=== PATIENT | female | born 1990 | race Caucasian/White ===

== ENCOUNTER 2025-04-01 23:03 | Emergency (ER) | payer MEDICAID, SELFPAY ==
[2025-04-01 23:04] VITALS: BP 148/85; PULSE 89; RESP 18; TEMP 36.2; O2SAT 100; BMI 29.7
--- OUTSIDE RECORDS SUMMARY | 2025-04-01 23:31 | XMS RPT_ITS | CCD ---
Author Organization [facility] CliniSymo Care Team Providers Care Sustainable Design Consultant Name Role Phone Efe Glover Unavailable Unavailable Brodie Dinh Unavailable Unavailable Efe Glover Unavailable Unavailable Brodie Dinh Unavailable Unavailable Igor SLOT SUPERVISOR.SURY, Abhi Primary Care Provider Unavailable Primary Care Provider Unavailabl e PROVIDER, UNKNOWN Admitting Unavailable RAFFAELE SHEPARD Attending Unavailable Igor SLOT SUPERVISOR.SURY, Abhi Primary Care Provider Igor SLOT SUPERVISOR.SURY, Abhi Primary Care Provider Igor SLOT SUPERVISOR.ELEVATOR SERVICE TECHNICIAN, Abhi Primary Care Provider Mastrucci SLOT SUPERVISOR.ELEVATOR SERVICE TECHNICIAN, Pavel Primary Care Provider MASTRUCCI, PAVEL Primary Care Unavailable MASTRUCCI, PAVEL Referring Unavailable MASTRUCCI, PAVEL Primary Care Unavailable IGOR, ABHI Primary Care Unavailable IGOR, ABHI Referring Unavailable IGOR, ABHI Primary Care Unavailable IGOR, ABHI Attending Unavailable MASTRUCCI, PAVEL Attending Unavailable MASTRUCCI, PAVEL Referring Unavailable MASTRUCCI, PAVEL Primary Care Unavailable MASTRUCCI, PAVEL Attending Unavailable MASTRUCCI, PAVEL Primary Care Unavailable Allergies Allergy Classification Reported Allergen(s) Allergy Type Date of Onset Reaction(s) Facility Dust (1 source) Dust Substance Allergy 7 Unknown [facility] shrimp allergenic extract (1 source) shrimp allergenic extract Drug Allergy 5 Hives, Diarrhea, Other: See Comments [facility] (16 sources) Dust; Translations: [DUST] Propensity to adverse reactions 7 Unknown [facility] Work Phone: (17 sources) Seasonal allergy; Translations: [SEASONAL ALLERGIES] Propensity to adverse reactions 1 Other: See Comments [facility] Work Phone: (16 sources) shrimp allergenic extract; Translations: [SHRIMP] Drug Allergy 5 Hives, Diarrhea, Other: See Comments [facility] Work Phone: (17 sources) Animal Dander; Translations: [ANIMAL DANDER] Drug Allergy 1 Other: See Comments [facility] Work Phone: Medications Current Medications Medication Drug Class(es) Dates Sig (Normalized) Sig (Original) [id number] actuat albuterol 0.09 mg/actuat metered dose inhaler (16 sources) beta2-Adrenergic Agonist Start: 08-09-2023 End: 01-11-2026 take 2 puff(s) by inhalation every four hours as needed for wheezing albuterol HFA (PROVENTIL HFA, VENTOLIN HFA) 90 mcg/actuation inhaler Indications: Mild persistent asthma, unspecified whether complicated (HCC) Inhale 2 puffs as instructed every 4 hours as needed for wheezing/shortness of breath. Per Dr. Adalberto Segura7 gasper 01/12/2025 01/11/2026 Active Start: 08-10-2022 End: 08-09-2023 take 2 puff(s) by inhalation every four hours as needed for wheezing albuterol HFA (PROVENTIL HFA, VENTOLIN HFA) 90 mcg/actuation inhaler Indications: Mild persistent asthma, unspecified whether complicated Inhale 2 Puffs as instructed every 4 hours as needed for wheezing/shortness of breath. Per Dr. Glover 18 g 3 08/10/2022 08/09/2023 Discontinued Start: 07-01-2021 End: 01-22-2022 take 2 puff(s) by inhalation every four hours as needed for wheezing albuterol HFA (PROVENTIL HFA, VENTOLIN HFA) 90 mcg/actuation inhaler Indications: Mild persistent asthma, unspecified whether complicated Inhale 2 Puffs as instructed every 4 hours as needed for wheezing/shortness of breath. Per Dr. Glover 18 gasper 3 12/23/2021 Active Comment on above: Inhale 2 Puffs as in structed every 4 hours as needed for wheezing/shortness of breath. Per Dr. Adalberto azelastine hydrochloride 0.137 mg/actuat metered dose nasal spray (1 source) Histamine-1 Receptor Antagonist Start: 2024 End: 2025 take 1 spray(s) nasal route twice daily azelastine 0.1% nasal spray Indications: Mild persistent asthma, unspecified whether complicated (HCC) , Seasonal allergies Use 1 spray in each nostril two times a day. 30 mL 5 01/12/2025 01/12/2026 Active cholecalciferol 0.05 mg oral tablet (13 sources) Vitamin D Start: 2024 End: 2025 take 1 tablet by mouth once daily cholecalciferol (VITAMIN D3) 50 mcg (2,000 unit) tablet Indications: Vitamin D deficiency Take 1 tablet by mouth once daily. 90 tablet 3 10/10/2024 10/10/2025 Active Start: 12-23-2021 End: 07-14-2024 take 1 capsule by mouth once daily Cholecalciferol, Vitamin D3, (VITAMIN D) 25 mcg (1,000 unit) cap Indications: Wellness examination Take 1 capsule by mouth once daily. 90 capsule 3 12/23/2021 07/14/2024 Discontinued Comment on above: Take 1 capsule by [facility] once daily. 60 actuat formoterol fumarate 0.005 mg/actuat / mometasone furoate 0.2 mg/actuat metered dose inhaler (7 sources) Corticosteroid, beta2-Adrenergic Agonist Start: 12-31-19 End: 04-12-20 25 take 2 puff(s) by inhalation twice daily mometasone-formoter ol (DULERA) 200-5 mcg/actuation inhaler Indications: Mild persistent asthma, unspecified whether complicated (HCC) Inhale 2 puffs as instructed two times a day. 8.8 g 3 01/12/2025 04/12/2025 Active montelukast 10 mg oral tablet (1 source) Leukotriene Receptor Antagonist Start: 01-13-20 End: 01-13-20 26 take 1 tablet by mouth once daily at bedtime montelukast (SINGULAIR) 10 mg tablet Indications: Mild persistent asthma, unspecified whether complicated (HCC) , Seasonal allergies Take 1 tablet by mouth daily at bedtime. 90 tablet 3 01/12/2025 01/12/2026 Active sertraline 50 mg oral tablet (20 sources) Serotonin Reuptake Inhibitor Start: 08-09-19 End: 07-14-20 take 3 tablets by mouth once daily sertraline (ZOLOFT) 50 mg tablet Indications: Anxiety Take 3 tablets by mouth once daily. 270 tablet 3 07/14/2024 07/14/2025 Active Start: 05-10-2023 End: 08-09-2023 take 1.5 tablets by mouth once daily sertraline (ZOLOFT) 100 mg tablet Indications: Anxiety Take 1.5 tablets by mouth once daily. No additional refills will be provided without appointment with PCP or internal medicine 135 tablet 0 05/10/2023 08/09/2023 Discontinued Start: 04-12-2023 End: 05-07-2023 take 1.5 tablets by mouth once daily sertraline (ZOLOFT) 100 mg tablet Indications: Anxiety Take 1.5 tablets by mouth once daily. 45 tablet 0 04/12/2023 05/07/2023 Discontinued Start: 08-10-2022 End: 04-09-2023 take 1.5 tablets by mouth once daily sertraline (ZOLOFT) 100 mg tablet Indications: Anxiety Take 1.5 tablets by mouth once daily. 45 tablet 3 09/09/2022 04/09/2023 Discontinued Start: 04-09-2022 take 1.5 tablets by mouth once daily sertraline (ZOLOFT) 100 mg tablet Indications: Anxiety Take 1.5 tablets by mouth once daily. 45 tablet 3 04/09/2022 Active Start: 12-03-2021 End: 04-07-2022 take 1.5 tablets by mouth once daily sertraline (ZOLOFT) 100 mg tablet Indications: Anxiety Take 1.5 tablets by mouth once daily. 45 tablet 3 12/03/2021 04/07/2022 Discontinued Start: 11-02-2021 take 1.5 tablets by mouth once daily sertraline (ZOLOFT) 100 mg tablet Indications: Anxiety Take 1.5 tablets by mouth once daily. 45 tablet 0 11/02/2021 Active Start: 07-01-2021 End: 10-31-2021 take 1.5 tablets by mouth once daily sertraline (ZOLOFT) 100 mg tablet Indications: Anxiety Take 1.5 tablets by mouth once daily. 45 tablet 3 07/01/2021 10/31/2021 Discontinued Comment on above: Take 1.5 tablets by mouth once daily. Take 1.5 tablets by mouth once daily. No additional refills will be provided without appointment with PCP or internal medicine Completed/Discontinued Medications Medication Drug Class(es) Dates Sig (Normalized) Sig (Original) ergocalciferol 1.25 mg oral capsule (2 sources) Provitamin D2 Compound Start: 2021 End: 12-23-2021 take 1 capsule by mouth every week ergocalciferol 50,000 unit capsule (VITAMIN D2, DRISDOL) Take 1 capsule by mouth one time a week. 12 capsule 0 2021 12/23/2021 Discontinued Comment on above: Take 1 capsule by [facility] one time a week. fluticasone / salmeterol (11 sources) Corticosteroid, beta2-Adrenergic Agonist Start: 12-23-2021 End: 12-31-2023 take 1 dose by mouth twice daily fluticasone-salmeter ol (ADVAIR) 500-50 mcg/dose dsdv Indications: Mild persistent asthma, unspecified whether complicated INHALE 1 DOSE BY MOUTH TWICE DAILY 1 Each 3 12/23/2021 12/31/2023 Discontinued Start: 12-23-2021 take 1 dose by mouth twice daily fluticasone-salmeterol (ADVAIR) 500-50 mcg/dose dsdv Indications: Mild persistent asthma, unspecified whether complicated INHALE 1 DOSE BY MOUTH TWICE DAILY 1 Each 3 12/23/2021 Active Start: 07-01-2021 End: 12-23-2021 take 1 dose by mouth twice daily fluticasone-salmeterol (ADVAIR) 500-50 mcg/dose dsdv Indications: Mild persistent asthma, unspecified whether complicated INHALE 1 DOSE BY MOUTH TWICE DAILY 1 Each 3 12/23/2021 Active Start: 07-01-2021 take 1 dose by mouth twice daily fluticasone-salmeterol (ADVAIR) 500-50 mcg/dose dsdv Indications: Mild persistent asthma, unspecified whether complicated INHALE 1 DOSE BY MOUTH TWICE DAILY 1 Each 3 07/01/2021 Active Comment on above: INHALE 1 DOSE BY KAEL TH TWICE DAILY 1 ml ketorolac tromethamine 15 mg/ml cartridge (1 source) Nonsteroidal Anti-inflammatory Drug, Cyclooxygenase Inhibitor Start: 01-14-2022 End: 01-14-2022 ketorolac (TORADOL) 15 MG/ML injection 2 ml ondansetron 2 mg/ml injection (2 sources) Serotonin-3 Receptor Antagonist Start: 01-14-2022 End: 01-14-2022 ondansetron (ZOFRAN) 4 MG/2ML injection Start: 01-14-2022 take 1 tablet by kael th every six hours as needed for nausea ondansetron (Zofran ODT) 4 MG disintegrating tablet Take 1 Tablet by mouth every 6 hours as needed for Nausea (Vomiting). Place 1 tablet under tongue as needed for nausea. 20 Tablet 0 01/14/2022 Active 50 ml sodium chloride 9 mg/m l injection (1 source) Start: 01-14-2022 End: 01-15-2022 sodium chloride 0.9 % iv danika us Problems Active Problems Problem Classification Problem Date Documented Da te Episodic/Chronic Abdominal pain (1 source) Flank pain; Translations: [Unspecified abdominal pain] 10-20-2024 Episodic Anxiety disorders (20 sources) Anxiety; Translations: [Anxiety disorder, unspecified] Onset: 08-02-2010 Chronic Asthma (19 sources) Mild persistent asthma; Translations: [Mild persistent asthma, uncomplicated] Onset: 11-14-2005 06-13-2017 Chronic Disorders of lipid metabolism (20 sources) Mixed hyperlipidemia; Translations: [Mixed hyperlipidemia] Onset: 03-27-2019 11-14-2019 Chronic Immunizations and screening for infectious disease (2 sources) Vaccination needed; Translations: [Encounter for immunization] Episodic Nutritional deficiencies (5 sources) Vitamin D deficiency; Translations: [Vitamin D deficiency, unspecified] Onset: 07-14-2024 12-31-2023 Chronic Other aftercare (1 source) Encounter for follow-up examination after completed treatment for conditions other than malignant neoplasm; Translations: [Follow-up exam] Onset: 01-12-2025 Episodic Other nutritional; endocrine; and metabolic disorders (1 source) Body mass index 25-29 - overweight; Translations: [Overweight] 05-24-2023 Episodic Other upper respiratory disease (1 source) Seasonal allergy; Translations: [Other seasonal allergic rhinitis] 01-12-2025 Chronic Other upper respiratory disease (1 source) Other seasonal allergic rhinitis; Translations: [Seasonal allergies] Onset: 01-12-2025 Chronic Residual codes; unclassified (1 source) Immunization not carried out because of patient refusal; Translations: [Vaccination not carried out because of patient refusal] 05-24-2023 Episodic Past or Other Problems Problem Classification Problem Date Documented Date Episodic/Chronic Administrative/social admission (2 sources) First encounter by subject; Translations: [Persons encountering health services in other specified circumstances] Onset: 07-14-2024 07-14-2024 Episodic Mood disorders (6 sources) Depressive disorder; Translations: [Depression] Onset: 01-30-2015 Resolved: 11-17-2016 11-17-2016 Chronic Nausea and vomiting (2 sources) Nausea and vomiting; Translations: [Nausea with vomiting, unspecified] Onset: 05-23-2012 Resolved: 12-27-2014 Episodic Other complications of (6 sources) History of with abortive outcome; Translations: [Supervision of with other poor reproductive or obstetric history, unspecified trimester] Onset: 05-23-2012 Resolved: 12-27-2014 07-28-2021 Episodic Other complications of (6 sources) H/O: depression; Translations: [History of depression, currently ] Onset: 05-23-2012 Resolved: 12-27-2014 07-28-2021 Episodic Other complications of (6 sources) Late entry into care; Translations: [Supervision of with insufficient care, unspecified trimester] Onset: 06-21-2012 Resolved: 12-27-2014 12-27-2014 Episodic Other complications of (6 sources) High risk ; Translations: [Supervision of high risk , unspecified, unspecified trimester] Onset: 06-21-2012 Resolved: 12-27-2014 07-28-2021 Episodic Other complications of (5 sources) Vomiting of , unspecified; Translations: [Unspecified vomiting of , unspecified as to episode of care or not applicable] Onset: 05-23-2012 Resolved: 12-27-2014 08-12-2021 Episodic Other infections; including parasitic (15 sources) History of herpes zoster; Translations: [Personal history of other infectious and parasitic diseases] Onset: 09-15-2012 Resolved: 07-14-2024 1 Episodic Other lower respiratory disease (10 sources) Chronic cough; Translations: [Chronic cough] Onset: 06-07-2017 03-05-2020 Episodic Other screening for suspected conditions (not mental disorders or infectious disease) (20 sources) Patient encounter status; Translations: [Encounter for screening for diabetes mellitus] Onset: 10-23-2016 10-23-2016 Episodic Other skin disorders (15 sources) Vesicular eczema; Translations: [Dyshidrosis [pompholyx]] Onset: 01-30-2015 09-23-2018 Episodic Ovarian cyst (6 sources) Cyst of ovary; Translations: [Unspecified ovarian cyst, unspecified side] Onset: 07-18-2012 Resolved: 12-27-2014 07-28-2021 Episodic Residual codes; unclassified (10 sources) FH: Congenital anomaly; Translations: [Family history of other congenital malformations, deformations and chromosomal abnormalities] Onset: 05-23-2012 07-28-2021 Episodic Residual codes; unclassified (15 sources) Abnormal cytology findings; Translations: [LGSIL (low grade squamous intraepithelial dysplasia)] Onset: 07-05-2012 07-28-2021 Episodic Residual codes; unclassified (15 sources) Family history of cardiac disorder; Translations: [Family history of ischemic heart disease and other diseases of the circulatory system] Onset: 03-23-2019 Resolved: 07-14-2024 04-03-2019 Episodic Residual codes; unclassified (6 sources) Rubella non-immune; Translations: [Other specified health status] Onset: 05-25-2012 Resolved: 12-27-2014 12-27-2014 Episodic Screening and history of mental health and substance abuse codes (1 source) Encounter for screening for depression; Translations: [Screening for depression] Onset: 07-14-2024 Episodic Results Test Name Value Interpretation Reference Range Facility [facility] 01-12-2025 CNCO Letter Text Normal [facility] CNOVon 01-12-2025 CNOV Office Visit (AGSAM) ----- KRISTINE FREEMAN ([id number]) 1990 F Date Time Provider Department 01/12/25 10:20 AM PAVEL MUNGUIA During your visit today, we recorded the following information about you: Pulse Respiration Blood pressure Weight 90/minute 16/minute 117/81 72.6 kg Pavel Munguia APRN.CNP 01/12/2025 10:05 AM Signed [facility] [address] [place] [address] Date of Evaluation: 01/12/2025 Patient Name: Kristine Freeman : 1990 Chief Complaint: Patient presents with: Follow Up: 6 Month. Allergies have been bad. [place] Itchy red eyes, nose, sore throat, sneezing. Subjective HPI Ms. Freeman is a 34 year old female who presents for: Follow up Current concerns: [place] and had increase in allergy symptoms for the past month. No OTC medications. Continues to work on diet and exercise to improve her lipids. Review of Systems Constitutional: Negative for activity change, appetite change, chills and fever. HENT: Positive for congestion, rhinorrhea and sneezing. Negative for ear pain, hearing loss, sinus pressure, sinus pain, sore throat and trouble swallowing. Eyes: Positive for itching. Negative for visual disturbance. Respiratory: Negative for cough, chest tightness, shortness of breath and wheezing. Cardiovascular: Negative for chest pain, palpitations and leg swelling. Gastrointestinal: Negative for abdominal pain, diarrhea, nausea and vomiting. Genitourinary: Negative for dysuria and frequency. Musculoskeletal: Negative for arthralgias and myalgias. Skin: Negative for pallor, rash and wound. Neurological: Negative for dizziness, light-headedness, numbness and headaches. Psychiatric/Behavioral: Negative for behavioral problems, confusion, hallucinations and suicidal ideas. PAST MEDICAL HISTORY Diagnosis Date Anxiety 2010 Had anxiety for a long time, possibly since middle school. Only diagnosed 6 years ago. Asthma, mild persistent (HCC) 11/14/2005 As of 06/07/2017: Managed per Dr. Glover Dyshidrotic eczema 01/30/2015 Family history of defect 05/23/2012 05/23/2012Patient states that her daughter was born with Rett syndrome with mental retardation. Family history of heart disease 03/23/2019 father at the age of 55 from Heart aneurism. History of section 05/23/2012 05/23/2012Pt had two previous C sections at [facility] in [place], [place]. She desires a repeat C section by Dr. Callie Barraza. History of shingles 09/15/2012 September 15, 2012 shingles diagnosed and ordered acyclovir-risk of transmission extremely low, recommend fu US at 30 weeks, follow growth PRN Hyperlipidemia, mixed 03/27/2019 LGSIL (low grade squamous intraepithelial dysplasia) 07/05/2012 Ovarian cyst right depression Shingles 09/15/2012 September 15, 2012 shingles diagnosed and ordered acyclovir-risk of transmission extremely low, recommend fu US at 30 weeks, follow growth PRN Well adult exam 03/23/2019 Last Done: 03/23/2019 PAST SURGICAL HISTORY Procedure Laterality Date DELIVERY ONLY , low transverseX2 DELIVERY ONLY 12/27/12 , low transverse DILATION AND CURETTAGE TUBAL LIGATION, 2012 VAGINOSCOPY 07/11/2012 FAMILY HISTORY Problem Relation Age of Onset Hypertension Mother other (Other) Mother MS Diabetes Father Kidney Disease Father Heart Father 55 of a heart anyurism Heart Paternal Grandfather Social History Tobacco Use Smoking status: Former Smokeless tobacco: Never Tobacco comments: quit early this year Substance Use Topics Alcohol use: No Drug use: No Current Outpatient Medications Medication Sig cholecalciferol (VITAMIN D3) 50 mcg (2,000 unit) tablet Take 1 tablet by mouth once daily. sertraline (ZOLOFT) 50 mg tablet Take 3 tablets by mouth once daily. montelukast (SINGULAIR) 10 mg tablet Take 1 tablet by mouth daily at bedtime. azelastine 0.1% nasal spray Use 1 spray in each nostril two times a day. albuterol HFA (PROVENTIL HFA, VENTOLIN HFA) 90 mcg/actuation inhaler Inhale 2 puffs as instructed every 4 hours as needed for wheezing/shortness of breath. Per Dr. Adalberto mometasone-formoterol (DULERA) 200-5 mcg/actuation inhaler Inhale 2 puffs as instructed two times a day. No current facility-administered medications for this visit. I have confirmed and edited as necessary the chief complaint, medications, past medical, family and social histories obtained by others. Objective BP 117/81 Pulse 90 Resp 16 Wt 160 lb (72.6kg) SpO2 100% LMP 10/10/2024 Physical Exam Vitals reviewed. Constitutional: General: She is not in acute distress. Appearance: Normal a (more content not included)... Normal [facility] Bacteria Ur Culton 5 Bacteria identified Cx Nom (U) ORGANISM ID: 1 <10,000 CFU/ml Normal urogenital irene Normal [facility] Comment on above: Performed By: #### 6 30-4 #### [facility] CLIA [id number] [address] [place] [address] [facility] CNOVon 10-20-2024 CNOV Office Visit (UCWSTR ) ----- KRISTINE FREEMAN ([id number]) 1990 F Date Time Provider Department 10/20/24 11:00 AM [facility] During your visit today, we recorded the following information about you: Temperature Pulse Respiration Blood pressure 97 degrees 64/minute 20/minute 149/88 Weight Last Period 72 kg 10/10/24 Lucy Mobley APRN.ELEVATOR SERVICE TECHNICIAN 10/20/2024 11:12 AM Signed History has been obtained from the patient SUBJECTIVE: Kristine Freeman is a 34 year old female. Who presents today with L flank pain. 4 days ago she had pain in the L groin. That pain is gone and now it is just in the flank. She has no urinary symptoms of frequency burning pain with urination. She has no blood in the urine. At times she had a few shooting pain in the LLQ. The pain feels achy and dull. She has not had a rash. She has had shingles in the past but this feels different. She does not have a fever. She has had a history of kidney stones. This does feel reminiscent of the kidney stones however she has not had blood in the urine. However she states that the pain seems to move from the flank into the abdomen into the groin. History and Record Review External record(s) reviewed: prior outpatient record. Differential Diagnoses - kidney stone is more likely for the following reason(s): suggested by HANDP - shingles - UTI is less likely for the following reason(s): laboratory studies not suggestive PAST MEDICAL HISTORY Diagnosis Date Anxiety 2010 Had anxiety for a long time, possibly since middle school. Only diagnosed 6 years ago. Asthma, mild persistent 11/14/2005 As of 06/07/2017: Managed per Dr. Glover Dyshidrotic eczema 01/30/2015 Family history of defect 05/23/2012 05/23/2012Patient states that her daughter was born with Rett syndrome with mental retardation. Family history of heart disease 03/23/2019 father at the age of 55 from Heart aneurism. History of section 05/23/2012 05/23/2012Pt had two previous C sections at [facility] in [place], [place]. She desires a repeat C section by Dr. Callie Barraza. History of shingles 09/15/2012 September 15, 2012 shingles diagnosed and ordered acyclovir-risk of transmission extremely low, recommend fu US at 30 weeks, follow growth PRN Hyperlipidemia, mixed 03/27/2019 LGSIL (low grade squamous intraepithelial dysplasia) 07/05/2012 Ovarian cyst right depression Shingles 09/15/2012 September 15, 2012 shingles diagnosed and ordered acyclovir-risk of transmission extremely low, recommend fu US at 30 weeks, follow growth PRN Well adult exam 03/23/2019 Last Done: 03/23/2019 FAMILY HISTORY Problem Relation Age of Onset Hypertension Mother other (Other) Mother MS Diabetes Father Kidney Disease Father Heart Father 55 of a heart anyurism Heart Paternal Grandfather Social History Tobacco Use Smoking status: Former Smokeless tobacco: Never Tobacco comments: quit early this year Substance Use Topics Alcohol use: No Drug use: No ALLERGIES Allergen Reactions Shrimp Hives, Diarrhea, Other: See Comments Throat felt slightly constricted Animal Dander Other: See Comments ALLERGIC TO DOG AND CAT HAIR Dust Unknown Seasonal Allergies Other: See Comments NASAL CONGESTION Current Outpatient Medications Medication Sig Dispense Refill cholecalciferol (VITAMIN D3) 50 mcg (2,000 unit) tablet Take 1 tablet by mouth once daily. 90 tablet 3 sertraline (ZOLOFT) 50 mg tablet Take 3 tablets by mouth once daily. 270 tablet 3 albuterol HFA (PROVENTIL HFA, VENTOLIN HFA) 90 mcg/actuation inhaler Inhale 2 Puffs as instructed every 4 hours as needed for wheezing/shortness of breath. Per Dr. Glover 6.7 g 0 mometasone-formoterol (DULERA) 200-5 mcg/actuation inhaler Inhale 2 Puffs as instructed two times a day. 8.8 g 3 No current facility-administered medications for this visit. OBJECTIVE: BP 149/88 Pulse 64 Temp 36.1 ?C (97 ?F) Resp 20 Wt 72 kg (158 lb 11.7 oz) LMP 10/10/2024 (Approximate) SpO2 99% BMI 29.03 kg/m? ROS all other systems reviewed and are negative Physical Exam Constitutional: Well developed, well nourished, NAD, AANDO X3 ENT: Head is atraumatic, airway patent, mucosal membranes moist pink Cardiac: Heart tone normal rate and rhythm Respiratory: Respirations even and unlabored, Lung sounds clear GI: Abdomen soft and non-distended, non-tenderness, no rebound or guarding, bowel sounds normal. : + left CVA tenderness MS: no swelling, or deformity in upper or lower extremities, no midline tenderness in cervical, thoracic or lumbar spine. Neuro: strength sensation and coordination intact. CN II-XII grossly intact, Skin: warm and dry with out rash, lesion or ecchymosis on exposed skin Psych: alert appropriate, speech clear MDM It was a pleasure to (more content not included)... Normal [facility] UA DIP, URINE (POC)on 2024 BILIRUBIN UA (POCT) Negative Negative [facility] CLARITY UA (POCT) Clear [facility] COLOR UA (POCT) Yellow [facility] GLUCOSE UA (POCT) Negative Negative mg/dL [facility] Hemoglobin Ql (U) Negative Negative [facility] KETONE UA (POCT) Negative Negative mg/dL [facility] LEUKOCYTES UA (POCT) Negative Negative [facility] NITRITE UA (POCT) Negative Negative [facility] PH UA (POCT) 6.5 4.5 - 8.0 [facility] Protein Ql (U) Negative Negative mg/dL [facility] SPECIFIC GRAVITY UA (POCT) 1.02 1.005 - 1.030 [facility] UROBILINOGEN UA (POCT) 0.2 Normal E.U./dL [facility] Location:[facility], [address] [place] [address], [place], [place], [id number] [place] [address] POINT OF CARE [facility] 25(OH)D3 SerPl-ncon 2024 25-hydroxyvitamin D3 [Mass/Vol] 17.9 ng/mL Low 31.0-80.0 [facility] Comment on above: Order Comment: Speci men Type: BLOOD SPECIMEN Ordering Facility: [facility] Address: [address] [place] [address] Performed By: #### 1 989-3 #### [facility] CLIA [id number] [address] [place] [address] [place] CBC W Auto Differential pane l (Bld)on 10-09-2024 Basophils (Bld) [#/Vol] 0.06 10*3/uL Normal <0.11 [facility] Comment on above: Order Comment: Speci men Type: BLOOD SPECIMEN Ordering Facility: [facility] Address: [address] [place] [address] Performed By: #### 5 7021-8 #### [facility] CLIA [id number] [address] [place] [address] [place] Basophils/100 WBC (Bld) 1.2 % Normal [facility] Comment on above: Order Comment: Speci men Type: BLOOD SPECIMEN Ordering Facility: [facility] Address: [address] [place] [address] Performed By: #### 5 7021-8 #### [facility] CLIA [id number] [address] [place] [address] [place] Differential cell count method Nom (Bld) Auto Normal [facility] Comment on above: Order Comment: Speci men Type: BLOOD SPECIMEN Ordering Facility: [facility] Address: [address] [place] [address] Performed By: #### 5 7021-8 #### [facility] CLIA [id number] [address] [place] [address] [place] Eosinophils (Bld) [#/Vol] 0.66 10*3/uL High <0.46 [facility] Comment on above: Order Comment: Speci men Type: BLOOD SPECIMEN Ordering Facility: [facility] Address: [address] [place] [address] Performed By: #### 5 7021-8 #### [facility] CLIA [id number] [address] [place] [address] [place] Eosinophils/100 WBC (Bld) 13.3 % Normal [facility] Comment on above: Order Comment: Speci men Type: BLOOD SPECIMEN Ordering Facility: [facility] Address: [address] [place] [address] Performed By: #### 5 7021-8 #### [facility] CLIA [id number] [address] [place] [address] [place] Erythrocyte distribution width (RBC) [Ratio] 13.2 % Normal 11.5-15.0 [facility] Comment on above: Order Comment: Speci men Type: BLOOD SPECIMEN Ordering Facility: [facility] Address: [address] [place] [address] Performed By: #### 5 7021-8 #### [facility] CLIA [id number] [address] [place] [address] [place] Hematocrit (Bld) [Volume fraction] 41.2 % Normal 36.0-46.0 [facility] Comment on above: Order Comment: Speci men Type: BLOOD SPECIMEN Ordering Facility: [facility] Address: [address] [place] [address] Performed By: #### 5 7021-8 #### [facility] CLIA [id number] [address] [place] [address] [place] Hemoglobin (Bld) [Mass/Vol] 13.3 g/dL Normal 11.5-15.5 [facility] Comment on above: Order Comment: Speci men Type: BLOOD SPECIMEN Ordering Facility: [facility] Address: [address] [place] [address] Performed By: #### 5 7021-8 #### [facility] CLIA [id number] [address] [place] [address] [place] Immature granulocytes (Bld) [#/Vol] 10*3/uL Normal <0.10 [facility] Comment on above: Order Comment: Speci men Type: BLOOD SPECIMEN Ordering Facility: [facility] Address: [address] [place] [address] Performed By: #### 5 7021-8 #### [facility] CLIA [id number] [address] [place] [address] [place] Immature granulocytes/100 WBC (Bld) 0.4 % Normal [facility] Comment on above: Order Comment: Speci men Type: BLOOD SPECIMEN Ordering Facility: [facility] Address: [address] [place] [address] Performed By: #### 5 7021-8 #### [facility] CLIA [id number] [address] [place] [address] [place] Lymphocytes (Bld) [#/Vol] 1.90 10*3/uL Normal 1.00-4.00 [facility] Comment on above: Order Comment: Speci men Type: BLOOD SPECIMEN Ordering Facility: [facility] Address: [address] [place] [address] Performed By: #### 5 7021-8 #### [facility] CLIA [id number] [address] [place] [address] [place] Lymphocytes/100 WBC (Bld) 38.2 % Normal [facility] Comment on above: Order Comment: Speci men Type: BLOOD SPECIMEN Ordering Facility: [facility] Address: [address] [place] [address] Performed By: #### 5 7021-8 #### [facility] CLIA [id number] [address] [place] [address] [place] MCH (RBC) [Entitic mass] 27.7 pg Normal 26.0-34.0 [facility] Comment on above: Order Comment: Speci men Type: BLOOD SPECIMEN Ordering Facility: [facility] Address: [address] [place] [address] Performed By: #### 5 7021-8 #### [facility] CLIA [id number] [address] [place] [address] [place] MCHC (RBC) [Mass/Vol] 32.3 g/dL Normal 30.5-36.0 [facility] Comment on above: Order Comment: Speci men Type: BLOOD SPECIMEN Ordering Facility: [facility] Address: [address] [place] [address] Performed By: #### 5 7021-8 #### [facility] CLIA [id number] [address] [place] [address] [place] MCV (RBC) [Entitic vol] 85.8 fL Normal 80.0-100.0 [facility] Comment on above: Order Comment: Speci men Type: BLOOD SPECIMEN Ordering Facility: [facility] Address: [address] [place] [address] Performed By: #### 5 7021-8 #### [facility] CLIA [id number] [address] [place] [address] [place] Monocytes (Bld) [#/Vol] 0.30 10*3/uL Normal <0.87 [facility] Comment on above: Order Comment: Speci men Type: BLOOD SPECIMEN Ordering Facility: [facility] Address: [address] [place] [address] Performed By: #### 5 7021-8 #### [facility] CLIA [id number] [address] [place] [address] [place] Monocytes/100 WBC (Bld) 6.0 % Normal [facility] Comment on above: Order Comment: Speci men Type: BLOOD SPECIMEN Ordering Facility: [facility] Address: [address] [place] [address] Performed By: #### 5 7021-8 #### [facility] CLIA [id number] [address] [place] [address] [place] Neutrophils (Bld) [#/Vol] 2.04 10*3/uL Normal 1.45-7.50 [facility] Comment on above: Order Comment: Speci men Type: BLOOD SPECIMEN Ordering Facility: [facility] Address: [address] [place] [address] Performed By: #### 5 7021-8 #### [facility] CLIA [id number] [address] [place] [address] [place] Neutrophils/100 WBC (Bld) 40.9 % Normal [facility] Comment on above: Order Comment: Speci men Type: BLOOD SPECIMEN Ordering Facility: [facility] Address: [address] [place] [address] Performed By: #### 5 7021-8 #### [facility] CLIA [id number] [address] [place] [address] [place] Nucleated RBC (Bld) [#/Vol] 10*3/uL Normal <0.01 [facility] Comment on above: Order Comment: Speci men Type: BLOOD SPECIMEN Ordering Facility: [facility] Address: [address] [place] [address] Performed By: #### 5 7021-8 #### [facility] CLIA [id number] [address] [place] [address] [place] Nucleated RBC/100 WBC (Bld) [Ratio] 0.0 /100 WBC Normal [facility] Comment on above: Order Comment: Speci men Type: BLOOD SPECIMEN Ordering Facility: [facility] Address: [address] [place] [address] Performed By: #### 5 7021-8 #### [facility] CLIA [id number] [address] [place] [address] [place] Platelet mean volume (Bld) [Entitic vol] 9.3 fL Normal 9.0-12.7 [facility] Comment on above: Order Comment: Speci men Type: BLOOD SPECIMEN Ordering Facility: [facility] Address: [address] [place] [address] Performed By: #### 5 7021-8 #### [facility] CLIA [id number] [address] [place] [address] [place] Platelets (Bld) [#/Vol] 281 10*3/uL Normal 150-400 [facility] Comment on above: Order Comment: Speci men Type: BLOOD SPECIMEN Ordering Facility: [facility] Address: [address] [place] [address] Performed By: #### 5 7021-8 #### [facility] CLIA [id number] [address] [place] [address] [place] RBC (Bld) [#/Vol] 4.80 10*6/uL Normal 3.90-5.20 [facility] Comment on above: Order Comment: Speci men Type: BLOOD SPECIMEN Ordering Facility: [facility] Address: [address] [place] [address] Performed By: #### 5 7021-8 #### [facility] CLIA [id number] [address] [place] [address] [place] WBC (Bld) [#/Vol] 4.98 10*3/uL Normal 3.70-11.00 [facility] Comment on above: Order Comment: Speci men Type: BLOOD SPECIMEN Ordering Facility: [facility] Address: [address] [place] [address] Performed By: #### 5 7021-8 #### [facility] CLIA [id number] [address] [place] [address] [place] Comprehensive metabolic 2000 panelon 10-09-2024 Albumin [Mass/Vol] 4.3 g/dL Normal 3.9-4.9 [facility] Comment on above: Order Comment: Speci men Type: BLOOD SPECIMEN Ordering Facility: [facility] Address: [address] [place] [address] Performed By: #### 2 4323-8, 57519-0, 3016-3 #### [facility] CLIA [id number] [address] [place] [address] [place] ALP [Catalytic activity/Vol] 45 U/L Normal 34-123 [facility] Comment on above: Order Comment: Speci men Type: BLOOD SPECIMEN Ordering Facility: [facility] Address: [address] [place] [address] Performed By: #### 2 4323-8, 80259-3, 3016-3 #### [facility] CLIA [id number] [address] [place] [address] [place] ALT [Catalytic activity/Vol] 11 U/L Normal 7-38 [facility] Comment on above: Order Comment: Speci men Type: BLOOD SPECIMEN Ordering Facility: [facility] Address: [address] [place] [address] Performed By: #### 2 4323-8, 55413-6, 3016-3 #### [facility] CLIA [id number] [address] [place], [place] [address] [place] Anion gap [Moles/Vol] 8 mmol/L Normal 8-15 [facility] Comment on above: Order Comment: Speci men Type: BLOOD SPECIMEN Ordering Facility: [facility] Address: [address] [place], [place] [address] Performed By: #### 2 4323-8, 72204-9, 3015-3 #### [facility] CLIA [id number] [address] [place], [place] [address] [place] AST [Catalytic activity/Vol] 20 U/L Normal 13-35 [facility] Comment on above: Order Comment: Speci men Type: BLOOD SPECIMEN Ordering Facility: [facility] Address: [address] [place], [place] [address] Performed By: #### 2 4323-8, 48280-2, 3 #### [facility] CLIA [id number] [address] [place] [address] [place] Bilirubin [Mass/Vol] 0.9 mg/dL Normal 0.2-1.3 [facility] Comment on above: Order Comment: Speci men Type: BLOOD SPECIMEN Ordering Facility: [facility] Address: [address] [place], [place] [address] Performed By: #### 2 4323-8, 65267-6, 3 #### [facility] CLIA [id number] [address] [place], [place] [address] [place] Calcium [Mass/Vol] 9.1 mg/dL Normal 8.5-10.2 [facility] Comment on above: Order Comment: Speci men Type: BLOOD SPECIMEN Ordering Facility: [facility] Address: [address] [place], [place] [address] Performed By: #### 2 4323-8, 49837-4, 3 #### [facility] CLIA [id number] [address] [place], [place] [address] [place] Chloride [Moles/Vol] 106 mmol/L Normal 98-107 [facility] Comment on above: Order Comment: Speci men Type: BLOOD SPECIMEN Ordering Facility: [facility] Address: [address] [place] [address] Performed By: #### 2 4323-8, 11573-7, 3015-3 #### [facility] CLIA [id number] [address] [place] [address] [place] CO2 [Moles/Vol] 26 mmol/L Normal 22-30 [facility] Comment on above: Order Comment: Speci men Type: BLOOD SPECIMEN Ordering Facility: [facility] Address: [address] [place] [address] Performed By: #### 2 4323-8, 79029-5, 3 #### [facility] CLIA [id number] [address] [place] [address] [place] Creatinine [Mass/Vol] 0.84 mg/dL Normal 0.58-0.96 [facility] Comment on above: Order Comment: Speci men Type: BLOOD SPECIMEN Ordering Facility: [facility] Address: [address] [place] [address] Performed By: #### 2 4323-8, 49501-3, 3 #### [facility] CLIA [id number] [address] [place] [address] [place] Creatinine and Glomerular filtration rate.predicted panel (S/P/Bld) 93 mL/min/1.73m??? Normal >=60 [facility] Comment on above: Order Comment: Speci men Type: BLOOD SPECIMEN Ordering Facility: [facility] Address: [address] [place] [address] Result Comment: Nidai mated Glomerular Filtration Rate (eGFR) is calculated using the 2020 CKD-EPI creatinine equation. This equation utilizes serum creatinine, sex, and age as parameters. The creatinine assay has traceable calibration to isotope dilution-mass spectrometry. Refer to KDIGO guidelines for clinical interpretation. In patients with unstable renal function, e.g. those with acute kidney injury, the eGFR may not accurately reflect actual GFR. Performed By: #### 2 4323-8, 13102-4, 3016-3 #### [facility] CLIA [id number] [address] [place], [place] [address] [place] Glucose [Mass/Vol] 87 mg/dL Normal 74-99 [facility] Comment on above: Order Comment: Hans dawson Type: BLOOD SPECIMEN Ordering Facility: [facility] Address: [address] [place] [address] Result Comment: The [place] Diabetes [employer] (ADA) provides guidance for cutoff values for fasting glucose and random glucose. The ADA defines fasting as no caloric intake for at least 8 hours. Fasting plasma glucose results between 100 to 125 mg/dL indicate increased risk for diabetes (prediabetes). Fasting plasma glucose results greater than or equal to 126 mg/dL meet the criteria for diagnosis of diabetes. In the absence of unequivocal hyperglycemia, results should be confirmed by repeat testing. In a patient with classic symptoms of hyperglycemia or hyperglycemic crisis, random plasma glucose results greater than or equal to 200 mg/dL meet the criteria for diagnosis of diabetes. Reference: Standards of Medical Care in Diabetes 2016, [place] [employer]. Diabetes Care. 2016.39(Suppl 1). Performed By: #### 2 4323-8, 68547-1, 6-3 #### [facility] CLIA [id number] [address] [place] [address] [place] Potassium [Moles/Vol] 4.6 mmol/L Normal 3.7-5.1 [facility] Comment on above: Order Comment: Hans dawson Type: BLOOD SPECIMEN Ordering Facility: [facility] Address: [address] [place] [address] Performed By: #### 2 4323-8, 92332-0, 6-3 #### [facility] CLIA [id number] [address] [place] [address] [place] Protein [Mass/Vol] 6.5 g/dL Normal 6.3-8.0 [facility] Comment on above: Order Comment: Hans dawson Type: BLOOD SPECIMEN Ordering Facility: [facility] Address: [address] [place] [address] Performed By: #### 2 4323-8, 70466-8, 3016-3 #### [facility] CLIA [id number] [address] [place], [place] [address] [place] Sodium [Moles/Vol] 140 mmol/L Normal 136-144 [facility] Comment on above: Order Comment: Speci men Type: BLOOD SPECIMEN Ordering Facility: [facility] Address: [address] [place] [address] Performed By: #### 2 4323-8, 64387-2, 3016-3 #### [facility] CLIA [id number] [address] [place] [address] [place] Urea nitrogen [Mass/Vol] 12 mg/dL Normal 7-21 [facility] Comment on above: Order Comment: Speci men Type: BLOOD SPECIMEN Ordering Facility: [facility] Address: [address] [place] [address] Performed By: #### 2 4323-8, 23282-3, 3016-3 #### [facility] CLIA [id number] [address] [place] [address] [place] Lipid 1996 panelon 5 Cholesterol [Mass/Vol] 232 mg/dL High <200 [facility] Comment on above: Order Comment: Speci men Type: BLOOD SPECIMEN Ordering Facility: [facility] Address: [address] [place], [place] [address] Result Comment: <200 mg/dL, Desirable 200-239 mg/dL, Borderline high >239 mg/dL, High Performed By: #### 2 4323-8, 45762-8, 3016-3 #### [facility] CLIA [id number] [address] [place] [address] [place] Cholesterol in HDL [Mass/Vol] 61 mg/dL Normal >39 [facility] Comment on above: Order Comment: Speci men Type: BLOOD SPECIMEN Ordering Facility: [facility] Address: [address] [place], [place] [address] Result Comment: 40-5 9 mg/dL, Acceptable >59 mg/dL, High: Negative risk factor for coronary heart disease <40 mg/dL, Low: Positive risk factor for coronary heart disease Performed By: #### 2 4323-8, 67779-2, 6-3 #### [facility] CLIA [id number] [address] [facility] [address] [address] [place] Cholesterol in LDL [Mass/Vol] 159 mg/dL High <100 [facility] Comment on above: Order Comment: Dianei men Type: BLOOD SPECIMEN Ordering Facility: [facility] Address: [address] [place] [address] Result Comment: <100 mg/dL, Optimal 100-129 mg/dL, Near optimal/above optimal 130-159 mg/dL, Borderline high 160-189 mg/dL, High >189 mg/dL, Very high Secondary prevention optimal LDL Cholesterol levels are recommended to be < 70 mg/dL Performed By: #### 2 4323-8, 74655-9, 3015-3 #### [facility] CLIA [id number] [address] [place] [address] [place] Cholesterol in LDL/Cholesterol in HDL [Mass ratio] 2.61 {ratio} High <2.54 [facility] Comment on above: Order Comment: Hans men Type: BLOOD SPECIMEN Ordering Facility: [facility] Address: [address] [place] [address] Result Comment: Dianna swartz: 1. National Cholesterol Education Program ATP III Guideline At-A-Glance Quick Desk Reference: National Heart, Lung, and Blood [place]. National Institutes of Health. 2001: NIH Publication No. 01-3305. 2. An International Atherosclerosis Society position paper: global recommendations for the management of dyslipidemia: executive summary, Atherosclerosis. 2014: 232(2):410-413. Performed By: #### 2 4323-8, 57352-7, 3015-3 #### [facility] CLIA [id number] [address] [address] [place] Cholesterol in VLDL [Mass/Vol] 12 mg/dL Normal <30 [facility] Comment on above: Order Comment: Speci men Type: BLOOD SPECIMEN Ordering Facility: [facility] Address: [address] [place] [address] Performed By: #### 2 4323-8, 37509-6, 3015-3 #### [facility] CLIA [id number] [address] [place] [address] [place] Cholesterol non HDL [Mass/Vol] 171 mg/dL High <130 [facility] Comment on above: Order Comment: Speci men Type: BLOOD SPECIMEN Ordering Facility: [facility] Address: [address] [place] [address] Result Comment: <130 mg/dL, Optimal 130-159 mg/dL, Near optimal/above optimal 160-189 mg/dL, Borderline high 190-219 mg/dL, High >219 mg/dL, Very high Secondary prevention optimal non HDL Cholesterol levels are recommended to be <100 mg/dL Performed By: #### 2 4323-8, 84929-6, 3 #### [facility] CLIA [id number] [address] [place] [address] [place] Cholesterol.total/Cho lesterol in HDL [Mass ratio] 3.80 {ratio} Normal <5.10 [facility] Comment on above: Order Comment: Speci men Type: BLOOD SPECIMEN Ordering Facility: [facility] Address: [address] [place] [address] Performed By: #### 2 4323-8, 48999-0, 3 #### [facility] CLIA [id number] [address] [place], [place] [address] [place] FASTING TIME 12 hrs Normal [facility] Comment on above: Order Comment: Speci men Type: BLOOD SPECIMEN Ordering Facility: [facility] Address: [address] [place] [address] Performed By: #### 2 4323-8, 96310-3, 3015-3 #### [facility] CLIA [id number] [address] [place] [address] [place] Triglyceride [Mass/Vol] 61 mg/dL Normal <150 [facility] Comment on above: Order Comment: Hans dawson Type: BLOOD SPECIMEN Ordering Facility: [facility] Address: [address] [place] [address] Result Comment: <150 mg/dL, Normal 150-199 mg/dL, Borderline high 200-499 mg/dL, High >499 mg/dL, Very high Performed By: #### 2 4323-8, 63898-7, 3015-3 #### [facility] CLIA [id number] [address] [place] [address] [place] TSH SerPl-aCncon 10-09-2024 TSH Qn 2.060 m[IU]/L Normal 0.270-4.200 [facility] Comment on above: Order Comment: Hans dawson Type: BLOOD SPECIMEN Ordering Facility: [facility] Address: [address] [place] [address] Result Comment: If t he patient is , TSH reference range varies by gestational period: First Trimester (weeks 9-12): 0.180-2.990 mIU/L Second Trimester: 0.110-3.980 mIU/L Third Trimester: 0.480-4.710 mIU/L Jassi Chavira et al. A Practical Approach for the Verifications and Determination of Site- and Trimester-Specific Reference Intervals for Thyroid Function tests in . Thyroid, 2019:29:3:412-420. Sherif Arreguin, et al. 2017 Guidelines of the [place] Thyroid Association for the Diagnosis and Management of Thyroid Disease during and the . Thyroid, 2017:27:3:315-389. Performed By: #### 2 4323-8, 45293-4, 3015-3 #### [facility] CLIA [id number] [address] [place] [address] [place] CNCOon 07-18-2024 CNCO Letter Text Normal [facility] CNOVon 07-14-2024 CNOV Office Visit (AGSAM) ----- KRISTINE FREEMAN ([id number]) 1990 F Date Time Provider Department 07/14/24 10:20 AM PAVEL MUNGUIA During your visit today, we recorded the following information about you: Pulse Respiration Blood pressure Weight 75/minute 16/minute 124/83 68.9 kg Height 1.575 m Pavel Munguia APRN.ELEVATOR SERVICE TECHNICIAN 07/14/2024 10:24 AM Signed [facility] [address] [place] [address] Date of Evaluation: 07/14/2024 Patient Name: Kristine Freeman : 1990 Chief Complaint: Patient presents with: New Patient: Establishing care refills Subjective HPI Ms. Freeman is a 34 year old female who presents for: establishing care. Anxiety well controlled on current Zoloft dose. HLD- working on diet and exercise. Due for labs to reassess. Asthma well controlled on current Dulera and PRN albuterol. Review of Systems Constitutional: Negative for activity change, appetite change, chills and fever. HENT: Negative for ear pain, hearing loss, sinus pressure, sinus pain, sore throat and trouble swallowing. Eyes: Negative for visual disturbance. Respiratory: Negative for cough, chest tightness, shortness of breath and wheezing. Cardiovascular: Negative for chest pain, palpitations and leg swelling. Gastrointestinal: Negative for abdominal pain, diarrhea, nausea and vomiting. Genitourinary: Negative for dysuria and frequency. Musculoskeletal: Negative for arthralgias and myalgias. Skin: Negative for pallor, rash and wound. Neurological: Negative for dizziness, light-headedness, numbness and headaches. Psychiatric/Behavioral: Negative for behavioral problems, confusion, hallucinations and suicidal ideas. PAST MEDICAL HISTORY Diagnosis Date Anxiety 2010 Had anxiety for a long time, possibly since middle school. Only diagnosed 6 years ago. Asthma, mild persistent 11/14/2005 As of 06/07/2017: Managed per Dr. Glover Dyshidrotic eczema 01/30/2015 Family history of defect 05/23/2012 05/23/2012Patient states that her daughter was born with Rett syndrome with mental retardation. Family history of heart disease 03/23/2019 father at the age of 55 from Heart aneurism. History of section 05/23/2012 05/23/2012Pt had two previous C sections at [facility] in [place], [place]. She desires a repeat C section by Dr. Callie Barraza. History of shingles 09/15/2012 September 15, 2012 shingles diagnosed and ordered acyclovir-risk of transmission extremely low, recommend fu US at 30 weeks, follow growth PRN Hyperlipidemia, mixed 03/27/2019 LGSIL (low grade squamous intraepithelial dysplasia) 07/05/2012 Ovarian cyst right depression Shingles 09/15/2012 September 15, 2012 shingles diagnosed and ordered acyclovir-risk of transmission extremely low, recommend fu US at 30 weeks, follow growth PRN Well adult exam 03/23/2019 Last Done: 03/23/2019 PAST SURGICAL HISTORY Procedure Laterality Date DELIVERY ONLY , low transverseX2 DELIVERY ONLY 12/27/12 , low transverse DILATION AND CURETTAGE TUBAL LIGATION, 2013 VAGINOSCOPY 07/11/2012 FAMILY HISTORY Problem Relation Age of Onset Hypertension Mother other (Other) Mother MS Diabetes Father Kidney Disease Father Heart Father 55 of a heart anyurism Heart Paternal Grandfather Social History Tobacco Use Smoking status: Former Smokeless tobacco: Never Tobacco comments: quit early this year Substance Use Topics Alcohol use: No Drug use: No Current Outpatient Medications Medication Sig albuterol HFA (PROVENTIL HFA, VENTOLIN HFA) 90 mcg/actuation inhaler Inhale 2 Puffs as instructed every 4 hours as needed for wheezing/shortness of breath. Per Dr. Glover mometasone-formoterol (DULERA) 200-5 mcg/actuation inhaler Inhale 2 Puffs as instructed two times a day. sertraline (ZOLOFT) 50 mg tablet Take 3 tablets by mouth once daily. No current facility-administered medications for this visit. I have confirmed and edited as necessary the chief complaint, medications, past medical, family and social histories obtained by others. Objective BP 124/83 Pulse 75 Resp 16 Ht 5' 2 (1.58m) Wt 152 lb (68.9kg) SpO2 100% LMP 12/26/2022 BMI 27.79 kg/(m2). Physical Exam Vitals reviewed. Constitutional: General: She is not in acute distress. Appearance: Normal appearance. She is normal weight. HENT: Head: Normocephalic. Eyes: Extraocular Movements: Extraocular movements intact. Conjunctiva/sclera: Conjunctivae normal. Pupils: Pupils are equal, round, and reactive to light. Cardiovascular: Rate and Rhythm: Normal rate and regular rhythm. Pulses: Normal pulses. Heart sounds: Normal hear (more content not included)... Normal [facility] 07-14-2024 Dodonation Telephone (MicroVisionAM) ----- KRISTINE FREEMAN ([id number]) 1990 F Date Time Provider Department 07/14/24 PAVEL MUNGUIA AGS During your visit today, we recorded the following information about you: Dona Gallagher MA 07/18/2024 11:54 AM Addendum SAP PORTAL CONSULTANT Referral placed through the [facility] Portal on July 14, 2024. #[id number] Preferred Provider Dr. brunilda Gallagher MA 07/14/24 WILL CALL BACK AFTER WORK--SG 07/17/24 lv-sg Letter mailed to patient. Dona Gallagher MA Allergies As of Date: 07/14/2024 Noted Allergy Reaction SHRIMP 2015 4 - Hives 6 - Diarrhea 14 - Other: See Comments Comments: Throat felt slightly constricted ANIMAL DANDER 07/28/2011 14 - Other: See Comments Comments: ALLERGIC TO DOG AND CAT HAIR DUST 03/01/2007 16 - Unknown SEASONAL ALLERGIES 07/28/2011 14 - Other: See Comments Comments: NASAL CONGESTION Date Reviewed: 07/14/2024 Reviewed by: Pavel Munguia APRN.CNP - Fully Assessed Reason for Visit: Consult [502] Cmt: SAP PORTAL CONSULTANT-No response Prescriptions as of 07/18/2024 - sertraline (ZOLOFT) 50 mg tablet Take 3 tablets by mouth once daily. - albuterol HFA (PROVENTIL HFA, VENTOLIN HFA) 90 mcg/actuation inhaler Inhale 2 Puffs as instructed every 4 hours as needed for wheezing/shortness of breath. Per Dr. Glover - mometasone-formoterol (DULERA) 200-5 mcg/actuation inhaler Inhale 2 Puffs as instructed two times a day. Problem List As Of Date 07/14/2024 Noted Resolved Asthma, mild persistent [J45.30] 11/14/2005 History of loss in prior , c*05/23/2012 12/27/2014 Nausea/vomiting in [O21.9] 05/23/2012 12/27/2014 History of depression, currently pre*05/23/2012 12/27/2014 Rubella non-immune status [Z78.9] 05/25/2012 12/27/2014 Late care [O09.30] 06/21/2012 12/27/2014 High-risk [O09.90] 06/21/2012 12/27/2014 LGSIL (low grade squamous intraepithelial dyspl*07/05/2012 Ovarian cyst [N83.209] 07/18/2012 12/27/2014 History of shingles [Z86.19] 09/15/2012 07/14/2024 Depression [F32.A] 01/30/2015 11/17/2016 Dyshidrotic eczema [L30.1] 01/30/2015 Anxiety [F41.9] 08/02/2010 Family history of heart disease [Z82.49] 03/23/2019 07/14/2024 Hyperlipidemia, mixed [E78.2] 03/27/2019 Encounter Status:Closed by DONA GALLAGHER on 07/14/24 [facility] 25([place])D3 [facility] 25-hydroxyvitamin D3 [Mass/Vol] 23.0 ng/mL Low 31.0-80.0 [facility] Comment on above: Order Comment: Speci men Type: BLOOD SPECIMEN Ordering Facility: [facility] Address: [address] [place], [place] [address] Result Comment: Clas sification of 25 [place] Vitamin D status: Deficiency/Insufficiency: < or = 30 ng/ml. Sufficiency/Optimal Levels: 31-80 ng/mL Toxicity: > 100 ng/mL. Test performed by chemiluminescent immunoassay. Performed By: #### 1 989-3 #### [facility] CLIA [id number] [address] [place] [address] [place] [id number] [place] 25-hydroxyvitamin D3 [Mass/V ol]on 12-31-2023 Interpretation and review of laboratory results Abnormal [facility] The reference range interval was based on an analysis of samples from healthy adults and may not pertain to children from 0-18 years old. [facility] CNOVon 12-31-2023 CNOV Office Visit (INTSTJ ) ----- KRISTINE FREEMAN ([id number]) 1990 F Date Time Provider Department 12/31/23 9:30 AM ABHI COSTA INTSTJ During your visit today, we recorded the following information about you: Temperature Pulse Respiration Blood pressure 97.2 degrees 87/minute 12/minute 129/83 Weight Height 67.1 kg 1.575 m Abhi Costa APRN.SURY 12/31/2023 11:05 AM Signed The history is provided by the patient. No english language arts teacher was used. Kristine Freeman is a 33 year old female presents today for a chronic visit follow up, she is doing generally well and has no other complaints today, she is also aware and has been updated on all appropriate health maintenance issues. New concerns today include: - would like to continue lifestyle modification to improve Review of Systems Constitutional: Negative. HENT: Negative. Eyes: Negative. Respiratory: Negative. Cardiovascular: Negative. Gastrointestinal: Negative. Endocrine: Negative. Genitourinary: Negative. Musculoskeletal: Negative. Skin: Negative. Allergic/Immunologic: Negative. Neurological: Negative. Hematological: Negative. Psychiatric/Behavioral: Negative. All other systems reviewed and are negative. BP 129/83 (BP Site: Left Arm, BP Position: Sitting, BP Cuff Size: Regular Adult) Pulse 87 Temp 36.2 ?C (97.2 ?F) (Temporal) Resp 12 Ht 157.5 cm (5' 2) Wt 67.1 kg (148 lb) LMP 12/26/2022 SpO2 99% BMI 27.07 kg/m? Physical Exam Vitals and nursing note reviewed. Constitutional: General: She is not in acute distress. Appearance: Normal appearance. She is well-developed. She is not ill-appearing, toxic-appearing or diaphoretic. HENT: Head: Normocephalic and atraumatic. Cardiovascular: Rate and Rhythm: Normal rate. Pulmonary: Effort: Pulmonary effort is normal. Musculoskeletal: General: Normal range of motion. Skin: General: Skin is warm. Neurological: Mental Status: She is alert and oriented to person, place, and time. Psychiatric: Attention and Perception: Attention and perception normal. Mood and Affect: Mood and affect normal. Speech: Speech normal. Behavior: Behavior normal. Behavior is cooperative. Thought Content: Thought content normal. Cognition and Memory: Cognition and memory normal. Judgment: Judgment normal. Allergies: Shrimp Hives, Diarrhea, Other: See Comments Comment:Throat felt slightly constricted Animal Dander Other: See Comments Comment:ALLERGIC TO DOG AND CAT HAIR Dust Unknown Seasonal Allergies Other: See Comments Comment:NASAL CONGESTION PAST MEDICAL HISTORY Diagnosis Date Anxiety 2010 Had anxiety for a long time, possibly since middle school. Only diagnosed 6 years ago. Asthma, mild persistent 11/14/2005 As of 06/07/2017: Managed per Dr. Glover Dyshidrotic eczema 01/30/2015 Family history of defect 05/23/2012 05/23/2012Patient states that her daughter was born with Rett syndrome with mental retardation. Family history of heart disease 03/23/2019 father at the age of 55 from Heart aneurism. History of section 05/23/2012 05/23/2012Pt had two previous C sections at [facility] in [place], [place]. She desires a repeat C section by Dr. Callie Barraza. History of shingles 09/15/2012 September 15, 2012 shingles diagnosed and ordered acyclovir-risk of transmission extremely low, recommend fu US at 30 weeks, follow growth PRN Hyperlipidemia, mixed 03/27/2019 LGSIL (low grade squamous intraepithelial dysplasia) 07/05/2012 Ovarian cyst right depression Shingles 09/15/2012 September 15, 2012 shingles diagnosed and ordered acyclovir-risk of transmission extremely low, recommend fu US at 30 weeks, follow growth PRN Well adult exam 03/23/2019 Last Done: 03/23/2019 PAST SURGICAL HISTORY Procedure Laterality Date DELIVERY ONLY , low transverseX2 DELIVERY ONLY 12/27/12 , low transverse DILATION AND CURETTAGE TUBAL LIGATION, 2013 VAGINOSCOPY 07/11/2012 albuterol HFA (PROVENTIL HFA, VENTOLIN HFA) 90 mcg/actuation inhaler Inhale 2 Puffs as instructed every 4 hours as needed for wheezing/shortness of breath. Per Dr. Glover sertraline (ZOLOFT) 50 mg tablet Take 3 tablets by mouth once daily. mometasone-formoterol (DULERA) 200-5 mcg/actuation inhaler Inhale 2 Puffs as instructed two times a day. Cholecalciferol, Vitamin D3, (VITAMIN D) 25 mcg (1,000 unit) cap Take 1 capsule by mouth once daily. (Patient not taking: Reported on 01/08/2023) (E55.9) Vitamin D deficiency (primary encounter diagnosis) Plan: - VITAMIN D 25 HYDROXY (J45.30) Mild persistent asthma, unspecified whether complicated Plan: -albuterol HFA (PROVENTIL HFA, VENTOLIN HFA) 90 mcg/actuation inhaler, - mometasone-formoterol (DULERA) 200-5 mcg/actuation inhaler (F41.9) (more content not included)... Normal [facility] Lipid 1996 panelon 4 Cholesterol [Mass/Vol] 256 mg/dL High NINF - 200 mg/dL [facility] Comment on above: <200 mg/dL, Desirabl e 200-239 mg/dL, Borderline high >239 mg/dL, High Cholesterol in HDL [Mass/Vol] 49 mg/dL 39 - PINF mg/dL [facility] Comment on above: 40-59 mg/dL, Accepta ble >59 mg/dL, High: Negative risk factor for coronary heart disease <40 mg/dL, Low: Positive risk factor for coronary heart disease Cholesterol in LDL [Mass/Vol] 190 mg/dL High NINF - 100 mg/dL [facility] Comment on above: <100 mg/dL, Optimal 100-129 mg/dL, Near optimal/above optimal 130-159 mg/dL, Borderline high 160-189 mg/dL, High >189 mg/dL, Very high Secondary prevention optimal LDL Cholesterol levels are recommended to be < 70 mg/dL Cholesterol in LDL/Cholesterol in HDL [Mass ratio] 3.88 {ratio} High [facility] - 2.54 [facility] Comment on above: Reference: 1. National Cholesterol Education Program ATP III Guideline At-A-Glance Quick Desk Reference: National Heart, Lung, and Blood [place]. National Institutes of Health. 2001: NIH Publication No. 01-3305. 2. An International Atherosclerosis Society position paper: global recommendations for the management of dyslipidemia: executive summary, Atherosclerosis. 2014: 232(2):410-413. Cholesterol in VLDL [Mass/Vol] 17 mg/dL NINF - 30 mg/dL [facility] Cholesterol non HDL [Mass/Vol] 207 mg/dL High NINF - 130 mg/dL [facility] Comment on above: <130 mg/dL, Optimal 130-159 mg/dL, Near optimal/above optimal 160-189 mg/dL, Borderline high 190-219 mg/dL, High >219 mg/dL, Very high Secondary prevention optimal non HDL Cholesterol levels are recommended to be <100 mg/dL Cholesterol.total/Cho lesterol in HDL [Mass ratio] 5.22 {ratio} High NINF - 5.10 [facility] Fasting Time 12 hrs [facility] Interpretation and review of laboratory results Abnormal [facility] Triglyceride [Mass/Vol] 87 mg/dL NINF - 150 mg/dL [facility] Comment on above: <150 mg/dL, Normal 150-199 mg/dL, Borderline high 200-499 mg/dL, High >499 mg/dL, Very high [facility] Cholesterol [Mass/Vol] 256 mg/dL High <200 [facility] Comment on above: Order Comment: Speci men Type: BLOOD SPECIMEN Ordering Facility: [facility] Address: [address] [place] [address] Result Comment: <200 mg/dL, Desirable 200-239 mg/dL, Borderline high >239 mg/dL, High Performed By: #### 2 4331-1 #### [facility] CLIA [id number] [address] [place] [address] [place] Cholesterol in HDL [Mass/Vol] 49 mg/dL Normal >39 [facility] Comment on above: Order Comment: Speci men Type: BLOOD SPECIMEN Ordering Facility: [facility] Address: [address] [place] [address] Result Comment: 40-5 9 mg/dL, Acceptable >59 mg/dL, High: Negative risk factor for coronary heart disease <40 mg/dL, Low: Positive risk factor for coronary heart disease Performed By: #### 2 4331-1 #### [facility] CLIA [id number] [address] [place] [address] [place] Cholesterol in LDL [Mass/Vol] 190 mg/dL High <100 [facility] Comment on above: Order Comment: Dianei men Type: BLOOD SPECIMEN Ordering Facility: [facility] Address: [address] [place] [address] Result Comment: <100 mg/dL, Optimal 100-129 mg/dL, Near optimal/above optimal 130-159 mg/dL, Borderline high 160-189 mg/dL, High >189 mg/dL, Very high Secondary prevention optimal LDL Cholesterol levels are recommended to be < 70 mg/dL Performed By: #### 2 4331-1 #### [facility] CLIA [id number] [address] [place] [address] [place] Cholesterol in LDL/Cholesterol in HDL [Mass ratio] 3.88 {ratio} High <2.54 [facility] Comment on above: Order Comment: Speci men Type: BLOOD SPECIMEN Ordering Facility: [facility] Address: [address] [place] [address] Result Comment: Dianna swartz: 1. National Cholesterol Education Program ATP III Guideline At-A-Glance Quick Desk Reference: National Heart, Lung, and Blood [place]. National Institutes of Health. 2001: NIH Publication No. 01-3305. 2. An International Atherosclerosis Society position paper: global recommendations for the management of dyslipidemia: executive summary, Atherosclerosis. 2014: 232(2):410-413. Performed By: #### 2 4331-1 #### [facility] CLIA [id number] [address] [place] [address] [place] Cholesterol in VLDL [Mass/Vol] 17 mg/dL Normal <30 [facility] Comment on above: Order Comment: Hans dawson Type: BLOOD SPECIMEN Ordering Facility: [facility] Address: [address] [place] [address] Performed By: #### 2 4331-1 #### [facility] CLIA [id number] [address] [place] [address] [place] Cholesterol non HDL [Mass/Vol] 207 mg/dL High <130 [facility] Comment on above: Order Comment: Hans dawson Type: BLOOD SPECIMEN Ordering Facility: [facility] Address: [address] [place] [address] Result Comment: <130 mg/dL, Optimal 130-159 mg/dL, Near optimal/above optimal 160-189 mg/dL, Borderline high 190-219 mg/dL, High >219 mg/dL, Very high Secondary prevention optimal non HDL Cholesterol levels are recommended to be <100 mg/dL Performed By: #### 2 4331-1 #### [facility] CLIA [id number] [address] [place] [address] [place] Cholesterol.total/Cho lesterol in HDL [Mass ratio] 5.22 {ratio} High <5.10 [facility] Comment on above: Order Comment: Hans dawson Type: BLOOD SPECIMEN Ordering Facility: [facility] Address: [address] [place] [address] Performed By: #### 2 4331-1 #### [facility] CLIA [id number] [address] [place] [address] [place] FASTING TIME 12 hrs Normal [facility] Comment on above: Order Comment: Speci men Type: BLOOD SPECIMEN Ordering Facility: [facility] Address: [address] [place] [address] Performed By: #### 2 4331-1 #### [facility] CLIA [id number] [address] [place] [address] [place] Triglyceride [Mass/Vol] 87 mg/dL Normal <150 [facility] Comment on above: Order Comment: Speci men Type: BLOOD SPECIMEN Ordering Facility: [facility] Address: [address] [place] [address] Result Comment: <150 mg/dL, Normal 150-199 mg/dL, Borderline high 200-499 mg/dL, High >499 mg/dL, Very high Performed By: #### 2 4331-1 #### [facility] CLIA [id number] [address] [place] [address] [place] VITAMIN D 25 HYDROXYon 12-30 25-hydroxyvitamin D3 [Mass/Vol] 23.0 ng/mL Low 31.0 - 80.0 ng/mL [facility] Comment on above: Classification of 25 [place] Vitamin D status: Deficiency/Insufficiency: < or = 30 ng/ml. Sufficiency/Optimal Levels: 31-80 ng/mL Toxicity: > 100 ng/mL. Test performed by chemiluminescent immunoassay. HCG QUAL UR B/Oon 05-24-2023 status Negative neg - pos [facility] Quality Check Yes [facility] UA DIP, URINE (POC)on 2022 BILIRUBIN UA (POCT) Negative Negative [facility] CLARITY UA (POCT) Clear [facility] COLOR UA (POCT) Yellow [facility] GLUCOSE UA (POCT) Negative Negative mg/dL [facility] Hemoglobin Ql (U) Negative [facility] KETONE UA (POCT) Negative Negative mg/dL [facility] LEUKOCYTES UA (POCT) Negative Negative [facility] NITRITE UA (POCT) Negative Negative [facility] PH UA (POCT) 6.5 4.5 - 8.0 [facility] Protein Ql (U) Negative Negative mg/dL [facility] SPECIFIC GRAVITY UA (POCT) 1.010 1.005 - 1.030 [facility] UROBILINOGEN UA (POCT) 0.2 E.U./dL Normal E.U./dL [facility] ED Provider Noteson 01-16-20 Balance Staff Staker Authentication Interface Message Text Top teeth removed yesterday Treated with opiate analgesics - developed vomiting today Vomited approximately 4 times Patient had a mild headache Treated with fluid Zofran and Toradol [place] completely better Vital stable Physical exam normal Emergency Department/Inpatient/Obse rvation Split/Shared Documentation 01/14/2022, 10:21 PM MDM: I personally performed and obtained the entire medical decision making of this patient during this encounter and confirm the documentation of the entire encounter is accurate. I provided a substantive portion of the care of this patient. Raffaele Shepard MD Normal [facility] [employer] [facility] BASIC METABOLIC PANELon 12-31 Anion gap [Moles/Vol] 12 mmol/L Normal 10-20 [facility] Comment on above: Performed By: #### C H8 #### [facility] [address] [place], [address] Calcium [Mass/Vol] 9.7 mg/dL Normal 8.4-10.4 [facility] Comment on above: Performed By: #### C H8 #### [facility] [address] [place], [address] Chloride [Moles/Vol] 101 mmol/L Normal 97-111 [facility] Comment on above: Performed By: #### C H8 #### [facility] [address] [place], [address] CO2 [Moles/Vol] 28 mmol/L Normal 21-30 [facility] Comment on above: Performed By: #### C H8 #### [facility] [address] [place], [address] Creatinine [Mass/Vol] 0.70 mg/dL Normal 0.50-1.10 [facility] Comment on above: Performed By: #### C H8 #### [facility] [address] [place], [address] ESTIMATED GFR (CKD-EPI) 118 mL/min/1.73sqm Normal >=60 [facility] Comment on above: Result Comment: 2020 CKD EPI Equation using Creatinine without Race Comment: Estimated glomerular filtration rate (eGFR) is calculated without a race coefficient. Values should be interpreted in the context of the patient's full clinical presentation. Reference: 1. Pawan C, Patricia M, Dasha DEL REAL, et al.. A Unifying Approach for GFR Estimation: Recommendations of the NKF-ASN Task Force on Reassessing the Inclusion of Race in Diagnosing Kidney Disease. [place] Journal of Kidney Diseases 202;79(2):268-88.e1. 2. N Engl J Med 1 Vol. 385 Issue 19 Pages 1320-1501 Performed By: #### C H8 #### [facility] LABORATORY [address] [place], [address] Glucose [Mass/Vol] 97 mg/dL Normal 68-110 [facility] Comment on above: Performed By: #### C H8 #### [facility] [address] [place], [address] Potassium [Moles/Vol] 4.4 mmol/L Normal 3.3-5.3 [facility] [employer] [facility] Comment on above: Performed By: #### C H8 #### [facility] [address] [place], [address] Sodium [Moles/Vol] 137 mmol/L Normal 135-148 [facility] Comment on above: Performed By: #### C H8 #### [facility] [address] [place], [address] Urea nitrogen [Mass/Vol] 10 mg/dL Normal 8-22 [facility] Comment on above: Performed By: #### C H8 #### [facility] [address] [place], [address] Basic metabolic 2000 panelon 01-14-2022 Anion gap [Moles/Vol] 12 mmol/L [facility] Calcium [Mass/Vol] 9.7 mg/dL 8.4 - 10. 4 mg/dL [facility] Chloride [Moles/Vol] 101 mmol/L 97 - 11 1 mmol/L [facility] CO2 [Moles/Vol] 28 mmol/L 21 - 30 mmol/L [facility] Creatinine [Mass/Vol] 0.70 mg/dL 0.50 - 1.10 mg/dL [facility] GFR/1.73 sq M.predicted MDRD (S/P/Bld) [Vol rate/Area] 118 mL/min/{1.73_m2} >=60 mL/min/1.73 sqm [facility] Comment on above: 2020 CKD EPI Equatio n using Creatinine without Race Comment: Estimated glomerular filtration rate (eGFR) is calculated without a race coefficient. Values should be interpreted in the context of the patient's full clinical presentation. Reference: 1. Pawan Medina, Patricia M, Dasha DC, et al.. A Unifying Approach for GFR Estimation: Recommendations of the NKF-ASN Task Force on Reassessing the Inclusion of Race in Diagnosing Kidney Disease. [place] Journal of Kidney Diseases 2021;79(2):268-88.e1. 2. N Engl J Med 2020 Vol. 385 Issue 19 Pages 3406-0281 Glucose [Mass/Vol] 97 mg/dL 68 - 110 mg/dL [facility] Interpretation and review of laboratory results Normal [facility] Potassium [Moles/Vol] 4.4 mmol/L 3.3 - 5.3 mmol/L [facility] Sodium [Moles/Vol] 137 mmol/L 135 - 148 mmol/L [facility] Urea nitrogen [Mass/Vol] 10 mg/dL 8 - 22 mg/dL [facility] CBC WITH DIFFERENTIALon 12-31 Erythrocyte distribution width (RBC) [Ratio] 13.5 % Normal 11.5-14.5 [facility] Comment on above: Performed By: #### CYNDI GAVIN #### [facility] [address] [place], [address] Hematocrit (Bld) [Volume fraction] 44.7 % Normal 36.0-46.0 [facility] Comment on above: Performed By: #### CYNDI GAVIN #### [facility] [address] [place], [address] Hemoglobin (Bld) [Mass/Vol] 15.1 g/dL High 12.0-15.0 [facility] Comment on above: Performed By: #### CYNDI GAVIN #### [facility] [address] [place], [address] MCH (RBC) [Entitic mass] 28.3 pg Normal 26.0-34.0 [facility] Comment on above: Performed By: #### CYNDI GAVIN #### [facility] [address] [place], [address] MCHC (RBC) [Mass/Vol] 33.7 g/dL Normal 32.0-35.9 [facility] Comment on above: Performed By: #### CYNDI GAVIN #### [facility] [address] [place], [address] MCV (RBC) [Entitic vol] 84 fL Normal 80-100 [facility] Comment on above: Performed By: #### CYNDI GAVIN #### [facility] [address] [place], [address] MONOCYTE DISTRIBUTION WIDTH Normal [facility] Comment on above: Performed By: #### CYNDI GAVIN #### [facility] [address] [place], [address] Nucleated RBC (Bld) [#/Vol] 0.1 10*3/uL Normal [facility] Comment on above: Performed By: #### CYNDI GAVIN #### [facility] [address] [place], [address] Nucleated RBC (Bld) [#/Vol] 0.01 10*3/uL Normal [facility] Comment on above: Performed By: #### CYNDI GAVIN #### [facility] [address] [place], [address] Platelet mean volume (Bld) [Entitic vol] 7.1 fL Low 7.5-11.2 [facility] Comment on above: Performed By: #### CYNDI GAVIN #### [facility] [address] [place], [address] Platelets (Bld) [#/Vol] 335 10*3/uL Normal 150-400 [facility] Comment on above: Performed By: #### CYNDI GAVIN #### [facility] [address] [place], [address] RBC (Bld) [#/Vol] 5.33 10*6/uL High 4.00-5.20 [facility] Comment on above: Performed By: #### CYNDI GAVIN #### [facility] [address] [place], [address] WBC (Bld) [#/Vol] 8.3 10*3/uL Normal 4.5-11.5 [facility] Comment on above: Performed By: ###CYNDI VILA #### [facility] [address] [place], [address] Erythrocyte distribution width (RBC) [Ratio] 13.5 % 11.5 - 14.5 % [facility] Hematocrit (Bld) [Volume fraction] 44.7 % 36.0 - 46.0 % [facility] Hemoglobin (Bld) [Mass/Vol] 15.1 g/dL High 12.0 - 15.0 g/dL [facility] MCH (RBC) [Entitic mass] 28.3 pg 26.0 - 34.0 pg [facility] MCHC (RBC) [Mass/Vol] 33.7 g/dL 32.0 - 35.9 g/dL [facility] MCV (RBC) [Entitic vol] 84 fL 80 - 100 fL [facility] Monocyte distribution width Auto (Bld) [Entitic vol] [facility] Nucleated RBC (Bld) [#/Vol] 0.01 10*3/uL [facility] Nucleated RBC/100 WBC (Bld) [Ratio] 0.1 % [facility] Platelet mean volume (Bld) [Entitic vol] 7.1 fL Low 7.5 - 11.2 fL [facility] Platelets (Bld) [#/Vol] 335 10*3/uL 150 - 400 K/uL [facility] RBC (Bld) [#/Vol] 5.33 10*6/uL High [facility] WBC (Bld) [#/Vol] 8.3 10*3/uL 4.5 - 11.5 K/uL [facility] COVID/INFLUENZAon 01-14-2022 INFLUENZA A Not detected Normal Not Detected [facility] Comment on above: Order Comment: Not D etected results are indicative of the absence of SARS-CoV-2 in the specimen submitted for testing. False negative results are possible based on the timing and quality of specimen submitted for testing. This test is intended for use only under Emergency Use Authorization (EUA). This test was developed, and its performance characteristics determined by [facility] [employer] which is certified under CLIA as qualified to perform high complexity clinical laboratory testing. Result Comment: This assay was performed using Caitlin BRANDON RTPCR technology. Performed By: #### F ROYAL/COVID #### [facility] [address] [place] [address], [facility] INFLUENZA B Not detected Normal Not Detected The [facility] Comment on above: Order Comment: Not D etected results are indicative of the absence of SARS-CoV-2 in the specimen submitted for testing. False negative results are possible based on the timing and quality of specimen submitted for testing. This test is intended for use only under Emergency Use Authorization (EUA). This test was developed, and its performance characteristics determined by [facility] which is certified under CLIA as qualified to perform high complexity clinical laboratory testing. Result Comment: This assay was performed using Caitlin BRANDON RTPCR technology. Performed By: #### F ROYAL/COVID #### [facility] [address] [place], [address] SARS-CoV-2 (COVID-19) RNA EVE+probe Ql (Unsp spec) Not detected Normal Not Detected [facility] Comment on above: Order Comment: Not D etected results are indicative of the absence of SARS-CoV-2 in the specimen submitted for testing. False negative results are possible based on the timing and quality of specimen submitted for testing. This test is intended for use only under Emergency Use Authorization (EUA). This test was developed, and its performance characteristics determined by [facility] which is certified under CLIA as qualified to perform high complexity clinical laboratory testing. Result Comment: This assay was performed using Caitlin BRANDON RTPCR technology. Performed By: #### F ROYAL/COVID #### [facility] [address] [place], [address] FLUAV RNA EVE+probe Ql (Nph) Not detected Not Detected [facility] Comment on above: This assay was perfo rmed using Caitlin BRANDON RTPCR technology. FLUBV RNA EVE+probe Ql (Nph) Not detected Not Detected [facility] Comment on above: This assay was perfo rmed using Caitlin BRANDON RTPCR technology. Interpretation and review of laboratory results Normal [facility] SARS-CoV-2 (COVID-19) Ab IA Ql Not Detected results are indicative of the absence of SARS-CoV-2 in the specimen submitted for testing. False negative results are possible based on the timing and quality of specimen submitted for testing. This test is intended for use only under Emergency Use Authorization (EUA). This test was developed, and its performance characteristics determined by [facility] which is certified under CLIA as qualified to perform high complexity clinical laboratory testing. [facility] SARS-CoV-2 (COVID-19) RNA EVE+probe Ql (Unsp spec) Not detected Not Detected [facility] Comment on above: This assay was perfo rmed using Caitlin BRANDON RTPCR technology. [facility] ED Provider Noteson 01-15-20 Balance Staff Staker Authentication Interface Message Text Normal The [facility] Balance Staff Staker Authentication Interface Message Text Emergency Department Visit Note ----- HISTORY OF PRESENT ILLNESS - Chief Complaint Patient presents with * Vomiting Pt c/o multiple episodes of vomiting that began today. Dental surgery yesterday per pt. Patient seen under the supervision of Dr. Shepard The history is provided by the Patient. Kristine Freeman is a 31 year old year old female presenting to the ED for: Nausea and vomiting beginning today. Patient states she had dental surgery yesterday she had her top teeth removed she is waiting for implants. She is given Macon for pain. She took the patient pain medication yesterday without difficulty. Today she checked pain medication and became nauseous. She has had multiple episodes of emesis today. They have all been clear in nature, they are not bloody or bilious. She has decreased p.o. intake due to the constant nausea and vomiting. REVIEW OF SYSTEMS Review of Systems Constitutional: Negative for fever. HENT: Negative for ear pain, sore throat and neck pain. Eyes: Negative for blurred vision. Respiratory: Negative for cough and shortness of breath. Cardiovascular: Negative for chest pain and palpitations. Gastrointestinal: Positive for nausea and vomiting. Negative for abdominal pain, diarrhea, constipation and hematemesis. Genitourinary: Negative for urgency and frequency. Musculoskeletal: Negative for back pain. Neurological: Negative for dizziness and headaches. Psychiatric/Behavioral: The patient is not nervous/anxious. Skin: Negative for rash. PAST HISTORY Pertinent Past History: No past medical history on file. There is no problem list on file for this patient. Pertinent Family History: No family history on file. Pertinent Social History: Social History Occupational History * Not on file Tobacco Use * Smoking status: Not on file * Smokeless tobacco: Not on file Substance and Sexual Activity * Alcohol use: Not on file * Drug use: Not on file * Sexual activity: Not on file PHYSICAL EXAM BP 130/80 Pulse 86 Temp 98.2 ???F (36.8 ???C) (Oral) Resp 16 SpO2 99% Physical Exam Vitals and nursing note reviewed. Constitutional: Appearance: Normal appearance. HENT: Nose: Nose normal. Mouth/Throat: Mouth: Mucous membranes are moist. Cardiovascular: Rate and Rhythm: Normal rate and regular rhythm. Pulses: Normal pulses. Heart sounds: Normal heart sounds. Pulmonary: Effort: Pulmonary effort is normal. Breath sounds: Normal breath sounds. Abdominal: Comments: Abdomen is flat soft. It is nontender, nondistended. Skin: General: Skin is warm and dry. Capillary Refill: Capillary refill takes less than 2 seconds. Neurological: General: No focal deficit present. Mental Status: She is alert and oriented to person, place, and time. Psychiatric: Mood and Affect: Mood normal. Behavior: Behavior normal. ---ED COURSE Nursing triage and assessment notes reviewed and incorporated Chart Reviewed: Summary of pertinent elements includes as below: Chart Review findings include: Follows at [facility], last visit with Internal Medicine 12/23/2021 Care Everywhere visits were noted and incorporated where appropriate. Pertinent past abnormal labs or imaging studies where appropriate are incorporated into today's ED chart. Medications ondansetron (ZOFRAN) 4 MG/2ML injection (4 mg Intravenous Push Given 01/14/222106) sodium chloride 0.9 % iv bolus (1,000 mL Intravenous IV New Bag 01/14/222106) ketorolac (TORADOL) 15 MG/ML injection (15 mg Intravenous Push Given 01/14/222208) Recheck: Patient Improved --- Medical Decision Making ED Course as of 01/14/222316Jan 14, 20222044 Vital signs reviewed. Normotensive, afebrile, no tachycardia, no tachypnea, not hypoxic. [BJ] 2144 CBC without leukocytosis or anemia. BMP without electrolyte abnormalities or CARLOS Covid/Flu negative [BJ] 2211 Patient reports feeling improved after Zofran. Complaining of headache at this time. Toradol ordered. [BJ] ED Course User Index [BJ] Merle Suero, SLOT SUPERVISOR-ELEVATOR SERVICE TECHNICIAN 31-year-old female presenting to the emergency room for nausea and vomiting beginning today. She had dental surgery yesterday, was given Macon for the pain. She has taken Macon yesterday had no difficulties with that. Today she took the Macon, and had nausea and vomiting. Emesis were clear in nature, not bilious or bloody. She denies any sick contacts. She has a decreased p.o. intake due to the nausea. In the ED she was given a fluid bolus and Zofran. She was complaining of a headache 11/09, given Tor (more content not included)... Normal [facility] MANUAL DIFF AND MORPHon 12-31 CELLS COUNTED TOTAL # IN BLOOD 100 Normal [facility] Comment on above: Performed By: ###CYNDI VILA #### [facility] [address] [place], [address] LYMPHOCYTES % BY MANUAL COUNT 2.0 % Low 24.0-44.0 [facility] Comment on above: Performed By: ###CYNDI VILA #### [facility] [address] [place], [address] LYMPHOCYTES ABS BY MANUAL COUNT 0.17 K/uL Low 1.00-4.80 [facility] Comment on above: Performed By: ###CYNDI VILA #### [facility] [address] [place], [address] MONOCYTES % BY MANUAL COUNT 3.0 % Normal 2.0-11.0 [facility] Comment on above: Performed By: ###CYNDI VILA #### [facility] [address] [place], [address] MONOCYTES ABS BY MANUAL COUNT 0.25 K/uL Normal 0.20-1.00 [facility] Comment on above: Performed By: ###CYNDI VILA #### [facility] [address] [place], [address] NEUTROPHILS % BY MANUAL COUNT 95.0 % High 31.0-76.0 [facility] Comment on above: Performed By: #### CYNDI GAVIN #### [facility] [address] [place], [address] NEUTROPHILS ABS BY MANUAL COUNT 7.89 K/uL Normal 1.50-8.00 The [facility] Comment on above: Performed By: #### CYNDI GAVIN #### [facility] [address] [place], [address] RBC MORPHOLOGY Normal Normal The [facility] Comment on above: Performed By: #### CYNDI GAVIN #### [facility] [address] [place], [address] MANUAL DIFF AND MORPHOrdered By: Santos Fernandes on 01-14-2022 Cells Counted Total (Bld) [#] 100 {cells} [facility] Lymphocytes (Bld) [#/Vol] 0.17 10*3/uL Low 1.00 - 4.80 K/uL [facility] Lymphocytes/100 WBC (Bld) 2.0 % Low 24.0 - 44.0 % [facility] Monocytes (Bld) [#/Vol] 0.25 10*3/uL 0.20 - 1.00 K/uL [facility] Monocytes/100 WBC (Bld) 3.0 % 2.0 - 11.0 % [facility] Neutrophils (Bld) [#/Vol] 7.89 10*3/uL 1.50 - 8.00 K/uL [facility] Neutrophils/100 WBC (Bld) 95.0 % High 31.0 - 76.0 % [facility] RBC morphology finding Nom (Bld) Normal [facility] No Panel InformationOrdered By: Santos Fernandes on 01-14-2022 Interpretation and review of laboratory results Abnormal [facility] LIPID PANEL, NONFASTINGon Cholesterol [Mass/Vol] 259 mg/dL High <200 mg/dL [facility] HDL Cholesterol, Nonfasting 61 mg/dL >39 mg/dL [facility] LDL Cholesterol, Nonfasting 171 mg/dL High <100 mg/dL [facility] LDL/HDL Ratio, Nonfasting 2.80 mg/dL High <2.54 mg/dL [facility] Non HDL Cholesterol, Nonfasting 198 mg/dL High <130 mg/dL [facility] Total Chol/HDL Ratio, Nonfasting 4.25 mg/dL <5.10 mg/dL [facility] Triglycerides, Nonfasting 135 mg/dL <150 mg/dL [facility] VLDL Cholesterol, Nonfasting 27 mg/dL <30 mg/dL [facility] VITAMIN D 25 HYDROXYon 12-23 25-hydroxyvitamin D3 [Mass/Vol] 23.3 ng/mL Low 31.0 - 80.0 ng/mL [facility] CT FLANK WO IVCONon 05-09-20 CT FLANK WO IVCON * * *Final Report* * * DATE OF EXAM: May 09 2021 10:53AM EUC 0529 - CT FLANK WO IVCON / PROCEDURE REASON: Gross hematuria * * * * Physician Interpretation * * * * RESULT: EXAMINATION: CT ABDOMEN AND PELVIS WITHOUT IV CONTRAST (Renal stone protocol) CLINICAL HISTORY: Unspecified flank pain. Hematuria. TECHNIQUE: Non-contrast imaging of the abdomen and pelvis was performed through the urinary tract. Study performed without intravenous or oral contrast to evaluate for urinary tract calculus. MQ: [id number] Contrast: IV contrast: None Oral contrast: None CT Radiation dose: Integrated dose-length product (DLP) for this visit = 235 mGy*cm. CT Dose Reduction Employed: Automated exposure control (AEC) COMPARISON: None. RESULT: Limitations: Unenhanced imaging is limited for the evaluation of some renal and other intra-abdominal and pelvic pathology. Urinary Tract: Right kidney and ureter: No calculus. No hydronephrosis. No finding to suggest cyst or mass in the unenhanced kidney. Left kidney and ureter: No calculus. No hydronephrosis. No finding to suggest cyst or mass in the unenhanced kidney. Bladder: No calculus. Abdomen and Pelvis: Liver: Unremarkable. Biliary: Gallbladder appears unremarkable. Spleen: No splenomegaly. Pancreas: Unremarkable. Adrenals: Normal. GI Tract: No small bowel bowel dilation. Colon appears grossly within normal limits. Appendix appears normal. Lymph Nodes: No lymphadenopathy. Mesentery/peritoneum: No ascites. Vasculature: Unremarkable Pelvis: No mass or ascites. Urinary bladder appears unremarkable. Bones and Soft Tissues: No acute abnormality. Lower thorax: Unremarkable. Cotton Factor (topogram) images: Noncontributory IMPRESSION: 1. NO NEPHROLITHIASIS OR OBSTRUCTIVE UROPATHY. NO BLADDER CALCULUS.. 2. NO EVIDENCE OF MASS, ADENOPATHY OR FREE FLUID ON UNENHANCED EXAMINATION. Transcribed Using Voice Recognition Transcribe Date/Time: May 09 2021 2:15P Dictated by: JAGDISH HLIL MD This examination was interpreted and the report reviewed and electronically signed by: JAGDISH HILL MD on May 09 2021 2:19PM EST [id number] Normal [facility] Pulmonary Visit Reporton Pulmonary Visit Report [facility] [place] [address] [address], [place] [phone] VISITDate of Service: 09/28/17MR#: [id number] Acct: [id number]: KRISTINE FREEMAN Rep #: [id number]: 1990 Provider: Efe Glover MDAge/Sex: 27/F [place] [facility] [place]: SignedAssessment AND Plan1. Moderate persistent asthma without complication J45.40PlanPatient's pulmonary function tests show normal function. However, patient has had multiple ERvisits with obstructive lung findings. Patient is responded very well to combination inhaler.Will attempt to stepdown therapy to an inhaled corticosteroid alone. Patient will call if shedevelops increased symptoms and will be transitioned back to Breo.Stepdown in therapy to Arnuity.Plan DetailOther MedicationsNew:fluticason e furoate 100 mcg/actuation (Arnuity Ellipta) a1 inh Inhalation Q24H J45.909dminister at approximately same time(s) each dayFollow Up3 Months (BWA)HPI3 M FU:Chief Complaint: Follow-up coughDetails: Patient is a 27-year-old female, currently in the care of Dr. Dinh, whopresents for evaluation secondary to chronic cough.Since last visit, patient denies any ER visits, hospitalizations or prednisone burst. Patienthas been initiated on Breo therapy and states she has had significant subjective improvement.Patient denies any thrush.Patient reports that she has been running 30 minutes on a treadmill 3-5 times per week.Patient has been doing well. Patient denies any environmental exposures. Patient is notsmoking at this time. Patient states that classically spring and March for her worst time ofyear. Patient denies any nocturnal cough. No Ventolin required since her last visit. 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.Testing personally reviewed with the patientComplete PFT (07/06/2017): Essentially normal pulmonary function testing (FVC 104%, FEV1 104%,TLC 112%, DLCO 114%)IntakeVital Signs09/28/17 Height 5 ft 1 in09/28/17 Weight: 57.153 kgIntakeVisit Reasons: 3 M FUAccompanied by: SelfAllergiesNo Known Allergies Allergy (Verified 09/28/17 10:01)MedicationsAlbutero l Inhaler [Ventolin Hfa] 1 - 2 puff INHALATION Q4H PRN PRN #1 inhaler 05/18/17 [RxConfirmed 09/28/17]fluticasone 100 mcg-vilanterol 25 mcg/dose powder for inhalation 1 inh INHALATION Q24H 09/20/17[History Confirmed 09/28/17]sertraline 100 mg tablet 100 mg PO QDAY 09/20/17 [History Confirmed 09/28/17]fluticasone furoate 100 mcg/actuation blister powder for inhalation 1 inh INHALATION Q24H #30ea 09/28/17 [Rx Confirmed 09/28/17]PFSHMedical History Bronchitis (Acute)Shortness of breath (Acute)Chronic cough (Chronic)Surgical History H/O section (Resolved)Family History Mother Multiple sclerosisFather DiabetesSocial HistorySmoking Status: Never smokersecond hand exposure: Noalcohol intake: neversubstance use type: does not useReview of SystemsConstCONSTITUTIONA L: Negative anorexia, body ache, chills, daytime sleepiness, fever(s), nightsweats, oral thrush, stops breathing during sleep, weight loss, sleeping in chair, fatigue,weight loss, weight gain, frequent colds, seasonal allergies, other, headache(s) or orthopneaEETMEar Nose Throat Mouth: Positive hearing normal;negative hard of hearing, hoarseness, dry mouth in morning, change in vision, itchy eyes, eyepain, swallowing Difficulty, ear pain, nose bleed, headache(s), mouth pain, nasal congestion,nasal discharge, post nasal drip, sinus pain, sinus pressure, sore throat or otherCardioCardiovascular : Negative chest pain, chest pain at rest, chest pain with activity, irregularheart rhythm, edema, shortness of breath when lying down, palpitations, murmur or otherRespRespiratory: Positive as per HPI and inhalers;negative shortness of breath, pain with cough, wheezing, chest congestion, cough, chesttightness, pain on inspiration, increase use of rescue inhalers, snoring, apnea or otherGastroGastrointestio nal: Negative bloody stools, change in appetite, difficulty swallowing, reflux,hematemesis, melena stool, loose stool, constipation or otherGUGenitourinary: Negative blood in urine, nocturia, pain with urination or otherMuscMusculoskeletal: Negative body pain, back pain, neck pain or otherSkin/BreastSkin/Trudy st: Negative dry skin, itching, rash, unusual bruising, breast lump or otherNeuroNeurological: Negative restless legs, confusion, weakness or otherPsychPsychocological : Negative abnormal sleep pattern, anxiety, thoughts of hurting self/others,hopelessness or otherLymphLymphatic: Negative easy bleeding, easy bruising, swollen lymph nodes or otherExamConstConstitutio nal: Positive conversant, cooperative, in no acute respiratory distress, healthyappearing, well developed, well nourished and good hygieneHeadHead: Positive normocephalic and atraumatic;negative cyanosis of lips/distal nose, frontal sinus tenderness or maxillary sinus tendernessEyesEye: Positive clear conjunctiva;negative nystagmus, scleral abnormality or cataract presentEarsEar: Positive hearing normal and external ears normal;negative hard of hearingNoseNose: Positive external nose normal, septum normal and no nasal discharge;negative epistaxis or nasal polypMouthMouth: Positive oral mucosae normal, no lesions, good dentition and posterior oropharynx isadequate;negative post nasal drip or oral thrush presentMallampati Score: I: Mallampati ScoreNeckNeck: Positive normal visual inspection, full ROM and trachea midline;negative lymphadenopathy or JVDChest WallChest: Positive normal inspection of the chest and symmetric chest movement;negative crepitus or tendernessResplung sounds: Positive clear to auscultation, good air exchange, normal expiratory time andnormal respiratory effort;negative wheezes, rhonchi, rales, use of accessory muscles, wheeze present on forced exhalationor dullness to percussionCardioCardiac: Positive regular rate, regular rhythm, S1 normal and S2 normal;negative murmur, rub or gallopGIGI: Positive normal to inspection and normal bowel sounds;negative distended, ascites or epigastric tendernessGUGenitourinary : Positive deferredMuscMusculoskelet al: Positive steady gait;negative using an assistive device for ambulation, kyphosis or scoliosisSkinPulmonary Skin Exam: Positive intact;negative rash, lesion, ulcers, erythema or dermal atrophyPulsesPulse: Yes radial pulses present, Yes pulses normal x4 extremitiesExtremitiesExt remities: Yes capillary refill normal, No clubbing, No cyanosis, No edemaNeuroNeurologic: Yes conversant, Yes no focal neuro deficits, Yes cooperative, Yes normal cognition,Yes normal coordination, Yes normal concentration, Yes understands questionsLymphLymphatic: No lymphadenopathy, No cervical adenopathy, No axillary adenopathyPsychAppearance : Positive grossly normalMental Status: Positive mental status grossly normalMood: Positive congruent moodAffect: Positive normal affectCodingLevel of Care CodeOff vis,est,level 3DiagnosesModerate persistent asthma without complication J45.40Asthma complication type: [id number]/27/18 1048 Date Efe Glover MDCosigner Signature: Date (if applicable)CC: Brodie Dinh MD [facility] Vital Signs Date Time Vital Sign Value Performing Clinician Eryn davidson 01-12-2025 09:56-0400 Body mass index (BMI) [Ratio] 29.26 kg/m2 Pavel Mastrucci SLOT SUPERVISOR.ELEVATOR SERVICE TECHNICIAN Work Phone: [facility] 01-12-2025 09:56-0400 Body weight 72.58 kg Pavel Mastrucci SLOT SUPERVISOR.ELEVATOR SERVICE TECHNICIAN Work Phone: [facility] 01-12-2025 09:56-0400 Diastolic blood pressure 81 mm[Hg] Pavel Mastrucci SLOT SUPERVISOR.ELEVATOR SERVICE TECHNICIAN Work Phone: [facility] 01-12-2025 09:56-0400 Heart rate 90 /min Pavel Mastrucci SLOT SUPERVISOR.ELEVATOR SERVICE TECHNICIAN Work Phone: [facility] 01-12-2025 09:56-0400 Respiratory rate 16 /min Pavel Mastrucci SLOT SUPERVISOR.ELEVATOR SERVICE TECHNICIAN Work Phone: [facility] 01-12-2025 09:56-0400 SaO2% (BldA) [Mass fraction] 100 % Pavel Mastrucci SLOT SUPERVISOR.ELEVATOR SERVICE TECHNICIAN Work Phone: [facility] 01-12-2025 09:56-0400 Systolic blood pressure 117 mm[Hg] Pavel Mastrucci SLOT SUPERVISOR.ELEVATOR SERVICE TECHNICIAN Work Phone: [facility] 10-20-2024 10:24-0400 Body mass index (BMI) [Ratio] 29.03 kg/m2 Lucy Mobley SLOT SUPERVISOR.ELEVATOR SERVICE TECHNICIAN Work Phone: [facility] 10-20-2024 10:24-0400 Body temperature 97 [degF] Lucy Mobley SLOT SUPERVISOR.ELEVATOR SERVICE TECHNICIAN Work Phone: [facility] 10-20-2024 10:24-0400 Body weight 72 kg Lucy Mobley SLOT SUPERVISOR.ELEVATOR SERVICE TECHNICIAN Work Phone: [facility] 10-20-2024 10:24-0400 Diastolic blood pressure 88 mm[Hg] Lucy Mobley SLOT SUPERVISOR.ELEVATOR SERVICE TECHNICIAN Work Phone: [facility] 10-20-2024 10:24-0400 Heart rate 64 /min Lucy Mobley SLOT SUPERVISOR.ELEVATOR SERVICE TECHNICIAN Work Phone: [facility] 10-20-2024 10:24-0400 Respiratory rate 20 /min Lucy Mobley SLOT SUPERVISOR.ELEVATOR SERVICE TECHNICIAN Work Phone: [facility] 10-20-2024 10:24-0400 SaO2% (BldA) [Mass fraction] 99 % Lucy Mobley SLOT SUPERVISOR.ELEVATOR SERVICE TECHNICIAN Work Phone: [facility] 10-20-2024 10:24-0400 Systolic blood pressure 149 mm[Hg] Lucy Mobley SLOT SUPERVISOR.ELEVATOR SERVICE TECHNICIAN Work Phone: [facility] 07-14-2024 10:06-0500 Body height 157.5 cm Pavel Mastrucci SLOT SUPERVISOR.ELEVATOR SERVICE TECHNICIAN Work Phone: [facility] 07-14-2024 10:06-0500 Body mass index (BMI) [Ratio] 27.8 kg/m2 Pavel Mastrucci SLOT SUPERVISOR.ELEVATOR SERVICE TECHNICIAN Work Phone: [facility] 07-14-2024 10:06-0500 Body weight 68.95 kg Pavel Mastrucci SLOT SUPERVISOR.ELEVATOR SERVICE TECHNICIAN Work Phone: [facility] 07-14-2024 10:06-0500 Diastolic blood pressure 83 mm[Hg] Pavel Mastrucci SLOT SUPERVISOR.ELEVATOR SERVICE TECHNICIAN Work Phone: [facility] 07-14-2024 10:06-0500 Heart rate 75 /min Pavel Mastrucci SLOT SUPERVISOR.ELEVATOR SERVICE TECHNICIAN Work Phone: [facility] 07-14-2024 10:06-0500 Respiratory rate 16 /min Pavel Mastrucci SLOT SUPERVISOR.ELEVATOR SERVICE TECHNICIAN Work Phone: [facility] 07-14-2024 10:06-0500 SaO2% (BldA) [Mass fraction] 100 % Pavel Mastrucci SLOT SUPERVISOR.ELEVATOR SERVICE TECHNICIAN Work Phone: [facility] 07-14-2024 10:06-0500 Systolic blood pressure 124 mm[Hg] Pavel Munguia SLOT SUPERVISOR.ELEVATOR SERVICE TECHNICIAN Work Phone: [facility] 12-31-2023 09:21-0400 Body height 157.5 cm Abhi Costa SLOT SUPERVISOR.ELEVATOR SERVICE TECHNICIAN Work Phone: [facility] 12-31-2023 09:21-0400 Body mass index (BMI) [Ratio] 27.07 kg/m2 Abhi Costa SLOT SUPERVISOR.ELEVATOR SERVICE TECHNICIAN Work Phone: [facility] 12-31-2023 09:21-0400 Body temperature 97.2 [degF] Abhi Costa SLOT SUPERVISOR.ELEVATOR SERVICE TECHNICIAN Work Phone: [facility] 12-31-2023 09:21-0400 Body weight 67.13 kg Abhi Costa SLOT SUPERVISOR.ELEVATOR SERVICE TECHNICIAN Work Phone: [facility] 12-31-2023 09:21-0400 Diastolic blood pressure 83 mm[Hg] Abhi Costa SLOT SUPERVISOR.ELEVATOR SERVICE TECHNICIAN Work Phone: [facility] 12-31-2023 09:21-0400 Heart rate 87 /min Abhi Costa SLOT SUPERVISOR.ELEVATOR SERVICE TECHNICIAN Work Phone: [facility] 12-31-2023 09:21-0400 Respiratory rate 12 /min Abhi Costa SLOT SUPERVISOR.ELEVATOR SERVICE TECHNICIAN Work Phone: [facility] 12-31-2023 09:21-0400 SaO2% (BldA) [Mass fraction] 99 % Abhi Costa SLOT SUPERVISOR.ELEVATOR SERVICE TECHNICIAN Work Phone: [facility] 12-31-2023 09:21-0400 Systolic blood pressure 129 mm[Hg] Abhi Costa SLOT SUPERVISOR.ELEVATOR SERVICE TECHNICIAN Work Phone: [facility] 05-24-2023 11:04-0400 Body height 157.5 cm Abhi Costa SLOT SUPERVISOR.ELEVATOR SERVICE TECHNICIAN Work Phone: [facility] 05-24-2023 11:04-0400 Body temperature 97.59 [degF] Abhi Igor SLOT SUPERVISOR.ELEVATOR SERVICE TECHNICIAN Work Phone: [facility] 05-24-2023 11:04-0400 Body weight 73.94 kg Abhi Igor SLOT SUPERVISOR.ELEVATOR SERVICE TECHNICIAN Work Phone: [facility] 05-24-2023 11:04-0400 Diastolic blood pressure 77 mm[Hg] Abhi Igor SLOT SUPERVISOR.ELEVATOR SERVICE TECHNICIAN Work Phone: [facility] 05-24-2023 11:04-0400 Heart rate 69 /min Abhi Igor SLOT SUPERVISOR.ELEVATOR SERVICE TECHNICIAN Work Phone: [facility] 05-24-2023 11:04-0400 Respiratory rate 15 /min Abhi Igor SLOT SUPERVISOR.ELEVATOR SERVICE TECHNICIAN Work Phone: [facility] 05-24-2023 11:04-0400 SaO2% (BldA) [Mass fraction] 97 % Abhi Igor SLOT SUPERVISOR.ELEVATOR SERVICE TECHNICIAN Work Phone: [facility] 05-24-2023 11:04-0400 Systolic blood pressure 121 mm[Hg] Abhi Igor SLOT SUPERVISOR.ELEVATOR SERVICE TECHNICIAN Work Phone: [facility] 01-15-2022 00:24-0400 Body weight 63.5 kg Raffaele Shepard MD Work Phone: [facility] 01-15-2022 00:24-0400 Diastolic blood pressure 80 mm[Hg] Raffaele Shepard MD Work Phone: [facility] 01-15-2022 00:24-0400 Heart rate 80 /min Raffaele Shepard MD Work Phone: [facility] 01-15-2022 00:24-0400 Respiratory rate 18 /min Raffaele Shepard MD Work Phone: [facility] 01-15-2022 00:24-0400 SaO2% (BldA) [Mass fraction] 99 % Raffaele Shepard MD Work Phone: [facility] 01-15-2022 00:24-0400 Systolic blood pressure 122 mm[Hg] Raffaele Shepard MD Work Phone: [facility] 01-14-2022 20:09-0400 Body temperature 98.2 [degF] Raffaele Shepard MD Work Phone: [facility] 12-23-2021 09:39-0400 Body height 157.5 cm Abhi Costa SLOT SUPERVISOR.ELEVATOR SERVICE TECHNICIAN Work Phone: [facility] 12-23-2021 09:39-0400 Body weight 72.29 kg Abhi Costa SLOT SUPERVISOR.ELEVATOR SERVICE TECHNICIAN Work Phone: [facility] 12-23-2021 09:39-0400 Diastolic blood pressure 75 mm[Hg] Abhi Costa SLOT SUPERVISOR.ELEVATOR SERVICE TECHNICIAN Work Phone: [facility] 12-23-2021 09:39-0400 Heart rate 81 /min Abhi Costa SLOT SUPERVISOR.ELEVATOR SERVICE TECHNICIAN Work Phone: [facility] 12-23-2021 09:39-0400 Respiratory rate 16 /min Abhi Costa SLOT SUPERVISOR.ELEVATOR SERVICE TECHNICIAN Work Phone: [facility] 12-23-2021 09:39-0400 SaO2% (BldA) [Mass fraction] 98 % Abhi Costa SLOT SUPERVISOR.ELEVATOR SERVICE TECHNICIAN Work Phone: [facility] 12-23-2021 09:39-0400 Systolic blood pressure 119 mm[Hg] Abhi Costa SLOT SUPERVISOR.ELEVATOR SERVICE TECHNICIAN Work Phone: [facility] Encounters Encounter Date Encounter Type Care Provider Facility Start: 01-12-2025 End: 01-12-2025 Patient encounter procedure Pavel Nilda SLOT SUPERVISOR.ELEVATOR SERVICE TECHNICIAN Work Phone: [facility] [place] Comment on above: Follow-up exam (Prim edvin Dx); Mild persistent asthma, unspecified whether complicated (HCC); Seasonal allergies; Hyperlipidemia, mixed Start: 01-12-2025 End: 01-12-2025 ambulatory PAVEL MASTRUCCI Facility:[facility] Start: 10-20-2024 End: 10-20-2024 [facility] Start: 10-20-2024 End: 10-20-2024 Office outpatient visit 15 minutes Lucy Mobley APRN.ELEVATOR SERVICE TECHNICIAN Work Phone: [facility] Comment on above: Flank pain (Primary Dx) Start: 10-10-2024 End: 10-10-2024 Follow-up encounter Pavelnanci Munguia APRN.CNP Work Phone: [facility] [place] Comment on above: Vitamin D deficiency (Primary Dx) Start: 10-09-2024 End: 10-09-2024 ambulatory [facility] Facility:[facility] Start: 07-14-2024 End: 07-14-2024 Telephone encounter Pavelnanci Munguia APRN.ELEVATOR SERVICE TECHNICIAN Work Phone: [facility] [place] Comment on above: Consult ([facility]SULT[facility]) Start: 07-14-2024 End: 07-14-2024 Patient encounter procedure Pavel Sandrayakelin SLOT SUPERVISOR.ELEVATOR SERVICE TECHNICIAN Work Phone: [facility] [place] Comment on above: [facility] Anxiety; Screening for depression; Hyperlipidemia, mixed; Vitamin D deficiency; Cervical cancer screening Start: 07-14-2024 End: 07-14-2024 ambulatory [facility] Facility:[facility] Start: 12-31-2023 End: 12-31-2023 ambulatory ABHI GRAND CHAIN Facility:[facility] Start: 12-31-2023 End: 12-31-2023 Patient encounter procedure Abhi Costa APRN.ELEVATOR SERVICE TECHNICIAN Work Phone: Internal Medicine Comment on above: Vitamin D deficiency (Primary Dx); Mild persistent asthma, unspecified whether complicated; Anxiety; Hyperlipidemia, mixed Start: 05-27-2023 Telephone encounter Sabrina scanlon MD Work Phone: Adult Psychiatry Start: 05-24-2023 End: 05-24-2023 Patient encounter procedure Abhi Costa SLOT SUPERVISOR.ELEVATOR SERVICE TECHNICIAN Work Phone: Internal Medicine Comment on above: Wellness examination (Primary Dx); Screening for depression; Vaccination declined; Need for vaccination; Overweight (BMI 25.0-29.9); Anxiety Start: 05-24-2023 End: 05-24-2023 Patient encounter status Abhi Costa APRN.ELEVATOR SERVICE TECHNICIAN Work Phone: [facility] Start: 05-07-2023 Refill Abhi Costa APRN.ELEVATOR SERVICE TECHNICIAN Work Phone: Internal Medicine Comment on above: Refill Request Start: 04-09-2023 Refill Abhi Costa APRN.ELEVATOR SERVICE TECHNICIAN Work Phone: Internal Medicine Comment on above: Refill Request Start: 09-09-2022 Refill Abhi Costa APRN.ELEVATOR SERVICE TECHNICIAN Work Phone: Internal Medicine Comment on above: Refill Request Start: 04-07-2022 Refill Abhi Costa APRN.ELEVATOR SERVICE TECHNICIAN Work Phone: Internal Medicine Comment on above: Refill Request Start: 01-14-2022 End: 01-15-2022 Emergency department patient visit UNKNOWN PROVIDER Facility:[facility] Start: 01-14-2022 End: 01-15-2022 Emergency department patient visit Raffaele Shepard MD Work Phone: [facility] Emergency Dept Comment on above: Vomiting (Pt c/o mul tiple episodes of vomiting that began today. Dental surgery yesterday per pt. ) Start: 12-24-2021 Telephone encounter Abhi chan APRN.ELEVATOR SERVICE TECHNICIAN Work Phone: Internal Medicine Comment on above: Results Start: 12-23-2021 End: 12-23-2021 Patient encounter procedure Abhi Costa APRN.ELEVATOR SERVICE TECHNICIAN Work Phone: Internal Medicine Comment on above: Wellness examination (Primary Dx); Mild persistent asthma, unspecified whether complicated; Need for vaccination Start: 12-23-2021 End: 12-23-2021 Patient encounter status Abhi Costa APRN.ELEVATOR SERVICE TECHNICIAN Work Phone: Internal Medicine Start: 10-31-2021 Refill Abhi Costa APRN.ELEVATOR SERVICE TECHNICIAN Work Phone: Internal Medicine Comment on above: Refill Request Start: 03-23-2019 Patient encounter status Abhi Costa APRN.ELEVATOR SERVICE TECHNICIAN Work Phone: [facility] Work Phone: Start: 09-23-2018 Patient encounter status Abhi Costa SLOT SUPERVISOR.ELEVATOR SERVICE TECHNICIAN Work Phone: [facility] Work Phone: Start: 12-22-2017 Patient encounter procedure Efe Glover [place] Start: 09-28-2017 End: 09-28-2017 Patient encounter procedure Efe Adalberto Facility:[facility] Procedures Date Procedure Procedure Detail Performing Clinician Start: 10-20-2024 Urnls dip stick/tabl et rgnt auto w/o microscopy Zac GODWIN Work Phone: Start: 07-14-2024 Adult depression screening assessment Pavel Munguia SLOT SUPERVISOR.ELEVATOR SERVICE TECHNICIAN Work Phone: Start: 05-24-2023 End: 05-24-2023 Urnls dip stick/tablet rgnt auto w/o microscopy Abhi Costa SLOT SUPERVISOR.ELEVATOR SERVICE TECHNICIAN Work Phone: Start: 01-14-2022 COVID/INFLUENZA Merle Suero SLOT SUPERVISOR-ELEVATOR SERVICE TECHNICIAN Work Phone: Start: 01-14-2022 End: 01-14-2022 Blood count smear mcrscp w/mnl difrntl wbc count Merle Suero SLOT SUPERVISOR-ELEVATOR SERVICE TECHNICIAN Work Phone: Start: 09-23-2018 Adult depression screening assessment Abhi Costa APRN.ELEVATOR SERVICE TECHNICIAN Work Phone: Plan of Treatment Date Care Activity Detail Author Start: 2039 Shingles (RZV) Vacci ne (1 of 2) Shingles (RZV) Vaccine (1 of 2) [facility] Start: 01-12-2026 Annual PCP Team Sign Maker meliton Disease Visit Annual PCP Team Chronic Disease Visit [facility] Start: 07-14-2025 Annual PCP Team Sign Maker meliton Disease Visit Annual PCP Team Chronic Disease Visit [facility] Start: 07-14-2025 Covid-19 Vaccine ( season) Covid-19 Vaccine () [facility] Comment on above: Postponed from 04/02 (Declined at this time) Start: 07-14-2025 Depression Screening Depression Scre ening [facility] Start: 07-14-2025 Hepatitis B Vaccine (1 of 3 - 19+ 3-dose series) Hepatitis B Vaccine (1 of 3 - 19+ 3-dose series) [facility] Comment on above: Postponed from 07/04 (Declined at this time) Start: 07-14-2025 Spirometry Spirometry [facility] Comment on above: Postponed from 07/04 (Declined at this time) Start: 07-14-2025 Urine microalbumin profile DTaP,Tdap,Td Vaccine (1 - Tdap) [facility] Comment on above: Postponed from 07/04 (Declined at this time) Start: 06-11-2025 End: 06-11-2025 Patient encounter procedure 06/11/2025 8:00 AM EST Office Visit [facility] [address], [place] [id number] PodNeelima benito APRN.ELEVATOR SERVICE TECHNICIAN [address] [place] [address] Physical to Establish [facility] [place] Comment on above: Physical to [facility] Start: 04-02-2025 Influenza vaccination Influenz a Vaccine (Season Ended) [facility] Start: 01-29-2025 Influenza vaccination Influenza Vacc ine (#1) [facility] Comment on above: Postponed from 04/02 (Declined at this time) Start: 01-12-2025 End: 01-12-2025 Patient encounter procedure 01/12/2025 10:20 AM EDT Office Visit [facility] [place] [address] [place] [address] Pavel Munguia, TOMMY.ELEVATOR SERVICE TECHNICIAN [address] [place] [address] 6 Month Follow-up [facility] [place] Comment on above: 6 Month Follow-up Start: 12-30-2024 Annual PCP Team Sign Maker meliton Disease Visit Annual PCP Team Chronic Disease Visit [facility] Start: 08-09-2024 Annual PCP Team Sign Maker meliton Disease Visit Annual PCP Team Chronic Disease Visit [facility] Start: 07-14-2024 End: 10-13-2024 25-hydroxyvitamin D3 [Mass/volume] in Serum or Plasma VITAMIN D 25 HYDROXY Lab Routine Vitamin D deficiency Expected: 07/14/2024, Expires: 10/13/2024 [facility] Comment on above: Expected: 07/14/2024 , Expires: 10/13/2024 Start: 07-14-2024 End: 10-13-2024 CBC W Auto Differential panel - Blood COMPLETE BLOOD COUNT AND DIFFERENTIAL Lab Routine Hyperlipidemia, mixed Expected: 07/14/2024, Expires: 10/13/2024 [facility] Comment on above: Expected: 07/14/2024 , Expires: 10/13/2024 Start: 07-14-2024 End: 10-13-2024 Comprehensive metabolic 2000 panel - Serum or Plasma COMPREHENSIVE METABOLIC PANEL Lab Routine Hyperlipidemia, mixed Expected: 07/14/2024, Expires: 10/13/2024 [facility] Work Phone: Comment on above: Expected: 07/14/2024 , Expires: 10/13/2024 Start: 07-14-2024 End: 10-13-2024 Lipid 1996 panel - Serum or Plasma LIPID PANEL BASIC Lab Routine Hyperlipidemia, mixed Expected: 07/14/2024, Expires: 10/13/2024 [facility] Comment on above: Expected: 07/14/2024 , Expires: 10/13/2024 Start: 07-14-2024 End: 10-13-2024 Thyrotropin [Units/volume] in Serum or Plasma THYROID STIMULATING HORMONE Lab Routine Hyperlipidemia, mixed Expected: 07/14/2024, Expires: 10/13/2024 [facility] Comment on above: Expected: 07/14/2024 , Expires: 10/13/2024 Start: 07-03-2024 End: 07-03-2024 Patient encounter procedure 07/03/2024 10:00 AM EST Office Visit Internal Medicine [id number] [place] [address] Abhi Costa, TOMMY.ELEVATOR SERVICE TECHNICIAN [address] [place] [address] physical Internal Medicine Comment on above: physical Start: 05-24-2024 Annual PCP Team Sign Maker meliton Disease Visit Annual PCP Team Chronic Disease Visit [facility] Start: 05-24-2024 Covid-19 Vaccine (#1) Covid-19 Vacci ne (#1) [facility] Comment on above: Postponed from 01/02 (Declined at this time) Start: 05-24-2024 Covid-19 Vaccine ( season) Covid-19 Vaccine ( season) [facility] Comment on above: Postponed from 04/02 (Declined at this time) Start: 05-24-2024 Hepatitis B Vaccine (1 of 3 - 19+ 3-dose series) Hepatitis B Vaccine (1 of 3 - 19+ 3-dose series) [facility] Comment on above: Postponed from 07/04 (Declined at this time) Start: 05-24-2024 Hepatitis B Vaccine (1 of 3 - 3-dose series) Hepatitis B Vaccine (1 of 3 - 3-dose series) [facility] Comment on above: Postponed from 07/04 (Declined at this time) Start: 05-24-2024 Pneumococcal vaccination Pneumococcal Vaccine (1 - PCV) [facility] Comment on above: Postponed from 07/04 (Declined at this time) Start: 05-24-2024 Spirometry Spirometry [facility] Comment on above: Postponed from 07/04 (Declined at this time) Start: 05-24-2024 Urine microalbumin profile DTaP,Tdap,Td Vaccine (1 - Tdap) [facility] Comment on above: Postponed from 07/04 (Declined at this time) Start: 04-02-2024 Influenza vaccination Influenz a Vaccine (Season Ended) [facility] Start: 01-30-2024 Influenza vaccination Influenza Vacc ine (#1) [facility] Comment on above: Postponed from 04/02 (Declined at this time) Start: 08-02-2023 Behavioral Health Screening Behavioral Health Screening [facility] Start: 08-02-2023 Depression Assessment Depression Ass essment [facility] Start: 05-24-2023 End: 08-23-2023 25-hydroxyvitamin D3 [Mass/volume] in Serum or Plasma VITAMIN D 25 HYDROXY Lab Routine Wellness examination Expected: 05/24/2023, Expires: 08/23/2023 [facility] Work Phone: Comment on above: Expected: 05/24/2023 , Expires: 08/23/2023 Start: 05-24-2023 End: 08-23-2023 Acute hepatitis 2000 panel - Serum HEP ACUTE PANEL BL Lab Routine Wellness examination Expected: 05/24/2023, Expires: 08/23/2023 [facility] Work Phone: Comment on above: Expected: 05/24/2023 , Expires: 08/23/2023 Start: 05-24-2023 End: 08-23-2023 Bacteria identified in Urine by Culture [facility] Work Phone: Comment on above: Expected: 05/24/2023 , Expires: 08/23/2023 Start: 05-24-2023 End: 08-23-2023 CBC panel - Blood by Automated count CBC Lab Routine Wellness examination Expected: 05/24/2023, Expires: 08/23/2023 [facility] Work Phone: Comment on above: Expected: 05/24/2023 , Expires: 08/23/2023 Start: 05-24-2023 End: 08-23-2023 Comprehensive metabolic 2000 panel - Serum or Plasma COMP METABOLIC PANEL Lab Routine Wellness examination Expected: 05/24/2023, Expires: 08/23/2023 [facility] Work Phone: Comment on above: Expected: 05/24/2023 , Expires: 08/23/2023 Start: 05-24-2023 End: 08-23-2023 HIV 1+2 Ab [Presence] in Serum or Plasma by Immunoassay HIV 1 2 COMBO(AG/AB),WITH REFLEX TO DIFFERENTIATION Lab Routine Wellness examination Expected: 05/24/2023, Expires: 08/23/2023 [facility] Work Phone: Comment on above: Expected: 05/24/2023 , Expires: 08/23/2023 Start: 05-24-2023 End: 08-23-2023 Lipid 1996 panel - Serum or Plasma LIPID PANEL BASIC Lab Routine Wellness examination Expected: 05/24/2023, Expires: 08/23/2023 [facility] Work Phone: Comment on above: Expected: 05/24/2023 , Expires: 08/23/2023 Start: 05-24-2023 End: 08-23-2023 SYPHILIS TOTAL W/REFLEX SYPHILIS TOTAL W/REFLEX Lab Routine Wellness examination Expected: 05/24/2023, Expires: 08/23/2023 [facility] Work Phone: Comment on above: Expected: 05/24/2023 , Expires: 08/23/2023 Start: 05-24-2023 End: 08-23-2023 Thyrotropin [Units/volume] in Serum or Plasma TSH BLD Lab Routine Wellness examination Expected: 05/24/2023, Expires: 08/23/2023 [facility] Work Phone: Comment on above: Expected: 05/24/2023 , Expires: 08/23/2023 Start: 12-23-2022 ANNUAL PCP TEAM COUNTER INSTALLER MELITON DISEASE VISIT ANNUAL PCP TEAM CHRONIC DISEASE VISIT [facility] Start: 12-23-2022 Urine microalbumin profile DTAP,TDAP,TD (1 - Tdap) [facility] Comment on above: Postponed from 07/04 (Declined at this time) Start: 11-30-2022 PNEUMOCOCCAL (1 - PCV) PNEUMOCOCCAL (1 - PCV) [facility] Comment on above: Postponed from 07/04 (Declined at this time) Start: 08-02-2022 DEPRESSION ASSESSMENT DEPRESSION ASS ESSMENT [facility] Start: 07-01-2022 ANNUAL PCP TEAM COUNTER INSTALLER MELITON DISEASE VISIT ANNUAL PCP TEAM CHRONIC DISEASE VISIT [facility] Start: 07-01-2022 COVID-19 VACCINE (#1) COVID-19 VACCI NE (#1) [facility] Comment on above: Postponed from 07/04 (Declined at this time) Postponed from 01/02 (Declined at this time) Start: 07-01-2022 COVID-19 VACCINE (1) COVID-19 VACCIN E (1) [facility] Comment on above: Postponed from 07/04 (Declined at this time) Start: 04-02-2022 Influenza vaccination [facility] Start: 09-29-2021 PAP TESTING PAP TESTING [facility] Start: 09-29-2021 Screening for malign ant neoplasm of cervix [facility] Start: 12-28-2019 HPV TESTING HPV TESTING [facility] Start: 12-28-2019 Screening for malign ant neoplasm of cervix HPV Testing [facility] Start: 09-23-2019 Adult depression screening assessment DEPRESSION SCREENING [facility] Start: 2010 Screening for malign ant neoplasm of cervix Pap Smear [facility] Start: 2008 Urine microalbumin profile DTAP,TDAP,TD (1 - Tdap) [facility] Start: 2007 Hepatitis C screening Hepatitis C An tibody [facility] Start: 2007 SPIROMETRY SPIROMETRY [facility] Start: 2007 Tetanus + diphtheria + acellular pertussis vaccine (product) Tdap Booster [facility] Start: 1994 COVID-19 Vaccine (#1) COVID-19 Vacci ne (#1) [facility] Start: 01-02-1990 COVID-19 VACCINE (#1) COVID-19 VACCI NE (#1) [facility] Start: 1989 HEPATITIS B (1 of 3 - 3-dose series) HEPATITIS B (1 of 3 - 3-dose series) [facility] Bacteria identified in Urine by Culture BACTERIAL CULTURE, URINE Microbiology Routine Flank pain 10/20/2024 11:13 AM EDT [facility] Work Phone: [facility] Immunizations Immunization Date Immunization Notes Care Provider Miriam roldan 09-23-2018 influenza virus vacc ine, unspecified formulation Abhi Costa APRN.ELEVATOR SERVICE TECHNICIAN Work Phone: [facility] Payers Date Payer Category Payer Medicaid [id number] 2022 Unknown SP/UNINSURED [employer] EVALUATION [id number] 2022-Present [phone] [address] [place] [address] Other [id number] 2017 Self-pay 2013 Unknown [id number] 2008 Medicaid [employer] [id number] 2008-Present [phone] [address] [place] [address] Medicaid [id number] 2008 Medicaid [id number] 1989 Unknown [id number] Unknown [id number] Unknown [id number] Social History Date Type Detail Facility Start: 03-21-2021 End: 01-08-2023 Tobacco smoking status MNIS Ex-smoker [facility] Start: 03-21-2021 End: 01-08-2023 Tobacco use and exposure Smokeless tobacco non-user [facility] Start: 07-02-2021 End: 01-12-2025 Alcohol intake Current non-drinker of alcohol (finding) [facility] Start: 1990 Sex Assigned At Not on file [facility] Start: 12-13-2021 End: 12-23-2021 Exposure to SARS-CoV-2 (event) Not sure [facility] [place] Tobacco smoking consumption unknown [facility] History of tobacco use Current smoker [facility] Start: 05-24-2023 End: 01-12-2025 History of Social function [facility] Work Phone: Start: 05-24-2023 End: 01-12-2025 Tobacco use panel [facility] Work Phone: Adult Depression Screening Assessment 0 [facility] Work Phone: Start: 01-08-2023 Tobacco Comment quit early this year [facility] Functional Status Date Assessment Result Facility 02-21-2015 Are you deaf, or do you have serious difficulty hearing No 02/21/2015 3:08 PM EDT Kellee Navas MA No [facility] 02-21-2015 Are you blind, or do you have serious difficulty seeing, even when wearing glasses No 02/21/2015 3:08 PM EDT Kellee Navas MA No [facility] 02-21-2015 Do you have serious difficulty walking or climbing stairs No 02/21/2015 3:08 PM EDT Kellee Navas MA No [facility] 02-21-2015 Do you have difficul ty dressing or bathing No 02/21/2015 3:08 PM EDT Kellee Navas MA No [facility] 02-21-2015 Because of a physica l, mental, or emotional condition, do you have difficulty doing errands alone such as visiting a physician's office or shopping No 02/21/2015 3:08 PM EDT Kellee Navas MA No [facility] Mental Status Date Assessment Result Facility 02-21-2015 Because of a physica l, mental, or emotional condition, do you have serious difficulty concentrating, remembering, or making decisions No 02/21/2015 3:08 PM EDT Kellee Navas MA [facility] Clinical Notes 01-30-2015 to 01-12-2025 Pavel Munguia APRN.CNP - 01/12/2025 9:59 AM Lucy Farfan APRN.CNP - 10/20/2024 10:42 AM EDTTelephone Encounter - Angelica Fam LPN - 10/10/2024 8:16 AM EDTPatient Instructions Note Date & Type Note Facility 01-12-2025 Note HNO ID: [id number] Author: PAVEL MUNGUIA APRN.CNP Service: ? Author Type: Nurse Practitioner Type: Progress Notes Filed: 01/12/2025 10:05 Note Text: [facility] [address] [place] [address] Date of Evaluation: 01/12/2025 Patient Name: Kristine Freeman : 1990 Chief Complaint: Patient presents with: Follow Up: 6 Month. Allergies have been bad[place] Itchy red eyes, nose, sore throat, sneezing. Subjective HPI Ms. Freeman is a 34 year old female who presents for: Follow up Current concerns: [place] country and had increase in allergy symptoms for the past month. No OTC medications. Continues to work on diet and exercise to improve her lipids. Review of Systems Constitutional: Negative for activity change, appetite change, chills and fever. HENT: Positive for congestion, rhinorrhea and sneezing. Negative for ear pain, hearing loss, sinus pressure, sinus pain, sore throat and trouble swallowing. Eyes: Positive for itching. Negative for visual disturbance. Respiratory: Negative for cough, chest tightness, shortness of breath and wheezing. Cardiovascular: Negative for chest pain, palpitations and leg swelling. Gastrointestinal: Negative for abdominal pain, diarrhea, nausea and vomiting. Genitourinary: Negative for dysuria and frequency. Musculoskeletal: Negative for arthralgias and myalgias. Skin: Negative for pallor, rash and wound. Neurological: Negative for dizziness, light-headedness, numbness and headaches. Psychiatric/Behavioral: Negative for behavioral problems, confusion, hallucinations and suicidal ideas. PAST MEDICAL HISTORY Diagnosis Date Anxiety 2010 Had anxiety for a long time, possibly since middle school. Only diagnosed 6 years ago. Asthma, mild persistent (HCC) 11/14/2005 As of 06/07/2017: Managed per Dr. Glover Dyshidrotic eczema 01/30/2015 Family history of defect 05/23/2012 05/23/2012Patient states that her daughter was born with Rett syndrome with mental retardation. Family history of heart disease 03/23/2019 father at the age of 55 from Heart aneurism. History of section 05/23/2012 05/23/2012Pt had two previous C sections at [facility] in [place], [place]. She desires a repeat C section by Dr. Callie Barraza. History of shingles 09/15/2012 September 15, 2012 shingles diagnosed and ordered acyclovir-risk of transmission extremely low, recommend fu US at 30 weeks, follow growth PRN Hyperlipidemia, mixed 03/27/2019 LGSIL (low grade squamous intraepithelial dysplasia) 07/05/2012 Ovarian cyst right depression Shingles 09/15/2012 September 15, 2012 shingles diagnosed and ordered acyclovir-risk of transmission extremely low, recommend fu US at 30 weeks, follow growth PRN Well adult exam 03/23/2019 Last Done: 03/23/2019 PAST SURGICAL HISTORY Procedure Laterality Date DELIVERY ONLY , low transverseX2 DELIVERY ONLY 12/27/12 , low transverse DILATION AND CURETTAGE TUBAL LIGATION, 2013 VAGINOSCOPY 07/11/2012 FAMILY HISTORY Problem Relation Age of Onset Hypertension Mother other (Other) Mother MS Diabetes Father Kidney Disease Father Heart Father 55 of a heart anyurism Heart Paternal Grandfather Social History Tobacco Use Smoking status: Former Smokeless tobacco: Never Tobacco comments: quit early this year Substance Use Topics Alcohol use: No Drug use: No Current Outpatient Medications Medication Sig cholecalciferol (VITAMIN D3) 50 mcg (2,000 unit) tablet Take 1 tablet by mouth once daily. sertraline (ZOLOFT) 50 mg tablet Take 3 tablets by mouth once daily. montelukast (SINGULAIR) 10 mg tablet Take 1 tablet by mouth daily at bedtime. azelastine 0.1% nasal spray Use 1 spray in each nostril two times a day. albuterol HFA (PROVENTIL HFA, VENTOLIN HFA) 90 mcg/actuation inhaler Inhale 2 puffs as instructed every 4 hours as needed for wheezing/shortness of breath. Per Dr. Glover mometasone-formoterol (DULERA) 200-5 mcg/actuation inhaler Inhale 2 puffs as instructed two times a day. No current facility-administered medications for this visit. I have confirmed and edited as necessary the chief complaint, medications, past medical, family and social histories obtained by others. Objective BP 117/81 Pulse 90 Resp 16 Wt 160 lb (72.6kg) SpO2 100% LMP 10/10/2024 Physical Exam Vitals reviewed. Constitutional: General: She is not in acute distress. Appearance: Normal appearance. She is normal weight. HENT: Head: Normocephalic. Right Ear: Tympanic membrane, ear canal and external ear normal. Left Ear: Tympanic membrane, ear canal and external ear normal. Nose: Congestion present. Mouth/Throat: Mouth: Mucous membranes are mo (more content not included)... [facility] 01-12-2025 History of Presen t illness Narrative Images from the original note were not included. [facility] [address] [place] [address] Date of Evaluation: 01/12/2025 Patient Name: Kristine Freeman : 1990 Chief Complaint: Patient presents with: Follow Up: 6 Month. Allergies have been bad. [place] Itchy red eyes, nose, sore throat, sneezing. Subjective HPI Ms. Freeman is a 34 year old female who presents for: Follow up Current concerns: [place] country and had increase in allergy symptoms for the past month. No OTC medications. Continues to work on diet and exercise to improve her lipids. Review of Systems Constitutional: Negative for activity change, appetite change, chills and fever. HENT: Positive for congestion, rhinorrhea and sneezing. Negative for ear pain, hearing loss, sinus pressure, sinus pain, sore throat and trouble swallowing. Eyes: Positive for itching. Negative for visual disturbance. Respiratory: Negative for cough, chest tightness, shortness of breath and wheezing. Cardiovascular: Negative for chest pain, palpitations and leg swelling. Gastrointestinal: Negative for abdominal pain, diarrhea, nausea and vomiting. Genitourinary: Negative for dysuria and frequency. Musculoskeletal: Negative for arthralgias and myalgias. Skin: Negative for pallor, rash and wound. Neurological: Negative for dizziness, light-headedness, numbness and headaches. Psychiatric/Behavioral: Negative for behavioral problems, confusion, hallucinations and suicidal ideas. PAST MEDICAL HISTORY Diagnosis Date Anxiety 2010 Had anxiety for a long time, possibly since middle school. Only diagnosed 6 years ago. Asthma, mild persistent (HCC) 11/14/2005 As of 06/07/2017: Managed per Dr. Glover Dyshidrotic eczema 01/30/2015 Family history of defect 05/23/2012 05/23/2012Patient states that her daughter was born with Rett syndrome with mental retardation. Family history of heart disease 03/23/2019 father at the age of 55 from Heart aneurism. History of section 05/23/2012 05/23/2012Pt had two previous C sections at [facility] in [place], [place]. She desires a repeat C section by Dr. Callie Barraza. History of shingles 09/15/2012 September 15, 2012 shingles diagnosed and ordered acyclovir-risk of transmission extremely low, recommend fu US at 30 weeks, follow growth PRN Hyperlipidemia, mixed 03/27/2019 LGSIL (low grade squamous intraepithelial dysplasia) 07/05/2012 Ovarian cyst right depression Shingles 09/15/2012 September 15, 2012 shingles diagnosed and ordered acyclovir-risk of transmission extremely low, recommend fu US at 30 weeks, follow growth PRN Well adult exam 03/23/2019 Last Done: 03/23/2019 PAST SURGICAL HISTORY Procedure Laterality Date DELIVERY ONLY , low transverseX2 DELIVERY ONLY 12/27/12 , low transverse DILATION & CURETTAGE TUBAL LIGATION, 2013 VAGINOSCOPY 07/11/2012 FAMILY HISTORY Problem Relation Age of Onset Hypertension Mother other (Other) Mother MS Diabetes Father Kidney Disease Father Heart Father 55 of a heart anyurism Heart Paternal Grandfather Social History Tobacco Use Smoking status: Former Smokeless tobacco: Never Tobacco comments: quit early this year Substance Use Topics Alcohol use: No Drug use: No Current Outpatient Medications Medication Sig cholecalciferol (VITAMIN D3) 50 mcg (2,000 unit) tablet Take 1 tablet by mouth once daily. sertraline (ZOLOFT) 50 mg tablet Take 3 tablets by mouth once daily. montelukast (SINGULAIR) 10 mg tablet Take 1 tablet by mouth daily at bedtime. azelastine 0.1% nasal spray Use 1 spray in each nostril two times a day. albuterol HFA (PROVENTIL HFA, VENTOLIN HFA) 90 mcg/actuation inhaler Inhale 2 puffs as instructed every 4 hours as needed for wheezing/shortness of breath. Per Dr. Glover mometasone-formoterol (DULERA) 200-5 mcg/actuation inhaler Inhale 2 puffs as instructed two times a day. No current facility-administered medications for this visit. I have confirmed and edited as necessary the chief complaint, medications, past medical, family and social histories obtained by others. Objective BP 117/81 Pulse 90 Resp 16 Wt 160 lb (72.6kg) SpO2 100% LMP 10/10/2024 Physical Exam Vitals reviewed. Constitutional: General: She is not in acute distress. Appearance: Normal appearance. She is normal weight. HENT: Head: Normocephalic. Right Ear: Tympanic membrane, ear canal and external ear normal. Left Ear: Tympanic membrane, ear canal and external ear normal. Nose: Congestion present. Mouth/Throat: Mouth: Mucous membranes are moist. Pharynx: Oropharynx is clear. Eyes: Extraocular Movements: Extraocular movements intact. Conjunctiva/sclera: Conjunctivae normal. Pupils: Pupils are equal, round, and reactive to light. Cardiovascular: Rate and Rhythm: Normal rate and regular rhythm. Pulses: Normal pulses. Heart sounds: Normal heart sounds. No murmur heard. No friction rub. No gallop. Pulmonary: Effort: Pulmonary effort is normal. Breath sounds: Normal breath sounds. No wheezing, rhonchi or rales. Abdominal: General: Bowel sounds are normal. Palpations: Abdomen is soft. Musculoskeletal: General: Normal range of motion. Cervical back: Normal range of motion. Right lower leg: No edema. Left lower leg: No edema. Lymphadenopathy: Cervical: No cervical adenopathy. Skin: General: Skin is warm and dry. Findings: No lesion or rash. Neurological: General: No focal deficit present. Mental Status: She is alert and oriented to person, place, and time. Mental status is at baseline. Psychiatric: Mood and Affect: Mood normal. Behavior: Behavior normal. Data Reviewed: Most recent labs ASSESSMENT/PLAN: 1. Follow-up exam - ICD9: V67.9, ICD10: Z09 (primary diagnosis) See below 2. Mild persistent asthma, unspecified whether complicated (HCC) - ICD9: 493.90, ICD10: J45.30 - Mild intermittent asthma stable - Continue current medications - Avoidance of triggers recommended - MONTELUKAST 10 MG TABLET - AZELASTINE 137 MCG (0.1 %) NASAL SPRAY - ALBUTEROL SULFATE HFA 90 MCG/ACTUATION AEROSOL INHALER - DULERA 200 MCG-5 MCG/ACTUATION HFA AEROSOL INHALER 3. Seasonal allergies - ICD9: 477.9, ICD10: J30.2 Would benefit from nasal saline flushes. - MONTELUKAST 10 MG TABLET - AZELASTINE 137 MCG (0.1 %) NASAL SPRAY 4. Hyperlipidemia, mixed - ICD9: 272.2, ICD10: E78.2 - Improving control - Counseled on healthy diet and regular exercise - Discussed need for and benefit of weight loss. BMI 29.26 kg/(m^2) Pavel Munguia APRN.ELEVATOR SERVICE TECHNICIAN Return in about 1 year (around 01/12/2026) for yearly physical. Discussed the above with the patient using shared decision making. The patient is in agreement with the diagnostic and treatment plans. documented in this encounter [facility] 10-20-2024 Note HNO ID: [id number] Author: LUCY MOBLEY APRN.ELEVATOR SERVICE TECHNICIAN Service: ? Author Type: Nurse Practitioner Type: Progress Notes Filed: 10/20/2024 11:12 Note Text: History has been obtained from the patient SUBJECTIVE: Kristine Freeman is a 34 year old female. Who presents today with L flank pain. 4 days ago she had pain in the L groin. That pain is gone and now it is just in the flank. She has no urinary symptoms of frequency burning pain with urination. She has no blood in the urine. At times she had a few shooting pain in the LLQ. The pain feels achy and dull. She has not had a rash. She has had shingles in the past but this feels different. She does not have a fever. She has had a history of kidney stones. This does feel reminiscent of the kidney stones however she has not had blood in the urine. However she states that the pain seems to move from the flank into the abdomen into the groin. History and Record Review External record(s) reviewed: prior outpatient record. Differential Diagnoses - kidney stone is more likely for the following reason(s): suggested by HANDP - shingles - UTI is less likely for the following reason(s): laboratory studies not suggestive PAST MEDICAL HISTORY Diagnosis Date Anxiety 2010 Had anxiety for a long time, possibly since middle school. Only diagnosed 6 years ago. Asthma, mild persistent 11/14/2005 As of 06/07/2017: Managed per Dr. Glover Dyshidrotic eczema 01/30/2015 Family history of defect 05/23/2012 05/23/2012Patient states that her daughter was born with Rett syndrome with mental retardation. Family history of heart disease 03/23/2019 father at the age of 55 from Heart aneurism. History of section 05/23/2012 05/23/2012Pt had two previous C sections at [facility] in [place], [place]. She desires a repeat C section by Dr. Callie Barraza. History of shingles 09/15/2012 September 15, 2012 shingles diagnosed and ordered acyclovir-risk of transmission extremely low, recommend fu US at 30 weeks, follow growth PRN Hyperlipidemia, mixed 03/27/2019 LGSIL (low grade squamous intraepithelial dysplasia) 07/05/2012 Ovarian cyst right depression Shingles 09/15/2012 September 15, 2012 shingles diagnosed and ordered acyclovir-risk of transmission extremely low, recommend fu US at 30 weeks, follow growth PRN Well adult exam 03/23/2019 Last Done: 03/23/2019 FAMILY HISTORY Problem Relation Age of Onset Hypertension Mother other (Other) Mother MS Diabetes Father Kidney Disease Father Heart Father 55 of a heart anyurism Heart Paternal Grandfather Social History Tobacco Use Smoking status: Former Smokeless tobacco: Never Tobacco comments: quit early this year Substance Use Topics Alcohol use: No Drug use: No ALLERGIES Allergen Reactions Shrimp Hives, Diarrhea, Other: See Comments Throat felt slightly constricted Animal Dander Other: See Comments ALLERGIC TO DOG AND CAT HAIR Dust Unknown Seasonal Allergies Other: See Comments NASAL CONGESTION Current Outpatient Medications Medication Sig Dispense Refill cholecalciferol (VITAMIN D3) 50 mcg (2,000 unit) tablet Take 1 tablet by mouth once daily. 90 tablet 3 sertraline (ZOLOFT) 50 mg tablet Take 3 tablets by mouth once daily. 270 tablet 3 albuterol HFA (PROVENTIL HFA, VENTOLIN HFA) 90 mcg/actuation inhaler Inhale 2 Puffs as instructed every 4 hours as needed for wheezing/shortness of breath. Per Dr. Glover 6.7 g 0 mometasone-formoterol (DULERA) 200-5 mcg/actuation inhaler Inhale 2 Puffs as instructed two times a day. 8.8 g 3 No current facility-administered medications for this visit. OBJECTIVE: BP 149/88 Pulse 64 Temp 36.1 ?C (97 ?F) Resp 20 Wt 72 kg (158 lb 11.7 oz) LMP 10/10/2024 (Approximate) SpO2 99% BMI 29.03 kg/m? ROS all other systems reviewed and are negative Physical Exam Constitutional: Well developed, well nourished, NAD, AANDO X3 ENT: Head is atraumatic, airway patent, mucosal membranes moist pink Cardiac: Heart tone normal rate and rhythm Respiratory: Respirations even and unlabored, Lung sounds clear GI: Abdomen soft and non-distended, non-tenderness, no rebound or guarding, bowel sounds normal. : + left CVA tenderness MS: no swelling, or deformity in upper or lower extremities, no midline tenderness in cervical, thoracic or lumbar spine. Neuro: strength sensation and coordination intact. CN II-XII grossly intact, Skin: warm and dry with out rash, lesion or ecchymosis on exposed skin Psych: alert appropriate, speech clear MDM It was a pleasure to take care of Kristine Freeman today. A urine sample was received and dipped this was negative for nitrites leukocytes or blood. At this time I do not believe that she has a urinary tract infection. However I will send a urine culture. If the culture does grow bacteria she will be treated with an appro (more content not included)... [facility] 10-20-2024 History of Presen t illness Narrative History has been obtained from the patient SUBJECTIVE: Kristine Freeman is a 34 year old female. Who presents today with L flank pain. 4 days ago she had pain in the L groin. That pain is gone and now it is just in the flank. She has no urinary symptoms of frequency burning pain with urination. She has no blood in the urine. At times she had a few shooting pain in the LLQ. The pain feels achy and dull. She has not had a rash. She has had shingles in the past but this feels different. She does not have a fever. She has had a history of kidney stones. This does feel reminiscent of the kidney stones however she has not had blood in the urine. However she states that the pain seems to move from the flank into the abdomen into the groin. History and Record Review External record(s) reviewed: prior outpatient record. Differential Diagnoses - kidney stone is more likely for the following reason(s): suggested by H&P - shingles - UTI is less likely for the following reason(s): laboratory studies not suggestive PAST MEDICAL HISTORY Diagnosis Date Anxiety 2010 Had anxiety for a long time, possibly since middle school. Only diagnosed 6 years ago. Asthma, mild persistent 11/14/2005 As of 06/07/2017: Managed per Dr. Glover Dyshidrotic eczema 01/30/2015 Family history of defect 05/23/2012 05/23/2012Patient states that her daughter was born with Rett syndrome with mental retardation. Family history of heart disease 03/23/2019 father at the age of 55 from Heart aneurism. History of section 05/23/2012 05/23/2012Pt had two previous C sections at [facility] in [place], [place]. She desires a repeat C section by Dr. Callie Barraza. History of shingles 09/15/2012 September 15, 2012 shingles diagnosed and ordered acyclovir-risk of transmission extremely low, recommend fu US at 30 weeks, follow growth PRN Hyperlipidemia, mixed 03/27/2019 LGSIL (low grade squamous intraepithelial dysplasia) 07/05/2012 Ovarian cyst right depression Shingles 09/15/2012 September 15, 2012 shingles diagnosed and ordered acyclovir-risk of transmission extremely low, recommend fu US at 30 weeks, follow growth PRN Well adult exam 03/23/2019 Last Done: 03/23/2019 FAMILY HISTORY Problem Relation Age of Onset Hypertension Mother other (Other) Mother MS Diabetes Father Kidney Disease Father Heart Father 55 of a heart anyurism Heart Paternal Grandfather Social History Tobacco Use Smoking status: Former Smokeless tobacco: Never Tobacco comments: quit early this year Substance Use Topics Alcohol use: No Drug use: No ALLERGIES Allergen Reactions Shrimp Hives, Diarrhea, Other: See Comments Throat felt slightly constricted Animal Dander Other: See Comments ALLERGIC TO DOG AND CAT HAIR Dust Unknown Seasonal Allergies Other: See Comments NASAL CONGESTION Current Outpatient Medications Medication Sig Dispense Refill cholecalciferol (VITAMIN D3) 50 mcg (2,000 unit) tablet Take 1 tablet by mouth once daily. 90 tablet 3 sertraline (ZOLOFT) 50 mg tablet Take 3 tablets by mouth once daily. 270 tablet 3 albuterol HFA (PROVENTIL HFA, VENTOLIN HFA) 90 mcg/actuation inhaler Inhale 2 Puffs as instructed every 4 hours as needed for wheezing/shortness of breath. Per Dr. Glover 6.7 g 0 mometasone-formoterol (DULERA) 200-5 mcg/actuation inhaler Inhale 2 Puffs as instructed two times a day. 8.8 g 3 No current facility-administered medications for this visit. OBJECTIVE: BP 149/88 Pulse 64 Temp 36.1 C (97 F) Resp 20 Wt 72 kg (158 lb 11.7 oz) LMP 10/10/2024 (Approximate) SpO2 99% BMI 29.03 kg/m ROS all other systems reviewed and are negative Physical Exam Constitutional: Well developed, well nourished, NAD, A&O X3 ENT: Head is atraumatic, airway patent, mucosal membranes moist pink Cardiac: Heart tone normal rate and rhythm Respiratory: Respirations even and unlabored, Lung sounds clear GI: Abdomen soft and non-distended, non-tenderness, no rebound or guarding, bowel sounds normal. : + left CVA tenderness MS: no swelling, or deformity in upper or lower extremities, no midline tenderness in cervical, thoracic or lumbar spine. Neuro: strength sensation and coordination intact. CN II-XII grossly intact, Skin: warm and dry with out rash, lesion or ecchymosis on exposed skin Psych: alert appropriate, speech clear MDM It was a pleasure to take care of Kristine Freeman today. A urine sample was received and dipped this was negative for nitrites leukocytes or blood. At this time I do not believe that she has a urinary tract infection. However I will send a urine culture. If the culture does grow bacteria she will be treated with an appropriate antibiotic. I have a low suspicion for shingles the patient does not have any type of rash. She does state that the pain moved from the flank into the abdomen into the groin and is reminiscent of when she has kidney stones. We have discussed that it is possible that she still has kidney stones not all kidney stones show blood in the urine. I have recommended that she follow-up with her family physician to have outpatient workup and evaluation of kidney stones. If it is that the pain increases or she has any other symptoms including fevers she may need to go to the emergency department for continued evaluation and care. Patient has verbalized understanding of plan of care and is agreeable Patient will follow up with family physician. They may return to the Urgent Care or go to the ER for worsening symptoms or concerns. Patient verbalized understanding of plan of care and is in agreement. ASSESSMENT/PLAN: 1. Flank pain - ICD9: 789.09, ICD10: R10.9 - UA DIP, URINE (POC) - BACTERIAL CULTURE, URINE Lucy Mobley APRN.CNP documented in this encounter [facility] 10-10-2024 Telephone encounter Note Results sent in my chart [facility] 10-10-2024 Telephone encounter Note ----- Message from Pavel Munguia APRN.CNP sent at 10/10/2024 8:13 AM EDT ----- - Lipids continue to improve, continue diet and exercise changes! - Vitamin D remains low, recommend daily replacement, script sent to pharmacy on file. - Other labs look good. Pavel Munguai APRN.CNP October 10, 2024 8:13 AM [facility] 10-10-2024 Miscellaneous Notes Results sent in my chart ----- Message from Pavel Munguia APRN.CNP sent at 10/10/2024 8:13 AM EDT ----- - Lipids continue to improve, continue diet and exercise changes! - Vitamin D remains low, recommend daily replacement, script sent to pharmacy on file. - Other labs look good. Pavel Munguia APRN.ELEVATOR SERVICE TECHNICIAN October 10, 2024 8:13 AM documented in this encounter [facility] 07-14-2024 Telephone encounter Note Summary: [employer] PORTAL CONSULTANT [employer] PORTAL CONSULTANT Referral placed through the [employer] [facility] on July 14, 2024. #[id number] Preferred Provider Dr. brunilda Gallagher MA [facility] 07-14-2024 Miscellaneous Notes Summary: SAP PORTAL CONSULTANT [employer] PORTAL CONSULTANT Referral placed through the [employer] [facility] on July 14, 2024. #[id number] Preferred Provider Dr. brunilda Gallagher MA documented in this encounter [facility] 07-14-2024 Note HNO ID: [id number] Author: PAVEL MUNGUIA APRN.ELEVATOR SERVICE TECHNICIAN Service: ? Author Type: Nurse Practitioner Type: Progress Notes Filed: 07/14/2024 10:24 Note Text: [facility] [address] [place] [address] Date of Evaluation: 07/14/2024 Patient Name: Kristine Freeman : 1990 Chief Complaint: Patient presents with: New Patient: Establishing care refills Subjective HPI Ms. Freeman is a 34 year old female who presents for: establishing care. Anxiety well controlled on current Zoloft dose. HLD- working on diet and exercise. Due for labs to reassess. Asthma well controlled on current Dulera and PRN albuterol. Review of Systems Constitutional: Negative for activity change, appetite change, chills and fever. HENT: Negative for ear pain, hearing loss, sinus pressure, sinus pain, sore throat and trouble swallowing. Eyes: Negative for visual disturbance. Respiratory: Negative for cough, chest tightness, shortness of breath and wheezing. Cardiovascular: Negative for chest pain, palpitations and leg swelling. Gastrointestinal: Negative for abdominal pain, diarrhea, nausea and vomiting. Genitourinary: Negative for dysuria and frequency. Musculoskeletal: Negative for arthralgias and myalgias. Skin: Negative for pallor, rash and wound. Neurological: Negative for dizziness, light-headedness, numbness and headaches. Psychiatric/Behavioral: Negative for behavioral problems, confusion, hallucinations and suicidal ideas. PAST MEDICAL HISTORY Diagnosis Date Anxiety 2010 Had anxiety for a long time, possibly since middle school. Only diagnosed 6 years ago. Asthma, mild persistent 11/14/2005 As of 06/07/2017: Managed per Dr. Glover Dyshidrotic eczema 01/30/2015 Family history of defect 05/23/2012 05/23/2012Patient states that her daughter was born with Rett syndrome with mental retardation. Family history of heart disease 03/23/2019 father at the age of 55 from Heart aneurism. History of section 05/23/2012 05/23/2012Pt had two previous C sections at [facility] in [place], [place]. She desires a repeat C section by Dr. Callie Barraza. History of shingles 09/15/2012 September 15, 2012 shingles diagnosed and ordered acyclovir-risk of transmission extremely low, recommend fu US at 30 weeks, follow growth PRN Hyperlipidemia, mixed 03/27/2019 LGSIL (low grade squamous intraepithelial dysplasia) 07/05/2012 Ovarian cyst right depression Shingles 09/15/2012 September 15, 2012 shingles diagnosed and ordered acyclovir-risk of transmission extremely low, recommend fu US at 30 weeks, follow growth PRN Well adult exam 03/23/2019 Last Done: 03/23/2019 PAST SURGICAL HISTORY Procedure Laterality Date DELIVERY ONLY , low transverseX2 DELIVERY ONLY 12/27/12 , low transverse DILATION AND CURETTAGE TUBAL LIGATION, 2013 VAGINOSCOPY 07/11/2012 FAMILY HISTORY Problem Relation Age of Onset Hypertension Mother other (Other) Mother MS Diabetes Father Kidney Disease Father Heart Father 55 of a heart anyurism Heart Paternal Grandfather Social History Tobacco Use Smoking status: Former Smokeless tobacco: Never Tobacco comments: quit early this year Substance Use Topics Alcohol use: No Drug use: No Current Outpatient Medications Medication Sig albuterol HFA (PROVENTIL HFA, VENTOLIN HFA) 90 mcg/actuation inhaler Inhale 2 Puffs as instructed every 4 hours as needed for wheezing/shortness of breath. Per Dr. Glover mometasone-formoterol (DULERA) 200-5 mcg/actuation inhaler Inhale 2 Puffs as instructed two times a day. sertraline (ZOLOFT) 50 mg tablet Take 3 tablets by mouth once daily. No current facility-administered medications for this visit. I have confirmed and edited as necessary the chief complaint, medications, past medical, family and social histories obtained by others. Objective BP 124/83 Pulse 75 Resp 16 Ht 5' 2 (1.58m) Wt 152 lb (68.9kg) SpO2 100% LMP 12/26/2022 BMI 27.79 kg/(m2). Physical Exam Vitals reviewed. Constitutional: General: She is not in acute distress. Appearance: Normal appearance. She is normal weight. HENT: Head: Normocephalic. Eyes: Extraocular Movements: Extraocular movements intact. Conjunctiva/sclera: Conjunctivae normal. Pupils: Pupils are equal, round, and reactive to light. Cardiovascular: Rate and Rhythm: Normal rate and regular rhythm. Pulses: Normal pulses. Heart sounds: Normal heart sounds. No murmur heard. No friction rub. No gallop. Pulmonary: Effort: Pulmonary effort is normal. Breath sounds: Normal breath sounds. No wheezing, rhonchi or rales. Musculoskeletal: General: Normal range of motion. Cervical back: Normal range of motion. Right lower leg: (more content not included)... [facility] 07-14-2024 History of Presen t illness Narrative Images from the original note were not included. [facility] [address] [place] [address] Date of Evaluation: 07/14/2024 Patient Name: Kristine Freeman : 1990 Chief Complaint: Patient presents with: New Patient: Establishing care refills Subjective HPI Ms. Freeman is a 34 year old female who presents for: establishing care. Anxiety well controlled on current Zoloft dose. HLD- working on diet and exercise. Due for labs to reassess. Asthma well controlled on current Dulera and PRN albuterol. Review of Systems Constitutional: Negative for activity change, appetite change, chills and fever. HENT: Negative for ear pain, hearing loss, sinus pressure, sinus pain, sore throat and trouble swallowing. Eyes: Negative for visual disturbance. Respiratory: Negative for cough, chest tightness, shortness of breath and wheezing. Cardiovascular: Negative for chest pain, palpitations and leg swelling. Gastrointestinal: Negative for abdominal pain, diarrhea, nausea and vomiting. Genitourinary: Negative for dysuria and frequency. Musculoskeletal: Negative for arthralgias and myalgias. Skin: Negative for pallor, rash and wound. Neurological: Negative for dizziness, light-headedness, numbness and headaches. Psychiatric/Behavioral: Negative for behavioral problems, confusion, hallucinations and suicidal ideas. PAST MEDICAL HISTORY Diagnosis Date Anxiety 2010 Had anxiety for a long time, possibly since middle school. Only diagnosed 6 years ago. Asthma, mild persistent 11/14/2005 As of 06/07/2017: Managed per Dr. Glover Dyshidrotic eczema 01/30/2015 Family history of defect 05/23/2012 05/23/2012Patient states that her daughter was born with Rett syndrome with mental retardation. Family history of heart disease 03/23/2019 father at the age of 55 from Heart aneurism. History of section 05/23/2012 05/23/2012Pt had two previous C sections at [facility] in [place], [place]. She desires a repeat C section by Dr. Callie Barraza. History of shingles 09/15/2012 September 15, 2012 shingles diagnosed and ordered acyclovir-risk of transmission extremely low, recommend fu US at 30 weeks, follow growth PRN Hyperlipidemia, mixed 03/27/2019 LGSIL (low grade squamous intraepithelial dysplasia) 07/05/2012 Ovarian cyst right depression Shingles 09/15/2012 September 15, 2012 shingles diagnosed and ordered acyclovir-risk of transmission extremely low, recommend fu US at 30 weeks, follow growth PRN Well adult exam 03/23/2019 Last Done: 03/23/2019 PAST SURGICAL HISTORY Procedure Laterality Date DELIVERY ONLY , low transverseX2 DELIVERY ONLY 12/27/12 , low transverse DILATION & CURETTAGE TUBAL LIGATION, 2013 VAGINOSCOPY 07/11/2012 FAMILY HISTORY Problem Relation Age of Onset Hypertension Mother other (Other) Mother MS Diabetes Father Kidney Disease Father Heart Father 55 of a heart anyurism Heart Paternal Grandfather Social History Tobacco Use Smoking status: Former Smokeless tobacco: Never Tobacco comments: quit early this year Substance Use Topics Alcohol use: No Drug use: No Current Outpatient Medications Medication Sig albuterol HFA (PROVENTIL HFA, VENTOLIN HFA) 90 mcg/actuation inhaler Inhale 2 Puffs as instructed every 4 hours as needed for wheezing/shortness of breath. Per Dr. Glover mometasone-formoterol (DULERA) 200-5 mcg/actuation inhaler Inhale 2 Puffs as instructed two times a day. sertraline (ZOLOFT) 50 mg tablet Take 3 tablets by mouth once daily. No current facility-administered medications for this visit. I have confirmed and edited as necessary the chief complaint, medications, past medical, family and social histories obtained by others. Objective BP 124/83 Pulse 75 Resp 16 Ht 5' 2 (1.58m) Wt 152 lb (68.9kg) SpO2 100% LMP 12/26/2022 BMI 27.79 kg/(m^2). Physical Exam Vitals reviewed. Constitutional: General: She is not in acute distress. Appearance: Normal appearance. She is normal weight. HENT: Head: Normocephalic. Eyes: Extraocular Movements: Extraocular movements intact. Conjunctiva/sclera: Conjunctivae normal. Pupils: Pupils are equal, round, and reactive to light. Cardiovascular: Rate and Rhythm: Normal rate and regular rhythm. Pulses: Normal pulses. Heart sounds: Normal heart sounds. No murmur heard. No friction rub. No gallop. Pulmonary: Effort: Pulmonary effort is normal. Breath sounds: Normal breath sounds. No wheezing, rhonchi or rales. Musculoskeletal: General: Normal range of motion. Cervical back: Normal range of motion. Right lower leg: No edema. Left lower leg: No edema. Lymphadenopathy: Cervical: No cervical adenopathy. Skin: General: Skin is warm and dry. Findings: No lesion or rash. Neurological: General: No focal deficit present. Mental Status: She is alert and oriented to person, place, and time. Mental status is at baseline. Psychiatric: Mood and Affect: Mood normal. Behavior: Behavior normal. Data Reviewed: Most recent labs ASSESSMENT/PLAN: 1. Encounter to establish care - ICD9: V65.8, ICD10: Z76.89 (primary diagnosis) See below 2. Anxiety - ICD9: 300.00, ICD10: F41.9 Continue current plan. - SERTRALINE 50 MG TABLET 3. Screening for depression - ICD9: V79.0, ICD10: Z13.31 - DEPRESSION SCREENING 4. Hyperlipidemia, mixed - ICD9: 272.2, ICD10: E78.2 - Control undetermined, due for labs - Counseled on healthy diet and regular exercise - Discussed need for and benefit of weight loss. BMI 27.80 kg/(m^2) - COMPREHENSIVE METABOLIC PANEL - COMPLETE BLOOD COUNT AND DIFFERENTIAL - LIPID PANEL BASIC - THYROID STIMULATING HORMONE 5. Vitamin D deficiency - ICD9: 268.9, ICD10: E55.9 - VITAMIN D 25 HYDROXY 6. Cervical cancer screening - ICD9: V76.2, ICD10: Z12.4 - CONSULT TO [employer] PORTAL CONSULTANT Pavle Munguia APRN.ELEVATOR SERVICE TECHNICIAN Return in about 6 months (around 01/12/2025) for follow up. Discussed the above with the patient using shared decision making. The patient is in agreement with the diagnostic and treatment plans. documented in this encounter [facility] 12-31-2023 Instructions Abhi Costa APRN.CNP - 12/31/2023 9:40 AM EDT (E55.9) Vitamin D deficiency (primary encounter diagnosis) Plan: - VITAMIN D 25 HYDROXY (J45.30) Mild persistent asthma, unspecified whether complicated Plan: -albuterol HFA (PROVENTIL HFA, VENTOLIN HFA) 90 mcg/actuation inhaler, - mometasone-formoterol (DULERA) 200-5 mcg/actuation inhaler (F41.9) Anxiety Plan: -sertraline (ZOLOFT) 50 mg tablet (E78.2) Hyperlipidemia, mixed Plan: -LIPID PANEL BASIC Discussed medication dosage, usage, goals of therapy. Red flag symptoms discussed with the patient and when to go to ER. Patient verbalized understanding. Plan of care and discharge instructions were discussed and given to patient and/or family who verbalized understanding, all questions answered. Patient instructed to call primary care provider or go to the emergency department for worsening, persistent, increasing or new symptoms. [facility] FACTS LAB HOURS: Lab is open 8:30am to 5pm Wednesday through Wednesday PHARMACY HOURS: Pharmacy is open 9am to 5pm Wednesday through Wednesday Routine Lab Orders 60 days after they are entered. If your lab orders , you may be required to wait in the lab while they are reinstated FUTURE ORDERS are lab tests to be completed on the EXPECTED date. These orders 60 days after the expected date. STANDING ORDERS are recurring orders with an expiration date. The interval will indicate how often the test should be completed. FASTING LAB means nothing to eat or drink (except water) 10-12 hours before your blood is drawn. CT MRI IVP If you have one of these radiology exams ordered along with blood work, please complete the blood work at least one day prior to the scheduled exam. For Express Care LOCATIONS, HOURS OF OPERATION and CURRENT WAIT TIMES, visit the following link [email or web address][types][0]=[email or web address] s%20Care%[email or web address]& for details My Chart Schedule My Appointment enables you to view your established primary care provider's open schedule and book an appointment online in real-time. This feature is available in internal medicine, family medicine, or pediatrics at any of our [facility] locations and main [place]. Hours are subject to change. Express Care is for patients ages 6 months years and older. For Express Care LOCATIONS, HOURS OF OPERATION and CURRENT WAIT TIMES, visit the following link: [email or web address]][0]=[email or web address] s%20Care%20Clinics& for details. My Chart Schedule My Appointment enables you to view your established primary care provider's open schedule and book an appointment online in real-time. This feature is available in internal medicine, family medicine, or pediatrics at any of our family health center locations and main campus. documented in this encounter [facility] 12-31-2023 Note HNO ID: [id number] Author: ABHI COSTA APRN.SURY Service: ? Author Type: Nurse Practitioner Type: Progress Notes Filed: 12/31/2023 11:05 Note Text: The history is provided by the patient. No english language arts teacher was used. Kristine Freeman is a 33 year old female presents today for a chronic visit follow up, she is doing generally well and has no other complaints today, she is also aware and has been updated on all appropriate health maintenance issues. New concerns today include: - would like to continue lifestyle modification to improve Review of Systems Constitutional: Negative. HENT: Negative. Eyes: Negative. Respiratory: Negative. Cardiovascular: Negative. Gastrointestinal: Negative. Endocrine: Negative. Genitourinary: Negative. Musculoskeletal: Negative. Skin: Negative. Allergic/Immunologic: Negative. Neurological: Negative. Hematological: Negative. Psychiatric/Behavioral: Negative. All other systems reviewed and are negative. BP 129/83 (BP Site: Left Arm, BP Position: Sitting, BP Cuff Size: Regular Adult) Pulse 87 Temp 36.2 ?C (97.2 ?F) (Temporal) Resp 12 Ht 157.5 cm (5' 2) Wt 67.1 kg (148 lb) LMP 12/26/2022 SpO2 99% BMI 27.07 kg/m? Physical Exam Vitals and nursing note reviewed. Constitutional: General: She is not in acute distress. Appearance: Normal appearance. She is well-developed. She is not ill-appearing, toxic-appearing or diaphoretic. HENT: Head: Normocephalic and atraumatic. Cardiovascular: Rate and Rhythm: Normal rate. Pulmonary: Effort: Pulmonary effort is normal. Musculoskeletal: General: Normal range of motion. Skin: General: Skin is warm. Neurological: Mental Status: She is alert and oriented to person, place, and time. Psychiatric: Attention and Perception: Attention and perception normal. Mood and Affect: Mood and affect normal. Speech: Speech normal. Behavior: Behavior normal. Behavior is cooperative. Thought Content: Thought content normal. Cognition and Memory: Cognition and memory normal. Judgment: Judgment normal. Allergies: Shrimp Hives, Diarrhea, Other: See Comments Comment:Throat felt slightly constricted Animal Dander Other: See Comments Comment:ALLERGIC TO DOG AND CAT HAIR Dust Unknown Seasonal Allergies Other: See Comments Comment:NASAL CONGESTION PAST MEDICAL HISTORY Diagnosis Date Anxiety 2010 Had anxiety for a long time, possibly since middle school. Only diagnosed 6 years ago. Asthma, mild persistent 11/14/2005 As of 06/07/2017: Managed per Dr. Glover Dyshidrotic eczema 01/30/2015 Family history of defect 05/23/2012 05/23/2012Patient states that her daughter was born with Rett syndrome with mental retardation. Family history of heart disease 03/23/2019 father at the age of 55 from Heart aneurism. History of section 05/23/2012 05/23/2012Pt had two previous C sections at [facility] in [place], [place]. She desires a repeat C section by Dr. Callie Barraza. History of shingles 09/15/2012 September 15, 2012 shingles diagnosed and ordered acyclovir-risk of transmission extremely low, recommend fu US at 30 weeks, follow growth PRN Hyperlipidemia, mixed 03/27/2019 LGSIL (low grade squamous intraepithelial dysplasia) 07/05/2012 Ovarian cyst right depression Shingles 09/15/2012 September 15, 2012 shingles diagnosed and ordered acyclovir-risk of transmission extremely low, recommend fu US at 30 weeks, follow growth PRN Well adult exam 03/23/2019 Last Done: 03/23/2019 PAST SURGICAL HISTORY Procedure Laterality Date DELIVERY ONLY , low transverseX2 DELIVERY ONLY 12/27/12 , low transverse DILATION AND CURETTAGE TUBAL LIGATION, 2013 VAGINOSCOPY 07/11/2012 albuterol HFA (PROVENTIL HFA, VENTOLIN HFA) 90 mcg/actuation inhaler Inhale 2 Puffs as instructed every 4 hours as needed for wheezing/shortness of breath. Per Dr. Glover sertraline (ZOLOFT) 50 mg tablet Take 3 tablets by mouth once daily. mometasone-formoterol (DULERA) 200-5 mcg/actuation inhaler Inhale 2 Puffs as instructed two times a day. Cholecalciferol, Vitamin D3, (VITAMIN D) 25 mcg (1,000 unit) cap Take 1 capsule by mouth once daily. (Patient not taking: Reported on 01/08/2023) (E55.9) Vitamin D deficiency (primary encounter diagnosis) Plan: - VITAMIN D 25 HYDROXY (J45.30) Mild persistent asthma, unspecified whether complicated Plan: -albuterol HFA (PROVENTIL HFA, VENTOLIN HFA) 90 mcg/actuation inhaler, - mometasone-formoterol (DULERA) 200-5 mcg/actuation inhaler (F41.9) Anxiety Plan: -sertraline (ZOLOFT) 50 mg tablet (E78.2) Hyperlipidemia, mixed Plan: -LIPID PANEL BASIC Discussed medication dosage, usage, goals of therapy. Red flag symptoms discussed with the patient and when to go to ER. Patient verbalized understanding. Plan of care and discharge instru (more content not included)... [facility] 12-31-2023 History of Presen t illness Narrative The history is provided by the patient. No english language arts teacher was used. Kristine Freeman is a 33 year old female presents today for a chronic visit follow up, she is doing generally well and has no other complaints today, she is also aware and has been updated on all appropriate health maintenance issues. New concerns today include: - would like to continue lifestyle modification to improve Review of Systems Constitutional: Negative. HENT: Negative. Eyes: Negative. Respiratory: Negative. Cardiovascular: Negative. Gastrointestinal: Negative. Endocrine: Negative. Genitourinary: Negative. Musculoskeletal: Negative. Skin: Negative. Allergic/Immunologic: Negative. Neurological: Negative. Hematological: Negative. Psychiatric/Behavioral: Negative. All other systems reviewed and are negative. BP 129/83 (BP Site: Left Arm, BP Position: Sitting, BP Cuff Size: Regular Adult) Pulse 87 Temp 36.2 C (97.2 F) (Temporal) Resp 12 Ht 157.5 cm (5' 2) Wt 67.1 kg (148 lb) LMP 12/26/2022 SpO2 99% BMI 27.07 kg/m Physical Exam Vitals and nursing note reviewed. Constitutional: General: She is not in acute distress. Appearance: Normal appearance. She is well-developed. She is not ill-appearing, toxic-appearing or diaphoretic. HENT: Head: Normocephalic and atraumatic. Cardiovascular: Rate and Rhythm: Normal rate. Pulmonary: Effort: Pulmonary effort is normal. Musculoskeletal: General: Normal range of motion. Skin: General: Skin is warm. Neurological: Mental Status: She is alert and oriented to person, place, and time. Psychiatric: Attention and Perception: Attention and perception normal. Mood and Affect: Mood and affect normal. Speech: Speech normal. Behavior: Behavior normal. Behavior is cooperative. Thought Content: Thought content normal. Cognition and Memory: Cognition and memory normal. Judgment: Judgment normal. Allergies: Shrimp Hives, Diarrhea, Other: See Comments Comment:Throat felt slightly constricted Animal Dander Other: See Comments Comment:ALLERGIC TO DOG AND CAT HAIR Dust Unknown Seasonal Allergies Other: See Comments Comment:NASAL CONGESTION PAST MEDICAL HISTORY Diagnosis Date Anxiety 2010 Had anxiety for a long time, possibly since middle school. Only diagnosed 6 years ago. Asthma, mild persistent 11/14/2005 As of 06/07/2017: Managed per Dr. Glover Dyshidrotic eczema 01/30/2015 Family history of defect 05/23/2012 05/23/2012Patient states that her daughter was born with Rett syndrome with mental retardation. Family history of heart disease 03/23/2019 father at the age of 55 from Heart aneurism. History of section 05/23/2012 05/23/2012Pt had two previous C sections at [facility] in [place], [place]. She desires a repeat C section by Dr. Callie Barraza. History of shingles 09/15/2012 September 15, 2012 shingles diagnosed and ordered acyclovir-risk of transmission extremely low, recommend fu US at 30 weeks, follow growth PRN Hyperlipidemia, mixed 03/27/2019 LGSIL (low grade squamous intraepithelial dysplasia) 07/05/2012 Ovarian cyst right depression Shingles 09/15/2012 September 15, 2012 shingles diagnosed and ordered acyclovir-risk of transmission extremely low, recommend fu US at 30 weeks, follow growth PRN Well adult exam 03/23/2019 Last Done: 03/23/2019 PAST SURGICAL HISTORY Procedure Laterality Date DELIVERY ONLY , low transverseX2 DELIVERY ONLY 12/27/12 , low transverse DILATION & CURETTAGE TUBAL LIGATION, 2013 VAGINOSCOPY 07/11/2012 albuterol HFA (PROVENTIL HFA, VENTOLIN HFA) 90 mcg/actuation inhaler Inhale 2 Puffs as instructed every 4 hours as needed for wheezing/shortness of breath. Per Dr. Glover sertraline (ZOLOFT) 50 mg tablet Take 3 tablets by mouth once daily. mometasone-formoterol (DULERA) 200-5 mcg/actuation inhaler Inhale 2 Puffs as instructed two times a day. Cholecalciferol, Vitamin D3, (VITAMIN D) 25 mcg (1,000 unit) cap Take 1 capsule by mouth once daily. (Patient not taking: Reported on 01/08/2023) (E55.9) Vitamin D deficiency (primary encounter diagnosis) Plan: - VITAMIN D 25 HYDROXY (J45.30) Mild persistent asthma, unspecified whether complicated Plan: -albuterol HFA (PROVENTIL HFA, VENTOLIN HFA) 90 mcg/actuation inhaler, - mometasone-formoterol (DULERA) 200-5 mcg/actuation inhaler (F41.9) Anxiety Plan: -sertraline (ZOLOFT) 50 mg tablet (E78.2) Hyperlipidemia, mixed Plan: -LIPID PANEL BASIC Discussed medication dosage, usage, goals of therapy. Red flag symptoms discussed with the patient and when to go to ER. Patient verbalized understanding. Plan of care and discharge instructions were discussed and given to patient and/or family who verbalized understanding, all questions answered. Patient instructed to call primary care provider or go to the emergency department for worsening, persistent, increasing or new symptoms. Abhi Costa APRN, TEGAN- Medical Decision Making: Problems: Moderate: 2+ stable chronic illnesses Data: Unique test(s) ordered: 2 Risk: Moderate: Moderate risk from testing/treatment Medical Decision Making Level: 4 - Moderate documented in this encounter [facility] 05-27-2023 Miscellaneous Notes I called your patient to offer an appointment per patient she does not and did not agree to see a Psychiatrist she has been taking Zoloft for 10 years she is fine she gets her scripts from PCP your patient refused an appointment with [facility] just wanted you to know/ Thanks documented in this encounter [facility] 05-24-2023 Instructions Abhi Costa APRN.SURY - 05/24/2023 11:29 AM EDT (Z00.00) Wellness examination (primary encounter diagnosis) Plan: -CBC, - COMP METABOLIC PANEL, -TSH BLD, - LIPID PANEL BASIC, -HEP ACUTE PANEL BL, -UA DIP, URINE (POC), -URINE CULTURE, -HIV 1 2 COMBO(AG/AB),WITH REFLEX TO DIFFERENTIATION, -SYPHILIS TOTAL W/REFLEX, -VITAMIN D 25 HYDROXY (Z13.31) Screening for depression Plan: -DEPRESSION SCREENING/ASSESSMENT (Z28.21) Vaccination declined Plan: - Declined all vaccination in office today (Z23) Need for vaccination Plan: -CANCELED: TDAP VACCINE, AGE 7+ YR (ADACEL, BOOSTRIX) (E66.3) Overweight (BMI 25.0-29.9) Plan: - Recommended no refined sugar, low refined starch, healthy oil intake (olive oil), healthy protein (fish) along the lines of the Mediterranean diet - avoid/reduce foods that are high in unhealthy saturated fats (i.e.- Eggs, dairy, shellfish, deep fried foods, fatty cut meats, organ meats, processed foods, sardines, butter, coconut oil) - Recommended regular aerobic exercise. Saturated fat is found in: butter, ghee, suet, lard, coconut oil and palm oil. cakes. biscuits. fatty cuts of meat. sausages. boucher. cured meats like salami, chorizo and pancetta. cheese. Discussed medication dosage, usage, goals of therapy. Red flag symptoms discussed with the patient and when to go to ER. Patient verbalized understanding. Plan of care and discharge instructions were discussed and given to patient and/or family who verbalized understanding, all questions answered. Patient instructed to call primary care provider or go to the emergency department for worsening, persistent, increasing or new symptoms. [facility] FACTS LAB HOURS: Lab is open 8:30am to 5pm Wednesday through Wednesday PHARMACY HOURS: Pharmacy is open 9am to 5pm Wednesday through Wednesday Routine Lab Orders 60 days after they are entered. If your lab orders , you may be required to wait in the lab while they are reinstated FUTURE ORDERS are lab tests to be completed on the EXPECTED date. These orders 60 days after the expected date. STANDING ORDERS are recurring orders with an expiration date. The interval will indicate how often the test should be completed. FASTING LAB means nothing to eat or drink (except water) 10-12 hours before your blood is drawn. CT MRI IVP If you have one of these radiology exams ordered along with blood work, please complete the blood work at least one day prior to the scheduled exam. For Express Care LOCATIONS, HOURS OF OPERATION and CURRENT WAIT TIMES, visit the following link [email or web address][types][0]=[email or web address] s%20Care%20Clinics& for details My Chart Schedule My Appointment enables you to view your established primary care provider's open schedule and book an appointment online in real-time. This feature is available in internal medicine, family medicine, or pediatrics at any of our [facility] locations and [facility] [place]. Hours are subject to change. Express Care is for patients ages 6 months years and older. For Express Care LOCATIONS, HOURS OF OPERATION and CURRENT WAIT TIMES, visit the following link: [email or web address][types][0]=Expres s%20Care%20Clinics& for details. My Chart Schedule My Appointment enables you to view your established primary care provider's open schedule and book an appointment online in real-time. This feature is available in internal medicine, family medicine, or pediatrics at any of our [facility] locations and [facility] [place]. documented in this encounter [facility] 05-24-2023 History of Presen t illness Narrative The history is provided by the patient. No english language arts teacher was used. Kristine Freeman is a 32 year old female presents today for a wellness exam. she is doing generally well and has no other complaints today. she is also aware and has been updated on all appropriate health maintenance issues. New concerns today include: -wants to lose weight, has tried keto diet with little results -feeling apathetic, but is content, will continue with sertraline -concerned with lipids due to family history, reviewed OTC niacin use and indications. Review of Systems Constitutional: Negative. HENT: Positive for congestion. Negative for dental problem, drooling, ear discharge, ear pain, facial swelling, hearing loss, mouth sores, nosebleeds, postnasal drip, rhinorrhea, sinus pressure, sinus pain, sneezing, sore throat, tinnitus, trouble swallowing and voice change. Eyes: Negative. Respiratory: Negative. Cardiovascular: Negative. Gastrointestinal: Negative. Endocrine: Negative. Genitourinary: Negative. Musculoskeletal: Negative. Skin: Negative. Neurological: Negative. Hematological: Negative. Psychiatric/Behavioral: Negative. BP 121/77 (BP Site: Right Arm, BP Position: Sitting, BP Cuff Size: Regular Adult) Pulse 69 Temp 36.4 C (97.6 F) (Temporal) Resp 15 Ht 157.5 cm (5' 2) Wt 73.9 kg (163 lb) LMP 12/26/2022 SpO2 97% BMI 29.81 kg/m Physical Exam Vitals and nursing note reviewed. Constitutional: General: She is not in acute distress. Appearance: Normal appearance. She is not ill-appearing, toxic-appearing or diaphoretic. HENT: Head: Normocephalic and atraumatic. Right Ear: Hearing, ear canal and external ear normal. There is no impacted cerumen. Tympanic membrane is bulging. Left Ear: Hearing, tympanic membrane, ear canal and external ear normal. There is no impacted cerumen. Tympanic membrane is not bulging. Nose: Nose normal. No congestion or rhinorrhea. Mouth/Throat: Lips: Mcrae. No lesions. Mouth: Mucous membranes are moist. Dentition: No gum lesions. Tongue: No lesions. Tongue does not deviate from midline. Palate: No mass and lesions. Pharynx: Oropharynx is clear. No pharyngeal swelling, oropharyngeal exudate, posterior oropharyngeal erythema or uvula swelling. Tonsils: No tonsillar exudate or tonsillar abscesses. Eyes: General: Lids are normal. Pupils: Pupils are equal, round, and reactive to light. Neck: Thyroid: No thyroid mass, thyromegaly or thyroid tenderness. Cardiovascular: Rate and Rhythm: Normal rate and regular rhythm. Pulses: Normal pulses. Heart sounds: Normal heart sounds. Pulmonary: Effort: Pulmonary effort is normal. No respiratory distress. Breath sounds: Normal breath sounds. No stridor. No wheezing, rhonchi or rales. Chest: Chest wall: No tenderness. Abdominal: General: Bowel sounds are normal. There is no distension or abdominal bruit. Palpations: Abdomen is soft. There is no shifting dullness, fluid wave, hepatomegaly, splenomegaly, mass or pulsatile mass. Tenderness: There is no abdominal tenderness. There is no right CVA tenderness, left CVA tenderness, guarding or rebound. Hernia: No hernia is present. Musculoskeletal: General: Normal range of motion. Lymphadenopathy: Head: Right side of head: No submental, submandibular, tonsillar or occipital adenopathy. Left side of head: No submental, submandibular, tonsillar or occipital adenopathy. Cervical: No cervical adenopathy. Skin: General: Skin is warm and dry. Capillary Refill: Capillary refill takes less than 2 seconds. Neurological: General: No focal deficit present. Mental Status: She is alert and oriented to person, place, and time. Motor: No weakness. Psychiatric: Attention and Perception: Attention and perception normal. Mood and Affect: Mood and affect normal. Speech: Speech normal. Behavior: Behavior normal. Behavior is cooperative. Thought Content: Thought content normal. Cognition and Memory: Cognition and memory normal. Judgment: Judgment normal. Grazyna Trimble RN, SCRIPT WRITER student Allergies: Shrimp Hives, Diarrhea, Other: See Comments Comment:Throat felt slightly constricted Animal Dander Other: See Comments Comment:ALLERGIC TO DOG AND CAT HAIR Dust Unknown Seasonal Allergies Other: See Comments Comment:NASAL CONGESTION PAST MEDICAL HISTORY Diagnosis Date Anxiety 2010 Had anxiety for a long time, possibly since middle school. Only diagnosed 6 years ago. Asthma, mild persistent 11/14/2005 As of 06/07/2017: Managed per Dr. Glover Dyshidrotic eczema 01/30/2015 Family history of defect 05/23/2012 05/23/2012Patient states that her daughter was born with Rett syndrome with mental retardation. Family history of heart disease 03/23/2019 father at the age of 55 from Heart aneurism. History of section 05/23/2012 05/23/2012Pt had two previous C sections at [facility] in [place], [place]. She desires a repeat C section by Dr. Callie Barraza. History of shingles 09/15/2012 September 15, 2012 shingles diagnosed and ordered acyclovir-risk of transmission extremely low, recommend fu US at 30 weeks, follow growth PRN Hyperlipidemia, mixed 03/27/2019 LGSIL (low grade squamous intraepithelial dysplasia) 07/05/2012 Ovarian cyst right depression Shingles 09/15/2012 September 15, 2012 shingles diagnosed and ordered acyclovir-risk of transmission extremely low, recommend fu US at 30 weeks, follow growth PRN Well adult exam 03/23/2019 Last Done: 03/23/2019 PAST SURGICAL HISTORY Procedure Laterality Date DELIVERY ONLY , low transverseX2 DELIVERY ONLY 12/27/12 , low transverse DILATION & CURETTAGE TUBAL LIGATION, 2013 VAGINOSCOPY 07/11/2012 sertraline (ZOLOFT) 100 mg tablet Take 1.5 tablets by mouth once daily. No additional refills will be provided without appointment with PCP or internal medicine albuterol HFA (PROVENTIL HFA, VENTOLIN HFA) 90 mcg/actuation inhaler Inhale 2 Puffs as instructed every 4 hours as needed for wheezing/shortness of breath. Per Dr. Glover fluticasone-salmeterol (ADVAIR) 500-50 mcg/dose dsdv INHALE 1 DOSE BY MOUTH TWICE DAILY Cholecalciferol, Vitamin D3, (VITAMIN D) 25 mcg (1,000 unit) cap Take 1 capsule by mouth once daily. (Patient not taking: Reported on 01/08/2023) (Z00.00) Wellness examination (primary encounter diagnosis) Plan: -CBC, - COMP METABOLIC PANEL, -TSH BLD, - LIPID PANEL BASIC, -HEP ACUTE PANEL BL, -UA DIP, URINE (POC), -URINE CULTURE, - HCG -HIV 1 2 COMBO(AG/AB),WITH REFLEX TO DIFFERENTIATION, -SYPHILIS TOTAL W/REFLEX, -VITAMIN D 25 HYDROXY (Z13.31) Screening for depression Plan: -DEPRESSION SCREENING/ASSESSMENT (Z28.21) Vaccination declined Plan: - Declined all vaccination in office today (Z23) Need for vaccination Plan: -CANCELED: TDAP VACCINE, AGE 7+ YR (ADACEL, BOOSTRIX) (E66.3) Overweight (BMI 25.0-29.9) Plan: - Recommended no refined sugar, low refined starch, healthy oil intake (olive oil), healthy protein (fish) along the lines of the Mediterranean diet - avoid/reduce foods that are high in unhealthy saturated fats (i.e.- Eggs, dairy, shellfish, deep fried foods, fatty cut meats, organ meats, processed foods, sardines, butter, coconut oil) - Recommended regular aerobic exercise. Saturated fat is found in: butter, ghee, suet, lard, coconut oil and palm oil. cakes. biscuits. fatty cuts of meat. sausages. boucher. cured meats like salami, chorizo and pancetta. cheese. Discussed medication dosage, usage, goals of therapy. Red flag symptoms discussed with the patient and when to go to ER. Patient verbalized understanding. Plan of care and discharge instructions were discussed and given to patient and/or family who verbalized understanding, all questions answered. Patient instructed to call primary care provider or go to the emergency department for worsening, persistent, increasing or new symptoms. TEACHING PROVIDER (Physician/PA/SLOT SUPERVISOR) NOTE OF PERSONAL INVOLVEMENT IN CARE: I have personally seen and examined the patient and performed the medical decision-making components. I have reviewed the Advanced Practice Registered Nurse (SLOT SUPERVISOR) Student's documentation and verified the findings in the note as written. Any additions or changes are noted in bold/italics. Signature: Abhi Costa Date: 05/24/2023 Time: 11:44 AM Medical Decision Making: Data: Unique test(s) ordered: 3+ Risk: Moderate: Moderate risk from testing/treatment Medical Decision Making Level: 4 - Moderate documented in this encounter [facility] 05-10-2023 Miscellaneous Notes HAY: 12/23/2021 NOV: 05/24/2023 Patient has been identified by name and date of : Yes Requested Prescriptions Pending Prescriptions Disp Refills sertraline (ZOLOFT) 100 mg tablet 45 tablet 0 Sig: Take 1.5 tablets by mouth once daily. RX INSTRUCTIONS: Patient aware RX will be sent to pharmacy. No need to nofity patient. Controlled medication - must be call in. Gabriela Monzon Ma Patient has been identified by name and date of : Yes, Provider Igor Date 05/07/23 Time 3:02 pm Requested Prescriptions Pending Prescriptions Disp Refills sertraline (ZOLOFT) 100 mg tablet 45 tablet 0 Sig: Take 1.5 tablets by mouth once daily. HAY 12/23/21 NOV 05/24/23 RX INSTRUCTIONS: Patient aware RX will be sent to pharmacy. No need to notify patient. Sasha Lagos documented in this encounter [facility] 04-09-2023 Miscellaneous Notes Kristine Freeman is calling Abhi Costa APRN.CNP today with concern regarding Refill Request Patient has been identified by name and birthdate. Duration of symptoms: N/A Person calling: self Call patient at: at home [phone] (home) [phone] (work) [phone] (cell) Was an appointment scheduled: No Closing statement: Results or non-symptom based questions: Thank you for calling [facility], your call will be returned within the next business day. Patient calling in with concerns about stopping her zoloft cold turkey if she can not get her refill. She has an physical scheduled in May and is requesting that she gets at least enough refilled to get her until the physical. Vanessa Harkins HAY: 12/23/2021 NOV: 05/24/2023 Patient has been identified by name and date of : Yes Requested Prescriptions Pending Prescriptions Disp Refills sertraline (ZOLOFT) 100 mg tablet 45 tablet 3 Sig: Take 1.5 tablets by mouth once daily. RX INSTRUCTIONS: Patient aware RX will be sent to pharmacy. No need to nofity patient. Controlled medication - must be call in. Gabriela Monzon Ma Patient has been identified by name and date of : Yes Requested Prescriptions Pending Prescriptions Disp Refills sertraline (ZOLOFT) 100 mg tablet 45 tablet 3 Sig: Take 1.5 tablets by mouth once daily. HAY: 12/23/22 NOV: 05/24/23 RX INSTRUCTIONS: Patient aware RX will be sent to pharmacy. No need to notify patient. Linda De Anda documented in this encounter [facility] 04-07-2022 Miscellaneous Notes HAY: 12/23/2021 NOV: No future appointment Patient has been identified by name and date of : Yes Requested Prescriptions Pending Prescriptions Disp Refills sertraline (ZOLOFT) 100 mg tablet 45 tablet 3 Sig: Take 1.5 tablets by mouth once daily. RX INSTRUCTIONS: Patient aware RX will be sent to pharmacy. No need to nofity patient. Controlled medication - must be call in. Gabriela Monzon Ma HAY:12/23/2021 NOV:N/A Patient has been identified by name and date of : Yes Requested Prescriptions Pending Prescriptions Disp Refills sertraline (ZOLOFT) 100 mg tablet 45 tablet 3 Sig: Take 1.5 tablets by mouth once daily. RX INSTRUCTIONS: Patient aware RX will be sent to pharmacy. No need to notify patient. Chely Pal documented in this encounter [facility] 01-14-2022 Hospital Discharg e instructions Merle Suero APRN-CNP - 01/14/2022 11:16 PM EDT Abdominal Pain Instructions: Return to the ED if the stomach pain worsens, is still there in 12-24 hours, if it moves to the right lower part of the stomach, or if you can't keep down liquids Procedures done during this visit: None The following attachments cannot be sent through Care Everywhere.Nausea and Vomiting Discharge Instructions, Adult (Kazakh)documented in this encounter [facility] 12-24-2021 Miscellaneous Notes Voice mail and my chart Message left for Kristine to contact me to discuss elevated cholesterol and treatment option documented in this encounter [facility] 12-23-2021 Instructions Abhi Costa APRN.CNP - 12/23/2021 9:53 AM EDT (Z00.00) Wellness examination (primary encounter diagnosis) Plan: - VITAMIN D 25 HYDROXY, -Cholecalciferol, Vitamin D3, (VITAMIN D) 25 mcg (1,000 unit) cap, -LIPID PANEL, NONFASTING (J45.30) Mild persistent asthma, unspecified whether complicated Plan: - albuterol HFA (PROVENTIL HFA, VENTOLIN HFA) 90 mcg/actuation inhaler, - fluticasone-salmeterol (ADVAIR) 500-50 mcg/dose dsdv, - CONSULT TO PULMONARY MEDICINE [facility] FACTS LAB HOURS: Lab is open 8:30am to 5pm Wednesday through Wednesday PHARMACY HOURS: Pharmacy is open 9am to 5pm Wednesday through Wednesday Routine Lab Orders 60 days after they are entered. If your lab orders , you may be required to wait in the lab while they are reinstated FUTURE ORDERS are lab tests to be completed on the EXPECTED date. These orders 60 days after the expected date. STANDING ORDERS are recurring orders with an expiration date. The interval will indicate how often the test should be completed. FASTING LAB means nothing to eat or drink (except water) 10-12 hours before your blood is drawn. CT MRI IVP If you have one of these radiology exams ordered along with blood work, please complete the blood work at least one day prior to the scheduled exam. For Express Care LOCATIONS, HOURS OF OPERATION and CURRENT WAIT TIMES, visit the following link [email or web address]][[email or web address]%[email or web address]& for details My Chart Schedule My Appointment enables you to view your established primary care provider's open schedule and book an appointment online in real-time. This feature is available in internal medicine, family medicine, or pediatrics at any of our [facility] locations and main campus. Hours are subject to change. Express Care is for patients ages 6 months years and older. For Express Care LOCATIONS, HOURS OF OPERATION and CURRENT WAIT TIMES, visit the following link: [email or web address] for details. My Chart Schedule My Appointment enables you to view your established primary care provider's open schedule and book an appointment online in real-time. This feature is available in internal medicine, family medicine, or pediatrics at any of our [facility] locations and main campus. documented in this encounter [facility] 12-23-2021 History of Presen t illness Narrative The history is provided by the patient. No english language arts teacher was used. Kristine Freeman is a 31 year old female presents today with her son for 6 month follow up and to check cholesterol. She is doing generally well and has no other complaints today. She is also aware and has been updated on all appropriate health maintenance issues. New concerns today include: Feels well in general, reports no problems or concerns Review of Systems Constitutional: Negative. HENT: Negative. Eyes: Negative. Respiratory: Negative. Cardiovascular: Negative. Gastrointestinal: Negative. Endocrine: Negative. Genitourinary: Negative. Musculoskeletal: Negative. Skin: Negative. Allergic/Immunologic: Negative. Neurological: Negative. Hematological: Negative. Psychiatric/Behavioral: Negative. All other systems reviewed and are negative. BP 119/75 (BP Site: Right Arm, BP Position: Sitting, BP Cuff Size: Regular Adult) Pulse 81 Resp 16 Ht 157.5 cm (5' 2) Wt 72.3 kg (159 lb 6 oz) LMP 06/07/2021 SpO2 98% BMI 29.15 kg/m Physical Exam Vitals and nursing note reviewed. Constitutional: General: She is not in acute distress. Appearance: Normal appearance. She is well-developed. She is not ill-appearing, toxic-appearing or diaphoretic. HENT: Head: Normocephalic and atraumatic. Cardiovascular: Rate and Rhythm: Normal rate. Pulmonary: Effort: Pulmonary effort is normal. Musculoskeletal: General: Normal range of motion. Neurological: Mental Status: She is alert and oriented to person, place, and time. Psychiatric: Attention and Perception: Attention and perception normal. Mood and Affect: Mood and affect normal. Speech: Speech normal. Behavior: Behavior normal. Behavior is cooperative. Thought Content: Thought content normal. Cognition and Memory: Cognition and memory normal. Judgment: Judgment normal. Allergies: Shrimp Hives, Diarrhea, Other: See Comments Comment:Throat felt slightly constricted Animal Dander Other: See Comments Comment:ALLERGIC TO DOG AND CAT HAIR Dust Unknown Seasonal Allergies Other: See Comments Comment:NASAL CONGESTION PAST MEDICAL HISTORY Diagnosis Date Anxiety 2010 Had anxiety for a long time, possibly since middle school. Only diagnosed 6 years ago. Asthma, mild persistent 11/14/2005 As of 06/07/2017: Managed per Dr. Glover Dyshidrotic eczema 01/30/2015 Family history of defect 05/23/2012 05/23/2012Patient states that her daughter was born with Rett syndrome with mental retardation. Family history of heart disease 03/23/2019 father at the age of 55 from Heart aneurism. History of section 05/23/2012 05/23/2012Pt had two previous C sections at [facility] in [place], [place]. She desires a repeat C section by Dr. Callie Barraza. History of shingles 09/15/2012 September 15, 2012 shingles diagnosed and ordered acyclovir-risk of transmission extremely low, recommend fu US at 30 weeks, follow growth PRN Hyperlipidemia, mixed 03/27/2019 LGSIL (low grade squamous intraepithelial dysplasia) 07/05/2012 Ovarian cyst right depression Shingles 09/15/2012 September 15, 2012 shingles diagnosed and ordered acyclovir-risk of transmission extremely low, recommend fu US at 30 weeks, follow growth PRN Well adult exam 03/23/2019 Last Done: 03/23/2019 PAST SURGICAL HISTORY Procedure Laterality Date DELIVERY ONLY , low transverseX2 DELIVERY ONLY 12/27/12 , low transverse DILATION & CURETTAGE TUBAL LIGATION, 2013 VAGINOSCOPY 07/11/2012 sertraline (ZOLOFT) 100 mg tablet Take 1.5 tablets by mouth once daily. ergocalciferol 50,000 unit capsule (VITAMIN D2, DRISDOL) Take 1 capsule by mouth one time a week. fluticasone-salmeterol (ADVAIR) 500-50 mcg/dose dsdv INHALE 1 DOSE BY MOUTH TWICE DAILY albuterol HFA (PROVENTIL HFA, VENTOLIN HFA) 90 mcg/actuation inhaler Inhale 2 Puffs as instructed every 4 hours as needed for wheezing/shortness of breath. Per Dr. Glover (Z00.00) Wellness examination (primary encounter diagnosis) Plan: - VITAMIN D 25 HYDROXY, -Cholecalciferol, Vitamin D3, (VITAMIN D) 25 mcg (1,000 unit) cap, -LIPID PANEL, NONFASTING (J45.30) Mild persistent asthma, unspecified whether complicated Plan: - albuterol HFA (PROVENTIL HFA, VENTOLIN HFA) 90 mcg/actuation inhaler, - fluticasone-salmeterol (ADVAIR) 500-50 mcg/dose dsdv, - CONSULT TO PULMONARY MEDICINE (Z23) Need for vaccination Plan: -TDAP VACCINE AGE 7+ IM patient refused in office today Discussed medication dosage, usage, goals of therapy. Red flag symptoms discussed with the patient and when to go to ER. Patient verbalized understanding. Plan of care and discharge instructions were discussed and given to patient and/or family who verbalized understanding, all questions answered. Patient instructed to call primary care provider or go to the emergency department for worsening, persistent, increasing or new symptoms. Abhi Costa APRN, SCRIPT WRITER-BC documented in this encounter [facility] 11-02-2021 Miscellaneous Notes HAY: 07/01/2021 NOV: No future appointment Patient has been identified by name and date of : Yes Pending Prescriptions Disp Refills SERTRALINE 100 MG TABLET 45 tablet 3 Sig: Take 1.5 tablets by mouth once daily. OLGA LIDIA: No RX INSTRUCTIONS: Patient aware RX will be sent to pharmacy. No need to nofity patient. Controlled medication - must be call in. Gabriela Monzon Ma documented in this encounter [facility] 05-09-2021 Note HNO ID: [id number] Author: RT Pau(R) Service: Radiology Author Type: Technologist Type: Progress Notes Filed: 05/09/2021 10:55 AM Note Text: Radiology Service Progress Note PATIENT NAME: Kristine Freeman DATE OF SERVICE: May 09, 2021 TIME: 10:54 AM PATIENT IDENTITY VERIFICATION COMPLETED USING TWO (2) IDENTIFIERS: Name and Date of confirmed by patient verbally and Name and Date of confirmed by identification band. FALL SCREENING: Has the patient had 2 falls in the last year or 1 fall with injury or currently using an Ambulatory Assistive Device (Walker, Cane, Wheelchair, Crutches, etc.)? No PATIENT GENDER DATA: Female. status: : No status: NO. PATIENT RELEVANT IMPLANT DATA REVIEWED: Not Applicable RADIOLOGY DEPARTMENT: CT; Exam(s) Completed: Abdomen/Pelvis PERIPHERAL IV DATA: Not applicable SIGNED BY: RT Pau(R) May 09, 2021 10:54 AM [facility] 01-30-2015 History of Past i llness Narrative Problem Noted Date Resolved Date Depression 01/30/2015 11/17/2016 Ovarian cyst 07/18/2012 12/27/2014 Overview: Ovarian cyst- stable on 20 week US- continue to monitor. 8.9 x5.4x8.9cm size noted on ultrasound at 15 weeks- follow, patient asymptomatic Late care 06/21/2012 12/27/2014 High-risk 06/21/2012 12/27/2014 Overview: Boy on US- Estevan PRA done Rubella non-immune status 05/25/20122014 History of loss in prior , currently 05/23/2012 12/27/2014 Overview: Testing for antiphospholipid antibody syndrome ordered June 21, 2012 SM 05/23/2012Patient is 4 para 2 with a history of a loss at 14 weeks of unknown cause. Patient had a D&E on September 16, [address] Dickinson for second trimester loss. Nausea/vomiting in 05/23/2012 Overview: 05/23/2012 Patient was given a Zofran prescription on May 11, [address] Barraza for nausea and vomiting. Patient states the Zofran has given her much relief. Patient is advised to call/come in if she is unable to keep any food or fluids down in a 24-hour period. History of depression, currently preg nant 05/23/2012 12/27/2014 Overview: 05/23/2012Pt has a history of depression diagnosed January,. She has been treated by Dr. Vargas. She states she also had some depression after her loss earlier this year. Discussed increased risks of depression during and and importance of reporting the development or worsening of symptoms should they occur. Pt denies ever having any suicidal thoughts or tendencies or thoughts of hurting others. documented as of this encounter (statuses as of 11/02/2021) [facility] History of Past illness Narrative* Problem Noted Date Resolved Date Depression 01/30/2015 11/17/2016 Ovarian cyst 07/18/2012 12/27/2014 Overview: Ovarian cyst- stable on 20 week US- continue to monitor. 8.9 x5.4x8.9cm size noted on ultrasound at 15 weeks- follow, patient asymptomatic Late care 06/21/2012 12/27/2014 High-risk 06/21/2012 12/27/2014 Overview: Boy on US- Estevan PRA done SM Rubella non-immune status 05/25/20122014 History of loss in prior , currently 05/23/2012 12/27/2014 Overview: Testing for antiphospholipid antibody syndrome ordered June 21, 2012 SM 05/23/2012Patient is 4 para 2 with a history of a loss at 14 weeks of unknown cause. Patient had a D&E on September 16, [address] Dickinson for second trimester loss. Nausea/vomiting in 05/23/2012 Overview: 05/23/2012 Patient was given a Zofran prescription on May 11, [address] Barraza for nausea and vomiting. Patient states the Zofran has given her much relief. Patient is advised to call/come in if she is unable to keep any food or fluids down in a 24-hour period. History of depression, currently preg nant 05/23/2012 12/27/2014 Overview: 05/23/2012Pt has a history of depression diagnosed January,. She has been treated by Dr. Vargas. She states she also had some depression after her loss earlier this year. Discussed increased risks of depression during and and importance of reporting the development or worsening of symptoms should they occur. Pt denies ever having any suicidal thoughts or tendencies or thoughts of hurting others. documented as of this encounter (statuses as of 12/23/2021) [facility] History of Past illness Narrative* Problem Noted Date Resolved Date Depression 01/30/2015 11/17/2016 Ovarian cyst 07/18/2012 12/27/2014 Overview: Ovarian cyst- stable on 20 week US- continue to monitor. 8.9 x5.4x8.9cm size noted on ultrasound at 15 weeks- follow, patient asymptomatic Late care 06/21/2012 12/27/2014 High-risk 06/21/2012 12/27/2014 Overview: Boy on US- Estevan PRA done SM Rubella non-immune status 05/25/20122014 History of loss in prior , currently 05/23/2012 12/27/2014 Overview: Testing for antiphospholipid antibody syndrome ordered June 21, 2012 SM 05/23/2012Patient is 4 para 2 with a history of a loss at 14 weeks of unknown cause. Patient had a D&E on September 16, [address] Dickinson for second trimester loss. Nausea/vomiting in 05/23/2012 Overview: 05/23/2012 Patient was given a Zofran prescription on May 11, [address] Barraza for nausea and vomiting. Patient states the Zofran has given her much relief. Patient is advised to call/come in if she is unable to keep any food or fluids down in a 24-hour period. History of depression, currently preg nant 05/23/2012 12/27/2014 Overview: 05/23/2012Pt has a history of depression diagnosed January,. She has been treated by Dr. Vargas. She states she also had some depression after her loss earlier this year. Discussed increased risks of depression during and and importance of reporting the development or worsening of symptoms should they occur. Pt denies ever having any suicidal thoughts or tendencies or thoughts of hurting others. documented as of this encounter (statuses as of 12/24/2021) [facility] History of Past illness Narrative* Problem Noted Date Resolved Date Depression 01/30/2015 11/17/2016 Ovarian cyst 07/18/2012 12/27/2014 Overview: Ovarian cyst- stable on 20 week US- continue to monitor. 8.9 x5.4x8.9cm size noted on ultrasound at 15 weeks- follow, patient asymptomatic Late care 06/21/2012 12/27/2014 High-risk 06/21/2012 12/27/2014 Overview: Boy on US- Estevan PRA done SM Rubella non-immune status 05/25/20122014 History of loss in prior , currently 05/23/2012 12/27/2014 Overview: Testing for antiphospholipid antibody syndrome ordered June 21, 2012 SM 05/23/2012Patient is 4 para 2 with a history of a loss at 14 weeks of unknown cause. Patient had a D&E on September 16, [address] Dickinson for second trimester loss. Nausea/vomiting in 05/23/2012 Overview: 05/23/2012 Patient was given a Zofran prescription on May 11, [address] Barraza for nausea and vomiting. Patient states the Zofran has given her much relief. Patient is advised to call/come in if she is unable to keep any food or fluids down in a 24-hour period. History of depression, currently preg nant 05/23/2012 12/27/2014 Overview: 05/23/2012Pt has a history of depression diagnosed January,. She has been treated by Dr. Vargas. She states she also had some depression after her loss earlier this year. Discussed increased risks of depression during and and importance of reporting the development or worsening of symptoms should they occur. Pt denies ever having any suicidal thoughts or tendencies or thoughts of hurting others. documented as of this encounter (statuses as of 04/09/2022) [facility] History of Past illness Narrative* Problem Noted Date Resolved Date Depression 01/30/2015 11/17/2016 Ovarian cyst 07/18/2012 12/27/2014 Overview: Ovarian cyst- stable on 20 week US- continue to monitor. 8.9 x5.4x8.9cm size noted on ultrasound at 15 weeks- follow, patient asymptomatic Late care 06/21/2012 12/27/2014 High-risk 06/21/2012 12/27/2014 Overview: Boy on US- Estevan PRA done SM Rubella non-immune status 05/25/20122014 History of loss in prior , currently 05/23/2012 12/27/2014 Overview: Testing for antiphospholipid antibody syndrome ordered June 21, 2012 SM 05/23/2012Patient is 4 para 2 with a history of a loss at 14 weeks of unknown cause. Patient had a D&E on September 16, [address] Dickinson for second trimester loss. Nausea/vomiting in 05/23/2012 Overview: 05/23/2012 Patient was given a Zofran prescription on May 11, [address] Barraza for nausea and vomiting. Patient states the Zofran has given her much relief. Patient is advised to call/come in if she is unable to keep any food or fluids down in a 24-hour period. History of depression, currently preg nant 05/23/2012 12/27/2014 Overview: 05/23/2012Pt has a history of depression diagnosed January,. She has been treated by Dr. Vargas. She states she also had some depression after her loss earlier this year. Discussed increased risks of depression during and and importance of reporting the development or worsening of symptoms should they occur. Pt denies ever having any suicidal thoughts or tendencies or thoughts of hurting others. documented as of this encounter (statuses as of 09/09/2022) [facility] History of Past illness Narrative* Problem Noted Date Diagnosed Date Resolved Date Depression 01/30/2015 11/17/2016 Ovarian cyst 07/18/2012 12/27/2014 Overview: Ovarian cyst- stable on 20 week US- continue to monitor. 8.9 x5.4x8.9cm size noted on ultrasound at 15 weeks- follow, patient asymptomatic Late care 06/21/2012 5 High-risk 06/21/2012 12/28/19 15 Overview: Boy on US- Estevan PRA done SM Rubella non-immune status 05/25/2012 History of loss in prior , currently 05/23/2012 12/27/2014 Overview: Testing for antiphospholipid antibody syndrome ordered June 21, 2012 SM 05/23/2012Patient is 4 para 2 with a history of a loss at 14 weeks of unknown cause. Patient had a D&E on September 16, [address] Dickinson for second trimester loss. Nausea/vomiting in 05/23/2012 12/27/2014 Overview: 05/23/2012 Patient was given a Zofran prescription on May 11, [address] Barraza for nausea and vomiting. Patient states the Zofran has given her much relief. Patient is advised to call/come in if she is unable to keep any food or fluids down in a 24-hour period. History of trevor pradhan, currently 05/23/2012 12/27/2014 Overview: 05/23/2012Pt has a history of depression diagnosed January,. She has been treated by Dr. Vargas. She states she also had some depression after her loss earlier this year. Discussed increased risks of depression during and and importance of reporting the development or worsening of symptoms should they occur. Pt denies ever having any suicidal thoughts or tendencies or thoughts of hurting others. documented as of this encounter (statuses as of 05/25/2023) [facility] History of Past illness Narrative* Problem Noted Date Diagnosed Date Resolved Date Depression 01/30/2015 11/17/2016 Ovarian cyst 07/18/2012 12/27/2014 Overview: Ovarian cyst- stable on 20 week US- continue to monitor. 8.9 x5.4x8.9cm size noted on ultrasound at 15 weeks- follow, patient asymptomatic Late care 06/21/2012 5 High-risk 06/21/2012 12/28/19 15 Overview: Boy on US- Estevan PRA done SM Rubella non-immune status 05/25/2012 History of loss in prior , currently 05/23/2012 12/27/2014 Overview: Testing for antiphospholipid antibody syndrome ordered June 21, 2012 SM 05/23/2012Patient is 4 para 2 with a history of a loss at 14 weeks of unknown cause. Patient had a D&E on September 16, [address] Dickinson for second trimester loss. Nausea/vomiting in 05/23/2012 12/27/2014 Overview: 05/23/2012 Patient was given a Zofran prescription on May 11, [address] Barraza for nausea and vomiting. Patient states the Zofran has given her much relief. Patient is advised to call/come in if she is unable to keep any food or fluids down in a 24-hour period. History of trevor pradhan, currently 05/23/2012 12/27/2014 Overview: 05/23/2012Pt has a history of depression diagnosed January,. She has been treated by Dr. Vargas. She states she also had some depression after her loss earlier this year. Discussed increased risks of depression during and and importance of reporting the development or worsening of symptoms should they occur. Pt denies ever having any suicidal thoughts or tendencies or thoughts of hurting others. documented as of this encounter (statuses as of 10/06/2023) [facility] History of Past illness Narrative* Problem Noted Date Diagnosed Date Resolved Date Depression 01/30/2015 11/17/2016 Ovarian cyst 07/18/2012 12/27/2014 Overview: Ovarian cyst- stable on 20 week US- continue to monitor. 8.9 x5.4x8.9cm size noted on ultrasound at 15 weeks- follow, patient asymptomatic Late care 06/21/2012 5 High-risk 06/21/2012 12/28/19 15 Overview: Boy on US- Estevan PRA done SM Rubella non-immune status 05/25/2012 History of loss in prior , currently 05/23/2012 12/27/2014 Overview: Testing for antiphospholipid antibody syndrome ordered June 21, 2012 SM 05/23/2012Patient is 4 para 2 with a history of a loss at 14 weeks of unknown cause. Patient had a D&E on September 16, [address] Dickinson for second trimester loss. Nausea/vomiting in 05/23/2012 12/27/2014 Overview: 05/23/2012 Patient was given a Zofran prescription on May 11, [address] Barraza for nausea and vomiting. Patient states the Zofran has given her much relief. Patient is advised to call/come in if she is unable to keep any food or fluids down in a 24-hour period. History of depres lorne, currently 05/23/2012 12/27/2014 Overview: 05/23/2012Pt has a history of depression diagnosed January,. She has been treated by Dr. Vargas. She states she also had some depression after her loss earlier this year. Discussed increased risks of depression during and and importance of reporting the development or worsening of symptoms should they occur. Pt denies ever having any suicidal thoughts or tendencies or thoughts of hurting others. documented as of this encounter (statuses as of 11/10/2023) [facility] History of Past illness Narrative* Problem Noted Date Diagnosed Date Resolved Date Depression 01/30/2015 11/17/2016 Ovarian cyst 07/18/2012 12/27/2014 Overview: Ovarian cyst- stable on 20 week US- continue to monitor. 8.9 x5.4x8.9cm size noted on ultrasound at 15 weeks- follow, patient asymptomatic Late care 06/21/2012 5 High-risk 06/21/2012 12/28/19 15 Overview: Boy on US- Estevan PRA done SM Rubella non-immune status 05/25/2012 History of loss in prior , currently 05/23/2012 12/27/2014 Overview: Testing for antiphospholipid antibody syndrome ordered June 21, 2012 SM 05/23/2012Patient is 4 para 2 with a history of a loss at 14 weeks of unknown cause. Patient had a D&E on September 16, [address] Dickinson for second trimester loss. Nausea/vomiting in 05/23/2012 12/27/2014 Overview: 05/23/2012 Patient was given a Zofran prescription on May 11, [address] Barraza for nausea and vomiting. Patient states the Zofran has given her much relief. Patient is advised to call/come in if she is unable to keep any food or fluids down in a 24-hour period. History of trevor pradhan, currently 05/23/2012 12/27/2014 Overview: 05/23/2012Pt has a history of depression diagnosed January,. She has been treated by Dr. Vargas. She states she also had some depression after her loss earlier this year. Discussed increased risks of depression during and and importance of reporting the development or worsening of symptoms should they occur. Pt denies ever having any suicidal thoughts or tendencies or thoughts of hurting others. documented as of this encounter (statuses as of 11/11/2023) [facility] [place] [facility] Diagnosis Anxiety Anxiety state, unspecified [facility] Diagnosis Wellness examination- Primary Mild persistent asthma, unspecified whether complicated Need for vaccination Need for prophylactic vaccination and inoculation against unspecified single disease [facility] Diagnosis Nausea and vomiting, intractability of vomiting not specified, unspecified vomiting type- Primary [facility] Diagnosis Anxiety Anxiety state, unspecified [facility] Diagnosis Anxiety Anxiety state, unspecified [facility] Diagnosis Wellness examination- Primary Screening for depression Vaccination declined Need for vaccination Need for prophylactic vaccination and inoculation against unspecified single disease Overweight (BMI 25.0-29.9) Overweight Anxiety Anxiety state, unspecified [facility] Diagnosis Anxiety Anxiety state, unspecified [facility] Diagnosis Anxiety Anxiety state, unspecified [facility] Diagnosis Vitamin D deficiency- Primary Unspecified vitamin D deficiency Mild persistent asthma, unspecified whether complicated Anxiety Anxiety state, unspecified Hyperlipidemia, mixed Mixed hyperlipidemia [facility] Diagnosis Encounter to establish care- Primary Other reasons for seeking consultation Anxiety Anxiety state, unspecified Screening for depression Hyperlipidemia, mixed Mixed hyperlipidemia Vitamin D deficiency Unspecified vitamin D deficiency Cervical cancer screening Screening for malignant neoplasm of the cervix [facility] Diagnosis Vitamin D deficiency- Primary Unspecified vitamin D deficiency [facility] HospitalEvaluation note* Diagnosis Flank pain- Primary Abdominal pain, unspecified site [facility] this [facility] Follow-up exam- Primary Unspecified follow-up examination Mild persistent asthma, unspecified whether complicated (HCC) Seasonal allergies Allergic rhinitis, cause unspecified Hyperlipidemia, mixed Mixed hyperlipidemia documented in this encounter [facility] Summary Purpose Family History No Family History Records FoundNo Family History Records FoundNo Family History Records FoundNo Family History Records FoundNo Family History Records Found Advance Directives No Advanced Directives Records FoundNo Advanced Directives Records FoundNo Advanced Directives Records FoundNo Advanced Directives Records FoundNo Advanced Directives Records Found Reason for Referral Specialty Diagnoses / Procedures Referred By Contac t Referred To Contact Diagnoses Mild persistent asthma, unspecified whether complicated Abhi Costa, TOMMY.ELEVATOR SERVICE TECHNICIAN [address] [place] [id number] Referral ID Status Reason Start Date Expiration Date Visits Re quested Visits Authorized [id number] Closed 1 1 Specialty Diagnoses / Procedures Referred By Contac t Referred To Contact Diagnoses Anxiety Procedures CONSULT TO PSYCHIATRY OFFICE/OUTPATIENT [facility] 60-74 MINUTES Abhi Costa, SLOT SUPERVISOR.ELEVATOR SERVICE TECHNICIAN [address] [place] [address] Referral ID Status Reason Start Date Expiration Date Visits Requested Visits Authorized [id number] Pending Review PCP Requested Referral 3 05/23/2024 1 1 Specialty Diagnoses / Procedures Referred By Contac t Referred To Contact Diagnoses Cervical cancer screening Procedures CONSULT TO SAP PORTAL CONSULTANT OFFICE/OUTPATIENT COUNT INCLUDES THE [facility] MDM 60 MINUTES Pavel Munguia, SLOT SUPERVISOR.ELEVATOR SERVICE TECHNICIAN [address] [place] [address] Referral ID Status Reason Start Date Expiration Date Visits Requested Visits Authorized [id number] Authorized PCP Requested Referral Auto-Generate d Referral 4 07/14/2025 1 1 Additional Source Comments INFORMATION SOURCE (unrecogn ized section and content) DATE CREATED AUTHOR 07/12/2018 [facility] DATE CREATED AUTHOR AUTHOR'S ORGANIZ ATION 05/10/2021 [facility] DATE CREATED AUTHOR AUTHOR'S ORGANIZ ATION 01/25/2022 [facility] DATE CREATED AUTHOR AUTHOR'S ORGANIZ ATION 10/22/2024 [facility] DATE CREATED AUTHOR AUTHOR'S ORGANIZ ATION 01/15/2025 [facility] Source Comments (unrecognize d section and content) In the event this informatio n is protected by the Federal Confidentiality of Alcohol and Drug Abuse Patient Records regulations: The Federal rules restrict any use of the information to criminally investigate or prosecute any alcohol or drug abuse patient.[facility] the event this information is protected by the Federal Confidentiality of Alcohol and Drug Abuse Patient Records regulations: The Federal rules restrict any use of the information to criminally investigate or prosecute any alcohol or drug abuse patient.[facility] the event this information is protected by the Federal Confidentiality of Alcohol and Drug Abuse Patient Records regulations: The Federal rules restrict any use of the information to criminally investigate or prosecute any alcohol or drug abuse patient.[facility] the event this information is protected by the Federal Confidentiality of Alcohol and Drug Abuse Patient Records regulations: The Federal rules restrict any use of the information to criminally investigate or prosecute any alcohol or drug abuse patient.[facility] the event this information is protected by the Federal Confidentiality of Alcohol and Drug Abuse Patient Records regulations: The Federal rules restrict any use of the information to criminally investigate or prosecute any alcohol or drug abuse patient.[facility] the event this information is protected by the Federal Confidentiality of Alcohol and Drug Abuse Patient Records regulations: The Federal rules restrict any use of the information to criminally investigate or prosecute any alcohol or drug abuse patient.[facility] the event this information is protected by the Federal Confidentiality of Alcohol and Drug Abuse Patient Records regulations: The Federal rules restrict any use of the information to criminally investigate or prosecute any alcohol or drug abuse patient.[facility] the event this information is protected by the Federal Confidentiality of Alcohol and Drug Abuse Patient Records regulations: The Federal rules restrict any use of the information to criminally investigate or prosecute any alcohol or drug abuse patient.[facility] the event this information is protected by the Federal Confidentiality of Alcohol and Drug Abuse Patient Records regulations: The Federal rules restrict any use of the information to criminally investigate or prosecute any alcohol or drug abuse patient.[facility] Hospital[facility] the event this information is protected by the Federal Confidentiality of Alcohol and Drug Abuse Patient Records regulations: The Federal rules restrict any use of the information to criminally investigate or prosecute any alcohol or drug abuse patient.[facility] Hospital[facility] the event this information is protected by the Federal Confidentiality of Alcohol and Drug Abuse Patient Records regulations: The Federal rules restrict any use of the information to criminally investigate or prosecute any alcohol or drug abuse patient.[facility] Hospital[facility] the event this information is protected by the Federal Confidentiality of Alcohol and Drug Abuse Patient Records regulations: The Federal rules restrict any use of the information to criminally investigate or prosecute any alcohol or drug abuse patient.[facility] Hospital[facility] the event this information is protected by the Federal Confidentiality of Alcohol and Drug Abuse Patient Records regulations: The Federal rules restrict any use of the information to criminally investigate or prosecute any alcohol or drug abuse patient.[facility] Hospital[facility] the event this information is protected by the Federal Confidentiality of Alcohol and Drug Abuse Patient Records regulations: The Federal rules restrict any use of the information to criminally investigate or prosecute any alcohol or drug abuse patient.[facility] Hospital[facility] the event this information is protected by the Federal Confidentiality of Alcohol and Drug Abuse Patient Records regulations: The Federal rules restrict any use of the information to criminally investigate or prosecute any alcohol or drug abuse patient.[facility] Reason for Visit (unrecogniz ed section and content) Reason Onset Date Comments Refill Request 10/31/2021 Reason Comments Follow Up Reason Comments Results Reason Comments Vomiting Pt c/o multiple epis odes of vomiting that began today. Dental surgery yesterday per pt. Reason Onset Date Comments Refill Request 04/07/2022 Reason Onset Date Comments Refill Request 09/09/2022 Reason Comments Physical Reason Onset Date Comments Refill Request 05/07/2023 Reason Onset Date Comments Refill Request 04/09/2023 Reason Comments New Patient Establishing care re fills Reason Comments Consult SAP PORTAL CONSULTANT Reason Onset Date Comments Results 10/10/2024 Reason Comments Back Pain Left side flank pain , nauseated, headache x 4 days Reason Comments Follow Up 6 Month. Allergies h ave been bad. [place] Itchy red eyes, nose, sore throat, sneezing. Care Teams (unrecognized sec tion and content) Sustainable Design Consultant Relationship Specialty Start Date End Date Abhi Costa, SLOT SUPERVISOR.ELEVATOR SERVICE TECHNICIAN [address] [place] [address] PCP - General Family Practice 06/01/21 Sustainable Design Consultant Relationship Specialty Start Date End Date Abhi Costa, SLOT SUPERVISOR.ELEVATOR SERVICE TECHNICIAN [address] [place] [address] PCP - General Family Practice 06/01/21 Sustainable Design Consultant Relationship Specialty Start Date End Date Abhi Costa, SLOT SUPERVISOR.ELEVATOR SERVICE TECHNICIAN [address] [place] [address] PCP - General Family Practice 06/01/21 Sustainable Design Consultant Relationship Specialty Start Date End Date Abhi Costa, SLOT SUPERVISOR.ELEVATOR SERVICE TECHNICIAN [address] [place] [address] PCP - General Family Practice 06/01/21 Sustainable Design Consultant Relationship Specialty Start Date End Date Abhi Costa, SLOT SUPERVISOR.ELEVATOR SERVICE TECHNICIAN [address] [place] [address] PCP - General Family Medicine 06/01/21 Sustainable Design Consultant Relationship Specialty Start Date End Date Igor, Abhi, SLOT SUPERVISOR.ELEVATOR SERVICE TECHNICIAN [address] [place] [address] PCP - General Family Medicine 06/01/21 Sustainable Design Consultant Relationship Specialty Start Date End Date Igor, Abhi, SLOT SUPERVISOR.ELEVATOR SERVICE TECHNICIAN [address] [id number] PCP - General Family Medicine 06/01/21 Sustainable Design Consultant Relationship Specialty Start Date End Date Igor, Abhi, SLOT SUPERVISOR.ELEVATOR SERVICE TECHNICIAN [address] [id number] PCP - General Family Medicine 06/01/21 Sustainable Design Consultant Relationship Specialty Start Date End Date Bola Costaula, SLOT SUPERVISOR.ELEVATOR SERVICE TECHNICIAN [address] [id number] PCP - General Family Medicine 06/01/21 Sustainable Design Consultant Relationship Specialty Start Date End Date Bola Costaula, SLOT SUPERVISOR.ELEVATOR SERVICE TECHNICIAN [address] [place] [address] PCP - General Family Medicine 06/01/21 Sustainable Design Consultant Relationship Specialty Start Date End Date Pavel Munguia, SLOT SUPERVISOR.ELEVATOR SERVICE TECHNICIAN [address] [place] [address] PCP - General Family Medicine 07/14/24 Sustainable Design Consultant Relationship Specialty Start Date End Date Pavel Munguia, SLOT SUPERVISOR.ELEVATOR SERVICE TECHNICIAN [address] [place] [address] PCP - General Family Medicine 07/14/24 Sustainable Design Consultant Relationship Specialty Start Date End Date Pavel Munguia, TOMMY.ELEVATOR SERVICE TECHNICIAN [address] [place] [address] PCP - General Family Medicine 07/14/24 Sustainable Design Consultant Relationship Specialty Start Date End Date Pavel Munguia APRN.ELEVATOR SERVICE TECHNICIAN [address] [place] [address] PCP - General Family Medicine 07/14/24 Scheduled Active and Recently Administ ered Medications (unrecognized section and content) Medication Order 01/13/2022 01/14/2022 01/15/2022 ketorolac (TORADOL) 15 MG/ML injection (COMPLETED) 15 mg, Intravenous Push, ONCE, 1 dose, On Wed01/14/22 at 2200 2209 (Given - Provider: Akiko Singletary RN) ondansetron (ZOFRAN) 4 MG/2ML injection (COMPLETED) 4 mg, Intravenous Push, ONCE, 1 dose, On Wed01/14/22 at 2100 2107 (Given - Provider: Akiko Singletary, SONY) sodium chloride 0.9 % iv bolus (COMPLETED) 1,000 mL, at 9,999 mL/hr, Intravenous, FLUID BOLUS, 1 dose, On Wed01/14/22 at 2100 2107 (IV New Bag - Provider: Akiko Singletary, SONY) 0024 (IV Stop - Provider: Akiko Singletary, SONY) FOR RECORDS PERTAINING TO PATIENTS WHO ARE OR HAVE BEEN ENROLLED IN A CHEMICAL DEPENDENCY/SUBSTANCEABUSE PROGRAM, SOME INFORMATION MAY BE OMITTED. This clinical summary was aggregated from multiple sources. Caution should be exercised in using it in the provision of clinical care. This summary normalizes information from multiple sources, and as a consequence, information in this document may materially change the coding, format and clinical context of patient data. In addition, data may be omitted in some cases. CLINICAL DECISIONS SHOULD BE BASED ON THE PRIMARY CLINICAL RECORDS. [facility]. provides no warranty or guarantee of the accuracy or completeness of information in this document.
[2025-04-01] MEDS: Lidocaine 1% (20 ml mdv) 20 ML Vial INFILT (23:35)
--- NOTE | 2025-04-02 00:10 | EDS_ITS ---
HPI History of Present Illness Chief Complaint: Bite Detail of Chief Complaint: Patient believes she was bit by something mid medial left leg Informant: patient Onset/Context/Timing Onset: Today and Hours Context: Sudden Onset Timing: Continuous Quality: Slight redness, swelling and tenderness Location: Mid medial left leg, recently diagnosed with poison evan Current Severity: Mild Maximum Severity: Moderate Worsened by: Pain to palpation Relieved by: Nothing Associated Symptoms Associated Symptoms: No paresthesia, anesthesia or motor aches. She is not immune suppressed. Narrative Narrative: Patient is a 34-year-old female. She presents with she believes to be a spider bite medial mid left leg. She states she was out clearing an area because she is getting a horse. She thought something may have bit her. She was wearing boots. She is not immune suppressed. She is not diabetic. She has no allergies to antibiotics. She does have a history of asthma that is persistent. She denies paresthesia, anesthesia or motor weakness left lower extremity. Prior similar symptoms: No Recent Illness/Hospitalization: No PFSH PFSH Medical History (Updated 04/02/25 @ 00:[address] Juan F Hou MD) Bronchitis Shortness of breath Chronic cough Home Medications ?Medication ?Instructions ?Recorded ?Last Taken ?Type sertraline 100 mg tablet (Zoloft) 100 mg PO QDAY 09/20 Unknown History fluticasone furoate 100 1 inh inhalation Q24H #30 ea 09/28/17 Unknown Rx mcg/actuation blister powder for inhalation (Arnuity Ellipta) albuterol sulfate 90 mcg/actuation 1 - 2 puff inhalati on Q4H PRN PRN 09/22/18 Unknown Rx aerosol inhaler Wheezing ##1 fluticasone 500 mcg-salmeterol 50 1 inh inhalation BID #60 ea 10/24/19 Unknown Rx mcg/dose blistr powdr for inhalation (Advair Diskus) Allergy/AdvReac Type Severity Reaction Status Date / Time No Known Allergies Allergy Verified 04/01/25 23:04 Family History Mother Multiple sclerosis Father Diabetes Surgical History H/O section Social History (Updated 04/02/25 @ 00:[address] Juan F Hou MD) household members: spouse and children Smoking Status: Never smoker second hand exposure: No alcohol intake: never substance use type: does not use ROS ROS ED Constitutional Constitutional ED: Denies chills or fever(s) Cardiovascular Cardiovascular: Denies palpitations Respiratory/Chest Respiratory/Chest: Denies dyspnea Integumentary Reports rash Hematologic/Lymphatic Hematologic/Lymphatic: Reports systems reviewed and no addt'l complaints, except as documented EXAM Physical Exam Const Vital Signs: 04/01/25 23:04 Temperature 97.1 F L Temperature Source Temporal Pulse Rate 89 Respiratory Rate 18 Blood Pressure 148/85 H Blood Pressure Mean 106 Pulse Ox 100 Oxygen Delivery Method Room Air Positive well nourished and well developed General Appearance ED: well developed and NAD Eyes PERRL and EOMs intact bilaterally Resp normal respiratory effort Cardio regular rate and regular rhythm Extremity Negative for normal to inspection Extremity Narrative: There is a small area of erythema. There is no induration, fluctuance, lymphangitis or popliteal lymphadenopathy. There is appears to be a foreign body in the center of the lesion. Palpation reveals something rough and hard. It appears black. Neuro oriented x3, CN's II-XII intact bilaterally and no sensory deficits noted Sensorium / Orientation: alert Psych mental status grossly normal Skin Skin Narrative: Wound medial mid left leg with what appears to be a retained foreign body. MDM MDM MDM Narrative Medical decision making narrative: Patient has what appears to be a foreign body is causing slight reaction. Will obtain consent for incision and removal of foreign body. The area was anesthetized with 1% lidocaine for local filtration. Incision was made using a 15 blade. Part of the foreign body was removed. Presumed to be wood. It did fragment. The incision was lengthened slightly. The foreign body was removed in total. Will have nurse apply appropriate dressing and discharge with appropriate home-going instructions. Discharge Plan Triage Chief Complaint: Bite ED Provider: Juan F Hou Dx/Rx/DC Orders Clinical Impression: Foreign body (FB) in soft tissue, Elevated blood-pressure reading without diagnosis of hypertension Instructions: ED Foreign Body, Soft Tissue (Removed), ED Hypertension, To Be Confirmed Prescriptions: No Action sertraline [Zoloft] 100 mg tablet 100 mg PO QDAY fluticasone furoate [Arnuity Ellipta] 100 mcg/actuation blister with device 1 inh INHALATION Q24H Qty: 30 0RF Rx Instructions: administer at approximately same time(s) each day albuterol sulfate 90 mcg/actuation HFA aerosol inhaler 1 - 2 puff INHALATION Q4H PRN PRN (Reason: Wheezing) Qty: 1 6RF fluticasone propion-salmeterol [Advair Diskus] 500-50 mcg/dose blister with device 1 inh INHALATION BID Qty: 60 6RF Primary Care Provider: Care Physician,No Primary Referrals: Care Physician,No Primary [Primary Care Provider] - Activity Restrictions/Additional Instructions: You need to contact your provider that is listed on your insurance card issued to you by care source for blood pressure check in 1 to 2 weeks. If there is any concern that the wound is infected please return to the emergency department Print Language: Vincentian Disposition Disposition: Home, Self Care
[2025-04-02 00:28] VITALS: BP 130/95; PULSE 76; RESP 16; TEMP 36.6; O2SAT 100
== END 2025-04-02 00:28 | disposition home or self-care (01) ==
PROVIDERS: Emergency Provider Emergency Medicine; Visit Provider Emergency Medicine
DX: S80.852A Superficial foreign body, left lower leg, initial encounter (principal); W45.8XXA Other foreign body or object entering through skin, initial encounter; R03.0 Elevated blood-pressure reading, without diagnosis of hypertension
CPT/HCPCS: 10120; 99282

== ENCOUNTER 2025-06-14 20:20 | Emergency (ER) | payer MEDICAID, SELFPAY ==
[2025-06-14 20:21] VITALS: BP 141/89; PULSE 69; RESP 18; TEMP 36.6; O2SAT 100; BMI 30.2
--- OUTSIDE RECORDS SUMMARY | 2025-06-14 20:40 | XMS RPT_ITS | CCD ---
Author Organization [facility] Care Team Providers Care Qa Auditor Name Role Phone Igor COMPOSING MACHINE OPERATOR.SURY, Viola Primary Care Provider Unavailable Primary Care Provider Unavailabl e PROVIDER, UNKNOWN Admitting Unavailable RAFFAELE SHEPARD Attending Unavailable Igor COMPOSING MACHINE OPERATOR.SURY, Viola Primary Care Provider Igor COMPOSING MACHINE OPERATOR.SURY, Viola Primary Care Provider Igor COMPOSING MACHINE OPERATOR.Viola GA Primary Care Provider Mastrucci COMPOSING MACHINE OPERATOR.LAUNDRY ATTENDANT, Pavel Primary Care Provider MASTRUCCI, PAVEL Attending Unavailable MASTRUCCI, PAVEL Referring Unavailable MASTRUCCI, PAVEL Primary Care Unavailable MASTRUCCI, PAVEL Attending Unavailable MASTRUCCI, PAVEL Primary Care Unavailable Dr. Juan F Hou MD Emergency Provider Care Physician, No Primary Primary Care Provider Unavailable Juan F Hou Attending Unavailable Care Physician, No Primary Primary Care Unava ilable MASTRUCCI, PAVEL Primary Care Unavailable ANA MARIA AMAYA Attending Unavailable PODNEELIMA ANTHONY Attending Unavailable MASTRUCCI, PAVEL Primary Care Unavailable MASTRUCCI, PAVEL Primary Care Unavailable MASTRUCCI, PAVEL Referring Unavailable MASTRUCCI, PAVEL Primary Care Unavailable MASTRUCCI, PAVEL Primary Care Unavailable LÓPEZ KULKARNI Attending Unavailable Allergies Allergy Classification Reported Allergen(s) Allergy Type Date of Onset Reaction(s) Facility Dust (1 source) Dust Substance Allergy 7 Unknown [facility] shrimp allergenic extract (1 source) shrimp allergenic extract Drug Allergy 5 Hives, Diarrhea, Other: See Comments [facility] (17 sources) Dust; Translations: [DUST] Propensity to adverse reactions 7 Unknown [facility] Work Phone: (18 sources) Seasonal allergy; Translations: [SEASONAL ALLERGIES] Propensity to adverse reactions 1 Other: See Comments [facility] Work Phone: (17 sources) shrimp allergenic extract; Translations: [SHRIMP] Drug Allergy 5 Hives, Diarrhea, Other: See Comments [facility] Work Phone: (18 sources) Animal Dander; Translations: [ANIMAL DANDER] Drug Allergy 1 Other: See Comments [facility] Work Phone: Medications Current Medications Medication Drug Class(es) Dates Sig (Normalized) Sig (Original) [id number] 200 actuat albuterol 0.09 mg/actuat metered dose inhaler (19 sources) beta2-Adrenergic Agonist Start: 08-09-2023 End: 01-11-2026 take 2 puff(s) by inhalation every four hours as needed for wheezing albuterol HFA (PROVENTIL HFA, VENTOLIN HFA) 90 mcg/actuation inhaler Indications: Mild persistent asthma, unspecified whether complicated (HCC) Inhale 2 puffs as instructed every 4 hours as needed for wheezing/shortness of breath. Per Dr. Glover 6.7 g 01/12/2025 01/11/2026 Active Start: 08-10-2022 End: 08-09-2023 [...] breath. Per Dr. Glover 18 g 3 12/23/2021 Active Start: 05-18-2017 End: 09-22-2018 Albuterol Sulfate 1 INHALER inhaler Discontinued 1 - 2 NMA INHALATION EVERY 4 HOURS NEEDED as needed for Wheezing 1 May 18, 2017 12:00am September 22, 2018 11:38am Start: 12-09-2013 End: 09-20-2017 Albuterol Sulfate 1 PUFF inh aler Discontinued 1 NMA INHALATION EVERY 4 HOURS NEEDED as needed for Wheezing December 09, 2013 12:00am September 20, 2017 11:47am Comment on above: Inhale 2 Puffs as in structed every 4 hours as needed for wheezing/shortness of breath. Per Dr. Glover Albuterol Sulfate 90 mcg/actuation HFA aerosol inhaler (1 source) Start: 2018 Albuterol Sulfate 90 mcg/actuation HFA aerosol inhaler Active 1 - 2 NMA INHALATION EVERY 4 HOURS NEEDED as needed for Wheezing 1 September 22, 2018 11:38am azelastine hydrochloride 0.137 mg/actuat metered dose nasal spray (2 sources) Histamine-1 Receptor Antagonist Start: 2024 End: 2025 take 1 spray(s) nasal route twice daily azelastine 0.1% nasal spray Indications: Mild persistent asthma, unspecified whether complicated (HCC) , Seasonal allergies Use 1 spray in each nostril two times a day. 30 mL 5 01/12/2025 01/12/2026 Active cholecalciferol 0.05 mg oral tablet (14 sources) Vitamin D Start: 2024 End: 2025 [...] Comment on above: Take 1 capsule by [facility] once daily. 30 actuat fluticasone furoate 0.1 mg/actuat dry powder inhaler (1 source) Corticosteroid Start: 018 take 100 ug by inhalation every twenty-four hours Fluticasone Furoate (Arnuity Ellipta) 100 mcg/actuation blister with device Active 1 NMA INHALATION Q24H 30 0 September 28, 2017 1:00am Unspecified asthma, uncomplicated administer at approximately same time(s) each day 60 actuat formoterol fumarate 0.005 mg/actuat / mometasone furoate 0.2 mg/actuat metered dose inhaler (8 sources) Corticosteroid, beta2-Adrenergic Agonist Start: End: take 2 puff(s) by inhalation twice daily mometasone-formotero l (DULERA) 200-5 mcg/actuation inhaler Indications: Mild persistent asthma, unspecified whether complicated (HCC) Inhale 2 puffs as instructed two times a day. 8.8 g 3 01/12/2025 04/12/2025 Active montelukast 10 mg oral tablet (2 sources) Leukotriene Receptor Antagonist Start: End: take 1 tablet by mouth once daily at bedtime montelukast (SINGULAIR) 10 mg tablet Indications: Mild persistent asthma, unspecified whether complicated (HCC) , Seasonal allergies Take 1 tablet by mouth daily at bedtime. 90 tablet 3 01/12/2025 01/12/2026 Active mupirocin 0.02 mg/mg topical ointment (1 source) RNA Synthetase Inhibitor Antibacterial Start: End: mupirocin (BACTROBAN) 2 % ointment Indications: Wound infection Apply 1 application to affected area three times a day for 7 days. 30 g 04/03/2025 04/10/2025 Active sertraline 50 mg oral tablet (20 sources) Serotonin Reuptake Inhibitor Start: End: take 3 tablets by mouth once daily [...] daily. 45 tablet 3 07/01/2021 10/31/2021 Discontinued Start: 09-20-2017 take 1 tablet by kael th once daily Sertraline (Zoloft) 100 mg tablet Active 100 mg PO daily September 20, 2017 1:00am Comment on above: Take 1.5 tablets by mouth once daily. Take 1.5 tablets by mouth once daily. No additional refills will be provided without appointment with PCP or internal medicine sulfamethoxazole 800 mg / trimethoprim 160 mg oral tablet (1 source) Dihydrofolate Reductase Inhibitor Antibacterial, Sulfonamide Antimicrobial Start: 04-03-20 End: 04-10-20 take 1 tablet by mouth twice daily sulfamethoxazole- trimethoprim (BACTRIM DS) 800-160 mg per tablet Indications: Wound infection Take 1 tablet by mouth two times a day for 7 days. 14 tablet 04/03/2025 04/10/2025 Active Completed/Discontinued Medications Medication Drug Class(es) Dates Sig (Normalized) Sig (Original) ergocalciferol 1.25 mg oral capsule (2 sources) Provitamin D2 Compound Start: 2021 End: 12-23-2021 take 1 capsule by mouth every week ergocalciferol 50,000 unit capsule (VITAMIN D2, DRISDOL) Take 1 capsule by mouth one time a week. 12 capsule 0 2021 12/23/2021 Discontinued Comment on above: Take 1 capsule by [facility] one time a week. fluticasone / salmeterol (12 sources) Corticosteroid, beta2-Adrenergic Agonist Start: 12-23-2021 End: [...] TWICE DAILY 1 Each 3 07/01/2021 Active Start: 10-24-2019 Fluticasone Pr opion-Salmeterol (Advair Diskus) 500-50 mcg/dose blister with device Active 1 NMA INHALATION TWICE A DAY 60 October 24, 2019 12:00am Comment on above: INHALE 1 DOSE BY KAEL TH TWICE DAILY 30 actuat fluticasone furoate 0.1 mg/actuat / vilanterol 0.025 mg/actuat dry powder inhaler (4 sources) Corticosteroid, beta2-Adrenergic Agonist Start: 09-20-2017 End: 10-24-2019 Fluticasone Furoate-Vilanterol (Breo Ellipta) 100-25 mcg/dose blister with device Discontinued 1 NMA INHALATION Q24H 60 September 22, 2018 11:38am October 24, 2019 12:52pm after inhalation, rinse mouth with water and spit out; do not swallow 1 ml ketorolac tromethamine 15 mg/ml cartridge (1 source) Nonsteroidal Anti-inflammatory Drug, Cyclooxygenase Inhibitor Start: 01-14-2022 End: 01-14-2022 ketorolac (TORADOL) 15 MG/ML injection 2 ml ondansetron 2 mg/ml injection (2 sources) Serotonin-3 Receptor Antagonist Start: 01-14-2022 End: 01-14-2022 ondansetron (ZOFRAN) 4 MG/2ML injection Start: 01-14-2022 take 1 tablet by [facility] every six hours as needed for nausea ondansetron (Zofran ODT) 4 MG disintegrating tablet Take 1 Tablet by mouth every 6 hours as needed for Nausea (Vomiting). Place 1 tablet under tongue as needed for nausea. 20 Tablet 0 01/14/2022 Active predniSONE 10 mg oral tablet (1 source) Start: 06-04-2017 End: 09-20-2017 take 4 tablets by mouth once daily, then take 3 tablets by mouth once daily, then take 2 tablets by mouth once daily, then take 1 tablet by mouth once daily, then take 1 tablet by mouth every other day Prednisone 10 MG tablet Discontinued 10 mg PO DIRECTED 33 June 04, 2017 12:00am September 20, 2017 11:47am Take 4 tablets daily for 3 days, then 3 daily for 3 days, then 2 daily for 3 days, then 1 a day for 3 days then 1 QOD for 3 doses. 50 ml sodium chloride 9 mg/ml injection (1 source) Start: 01-14-2022 End: 01-15-2022 sodium chloride 0.9 % iv bolus Problems Active Problems Problem Classification Problem Date Documented Da te Episodic/Chronic Abdominal pain (1 source) Flank pain; Translations: [Unspecified abdominal pain] 10-20-2024 Episodic Anxiety disorders (20 sources) Anxiety; Translations: [Anxiety disorder, unspecified] Onset: 08-02-2010 Chronic Asthma (20 sources) Mild persistent asthma; Translations: [Mild persistent asthma, uncomplicated] Onset: 11-14-2005 06-13-2017 Chronic Disorders of lipid metabolism (20 sources) Mixed hyperlipidemia; Translations: [Mixed hyperlipidemia] Onset: 03-27-2019 11-14-2019 Chronic Disorders of teeth and jaw (1 source) Toothache; Translations: [Other specified disorders of teeth and supporting structures] 10-06-2015 Episodic Immunizations and screening for infectious disease (3 sources) Vaccination needed; Translations: [Encounter for immunization] Onset: 04-27-2025 Episodic Nutritional deficiencies (5 sources) Vitamin D deficiency; Translations: [Vitamin D deficiency, unspecified] Onset: 07-14-2024 12-31-2023 Chronic Open wounds of extremities (1 source) Open bite, left lower leg, initial encounter; Translations: [Open bite, left lower leg, initial encounter] Onset: 04-10-2025 Episodic Other aftercare (1 source) Encounter for follow-up examination after completed treatment for conditions other than malignant neoplasm; Translations: [Follow-up exam] Onset: 01-12-2025 Episodic Other circulatory disease (1 source) Elevated blood-pressure reading without diagnosis of hypertension; Translations: [Elevated blood-pressure reading, without diagnosis of hypertension] 04-02-2025 Episodic Other connective tissue disease (1 source) Foreign body; Translations: [Residual foreign body in soft tissue] 04-02-2025 Episodic Other injuries and conditions due to external causes (1 source) Local infection of wound; Translations: [Other injury of unspecified body region, initial encounter] 04-03-2025 Episodic Other injuries and conditions due to external causes (1 source) Other injury of unspecified body region, initial encounter; Translations: [Wound infection] Onset: 04-03-2025 Episodic Other nutritional; endocrine; and metabolic disorders (1 source) Body mass index 25-29 - overweight; Translations: [Overweight] 05-24-2023 Episodic Other screening for suspected conditions (not mental disorders or infectious disease) (20 sources) Patient encounter status; Translations: [Encounter for screening for diabetes mellitus] Onset: 10-23-2016 10-23-2016 Episodic Other upper respiratory disease (1 source) Seasonal allergy; Translations: [Other seasonal allergic rhinitis] 01-12-2025 Chronic Other upper respiratory disease (1 source) Other seasonal allergic rhinitis; Translations: [Seasonal allergies] Onset: 01-12-2025 Chronic Residual codes; unclassified (1 source) Immunization not carried out because of patient refusal; Translations: [Vaccination not carried out because of patient refusal] 05-24-2023 Episodic Skin and subcutaneous tissue infections (1 source) Local infection of the skin and subcutaneous tissue, unspecified; Translations: [Wound infection] Onset: 04-03-2025 Episodic Past or Other Problems Problem Classification Problem Date Documented Date Episodic/Chronic Administrative/social admission (2 sources) First encounter by subject; Translations: [Persons encountering health services in other specified circumstances] Onset: 07-14-2024 07-14-2024 Episodic Mood disorders (7 sources) Depressive disorder; Translations: [Depression] Onset: 01-30-2015 Resolved: 11-17-2016 11-17-2016 Chronic Nausea and vomiting (2 sources) Nausea and vomiting; Translations: [Nausea with vomiting, unspecified] Onset: 05-23-2012 Resolved: 12-27-2014 Episodic Other complications of (7 sources) History of with abortive outcome; Translations: [Supervision of with other poor reproductive or obstetric history, unspecified trimester] Onset: 05-23-2012 Resolved: 12-27-2014 07-28-2021 Episodic Other complications of (7 sources) H/O: depression; Translations: [History of depression, currently ] Onset: 05-23-2012 Resolved: 12-27-2014 07-28-2021 Episodic Other complications of (7 sources) Late entry into care; Translations: [Supervision of with insufficient care, unspecified trimester] Onset: 06-21-2012 Resolved: 12-27-2014 12-27-2014 Episodic Other complications of (7 sources) High risk ; Translations: [Supervision of high risk , unspecified, unspecified trimester] Onset: 06-21-2012 Resolved: 12-27-2014 07-28-2021 Episodic Other complications of (6 sources) Vomiting of , unspecified; Translations: [Unspecified vomiting of , unspecified as to episode of care or not applicable] Onset: 05-23-2012 Resolved: 12-27-2014 08-12-2021 Episodic Other infections; including parasitic (16 sources) History of herpes zoster; Translations: [Personal history of other infectious and parasitic diseases] Onset: 09-15-2012 Resolved: 07-14-2024 07-28-2021 Episodic Other lower respiratory disease (10 sources) Chronic cough; Translations: [Chronic cough] Onset: 06-07-2017 03-05-2020 Episodic Other skin disorders (16 sources) Vesicular eczema; Translations: [Dyshidrosis [pompholyx]] Onset: 01-30-2015 09-23-2018 Episodic Ovarian cyst (7 sources) Cyst of ovary; Translations: [Unspecified ovarian cyst, unspecified side] Onset: 07-18-2012 Resolved: 12-27-2014 07-28-2021 Episodic Residual codes; unclassified (10 sources) FH: Congenital anomaly; Translations: [Family history of other congenital malformations, deformations and chromosomal abnormalities] Onset: 05-23-2012 07-28-2021 Episodic Residual codes; unclassified (16 sources) Abnormal cytology findings; Translations: [LGSIL (low grade squamous intraepithelial dysplasia)] Onset: 07-05-2012 07-28-2021 Episodic Residual codes; unclassified (16 sources) Family history of cardiac disorder; Translations: [Family history of ischemic heart disease and other diseases of the circulatory system] Onset: 03-23-2019 Resolved: 07-14-2024 04-03-2019 Episodic Residual codes; unclassified (7 sources) Rubella non-immune; Translations: [Other specified health status] Onset: 05-25-2012 Resolved: 12-27-2014 12-27-2014 Episodic Screening and history of mental health and substance abuse codes (1 source) Encounter for screening for depression; Translations: [Screening for depression] Onset: 07-14-2024 Episodic Results Test Name Value Interpretation Reference Range Facility [facility] 06-11-2025 CN Office Visit (FAMPWS) LINDAKRISTINE M ([id number]) 1990 F Date Time Provider Department 06/11/25 1:00 PM NEELIMA DUONG During your visit today, we recorded the following information about you: Pulse Respiration Blood pressure Weight 82/minute 12/minute 122/84 73.8 kg Height Last Period 1.575 m 06/02/25 Neelima Duong APRN.LAUNDRY ATTENDANT 06/11/2025 1:50 PM Signed 06/11/2025 Patient presents with: Establish Care Recording using HelloFax software for draft documentation of the visit was discussed with the patient/authorized sales representative consultant; all questions welcomed and answered. Patient/authorized sales representative consultant agreed to proceed SUBJECTIVE: This is a 34 year old that is here today for Above Complaints. Anxiety: - Managed with Zoloft 150 mg daily. - Reports significant improvement in anxiety symptoms; no longer experiences anxiety attacks. - Denies need for counseling. Asthma: - Managed with Delara 2 puffs BID and albuterol PRN. - Denies current use of Singulair. - Denies coughing, wheezing, or dyspnea. - Denies follow-up with a fiction writer. Hyperlipidemia: - Previous cholesterol level was 290 mg/dL; most recent level was 232 mg/dL. - Attempts to follow a low-cholesterol diet. - Denies recent weight loss or fatigue. Family History: - Mother has HTN and MS. - Father had a history of CAD, kidney disease, and diabetes; . - Maternal grandmother had CAD; . - Paternal grandparents had heart issues; . - Daughter has Rett syndrome. Social History: - Former smoker; denies current smoking or vaping. - Rarely consumes alcohol; denies drug use. 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 - with two sons and a daughter. PAST MEDICAL HISTORY Diagnosis Date Anxiety 2010 [...] 05/23/2012Pt had two previous C sections at [facility] in [place], [place]. She desires a repeat C section [...] Well adult exam 03/23/2019 Last Done: 03/23/2019 ALLERGIES Shrimp, Animal Dander, Dust, and Seasonal Allergies MEDICATIONS Current Outpatient Medications Medication Sig sertraline (ZOLOFT) 50 mg tablet Take 3 tablets by mouth once daily. albuterol HFA (PROVENTIL HFA, VENTOLIN HFA) 90 mcg/actuation inhaler Inhale 2 puffs as instructed every 4 hours as needed for wheezing/shortness of breath. Per Dr. Glover mometasone-formotero l (DULERA) 200-5 mcg/actuation inhaler Inhale 2 puffs as instructed two times a day. cholecalciferol (VITAMIN D3) 50 mcg (2,000 unit) tablet Take 1 tablet by mouth once daily. No current facility-administere d medications for this visit. Medications and allergies reviewed by this provider. SOCIAL HISTORY SOCIAL HISTORY[1] REVIEW OF SYSTEMS GENERAL: No weight loss, malaise or fevers HEENT: Negative for frequent or significant headaches, No changes in hearing or vision, no nose bleeds or other nasal problems NECK: Negative for lumps, goiter, pain and significant neck swelling RESPIRATORY: Negative for cough, hemoptysis, wheezing, COPD, dyspnea or shortness of breath CARDIOVASCULAR: Negative for chest pain, leg swelling, hypertension, CHF or palpitations GI: No nausea, vomiting, or diarrhea : No history of dysuria, frequency or incontinence WINDOWS TECHNICAL SPECIALIST: Negative for abnormal vaginal bleeding, abnormal vaginal discharge MUSCULOSKELETAL: Negative for joint pain or swelling, back pain or muscle pain SKIN: Negative for lesions, rash, and itching PSYCH: Negative for sleep disturbance, mood disorder and recent psychosocial stressors HEMATOLOGY/LYMPHOLOG Y: Negative for prolonged bleeding, bruising easily or swollen nodes ENDOCRINE: Negative for cold or heat intolerance, polyuria, polydipsia and goiter NEURO: No history of headaches, syncope, paralysis, seizures or tremors All other reviewed and negative other than HPI. OBJECTIVE: BP 122/84 Pulse (more content not included)... Normal [facility] CNCOon 05-03-2025 CNCO Letter Text Normal [facility] CNCOon 04-27-2025 CNCO Letter Text Normal [facility] CNOVon 04-27-2025 CNOV Office Visit (OBGYWM) KRISTINE FREEMAN ([id number]) 1990 F Date Time Provider Department 04/27/25 8:30 AM ANA MARIA AMAYA OBGYWM During your visit today, we recorded the following information about you: Blood pressure Weight Height Last Period 10660 73.5 kg 1.59 m 04/11/25 Ana Maria Amaya MD 04/27/2025 9:06 AM Signed Automotive Tire Tester offered: Patient declines. Kristine is a 34 year old who presents for an annual gynecologic exam. Menses: cycles every 28-30 days and 7 days of flow Menstrual flow: Moderate Contraception: Tubal Ligation Contraception frequency: Always HPV vaccine: No HPV:N/A Last pap smear: 2017 - negative History of abnormal pap: Yes - LSIL 2011 AND 2012, normal 2014 AND 2016 Colposcopy: Yes Leep: No. Cone biopsy: No. Last mammogram: never OB History Gravida4 Para3 Term3 Preterm0 AB1 Living3 SAB0 IAB0 Ectopic0 Multiple0 Live Births3 Harness Repairer History LMP: 04/11/2025 (Approximate), Having periods Age at Menarche: Age at First : Age at Menopause: Harness Repairer History Comments: Sexual Activity: Yes; Male Contraception: Tubal Ligation PAST MEDICAL HISTORY Diagnosis Date Anxiety 2010 [...] 05/23/2012Pt had two previous C sections at [facility] in [place], [place]. She desires a repeat C section [...] of a heart anyurism Heart Paternal Grandfather SOCIAL HISTORY Social History Tobacco Use Smoking status: Former Smokeless tobacco: Never Tobacco comments: quit early this year Vaping Use Vaping status: Never Used Substance Use Topics Alcohol use: No Drug use: No REVIEW OF SYSTEMS Abdomen: No abdominal pain, nausea, vomiting, diarrhea, or constipation. No bloating, early satiety, indigestion, or increased flatulence. Bladder: No dysuria, gross hematuria, urinary frequency, urinary urgency, or incontinence. Breast: No breast lumps, nipple d/c, overlying skin changes, redness or skin retraction. Allergies and current medication updated:Yes SENSITIVE EXAM: The sensitive examination was discussed with the Patient or Patient's Authorized High Worker. As applicable, any other physician, advance practice provider, medical student, or other health professional student that will be observing or involved in the sensitive examination for educational or training purposes was discussed with the Patient or Authorized High Worker. The Patient or Authorized High Worker has agreed to proceed with the sensitive examination. (Sensitive examination includes inspection and/or palpation of the breasts, pelvis, prostate and anorectal regions). EXAM: BP 106/60 Ht 5' 2.598" (1.59m) Wt 162 lb (73.5kg) LMP 04/11/2025 BMI 29.07 kg/(m2). GENERAL: pleasant, female in no apparent distress BREAST: soft, non-tender, symmetric, no dominant mass, normal nipple-areolar complex, no lymphadenopathy, and no nipple discharge CHEST: Normal inspiratory effort ABDOMEN: soft, non-tender, and no masses PELVIC: external genitalia normal, normal Bartholin's glands, urethra, [place]'s glands, no vulvar lesions, no cervical lesions, good vaginal support, physiologic discharge present, normal appearing perineal body and perianal region BIMANUAL: uterus normal size, shape and consistency, no adnexal masses, and non-tender RECTOVAGINAL: deferred. NEURO: alert and oriented x3,exam grossly non-focal EXTREMITIES: normal ASSESSMENT/PLAN: 1) (more content not included)... Normal [facility] HIGH RISK HUMAN PAPILLOMA DEBORAH (HPV), PCR FOR DETECTION AND GENOTYPINGon 04-27-2025 HPV 16 Ag Ql (Unsp spec) Not detected Normal Not detected [facility] Comment on above: Order Comment: Speci men Type: FLUID SPECIMEN [facility] Address: [address] [place] [address] Performed By: #### L [id number] #### [facility] CLIA [id number] [address] [place] [address] STATES [facility] CLIA [id number] [address] [place] [address] [place] HPV 18 Ag Ql (Unsp spec) Not detected Normal Not detected [facility] Comment on above: Order Comment: Speci men Type: FLUID SPECIMEN Ordering Facility: [facility] Address: [address] [place] [address] Performed By: #### L [id number] #### [facility] CLIA [id number] [address] [place] [address] [place] [facility] CLIA [id number] [address] [place] [address] [place] HPV 31+33+35+39+45+51+52+5 6+58+59+66+68 DNA EVE+probe Ql (Cvx) Not detected Normal Not detected [facility] Comment on above: Order Comment: Speci men Type: FLUID SPECIMEN [facility] Facility[facility] Address: [address] [place] [address] Result Comment: High Risk HPV Other Type includes HPV types 31, 33, 35, 39, 45, 51, 52, 56, 58, 59, 66 and 68. Performed By: #### L [id number] #### [facility] CLIA [id number] [address] [place] [address] STATES [facility] CLIA [id number] [address] [place] [address] [place] PAP TESTon 04-27-2025 ADEQUACY Normal [facility] Comment on above: Order Comment: Speci men Type: FLUID SPECIMEN [facility]ing Facility: [facility] Address: [address] [place] [address] Result Comment: Sati sfactory for interpretation. Limited cellularity. No endocervical component Performed By: #### L [id number] #### [facility] CLIA [id number] [address] [place] [address] STATES OF [place] [facility] CLIA [id number] [address] [place] [address] [place] CASE REPORT Normal [facility] Comment on above: Order Comment: Speci men Type: FLUID SPECIMEN [facility] Facility[facility] Address: [address] [place] [address] Result Comment: Gyne cologic Cytology Report Case: [id number] Authorizing Provider: Ana Maria Amaya MD Collected: 04/27/2025 08:56 AM Ordering Location: OB/Gynecology Received: 04/27/2025 12:09 PM First Screen: Mare Reyna, CT, ASCP Rescreen: Alberta Soto CT, ASCP Specimen: Pap Test, ThinPrep, Cervix Performed By: #### L [id number] #### [facility] CLIA [id number] [address] [place] [address] [place] [facility] CLIA [id number] [address] [place] [address] [place] CLINICAL HISTORY, CYTOLOGY, WINDOWS TECHNICAL SPECIALIST Routine Exam Normal [facility] Comment on above: Order Comment: Speci men Type: FLUID SPECIMEN [facility]ing [facility] Address: [address] [place] [address] Performed By: #### L [id number] #### [facility] CLIA [id number] [address] [place] [address] [place] [facility] [facility] CLIA [id number] [address] [place] [address] [place] CYTOLOGY PAP OTHER INTERPRETATION Predominance of coccobacilli 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 Normal [facility] Comment on above: Order Comment: Speci men Type: FLUID SPECIMEN [facility] Address: [address] [place] [address] Performed By: #### L [id number] #### [facility] CLIA [id number] [address] [place] [address] [place] [facility] CLIA [id number] [address] [place] [address] [place] [facility] Normal [facility] Comment on above: Order Comment: Speci men Type: FLUID SPECIMEN [facility]ing [facility]: [facility] Address: [address] [place] [address] Result Comment: Tech nical component, body and fender mechanic apprentice screening performed at: [facility], [address] [place] [address] CLIA: [id number] Diagnostic interpretation performed at: [facility], [address] [place] [address] CLIA# [id number] Tuft Machine Operator: Juan Pablo Spivey MD Performed By: #### L [id number] #### [facility] CLIA [id number] [address] [place] [address] STATES OF [place] [facility] CLIA [id number] [address] [place] [address] [place] INTERPRETATION, CYTOLOGY, WINDOWS TECHNICAL SPECIALIST Normal [facility] Comment on above: Order Comment: Speci men Type: FLUID SPECIMEN [facility]ing [facility]: [facility] Address: [address] [place] [address] Result Comment: Nega tive for intraepithelial lesion or malignancy. at 1152 EDT Performed By: #### L [id number] #### [facility] CLIA [id number] [address] [place] [address] [place] [facility] CLIA [id number] [address] [place] [address] [place] LMP 04/11/2025 Normal [facility] Comment on above: Order Comment: Speci men Type: FLUID SPECIMEN [facility]ing [facility]: [facility] Address: [address] [place] [address] Performed By: #### L [id number] #### [facility] CLIA [id number] [address] [place] [address] [facility] CLIA [id number] [address] [place] [address] PAP DISCLAIMER COMMENT The Pap Smear is a screening test for cervical cancer. False negative results occur with all screening tests, emphasizing the need for rescreening at recommended intervals, and clinical correlation. Normal [facility] Comment on above: Order Comment: Speci men Type: FLUID SPECIMEN [facility] Address: [address] [place] [address] Performed By: #### L [id number] #### [facility] CLIA [id number] [address] [place], [place] [address] CLIA [id number] [address] [place] [address] [place] PAP INFLATED PAD BUFFER COMMENT This specimen has been analyzed by the FDA-approved [employer] System, which uses digital imaging and an enhanced artificial intelligence image analysis algorithm to identify white of interest on the microscopic slide, to assist the sole rounding machine operator and pathologist in evaluating cells on ThinPrep Pap tests. Following analysis, white of interest on the microscopic slide selected by the algorithm are reviewed by a sole rounding machine operator. If a sample requires hierarchical review, the pathologist will review the same white of interest selected by the algorithm prior to final interpretation. Normal [facility] Comment on above: Order Comment: Speci men Type: FLUID SPECIMEN [facility] Address: [address] [place] [address] Performed By: #### L [id number] #### [facility] CLIA [id number] [address] [place], [place] [address] CLIA [id number] [address] [place] [address] OF LIZ CNOVon 04-03-2025 CNOV Office Visit (WOUCA) KRISTINE FREEMAN ([id number]) 1990 F Date Time Provider Department 04/03/25 11:30 AM LÓPEZ KULKARNI During your visit today, we recorded the following information about you: Temperature Pulse Respiration Blood pressure 98.1 degrees 70/minute 16/minute 122/78 Weight 72.6 kg López Kulkarni MD 04/03/2025 11:08 AM Signed RETURN HERE NEEDED López Kulkarni MD 04/03/2025 11:13 AM Signed [facility] Subjective Kristine Freeman is a 34 year old female. Patient presents with: Derm Problem: piece of wood removed from leg on Wednesday at ER, now drainage and painful Pt here with recent visit to the Ed for a wound to her left leg at which time they removed a piece of wood but never put her on antibiotics that was 3 days ago now redness pus and pain at site feels she needs antibiotics for an infected wound declines tetanus booster understands implications Review of Systems Constitutional: Negative for chills, fatigue and fever. Skin: Positive for wound. Neurological: Negative for weakness and numbness. Objective BP 122/78 Pulse 70 Temp 36.7 ?C (98.1 ?F) Resp 16 Wt 72.6 kg (160 lb 0.9 oz) LMP 10/10/2024 (Approximate) SpO2 98% BMI 29.27 kg/m? Physical Exam Vitals and nursing note reviewed. Constitutional: Appearance: Normal appearance. She is not ill-appearing. Skin: General: Skin is warm. Findings: Erythema present. Comments: Small area of an open wound with surrounding erythema crusted drainage Neurological: Mental Status: She is alert. Sensory: No sensory deficit. Motor: No weakness. Coordination: Coordination normal. Deep Tendon Reflexes: Reflexes normal. {ASSESSMENT/PLAN: 1. Wound infection - ICD9: 958.3, ICD10: T14.8XXA, L08.9 - SULFAMETHOXAZOLE 800 MG-TRIMETHOPRIM 160 MG TABLET - MUPIROCIN 2 % TOPICAL OINTMENT López Kulkarni MD History and Record Review External record(s) reviewed: prior outpatient record. Differential Diagnoses - wound infection is more likely for the following reason(s): suggested by HANDP Disposition The patient was discharged. Procedures Allergies As of Date: 04/03/2025 Noted Allergy Reaction SHRIMP 2015 4 - Hives 6 - Diarrhea 14 - Other: See Comments Comments: Throat felt slightly constricted ANIMAL DANDER 07/28/2011 14 - Other: See Comments Comments: ALLERGIC TO DOG AND CAT HAIR DUST 03/01/2007 16 - Unknown SEASONAL ALLERGIES 07/28/2011 14 - Other: See Comments Comments: NASAL CONGESTION Date Reviewed: 04/03/2025 Reviewed by: Kristine Mullins MA - Fully Assessed Reason for Visit: Derm Problem [33] Cmt: piece of wood removed from leg on Wednesday at ER, now drainage and painful Primary Visit Diagnosis:Wound infection [T14.8XXA, L08.9] Order(s):sulfamethox azole-trimethoprim (BACTRIM DS) 800-160 mg per tabletTake 1 tablet by mouth two times a day for 7 days.Disp: 14 tabletRfl: 0 mupirocin (BACTROBAN) 2 % ointmentApply 1 application to affected area three times a day for 7 days.Disp: 30 gRfl: 0 Prescriptions as of 04/03/2025 - sulfamethoxazole-tri methoprim (BACTRIM DS) 800-160 mg per tablet Take 1 tablet by mouth two times a day for 7 days. - mupirocin (BACTROBAN) 2 % ointment Apply 1 application to affected area three times a day for 7 days. - montelukast (SINGULAIR) 10 mg tablet Take 1 tablet by mouth daily at bedtime. - azelastine 0.1% nasal spray Use 1 spray in each nostril two times a day. - albuterol HFA (PROVENTIL HFA, VENTOLIN HFA) 90 mcg/actuation inhaler Inhale 2 puffs as instructed every 4 hours as needed for wheezing/shortness of breath. Per Dr. Glover - mometasone-formotero l (DULERA) 200-5 mcg/actuation inhaler Inhale 2 puffs as instructed two times a day. - cholecalciferol (VITAMIN D3) 50 mcg (2,000 unit) tablet Take 1 tablet by mouth once daily. - sertraline (ZOLOFT) 50 mg tablet Take 3 tablets by mouth once daily. Problem List As Of Date 04/03/2025 Noted Resolved Asthma, mild persistent [J45.30] 11/14/2005 [...] [Z82.49] 03/23/2019 07/14/2024 Hyperlipidemia, mixed [E78.2] 03/27/2019 Other instructions from your clinician: RETURN HERE NEEDED Prescriptions ordered this encounter Disp Refill (more content not included)... Normal [facility] Emergency Department Summary on 04-02-2025 Emergency Department Summary [facility] Medical Records Department [address] [place] [address] Emergency Department Summary 04/02/25 MR#: [id number] Acct: [id number] Name: KRISTINE FREEMAN Rep #: [id number] : 1990 34 From: Juan F Hou MD PCP: Care Physician,No Primary Status:REG ER Location: ED HPI History of Present Illness Chief Complaint: Bite Detail of Chief Complaint: Patient believes she was bit by something mid medial left leg Informant: patient Onset/Context/Timing Onset: Today and Hours Context: Sudden Onset Timing: Continuous Quality: Slight redness, swelling and tenderness Location: Mid medial left leg, recently diagnosed with poison evan Current Severity: Mild Maximum Severity: Moderate Worsened by: Pain to palpation Relieved by: Nothing Associated Symptoms Associated Symptoms: No paresthesia, anesthesia or motor aches. She is not immune suppressed. Narrative Narrative: Patient is a 34-year-old female. She presents with she believes to be a spider bite medial mid left leg. She states she was out clearing an area because she is getting a horse. She thought something may have bit her. She was wearing boots. She is not immune suppressed. She is not diabetic. She has no allergies to antibiotics. She does have a history of asthma that is persistent. She denies paresthesia, anesthesia or motor weakness left lower extremity. Prior similar symptoms: No Recent Illness[facility]at [facility] Medical History (Updated 04/02/25 @ 00:[address] Juan F Hou MD) Bronchitis Shortness of breath Chronic cough Home Medications ???Medication ???Instructions ???Recorded ???Last Taken ???Type sertraline 100 mg tablet (Zoloft) 100 mg PO QDAY 09/20/17 Unknown H istory fluticasone furoate 100 1 inh inhalation Q24H #30 ea 09/28 Unknown Rx mcg/actuation blister powder for inhalation (Arnuity Ellipta) albuterol sulfate 90 mcg/actuation 1 - 2 puff inhalation Q4H PRN AK N 09/22/18 Unknown Rx aerosol inhaler Wheezing ##1 fluticasone 500 mcg-salmeterol 50 1 inh inhalation BID #60 ea 10/23 Unknown Rx mcg/dose blistr powdr for inhalation (Advair Diskus) Allergy/AdvReac Type Severity Reaction Status Date / Time No Known Allergies Allergy Verified 04/01/25 23:04 Family History Mother Multiple sclerosis Father Diabetes Surgical History H/O section Social History (Updated 04/02/25 @ 00:[address] Juan F Hou MD) household members: spouse and children Smoking Status: Never smoker second hand exposure: No alcohol intake: never substance use type: does not use ROS ROS ED Constitutional Constitutional ED: Denies chills or fever(s) Cardiovascular Cardiovascular: Denies palpitations Respiratory/Chest Respiratory/Chest: Denies dyspnea Integumentary Reports rash Hematologic/Lymphati c Hematologic/Lymphati c: Reports systems reviewed and no addt'l complaints, except as documented EXAM Physical Exam Const Vital Signs: 04/01/25 23:04 Temperature 97.1 F L Temperature Source Temporal Pulse Rate 89 Respiratory Rate 18 Blood Pressure 148/85 H Blood Pressure Mean 106 Pulse Ox 100 Oxygen Delivery Method Room Air Positive well nourished and well developed General Appearance ED: well developed and NAD Eyes PERRL and EOMs intact bilaterally Resp normal respiratory effort Cardio regular rate and regular rhythm Extremity Negative for normal to inspection Extremity Narrative: There is a small area of erythema. There is no induration, fluctuance, lymphangitis or popliteal lymphadenopathy. There is appears to be a foreign body in the center of the lesion. Palpation reveals something rough and hard. It appears black. Neuro oriented x3, CN's II-XII intact bilaterally and no sensory deficits noted Sensorium / Orientation: alert Psych mental status grossly normal Skin Skin Narrative: Wound medial mid left leg with what appears to be a retained foreign body. MDM MDM MDM Narrative Medical decision making narrative: Patient has what appears to be a foreign body is causing slight reaction. Will obtain consent for incision and removal of foreign body. The area was anesthetized with 1% lidocaine for local filtration. Incision was made using a 15 blade. Part of the foreign body was removed. Presumed to be wood. It did fragment. The incision was lengthened slightly. The foreign body was removed in total. Will have nurse apply appropriate dressing and discharge with appropriate home-going instructions. Discharge Plan Triage Chief Complaint: Bite ED Provider: Juan F Hou Dx/Rx/DC Orders Clinical Impression: Foreign body (FB) in soft tissue, Elevated blood- (more content not included)... Normal [facility] CNCOon 01-12-2025 CNCO Letter Text Normal [facility] CNOVon 01-12-2025 CNOV Office Visit (AGSAM) KRISTINE FREEMAN ([id number]) 1990 F Date Time Provider Department 01/12/25 10:20 AM PAVEL MUNGUIA During your visit today, we recorded the following information about you: Pulse Respiration Blood pressure Weight 90/minute 16/minute 117/81 72.6 kg Pavel Munguia APRN.LAUNDRY ATTENDANT 01/12/2025 10:05 AM Signed [facility] [address] [place] [address] Date of Evaluation: 01/12/2025 Patient Name: Kristine [...] Negative for dizziness, light-headedness, numbness and headaches. Psychiatric/Behavior al: Negative for behavioral problems, confusion, hallucinations and suicidal ideas. PAST MEDICAL HISTORY Diagnosis Date Anxiety 2010 Had anxiety for a long time, possibly since middle school. Only diagnosed 6 years ago. Asthma, mild persistent (HCC) 11/14/2005 As of 06/07/2017: Managed per Dr. Adalberto Dyshidrotic eczema 01/30/2015 Family history of defect 05/23/2012 05/23/2012Patient states that her daughter was born with Rett syndrome with mental retardation. Family history of heart disease 03/23/2019 father at the age of 55 from Heart aneurism. History of section 05/23/2012 05/23/2012Pt had two previous C sections at [facility] in [place], [place]. She desires a repeat C section [...] for wheezing/shortness of breath. Per Dr. Glover mometasone-formotero l (DULERA) 200-5 mcg/actuation inhaler Inhale 2 puffs as instructed two times a day. No current facility-administere d medications for this visit. I have confirmed and edited as necessary the chief complaint, medications, past medical, family and social histories obtained by others. Objective BP 117/81 Pulse 90 Resp 16 Wt 160 lb (72.6kg) SpO2 100% LMP 10/10/2024 Physical Exam Vitals reviewed. Constitutional: General: She is not in acute distress. Appearance: Normal a (more content not included)... Normal [facility] Bacteria Ur Culton Bacteria identified Cx Nom (U) ORGANISM ID: 1 <10,000 CFU/ml Normal urogenital irene Normal [facility] Comment on above: Performed By: #### L [id number] #### [facility] CLIA [id number] [address] [place] [address] STATES OF COUNTS INCLUDE 234 BEDS AT THE [facility] CLIA [id number] [address] [place] [address] CNOVon 10-20-2024 CNOV Office Visit (UCWSTR) KRISTINE FREEMAN ([id number]) 1990 F Date Time Provider Department 10/20/24 11:00 AM LUCY MOBLEY [facility] During your visit today, we recorded the following information about you: Temperature Pulse Respiration Blood pressure 97 degrees 64/minute 20/minute 149/88 Weight Last Period 72 kg 10/10/24 Lucy Mobley APRN.LAUNDRY ATTENDANT 10/20/2024 11:12 AM Signed History has been [...] 05/23/2012Pt had two previous C sections at [facility] in [place], [place]. She desires a repeat C section [...] breath. Per Dr. Glover 6.7 g 0 mometasone-formotero l (DULERA) 200-5 mcg/actuation inhaler Inhale 2 Puffs as instructed two times a day. 8.8 g 3 No current facility-administere d medications for this visit. OBJECTIVE: BP 149/88 [...] pleasure to (more content not included)... Normal [facility] UA DIP, URINE (POC)on 2024 BILIRUBIN UA (POCT) Negative Negative [facility] CLARITY UA (POCT) Clear [facility] COLOR UA (POCT) Yellow [facility] GLUCOSE UA (POCT) Negative Negative mg/dL [facility] Hemoglobin Ql (U) Negative Negative [facility] KETONE UA (POCT) Negative Negative mg/dL [facility] LEUKOCYTES UA (POCT) Negative Negative [facility] NITRITE UA (POCT) Negative Negative [facility] PH UA (POCT) 6.5 4.5 - 8.0 [facility] Protein Ql (U) Negative Negative mg/dL [facility] SPECIFIC GRAVITY UA (POCT) 1.02 1.005 - 1.030 [facility] UROBILINOGEN UA (POCT) 0.2 Sasha l E.U./dL [facility] Location:[address], [address] [place] [address] POINT OF CARE [facility] 25(OH)D3 SerPl-mCncon 2024 25-hydroxyvitamin D3 [Mass/Vol] 17.9 ng/mL Low 31.0-80.0 [facility] Comment on above: Order Comment: Speci men Type: BLOOD SPECIMEN [facility] Address: [address] [place] [address] Performed By: #### 1 [id number] #### [facility] CLIA [id number] [address] [place] [address] [place] CBC W Auto Differential pane l (Bld)on 10-09-2024 Basophils (Bld) [#/Vol] 0.06 10*3/uL Normal <0.11 [facility] Comment on above: Order Comment: Speci men Type: FLUID SPECIMEN [facility] Address: [address] [place] [address] Performed By: #### L [id number] #### [facility] CLIA [id number] [address] [place] [address] [place] [facility] CLIA [id number] [address] [place] [address] [place] Basophils/100 WBC (Bld) 1.2 % Normal [facility] Comment on above: Order Comment: Speci men Type: FLUID SPECIMEN [facility] Address: [address] [place] [address] Performed By: #### L [id number] #### [facility] CLIA [id number] [address] [place] [address] [facility] CLIA [id number] [address] [place] [address] [place] Differential cell count method Nom (Bld) Auto Normal [facility] Comment on above: Order Comment: Speci men Type: FLUID SPECIMEN [facility] Address: [address] [place] [address] Performed By: #### L [id number] #### [facility] CLIA [id number] [address] [place] [address] STATES [facility] CLIA [id number] [address] [place] [address] [place] Eosinophils (Bld) [#/Vol] 0.66 10*3/uL High <0.46 [facility] Comment on above: Order Comment: Speci men Type: FLUID SPECIMEN [facility] Address: [address] [place] [address] Performed By: #### L [id number] #### [facility] CLIA [id number] [address] [place] [address] STATES OF [place] [facility] CLIA [id number] [address] [place] [address] [place] Eosinophils/100 WBC (Bld) 13.3 % Normal [facility] Comment on above: Order Comment: Speci men Type: FLUID SPECIMEN [facility] Address: [address] [place] [address] Performed By: #### L [id number] #### [facility] CLIA [id number] [address] [place] [address] STATES [place] [facility] CLIA [id number] [address] [place] [address] [place] Erythrocyte distribution width (RBC) [Ratio] 13.2 % Normal 11.5-15.0 [facility] Comment on above: Order Comment: Speci men Type: FLUID SPECIMEN [facility] Address: [address] [place] [address] Performed By: #### L [id number] #### [facility] CLIA [id number] [address] [place] [address] [place] [facility] CLIA [id number] [address] [place] [address] [place] Hematocrit (Bld) [Volume fraction] 41.2 % Normal 36.0-46.0 [facility] Comment on above: Order Comment: Speci men Type: FLUID SPECIMEN [facility] Address: [address] [place] [address] Performed By: #### L [id number] #### [facility] CLIA [id number] [address] [place] [address] [place] [facility] CLIA [id number] [address] [place] [address] [place] Hemoglobin (Bld) [Mass/Vol] 13.3 g/dL Normal 11.5-15.5 [facility] Comment on above: Order Comment: Speci men Type: FLUID SPECIMEN [facility] Address: [address] [place] [address] Performed By: #### L [id number] #### [facility] CLIA [id number] [address] [place] [address] [place] [facility] CLIA [id number] [address] [place] [address] [place] Immature granulocytes (Bld) [#/Vol] 10*3/uL Normal <0.10 [facility] Comment on above: Order Comment: Speci men Type: FLUID SPECIMEN [facility] Address: [address] [place] [address] Performed By: #### L [id number] #### [facility] [facility] CLIA [id number] [address] [place] [address] [place] [facility] CLIA [id number] [address] [place] [address] [place] Immature granulocytes/100 WBC (Bld) 0.4 % Normal [facility] Comment on above: Order Comment: Speci men Type: FLUID SPECIMEN [facility]ing Facility: [facility] Address: [address] [place] [address] Performed By: #### L [id number] #### [facility] CLIA [id number] [address] [place] [address] [place] [facility] CLIA [id number] [address] [place] [address] [place] Lymphocytes (Bld) [#/Vol] 1.90 10*3/uL Normal 1.00-4.00 [facility] Comment on above: Order Comment: Speci men Type: FLUID SPECIMEN Ordering Facility: [facility] Address: [address] [place] [address] Performed By: #### L [id number] #### [facility] CLIA [id number] [address] [place] [address] [place] [facility] CLIA [id number] [address] [place] [address] [place] Lymphocytes/100 WBC (Bld) 38.2 % Normal [facility] Comment on above: Order Comment: Speci men Type: FLUID SPECIMEN Ordering Facility: [facility] Address: [address] [place] [address] Performed By: #### L [id number] #### [facility] CLIA [id number] [address] [place] [address] [place] [facility] CLIA [id number] [address] [place] [address] [place] MCH (RBC) [Entitic mass] 27.7 pg Normal 26.0-34.0 [facility] Comment on above: Order Comment: Speci men Type: FLUID SPECIMEN Ordering Facility: [facility] Address: [address] [place] [address] Performed By: #### L [id number] #### [facility] CLIA [id number] [address] [place] [address] [facility] CLIA [id number] [address] [place] [address] [place] MCHC (RBC) [Mass/Vol] 32.3 g/dL Normal 30.5-36.0 [facility] Comment on above: Order Comment: Speci men Type: FLUID SPECIMEN Ordering Facility: [facility] Address: [address] [place] [address] Performed By: #### L [id number] #### [facility] CLIA [id number] [address] [place] [address] [place] [facility] CLIA [id number] [address] [place] [address] [place] MCV (RBC) [Entitic vol] 85.8 fL Normal 80.0-100.0 [facility] Comment on above: Order Comment: Speci men Type: FLUID SPECIMEN Ordering Facility: [facility] Address: [address] [place] [address] Performed By: #### L [id number] #### [facility] CLIA [id number] [address] [place] [address] [place] [facility] CLIA [id number] [address] [place] [address] [place] Monocytes (Bld) [#/Vol] 0.30 10*3/uL Normal <0.87 [facility] Comment on above: Order Comment: Speci men Type: FLUID SPECIMEN Ordering Facility: [facility] Address: [address] [place] [address] Performed By: #### L [id number] #### [facility] CLIA [id number] [address] [place], [place] [address] [place] [facility] CLIA [id number] [address] [place] [address] [place] Monocytes/100 WBC (Bld) 6.0 % Normal [facility] Comment on above: Order Comment: Speci men Type: FLUID SPECIMEN Ordering Facility: [facility] Address: [address] [place] [address] Performed By: #### L [id number] #### [facility] CLIA [id number] [address] [place] [address] [place] [facility] CLIA [id number] [address] [place] [address] [place] Neutrophils (Bld) [#/Vol] 2.04 10*3/uL Normal 1.45-7.50 [facility] Comment on above: Order Comment: Speci men Type: FLUID SPECIMEN Ordering Facility: [facility] Address: [address] [place] [address] Performed By: #### L [id number] #### [facility] CLIA [id number] [address] [place] [address] [place] [facility] CLIA [id number] [address] [place] [address] [place] Neutrophils/100 WBC (Bld) 40.9 % Normal [facility] Comment on above: Order Comment: Speci men Type: FLUID SPECIMEN [facility]ing Facility: [facility] Address: [address] [place], [place] [address] Performed By: #### L [id number] #### [facility] CLIA [id number] [address] [place] [address] [place] [facility] CLIA [id number] [address] [place] [address] [place] Nucleated RBC (Bld) [#/Vol] 10*3/uL Normal <0.01 [facility] Comment on above: Order Comment: Speci men Type: FLUID SPECIMEN Ordering Facility: [facility] Address: [address] [place] [address] Performed By: #### L [id number] #### [facility] CLIA [id number] [address] [place] [address] [facility] CLIA [id number] [address] [place] [address] [place] Nucleated RBC/100 WBC (Bld) [Ratio] 0.0 /100 WBC Normal [facility] Comment on above: Order Comment: Speci men Type: FLUID SPECIMEN Ordering Facility: [facility] Address: [address] [place] [address] Performed By: #### L [id number] #### [facility] CLIA [id number] [address] [place] [address] [place] [facility] CLIA [id number] [address] [place] [address] [place] Platelet mean volume (Bld) [Entitic vol] 9.3 fL Normal 9.0-12.7 [facility] Comment on above: Order Comment: Speci men Type: FLUID SPECIMEN Ordering [facility]: [facility] Address: [address] [place] [address] Performed By: #### L [id number] #### [facility] CLIA [id number] [address] [place] [address] [place] [facility] CLIA [id number] [address] [place] [address] [place] Platelets (Bld) [#/Vol] 281 10*3/uL Normal 150-400 [facility] Comment on above: Order Comment: Speci men Type: FLUID SPECIMEN [facility]ing [facility]: [facility] Address: [address] [place] [address] Performed By: #### L [id number] #### [facility] CLIA [id number] [address] [place] [address] [place] [facility] CLIA [id number] [address] [place] [address] [place] RBC (Bld) [#/Vol] 4.80 10*6/uL Normal 3.90-5.20 [facility] Comment on above: Order Comment: Speci men Type: FLUID SPECIMEN [facility] Address: [address] [place] [address] Performed By: #### L [id number] #### [facility] CLIA [id number] [address] [place] [address] [place] [facility] CLIA [id number] [address] [place] [address] [place] WBC (Bld) [#/Vol] 4.98 10*3/uL Normal 3.70-11.00 [facility] Comment on above: Order Comment: Speci men Type: FLUID SPECIMEN [facility]ing [facility] Address: [address] [place] [address] Performed By: #### L [id number] #### [facility] CLIA [id number] [address] [place] [address] [place] [facility] CLIA [id number] [address] [place] [address] [place] Comprehensive metabolic 2000 panelon 10-09-2024 Albumin [Mass/Vol] 4.3 g/dL Normal 3.9-4.9 [facility] Comment on above: Order Comment: Speci men Type: FLUID SPECIMEN [facility]ing [facility] Address: [address] [place] [address] Performed By: #### L [id number] #### [facility] CLIA [id number] [address] [place] [address] [place] [facility] CLIA [id number] [address] [place] [address] [place] ALP [Catalytic activity/Vol] 45 U/L Normal 34-123 [facility] Comment on above: Order Comment: Speci men Type: FLUID SPECIMEN Ordering [facility]: [facility] Address: [address] [id number] Performed By: #### L [id number] #### [facility] CLIA [id number] [address] [place], [place] [address] [place] [facility] CLIA [id number] [address] [place] [address] [place] ALT [Catalytic activity/Vol] 11 U/L Normal 7-38 [facility] Comment on above: Order Comment: Speci men Type: FLUID SPECIMEN [facility]ing [facility] Address: [address] [place], [place] [address] Performed By: #### L [id number] #### [facility] CLIA [id number] [address] [place] [address] [place] [facility] CLIA [id number] [address] [place] [address] [place] Anion gap [Moles/Vol] 8 mmol/L Normal 8-15 [facility] Comment on above: Order Comment: Speci men Type: FLUID SPECIMEN [facility]ing [facility] Address: [address] [place], [place] [address] Performed By: #### L [id number] #### [facility] CLIA [id number] [address] [place], [place] [address] [place] [facility] CLIA [id number] [address] [place] [address] [place] AST [Catalytic activity/Vol] 20 U/L Normal 13-35 [facility] Comment on above: Order Comment: Speci men Type: FLUID SPECIMEN Ordering [facility]: [facility] Address: [facility] [place] [id number] Performed By: #### L [id number] #### [facility] CLIA [id number] [address] [place], [place] [address] [place] [facility] CLIA [id number] [address] [place], [place] [address] [place] Bilirubin [Mass/Vol] 0.9 mg/dL Normal 0.2-1.3 [facility] Comment on above: Order Comment: Speci men Type: FLUID SPECIMEN [facility] Address: [address] [place] [address] Performed By: #### L [id number] #### [facility] CLIA [id number] [address] [place] [address] [place] [facility] CLIA [id number] [address] [place] [address] [place] Calcium [Mass/Vol] 9.1 mg/dL Normal 8.5-10.2 [facility] Comment on above: Order Comment: Speci men Type: FLUID SPECIMEN Order[facility]: [facility] Address: [address] [place] [address] Performed By: #### L [id number] #### [facility] CLIA [id number] [address] [place] [address] [place] [facility] CLIA [id number] [address] [place] [address] [place] Chloride [Moles/Vol] 106 mmol/L Normal 98-107 [facility] Comment on above: Order Comment: Speci men Type: FLUID SPECIMEN Order[facility]: [facility] Address: [address] [place] [address] Performed By: #### L [id number] #### [facility] CLIA [id number] [address] [place] [address] [place] [facility] CLIA [id number] [address] [place] [address] [place] CO2 [Moles/Vol] 26 mmol/L Normal 22-30 [facility] Comment on above: Order Comment: Speci men Type: FLUID SPECIMEN [facility] Address: [address] [place] [address] Performed By: #### L [id number] #### [facility] CLIA [id number] [address] [place], [place] [address] CLIA [id number] [address] [place] [address] [place] Creatinine [Mass/Vol] 0.84 mg/dL Normal 0.58-0.96 [facility] Comment on above: Order Comment: Speci men Type: FLUID SPECIMEN [facility]: [facility] Address: [address] [place] [address] Performed By: #### L [id number] #### [facility] CLIA [id number] [address] [place], [place] [address] CLIA [id number] [address] [place] [address] [place] Creatinine and Glomerular filtration rate.predicted panel (S/P/Bld) 93 mL/min/1.73m??? Normal >=60 [facility] Comment on above: Order Comment: Speci men Type: FLUID SPECIMEN [facility]: [facility] Address: [address] [place] [address] Result Comment: Nidia mated Glomerular Filtration Rate (eGFR) is calculated using the 2020 CKD-EPI creatinine equation. This equation utilizes serum creatinine, sex, and age as parameters. The creatinine assay has traceable calibration to isotope dilution-mass spectrometry. Refer to KDIGO guidelines for clinical interpretation. In patients with unstable renal function, e.g. those with acute kidney injury, the eGFR may not accurately reflect actual GFR. Performed By: #### L [id number] #### [facility] CLIA [id number] [address] [place], [place] [address] CLIA [id number] [address] [place] [address] [place] Glucose [Mass/Vol] 87 mg/dL Normal 74-99 [facility] Comment on above: Order Comment: Speci men Type: FLUID SPECIMEN [facility] Address: [address] [place] [address] Result Comment: The [place] Diabetes Association (ADA) provides guidance for cutoff [...] Standards of Medical Care in Diabetes 2016, [place] Diabetes Association. Diabetes Care. 2016.39(Suppl 1). Performed By: #### L [id number] #### [facility] CLIA [id number] [address] [place] [address] [place] [facility] CLIA [id number] [address] [place] [address] [place] Potassium [Moles/Vol] 4.6 mmol/L Normal 3.7-5.1 [facility] Comment on above: Order Comment: Speci men Type: FLUID SPECIMEN [facility] Address: [address] [place] [address] Performed By: #### L [id number] #### [facility] CLIA [id number] [address] [place] [address] [place] [facility] CLIA [id number] [address] [place] [address] [place] Protein [Mass/Vol] 6.5 g/dL Normal 6.3-8.0 [facility] Comment on above: Order Comment: Speci men Type: FLUID SPECIMEN [facility] Address: [address] [place] [address] Performed By: #### L [id number] #### [facility] CLIA [id number] [address] [place] [address] [place] [facility] CLIA [id number] [address] [place] [address] [place] Sodium [Moles/Vol] 140 mmol/L Normal 136-144 [facility] Comment on above: Order Comment: Speci men Type: FLUID SPECIMEN [facility] Address: [address] [place] [address] Performed By: #### L [id number] #### [facility] CLIA [id number] [address] [place] [address] [facility] CLIA [id number] [address] [place] [address] [place] Urea nitrogen [Mass/Vol] 12 mg/dL Normal 7-21 [facility] Comment on above: Order Comment: Speci men Type: FLUID SPECIMEN [facility] Address: [address] [place] [address] Performed By: #### L [id number] #### [facility] CLIA [id number] [address] [place] [address] [facility] CLIA [id number] [address] [place] [address] [place] Lipid 1996 panelon 5 Cholesterol [Mass/Vol] 232 mg/dL High <200 [facility] Comment on above: Order Comment: Speci men Type: FLUID SPECIMEN [facility] Address: [address] [place] [address] Result Comment: <200 mg/dL, Desirable 200-239 mg/dL, Borderline high >239 mg/dL, High Performed By: #### L [id number] #### [facility] CLIA [id number] [address] [place] [address] [facility] CLIA [id number] [address] [place] [address] [place] Cholesterol in HDL [Mass/Vol] 61 mg/dL Normal >39 [facility] Comment on above: Order Comment: Speci men Type: FLUID SPECIMEN [facility] Address: [address] [place] [address] Result Comment: 40-5 9 mg/dL, Acceptable >59 mg/dL, High: Negative risk factor for coronary heart disease <40 mg/dL, Low: Positive risk factor for coronary heart disease Performed By: #### L [id number] #### [facility] CLIA [id number] [address] [place] [address] [facility] CLIA [id number] [address] [place] [address] Cholesterol in LDL [Mass/Vol] 159 mg/dL High <100 [facility] Comment on above: Order Comment: Hans dawson Type: FLUID SPECIMEN [facility] Address: [address] [place] [address] Result Comment: <100 mg/dL, Optimal 100-129 mg/dL, Near optimal/above optimal 130-159 mg/dL, Borderline high 160-189 mg/dL, High >189 mg/dL, Very high Secondary prevention optimal LDL Cholesterol levels are recommended to be < 70 mg/dL Performed By: #### L [id number] #### [facility] CLIA [id number] [address] [place], [place] [address] CLIA [id number] [address] [place] [address] Cholesterol in LDL/Cholesterol in HDL [Mass ratio] 2.61 {ratio} High <2.54 [facility] Comment on above: Order Comment: Hans dawson Type: FLUID SPECIMEN [facility] Address: [address] [place] [address] Result Comment: Refe rence: 1. National Cholesterol Education Program ATP III Guideline At-A-Glance Quick Desk Reference: National Heart, Lung, and Blood Martin. National Institutes of Health. 2001: NIH Publication No. 01-3305. 2. An International Atherosclerosis Society position paper: global recommendations for the management of dyslipidemia: executive summary, Atherosclerosis. 2014: 232(2):410-413. Performed By: #### L [id number] #### [facility] CLIA [id number] [address] [id number] [facility] CLIA [id number] [address] [place] [address] [place] Cholesterol in VLDL [Mass/Vol] 12 mg/dL Normal <30 [facility] Comment on above: Order Comment: Speci men Type: FLUID SPECIMEN [facility] Address: [address] [place] [address] Performed By: #### L [id number] #### [facility] CLIA [id number] [address] [place] [address] [facility] CLIA [id number] [address] [place] [address] [place] Cholesterol non HDL [Mass/Vol] 171 mg/dL High <130 [facility] Comment on above: Order Comment: Speci men Type: FLUID SPECIMEN [facility] Address: [address] [place] [address] Result Comment: <130 mg/dL, Optimal 130-159 mg/dL, Near optimal/above optimal 160-189 mg/dL, Borderline high 190-219 mg/dL, High >219 mg/dL, Very high Secondary prevention optimal non HDL Cholesterol levels are recommended to be <100 mg/dL Performed By: #### L [id number] #### [facility] CLIA [id number] [address] [place] [address] [facility] CLIA [id number] [address] [place] [address] [place] Cholesterol.total/Chol esterol in HDL [Mass ratio] 3.80 {ratio} Normal <5.10 [facility] Comment on above: Order Comment: Speci men Type: FLUID SPECIMEN [facility] Address: [address] [place] [address] Performed By: #### L [id number] #### [facility] CLIA [id number] [address] [place] [address] [facility] CLIA [id number] [address] [place] [address] [place] FASTING TIME 12 hrs Normal [facility] Comment on above: Order Comment: Hans dawson Type: FLUID SPECIMEN [facility] Address: [address] [place] [address] Performed By: #### L [id number] #### [facility] CLIA [id number] [address] [place] [address] [facility] CLIA [id number] [address] [place] [address] [place] Triglyceride [Mass/Vol] 61 mg/dL Normal <150 [facility] Comment on above: Order Comment: Hans dawson Type: FLUID SPECIMEN [facility] Address: [address] [place] [address] Result Comment: <150 mg/dL, Normal 150-199 mg/dL, Borderline high 200-499 mg/dL, High >499 mg/dL, Very high Performed By: #### L [id number] #### [facility] CLIA [id number] [address] [place], [place] [address] CLIA [id number] [address] [place] [address] [place] TSH SerPl-aCncon 10-09-2024 TSH Qn 2.060 m[IU]/L Normal 0.270-4.200 [facility] Comment on above: Order Comment: Hans dawson Type: FLUID SPECIMEN [facility] Address: [address] [place] [address] Result Comment: If t he patient is , TSH reference range varies by gestational period: First Trimester (weeks 9-12): 0.180-2.990 mIU/L Second Trimester: 0.110-3.980 mIU/L Third Trimester: 0.480-4.710 mIU/L Jassi Chavira et al. A Practical Approach for the Verifications and Determination of Site- and Trimester-Specific Reference Intervals for Thyroid Function tests in . Thyroid, 2019:29:3:412-420. Sherif Arreguin et al. 2017 Guidelines of the [place] Thyroid Association for the Diagnosis and Management of Thyroid Disease during and the . Thyroid, 2017:27:3:315-389. Performed By: #### L [id number] #### [facility] CLIA [id number] [facility] STATES OF COUNTS INCLUDE 234 BEDS AT [facility] CLIA [id number] [address] CNCOon 07-18-2024 CNCO Letter Text Normal [facility] CNOVon 07-14-2024 CNOV Office Visit (AGSAM) KRISTINE FREEMAN ([id number]) 1990 F Date Time Provider Department 07/14/24 10:20 AM PAVEL MUNGUIA AGSPRANEETH During your visit today, we recorded the following information about you: Pulse Respiration Blood pressure Weight 75/minute 16/minute 124/83 68.9 kg Height 1.575 m Pavel Munguia APRN.LAUNDRY ATTENDANT 07/14/2024 10:24 AM Signed [facility] [address] [place] [address] Date of Evaluation: 07/14/2024 Patient Name: Kristine [...] Negative for dizziness, light-headedness, numbness and headaches. Psychiatric/Behavior al: Negative for behavioral problems, confusion, hallucinations and [...] 05/23/2012Pt had two previous C sections at [facility] in [place], [place]. She desires a repeat C section [...] for wheezing/shortness of breath. Per Dr. Glover mometasone-formotero l (DULERA) 200-5 mcg/actuation inhaler Inhale 2 Puffs as instructed two times a day. sertraline (ZOLOFT) 50 mg tablet Take 3 tablets by mouth once daily. No current facility-administere d medications for this visit. I have confirmed and edited as necessary the chief complaint, medications, past medical, family and social histories obtained by others. Objective BP 124/83 Pulse 75 Resp 16 Ht 5' 2" (1.58m) Wt 152 lb (68.9kg) SpO2 100% [...] (more content not included)... Normal [facility] 07-14-2024 [facility] Telephone ([facility]) KRISTINE FREEMAN ([id number]) 1990 F Date Time Provider Department 07/14/24 PAVEL MUNGUIA [facility] During your visit today, we recorded the following information about you: Dona Gallagher MA 07/18/2024 11:54 AM Addendum CVOR NURSE Referral placed through the [facility] Portal on July 14, 2024. #[id number] Preferred Provider Dr. brunilda Gallagher MA 07/14/24 WILL CALL BACK AFTER WORK--SG 07/17/24 lvm-sg Letter mailed to patient. Dona Gallagher MA [...] Date Reviewed: 07/14/2024 Reviewed by: Pavel Munguia APRN.LAUNDRY ATTENDANT - Fully Assessed Reason for Visit: Consult [502] Cmt: CVOR NURSE-No response Prescriptions as of 07/18/2024 - sertraline (ZOLOFT) 50 mg tablet Take 3 tablets by mouth once daily. - albuterol HFA (PROVENTIL HFA, VENTOLIN HFA) 90 mcg/actuation inhaler Inhale 2 Puffs as instructed every 4 hours as needed for wheezing/shortness of breath. Per Dr. Glover - mometasone-formotero l (DULERA) 200-5 mcg/actuation inhaler Inhale 2 Puffs [...] Encounter Status:Closed by DONA GALLAGHER on 07/14/24 Normal [facility] 25-hydroxyvitamin D3 [Mass/V ol]on 12-31-2023 Interpretation and review of laboratory results Abnormal [facility] The reference range interval was based on an analysis of samples from healthy adults and may not pertain to children from 0-18 years old. [facility] Lipid 1996 panelon Cholesterol [Mass/Vol] 256 mg/dL High NINF - 200 mg/dL [facility] Comment on above: <200 mg/dL, Desirabl e 200-239 mg/dL, Borderline high >239 mg/dL, High Cholesterol in HDL [Mass/Vol] 49 mg/dL 39 - PINF mg/dL [facility] Comment on above: 40-59 mg/dL, Accepta ble >59 mg/dL, High: Negative risk factor for coronary heart disease <40 mg/dL, Low: Positive risk factor for coronary heart disease Cholesterol in LDL [Mass/Vol] 190 mg/dL High NINF - 100 mg/dL [facility] Comment on above: <100 mg/dL, Optimal 100-129 mg/dL, Near optimal/above optimal 130-159 mg/dL, Borderline high 160-189 mg/dL, High >189 mg/dL, Very high Secondary prevention optimal LDL Cholesterol levels are recommended to be < 70 mg/dL Cholesterol in LDL/Cholesterol in HDL [Mass ratio] 3.88 {ratio} High NINF - 2.54 [facility] Comment on above: Reference: 1. National Cholesterol Education Program ATP III Guideline At-A-Glance Quick Desk Reference: National Heart, Lung, and Blood Martin. National Institutes of Health. 2001: NIH Publication No. 01-3305. 2. An International Atherosclerosis Society position paper: global recommendations for the management of dyslipidemia: executive summary, Atherosclerosis. 2014: 232(2):410-413. Cholesterol in VLDL [Mass/Vol] 17 mg/dL NINF - 30 mg/dL [facility] Cholesterol non HDL [Mass/Vol] 207 mg/dL High NINF - 130 mg/dL [facility] Comment on above: <130 mg/dL, Optimal 130-159 mg/dL, Near optimal/above optimal 160-189 mg/dL, Borderline high 190-219 mg/dL, High >219 mg/dL, Very high Secondary prevention optimal non HDL Cholesterol levels are recommended to be <100 mg/dL Cholesterol.total/Chol esterol in HDL [Mass ratio] 5.22 {ratio} High NINF - 5.10 [facility] Fasting Time 12 hrs [facility] Interpretation and review of laboratory results Abnormal [facility] Triglyceride [Mass/Vol] 87 mg/dL NINF - 150 mg/dL [facility] Comment on above: <150 mg/dL, Normal 150-199 mg/dL, Borderline high 200-499 mg/dL, High >499 mg/dL, Very high [facility] VITAMIN D 25 HYDROXYon 12-30 25-hydroxyvitamin D3 [Mass/Vol] 23.0 ng/mL Low 31.0 - 80.0 ng/mL [facility] Comment on above: Classification of 25 [place] Vitamin D status: Deficiency/Insufficiency: < or = 30 ng/ml. Sufficiency/Optimal Levels: 31-80 ng/mL Toxicity: > 100 ng/mL. Test performed by chemiluminescent immunoassay. HCG QUAL UR B/Oon 05-24-2023 status Negative neg - pos [facility] Quality Check Yes [facility] UA DIP, URINE (POC)on 2022 BILIRUBIN UA (POCT) Negative Negative [facility] CLARITY UA (POCT) Clear [facility] COLOR UA (POCT) Yellow [facility] GLUCOSE UA (POCT) Negative Negative mg/dL [facility] Hemoglobin Ql (U) Negative Negative [facility] KETONE UA (POCT) Negative Negative mg/dL [facility] LEUKOCYTES UA (POCT) Negative Negative 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 I provided a substantive portion of the care of this patient. Raffaele Shepard MD Normal [facility] BASIC METABOLIC PANELon 12-31 Anion gap [Moles/Vol] 12 mmol/L Normal 10-20 [facility] Comment on above: Performed By: #### C H8 #### S [facility] [address] [place], [address] Calcium [Mass/Vol] 9.7 mg/dL Normal 8.4-10.4 The [facility] Comment on above: Performed By: #### C H8 #### S [facility] [address] [place], [address] Chloride [Moles/Vol] 101 mmol/L Normal 97-111 The [facility] Comment on above: Performed By: #### C H8 #### [facility] [address] [place], [address] CO2 [Moles/Vol] 28 mmol/L Normal 21-30 The [facility] Comment on above: Performed By: #### C H8 #### [facility] [address] [place], [address] Creatinine [Mass/Vol] 0.70 mg/dL Normal 0.50-1.10 The [facility] Comment on above: Performed By: #### C H8 #### [facility] [address] [place], [address] ESTIMATED GFR (CKD-EPI) 118 mL/min/1.73sqm Normal >=60 [facility] Comment on above: Result Comment: 2020 CKD EPI Equation using Creatinine without Race Comment: Estimated glomerular filtration rate (eGFR) is calculated without a race coefficient. Values should be interpreted in the context of the patient's full clinical presentation. Reference: 1. Pawan Medina, Patricia M, Dasha DEL REAL, et al.. A Unifying Approach for GFR Estimation: Recommendations of the NKF-ASN Task Force on Reassessing the Inclusion of Race in Diagnosing Kidney Disease. [place] Journal of Kidney Diseases 202;79(2):268-88.e1. 2. N Engl J Med 2020 Vol. 385 Issue 19 Pages 9635-0197 Performed By: #### C H8 #### S [facility] [address] [place], [address] Glucose [Mass/Vol] 97 mg/dL Normal 68-110 The [facility] Comment on above: Performed By: #### C H8 #### S [facility] [address] [place], [address] Potassium [Moles/Vol] 4.4 mmol/L Normal 3.3-5.3 [facility] Comment on above: Performed By: #### C H8 #### S [facility] [address] [place], [address] Sodium [Moles/Vol] 137 mmol/L Normal 135-148 [facility] Comment on above: Performed By: #### C H8 #### [facility] [address] [place], [address] Urea nitrogen [Mass/Vol] 10 mg/dL Normal 8-22 The [facility] Comment on above: Performed By: #### C H8 #### [facility] [address] [place], [address] Basic metabolic 2000 panelon 01-14-2022 Anion gap [Moles/Vol] 12 mmol/L [facility] Calcium [Mass/Vol] 9.7 mg/dL 8.4 - 10. 4 mg/dL [facility] Chloride [Moles/Vol] 101 mmol/L 97 - 11 1 mmol/L [facility] CO2 [Moles/Vol] 28 mmol/L 21 - 30 mmol/L [facility] Creatinine [Mass/Vol] 0.70 mg/dL 0.50 - 1.10 mg/dL [facility] GFR/1.73 sq M.predicted MDRD (S/P/Bld) [Vol rate/Area] 118 mL/min/{1.73_m2} >=60 mL/min/1.73sq m [facility] Comment on above: 2020 CKD EPI Equatio n using Creatinine without Race Comment: Estimated glomerular filtration rate (eGFR) is calculated without a race coefficient. Values should be interpreted in the context of the patient's full clinical presentation. Reference: 1. Pawan C, Patricia M, Dasha DC, et al.. A Unifying Approach for GFR Estimation: Recommendations of the NKF-ASN Task Force on Reassessing the Inclusion of Race in Diagnosing Kidney Disease. [place] Journal of Kidney Diseases 2021;79(2):268-88.e1. 2. N Engl J Med 1 Vol. 385 Issue 19 Pages 2772-3631 Glucose [Mass/Vol] 97 mg/dL 68 - 110 [...] Comment on above: Performed By: #### C CYNDI KENNEDY #### [facility] [address] [place], [address] Hematocrit (Bld) [Volume fraction] 44.7 % Normal 36.0-46.0 [facility] Comment on above: Performed By: #### CYNDI GAVIN #### [facility] [address] [place], [address] Hemoglobin (Bld) [Mass/Vol] 15.1 g/dL High 12.0-15.[address] [facility] Comment on above: Performed By: #### CYNDI GAVIN #### [place] [facility] [address] [place], [address] MCH (RBC) [Entitic mass] 28.3 pg Normal 26.0-34.[address] [facility] Comment on above: Performed By: #### CYNDI GAVIN #### [facility] [address] [place], [address] MCHC (RBC) [Mass/Vol] 33.7 g/dL Normal 32.0-35.9 The [facility] Comment on above: Performed By: #### CYNDI GAVIN #### [facility] [address] [place], [address] MCV (RBC) [Entitic vol] 84 fL Normal 80-[address] [facility] Comment on above: Performed By: #### CYNDI GAVIN #### [facility] [address] [place] [address], [address] MONOCYTE DISTRIBUTION WIDTH Normal The [facility] Comment on above: Performed By: #### CYNDI GAVIN #### [facility] [address] [place], [address] Nucleated RBC (Bld) [#/Vol] 0.1 10*3/uL Normal [facility] Comment on above: Performed By: #### CYNDI GAVIN #### [facility] [address] [place], [address] Nucleated RBC (Bld) [#/Vol] 0.01 10*3/uL Normal [facility] Comment on above: Performed By: ###CYNDI VILA #### [facility] [address] [place], [address] Platelet mean volume (Bld) [Entitic vol] 7.1 fL Low 7.5-11.[address] [facility] Comment on above: Performed By: #### CYNDI GAVIN #### [facility] [address] [place], [address] Platelets (Bld) [#/Vol] 335 10*3/uL Normal 150-[address] [facility] Comment on above: Performed By: ###CYNDI VILA #### [place] [facility] [address] [place], [address] RBC (Bld) [#/Vol] 5.33 10*6/uL High 4.00-5.20 [facility] Comment on above: Performed By: ###CYNID VILA #### [place] [facility] [address] [place], [address] WBC (Bld) [#/Vol] 8.3 10*3/uL Normal 4.5-11.5 The [facility] Comment on above: Performed By: ###CYNDI VILA #### [facility] [address] [place], [address] Erythrocyte distribution width (RBC) [Ratio] 13.5 % [...] [facility] RBC (Bld) [#/Vol] 5.33 10*6/uL High [facility] WBC (Bld) [#/Vol] 8.3 10*3/uL 4.5 - 11.5 K/uL [facility] COVID/INFLUENZAon 01-14-2022 INFLUENZA A Not detected Normal Not Detected The [facility] Comment on above: Order Comment: Not D etected results are indicative of the absence of SARS-CoV-2 in the specimen submitted for testing. False negative results are possible based on the timing and quality of specimen submitted for testing. This test is intended for use only under Emergency Use Authorization (EUA). This test was developed, and its performance characteristics determined by [facility] which is certified under CLIA as qualified to perform high complexity clinical laboratory testing. Result Comment: This assay was performed using Caitlin BRANDON RTPCR technology. Performed By: #### F ROYAL/COVID #### [facility] [address] [place] [address], [address] INFLUENZA B Not detected Normal Not Detected [facility] Comment on above: Order Comment: Not D etected results are indicative of the absence of SARS-CoV-2 in the specimen submitted for testing. False negative results are possible based on the timing and quality of specimen submitted for testing. This test is intended for use only under Emergency Use Authorization (EUA). This test was developed, and its performance characteristics determined by [facility] which is certified under CLIA as qualified to perform high complexity clinical laboratory testing. Result Comment: This assay was performed using Caitlin BRANDON RTPCR technology. Performed By: #### F ROYAL/COVID #### [facility] [address] [place], [address] SARS-CoV-2 (COVID-19) RNA EVE+probe Ql (Unsp spec) Not detected Normal Not Detected The [facility] Comment on above: Order Comment: Not D etected results are indicative of the absence of SARS-CoV-2 in the specimen submitted for testing. False negative results are possible based on the timing and quality of specimen submitted for testing. This test is intended for use only under Emergency Use Authorization (EUA). This test was developed, and its performance characteristics determined by [facility] which is certified under CLIA as qualified to perform high complexity clinical laboratory testing. Result Comment: This assay was performed using Caitlin BRANDON RTPCR technology. Performed By: #### F ROYAL/COVID #### [facility] [address] [place], [address] FLUAV RNA EVE+probe Ql (Nph) Not detected Not Detected [facility] Comment on above: This assay was perfo rmed using Caitlin BRANDON RTPCR technology. FLUBV RNA EVE+probe Ql (Nph) Not detected Not Detected [facility] Comment on above: This assay was perfo rmed using Caitlin BRANDON RTPCR technology. Interpretation and review of laboratory results Normal [facility] SARS-CoV-2 (COVID-19) Ab IA Ql Not Detected results are indicative of the absence of SARS-CoV-2 in the specimen submitted for testing. False negative results are possible based on the timing and quality of specimen submitted for testing. This test is intended for use only under Emergency Use Authorization (EUA). This test was developed, and its performance characteristics determined by [facility] which is certified under CLIA as qualified to perform high complexity clinical laboratory testing. [facility] SARS-CoV-2 (COVID-19) RNA EVE+probe Ql (Unsp spec) Not detected Not Detected [facility] Comment on above: This assay was perfo rmed using Caitlin BRANDON RTPCR technology. [facility] ED Provider Noteson 01-15-20 Baseball Inspector And Repairer Authentication Interface Message Text Normal [facility] [employer] [facility] Baseball Inspector And Repairer Authentication Interface Message Text Emergency Department Visit Note HISTORY OF PRESENT ILLNESS ------ Chief Complaint Patient presents with * Vomiting [...] is waiting for implants. She is given Corbin for pain. She took the patient pain [...] pain. Neurological: Negative for dizziness and headaches. Psychiatric/Behavior al: The patient is not nervous/anxious. Skin: Negative for rash. PAST HISTORY -- Pertinent Past History: No past medical history [...] Sexual activity: Not on file PHYSICAL EXAM --- BP 130/80 Pulse 86 Temp 98.2 ???F [...] and Affect: Mood normal. Behavior: Behavior normal. --------ED COURSE Nursing triage and assessment notes reviewed and incorporated Chart Reviewed: Summary of pertinent elements includes as below: Chart Review findings include: Follows at [facility], last visit with Internal Medicine 12/23/2021 Care [...] Intravenous Push Given 01/14/222208) Recheck: Patient Improved -------- Medical Decision Making ED Course as of 01/14/222316Jan 14, 20222044 Vital signs reviewed. Normotensive, afebrile, no tachycardia, no tachypnea, not hypoxic. [BJ] 2144 CBC without leukocytosis or anemia. BMP without electrolyte abnormalities or CARLOS Covid/Flu negative [BJ] 2211 Patient reports feeling improved after Zofran. Complaining of headache at this time. Toradol ordered. [BJ] ED Course User Index [BJ] Merle Suero, COMPOSING MACHINE OPERATOR-LAUNDRY ATTENDANT 31-year-old female presenting to the emergency room for nausea and vomiting beginning today. She had dental surgery yesterday, was given Corbin for the pain. She has taken Corbin yesterday had no difficulties with that. Today she took the Corbin, and had nausea and vomiting. Emesis were clear in nature, not bilious or bloody. She denies any sick contacts. She has a decreased p.o. intake due to the nausea. In the ED she was given a fluid bolus and Zofran. She was complaining of a headache 11/09, given Tor (more content not included)... Normal [facility] MANUAL DIFF AND MORPHon 12-31 CELLS COUNTED TOTAL # IN BLOOD 100 Normal The [facility] Comment on above: Performed By: #### CYNDI GAVIN #### S [facility] [address] [place], [address] LYMPHOCYTES % BY MANUAL COUNT 2.0 % Low 24.0-44.0 The [employer] [facility] Comment on above: Performed By: #### CYNDI GAVIN #### S [facility] [address] [place], [address] LYMPHOCYTES ABS BY MANUAL COUNT 0.17 K/uL Low 1.00-4.80 The [facility] Comment on above: Performed By: #### CYNDI GAVIN #### S [facility] [address] [place], [address] MONOCYTES % BY MANUAL COUNT 3.0 % Normal 2.0-11.0 [facility] Comment on above: Performed By: #### CYNDI GAVIN #### [facility] [address] [place], [address] MONOCYTES ABS BY MANUAL COUNT 0.25 K/uL Normal 0.20-1.00 The [employer] [facility] Comment on above: Performed By: #### CYNDI GAVIN #### S [facility] [address] [place], [address] NEUTROPHILS % BY MANUAL COUNT 95.0 % High 31.0-76.0 The [facility] Comment on above: Performed By: #### CYNDI GAVIN #### [facility] [address] [place], [address] NEUTROPHILS ABS BY MANUAL COUNT 7.89 K/uL Normal 1.50-8.00 The [facility] Comment on above: Performed By: #### CYNDI GAVIN #### [facility] [address] [place], [address] RBC MORPHOLOGY Normal Normal The [facility] Comment on above: Performed By: #### CYNDI GAVIN #### [facility] [address] [place], [address] MANUAL DIFF AND MORPHOrdered By: Santos Fernandes on 01-14-2022 Cells Counted Total (Bld) [#] 100 {cells} [facility] Lymphocytes (Bld) [#/Vol] 0.17 10*3/uL Low 1.00 - 4.80 K/uL [facility] Lymphocytes/100 WBC (Bld) 2.0 % Low 24.0 - 44.0 % [facility] Monocytes (Bld) [#/Vol] 0.25 10*3/uL 0.20 - 1.00 K/uL [facility] Monocytes/100 WBC (Bld) 3.0 % 2.0 - 11.0 % [facility] Neutrophils (Bld) [#/Vol] 7.89 10*3/uL 1.50 - 8.00 K/uL [facility] Neutrophils/100 WBC (Bld) 95.0 % High 31.0 - 76.0 % [facility] RBC morphology finding Nom (Bld) Normal [facility] No Panel InformationOrdered By: Santos Fernandes on 01-14-2022 Interpretation and review of laboratory results Abnormal [facility] LIPID PANEL, NONFASTINGon Cholesterol [Mass/Vol] 259 mg/dL High <200 mg/dL [facility] HDL Cholesterol, Nonfasting 61 mg/dL >39 mg/dL [facility] LDL Cholesterol, Nonfasting 171 mg/dL High <100 mg/dL [facility] LDL/HDL Ratio, Nonfasting 2.80 mg/dL High <2.54 mg/dL [facility] Non HDL Cholesterol, Nonfasting 198 mg/dL High <130 mg/dL [facility] Total Chol/HDL Ratio, Nonfasting 4.25 mg/dL <5.10 mg/dL [facility] Triglycerides, Nonfasting 135 mg/dL <150 mg/dL [facility] VLDL Cholesterol, Nonfasting 27 mg/dL <30 mg/dL [facility] VITAMIN D 25 HYDROXYon 12-23 25-hydroxyvitamin D3 [Mass/Vol] 23.3 ng/mL Low 31.0 - 80.0 ng/mL [facility] CT FLANK WO IVCONon 05-09-[address] FLANK WO IVCON * * *Final [...] Appendix appears normal. Lymph Nodes: No lymphadenopathy. Mesentery/peritoneum : No ascites. Vasculature: Unremarkable Pelvis: No mass or ascites. Urinary bladder appears unremarkable. Bones and Soft Tissues: No acute abnormality. Lower thorax: Unremarkable. Assistant General Manager (topogram) images: Noncontributory IMPRESSION: 1. NO NEPHROLITHIASIS OR OBSTRUCTIVE UROPATHY. NO BLADDER CALCULUS.. 2. NO EVIDENCE OF MASS, ADENOPATHY OR FREE FLUID ON UNENHANCED EXAMINATION. Transcribed Using Voice Recognition Transcribe Date/Time: May 09 2021 2:15P Dictated by: JAGDISH HILL MD This examination was interpreted and the report reviewed and electronically signed by: JAGDISH HILL MD on May 09 2021 2:19PM EST [id number] CN Normal [facility] Vital Signs Date Time Vital Sign Value Performing Clinician Facility 04-03-2025 10:56-0400 Body mass index (BMI) [Ratio] 29.27 kg/m2 López Kulkarni MD Work Phone: [facility] 04-03-2025 10:56-0400 Body temperature 98.1 [degF] López Kulkarni MD Work Phone: [facility] 04-03-2025 10:56-0400 Body weight 72.6 kg López Kulkarni MD Work Phone: [facility] 04-03-2025 10:56-0400 Diastolic blood pressure 78 mm[Hg] López Kulkarni MD Work Phone: [facility] 04-03-2025 10:56-0400 Heart rate 70 /min López Kulkarni MD Work Phone: [facility] 04-03-2025 10:56-0400 Respiratory rate 16 /min López Kulkarni MD Work Phone: [facility] 04-03-2025 10:56-0400 SaO2% (BldA) [Mass fraction] 98 % López Kulkarni MD Work Phone: [facility] 04-03-2025 10:56-0400 Systolic blood pressure 122 mm[Hg] López Kulkarni MD Work Phone: [facility] 04-02-2025 00:28-0400 Body temperature 97.9 [degF] Dr. Juan F Hou MD Work Phone: [facility] 04-02-2025 00:28-0400 Diastolic blood pressure 95 mm[Hg] Dr. Juan F Hou MD Work Phone: [facility] 04-02-2025 00:28-0400 Heart rate 76 /min Dr. Juan F Hou MD Work Phone: 5(628)541-774031 [place] [address] 04-02-2025 00:28-0400 Respiratory rate 16 /min Dr. Juan F Hou MD Work Phone: 2(217)971-938713 [place] [address] 04-02-2025 00:28-0400 SaO2% (BldA) [Mass fraction] 100 % Dr. Juan F Hou MD Work Phone: 6(858)542-817931 [place] [address] 04-02-2025 00:28-0400 Systolic blood pressure 130 mm[Hg] Dr. Juan F Hou MD Work Phone: 6(272)669-715212 [address] 04-01-2025 23:04-0400 Body height 157.[address] Juan F Hou MD Work Phone: 1(133)540-849313 [place] [address] 04-01-2025 23:04-0400 Body mass index (BMI) [Ratio] 29.7 kg/m2 Dr. Juan F Hou MD Work Phone: 2(434)581-701131 [place] [address] 04-01-2025 23:04-0400 Body weight 73.[address] Juan F Hou MD Work Phone: [facility] 01-12-2025 09:56-0400 Body mass index (BMI) [Ratio] 29.26 kg/m2 Pavel Mastrucci COMPOSING MACHINE OPERATOR.LAUNDRY ATTENDANT Work Phone: [facility] 01-12-2025 09:56-0400 Body weight 72.58 kg Pavel Mastrucci COMPOSING MACHINE OPERATOR.LAUNDRY ATTENDANT Work Phone: [facility] 01-12-2025 09:56-0400 Diastolic blood pressure 81 mm[Hg] Pavel Mastrucci COMPOSING MACHINE OPERATOR.LAUNDRY ATTENDANT Work Phone: [facility] 01-12-2025 09:56-0400 Heart rate 90 /min Pavel Mastrucci COMPOSING MACHINE OPERATOR.LAUNDRY ATTENDANT Work Phone: [facility] 01-12-2025 09:56-0400 Respiratory rate 16 /min Pavel Mastrucci COMPOSING MACHINE OPERATOR.LAUNDRY ATTENDANT Work Phone: [facility] 01-12-2025 09:56-0400 SaO2% (BldA) [Mass fraction] 100 % Pavel Mastrucci COMPOSING MACHINE OPERATOR.LAUNDRY ATTENDANT Work Phone: [facility] 01-12-2025 09:56-0400 Systolic blood pressure 117 mm[Hg] Pavel Mastrucci COMPOSING MACHINE OPERATOR.LAUNDRY ATTENDANT Work Phone: [facility] 10-20-2024 10:24-0400 Body mass index (BMI) [Ratio] 29.03 kg/m2 Lucy Mobley COMPOSING MACHINE OPERATOR.LAUNDRY ATTENDANT Work Phone: [facility] 10-20-2024 10:24-0400 Body temperature 97 [degF] Lucy Mobley COMPOSING MACHINE OPERATOR.LAUNDRY ATTENDANT Work Phone: [facility] 10-20-2024 10:24-0400 Body weight 72 kg Lucy Mobley COMPOSING MACHINE OPERATOR.LAUNDRY ATTENDANT Work Phone: [facility] 10-20-2024 10:24-0400 Diastolic blood pressure 88 mm[Hg] Lucy Mobley COMPOSING MACHINE OPERATOR.LAUNDRY ATTENDANT Work Phone: [facility] 10-20-2024 10:24-0400 Heart rate 64 /min Lucy Mobley COMPOSING MACHINE OPERATOR.LAUNDRY ATTENDANT Work Phone: [facility] 10-20-2024 10:24-0400 Respiratory rate 20 /min Lucy Mobley COMPOSING MACHINE OPERATOR.LAUNDRY ATTENDANT Work Phone: [facility] 10-20-2024 10:24-0400 SaO2% (BldA) [Mass fraction] 99 % Lucy Mobley COMPOSING MACHINE OPERATOR.LAUNDRY ATTENDANT Work Phone: [facility] 10-20-2024 10:24-0400 Systolic blood pressure 149 mm[Hg] Lucy Mobley COMPOSING MACHINE OPERATOR.LAUNDRY ATTENDANT Work Phone: [facility] 07-14-2024 10:06-0500 Body height 157.5 cm Pavel Mastrucci COMPOSING MACHINE OPERATOR.LAUNDRY ATTENDANT Work Phone: [facility] 07-14-2024 10:06-0500 Body mass index (BMI) [Ratio] 27.8 kg/m2 Pavel Mastrucci COMPOSING MACHINE OPERATOR.LAUNDRY ATTENDANT Work Phone: [facility] 07-14-2024 10:06-0500 Body weight 68.95 kg Pavel Mastrucci COMPOSING MACHINE OPERATOR.LAUNDRY ATTENDANT Work Phone: [facility] 07-14-2024 10:06-0500 Diastolic blood pressure 83 mm[Hg] Pavel Mastrucci COMPOSING MACHINE OPERATOR.LAUNDRY ATTENDANT Work Phone: [facility] 07-14-2024 10:06-0500 Heart rate 75 /min Pavel Mastrucci COMPOSING MACHINE OPERATOR.LAUNDRY ATTENDANT Work Phone: [facility] 07-14-2024 10:06-0500 Respiratory rate 16 /min Pavel Mastrucci COMPOSING MACHINE OPERATOR.LAUNDRY ATTENDANT Work Phone: [facility] 07-14-2024 10:06-0500 SaO2% (BldA) [Mass fraction] 100 % Pavel Mastrucci COMPOSING MACHINE OPERATOR.LAUNDRY ATTENDANT Work Phone: [facility] 07-14-2024 10:06-0500 Systolic blood pressure 124 mm[Hg] Pavel Mastrucci COMPOSING MACHINE OPERATOR.LAUNDRY ATTENDANT Work Phone: [facility] 12-31-2023 09:21-0400 Body height 157.5 cm Viola Costa COMPOSING MACHINE OPERATOR.LAUNDRY ATTENDANT Work Phone: [facility] 12-31-2023 09:21-0400 Body mass index (BMI) [Ratio] 27.07 kg/m2 Viola Costa COMPOSING MACHINE OPERATOR.LAUNDRY ATTENDANT Work Phone: [facility] 12-31-2023 09:21-0400 Body temperature 97.2 [degF] Viola Costa COMPOSING MACHINE OPERATOR.LAUNDRY ATTENDANT Work Phone: [facility] 12-31-2023 09:21-0400 Body weight 67.13 kg Viola Costa COMPOSING MACHINE OPERATOR.LAUNDRY ATTENDANT Work Phone: [facility] 12-31-2023 09:21-0400 Diastolic blood pressure 83 mm[Hg] Viola Igor COMPOSING MACHINE OPERATOR.LAUNDRY ATTENDANT Work Phone: [facility] 12-31-2023 09:21-0400 Heart rate 87 /min Viola Igor COMPOSING MACHINE OPERATOR.LAUNDRY ATTENDANT Work Phone: [facility] 12-31-2023 09:21-0400 Respiratory rate 12 /min Viola Igor COMPOSING MACHINE OPERATOR.LAUNDRY ATTENDANT Work Phone: [facility] 12-31-2023 09:21-0400 SaO2% (BldA) [Mass fraction] 99 % Viola Igor COMPOSING MACHINE OPERATOR.LAUNDRY ATTENDANT Work Phone: [facility] 12-31-2023 09:21-0400 Systolic blood pressure 129 mm[Hg] Viola Igor COMPOSING MACHINE OPERATOR.LAUNDRY ATTENDANT Work Phone: [facility] 05-24-2023 11:04-0400 Body height 157.5 cm Viola Igor COMPOSING MACHINE OPERATOR.LAUNDRY ATTENDANT Work Phone: [facility] 05-24-2023 11:04-0400 Body temperature 97.59 [degF] Viola Igor COMPOSING MACHINE OPERATOR.LAUNDRY ATTENDANT Work Phone: [facility] 05-24-2023 11:04-0400 Body weight 73.94 kg Viola Igor COMPOSING MACHINE OPERATOR.LAUNDRY ATTENDANT Work Phone: [facility] 05-24-2023 11:04-0400 Diastolic blood pressure 77 mm[Hg] Viola Igor COMPOSING MACHINE OPERATOR.LAUNDRY ATTENDANT Work Phone: [facility] 05-24-2023 11:04-0400 Heart rate 69 /min Viola Igor COMPOSING MACHINE OPERATOR.LAUNDRY ATTENDANT Work Phone: [facility] 05-24-2023 11:04-0400 Respiratory rate 15 /min Viola Igor COMPOSING MACHINE OPERATOR.LAUNDRY ATTENDANT Work Phone: [facility] 05-24-2023 11:04-0400 SaO2% (BldA) [Mass fraction] 97 % Viola Igor COMPOSING MACHINE OPERATOR.LAUNDRY ATTENDANT Work Phone: [facility] 05-24-2023 11:04-0400 Systolic blood pressure 121 mm[Hg] Viola Igor COMPOSING MACHINE OPERATOR.LAUNDRY ATTENDANT Work Phone: [facility] 01-15-2022 00:24-0400 Body weight 63.5 kg Raffaele Shepard MD Work Phone: [facility] 01-15-2022 00:24-0400 Diastolic blood pressure 80 mm[Hg] Raffaele Shepard MD Work Phone: [facility] 01-15-2022 00:24-0400 Heart rate 80 /min Raffaele Shepard MD Work Phone: [facility] 01-15-2022 00:24-0400 Respiratory rate 18 /min Raffaele Shepard MD Work Phone: [facility] 01-15-2022 00:24-0400 SaO2% (BldA) [Mass fraction] 99 % Raffaele Shepard MD Work Phone: [facility] 01-15-2022 00:24-0400 Systolic blood pressure 122 mm[Hg] Rafafele Shepard MD Work Phone: [facility] 01-14-2022 20:09-0400 Body temperature 98.2 [degF] Raffaele Shepard MD Work Phone: [facility] 12-23-2021 09:39-0400 Body height 157.5 cm Viola Costa COMPOSING MACHINE OPERATOR.LAUNDRY ATTENDANT Work Phone: [facility] 12-23-2021 09:39-0400 Body weight 72.29 kg Viola Igor COMPOSING MACHINE OPERATOR.LAUNDRY ATTENDANT Work Phone: [facility] 12-23-2021 09:39-0400 Diastolic blood pressure 75 mm[Hg] Viola Igor COMPOSING MACHINE OPERATOR.LAUNDRY ATTENDANT Work Phone: [facility] 12-23-2021 09:39-0400 Heart rate 81 /min Viola Costa COMPOSING MACHINE OPERATOR.LAUNDRY ATTENDANT Work Phone: [facility] 12-23-2021 09:39-0400 Respiratory rate 16 /min Viloa Costa COMPOSING MACHINE OPERATOR.LAUNDRY ATTENDANT Work Phone: [facility] 12-23-2021 09:39-0400 SaO2% (BldA) [Mass fraction] 98 % Viola Costa COMPOSING MACHINE OPERATOR.LAUNDRY ATTENDANT Work Phone: [facility] 12-23-2021 09:39-0400 Systolic blood pressure 119 mm[Hg] Viola Costa COMPOSING MACHINE OPERATOR.LAUNDRY ATTENDANT Work Phone: [facility] Encounters Encounter Date Encounter Type Care Provider Facility Start: 06-11-2025 ambulatory NEELIMA PODLOGAR Facility :[facility] Start: 04-27-2025 End: 04-27-2025 ambulatory PAVEL MASTRUCCI Facility:[facility] Start: 04-27-2025 Encounter for gynecological examination (general) (routine) without abnormal findings VICKIETREY AMAYA [facility] Start: 04-03-2025 End: 04-03-2025 Office outpatient visit 25 minutes López Kulkarni MD Work Phone: [facility] Comment on above: Wound infection (Quin neeta Dx) Start: 04-03-2025 End: 04-03-2025 [facility]ulatory [facility] Facility:[facility] Start: 04-01-2025 End: 04-02-2025 Emergency department patient visit Dr. Juan F Hou MD Work Phone: -Emergency Department Work Phone: Start: 01-12-2025 End: 01-12-2025 Patient encounter procedure Pavel Mastrucci COMPOSING MACHINE OPERATOR.LAUNDRY ATTENDANT Work Phone: [facility] [place] Comment on above: Follow-up exam (Prim edvin Dx); Mild persistent asthma, unspecified whether complicated (HCC); Seasonal allergies; Hyperlipidemia, mixed Start: 01-12-2025 End: 01-12-2025 ambulatory PAVEL MASTRUCCI Facility:[facility] Start: 10-20-2024 End: 10-20-2024 ambulatory PAVEL MASTRUCCI Facility:[facility] Start: 10-20-2024 End: 10-20-2024 Office outpatient visit 15 minutes Lucy Mobley APRN.CNP Work Phone: [facility] Comment on above: Flank pain (Primary Dx) Start: 10-10-2024 End: 10-10-2024 Follow-up encounter Pavel Munguia VANESSA Work Phone: [facility] Comment on above: Vitamin D deficiency (Primary Dx) Start: 10-09-2024 End: 10-09-2024 ambulatory [facility] Facility:[facility] Start: 07-14-2024 End: 07-14-2024 Telephone encounter Pavel Munguai TOMMY.LAUNDRY ATTENDANT Work Phone: [facility] Comment on above: Consult (CVOR NURSE) Start: 07-14-2024 End: 07-14-2024 Patient encounter procedure Pavel Munguia TOMMY.LAUNDRY ATTENDANT Work Phone: [facility] Comment on above: Encounter to [facility] (Primary Dx); Anxiety; Screening for depression; Hyperlipidemia, mixed; Vitamin D deficiency; Cervical cancer screening Start: 07-14-2024 End: 07-14-2024 ambulatory [facility] Facility:[facility] Start: 12-31-2023 End: 12-31-2023 Patient encounter procedure Viola Costa APRN.LAUNDRY ATTENDANT Work Phone: Internal Medicine Comment on above: Vitamin D deficiency (Primary Dx); Mild persistent asthma, unspecified whether complicated; Anxiety; Hyperlipidemia, mixed Start: 05-27-2023 Telephone encounter Sabrina scanlon MD Work Phone: Adult Psychiatry Start: 05-24-2023 End: 05-24-2023 Patient encounter procedure Viola Costa APRN.LAUNDRY ATTENDANT Work Phone: Internal Medicine Comment on above: Wellness examination (Primary Dx); Screening for depression; Vaccination declined; Need for vaccination; Overweight (BMI 25.0-29.9); Anxiety Start: 05-24-2023 End: 05-24-2023 Patient encounter status Viola Costa APRN.LAUNDRY ATTENDANT Work Phone: [facility] Start: 05-07-2023 Refill Viola Costa APRN.LAUNDRY ATTENDANT Work Phone: Internal Medicine Comment on above: Refill Request Start: 04-09-2023 Refill Viola Costa APRN.LAUNDRY ATTENDANT Work Phone: Internal Medicine Comment on above: Refill Request Start: 09-09-2022 Refill Viola Costa APRN.LAUNDRY ATTENDANT Work Phone: Internal Medicine Comment on above: Refill Request Start: 04-07-2022 Refill Viola Costa COMPOSING MACHINE OPERATOR.LAUNDRY ATTENDANT Work Phone: Internal Medicine Comment on above: Refill Request Start: 01-14-2022 End: 01-15-2022 Emergency department patient visit UNKNOWN PROVIDER Facility:[facility] Start: 01-14-2022 End: 01-15-2022 Emergency department patient visit Raffaele Shepard MD Work Phone: [facility] Emergency [facility] Comment on above: Vomiting (Pt c/o mul tiple episodes of vomiting that began today. Dental surgery yesterday per pt. ) Start: 12-24-2021 Telephone encounter Viola chan APRN.LAUNDRY ATTENDANT Work Phone: Internal Medicine Comment on above: Results Start: 12-23-2021 End: 12-23-2021 Patient encounter procedure Viola Costa APRN.LAUNDRY ATTENDANT Work Phone: Internal Medicine Comment on above: Wellness examination (Primary Dx); Mild persistent asthma, unspecified whether complicated; Need for vaccination Start: 12-23-2021 End: 12-23-2021 Patient encounter status Viola Costa APRN.LAUNDRY ATTENDANT Work Phone: Internal Medicine Start: 10-31-2021 Refill Viola Costa APRN.LAUNDRY ATTENDANT Work Phone: Internal Medicine Comment on above: Refill Request Start: 03-23-2019 Patient encounter status Peace Costa APRN.LAUNDRY ATTENDANT Work Phone: [facility] Work Phone: Start: 09-23-2018 Patient encounter status Peace Costa APRN.LAUNDRY ATTENDANT Work Phone: [facility] Work Phone: Procedures Date Procedure Procedure Detail Performing Clinician Start: 10-20-2024 Urnls dip stick/tabl et rgnt auto w/o microscopy Zac GODWIN Work Phone: Start: 07-14-2024 Adult depression screening assessment Pavel Munguia COMPOSING MACHINE OPERATOR.LAUNDRY ATTENDANT Work Phone: Start: 05-24-2023 End: 05-24-2023 Urnls dip stick/tablet rgnt auto w/o microscopy Viola Costa COMPOSING MACHINE OPERATOR.LAUNDRY ATTENDANT Work Phone: Start: 01-14-2022 COVID/INFLUENZA Merle Suero COMPOSING MACHINE OPERATOR-LAUNDRY ATTENDANT Work Phone: Start: 01-14-2022 End: 01-14-2022 Blood count smear mcrscp w/mnl difrntl wbc count Merle Suero COMPOSING MACHINE OPERATOR-LAUNDRY ATTENDANT Work Phone: Start: 09-23-2018 Adult depression screening assessment Viola Costa COMPOSING MACHINE OPERATOR.LAUNDRY ATTENDANT Work Phone: Plan of Treatment Date Care Activity Detail Author Start: 2039 Shingles (RZV) Vacci ne (1 of 2) Shingles (RZV) [facility] ([facility] 2[facility] Start: 01-12-2026 Annual PCP Team Social Science Manager meliton Disease Visit Annual PCP Team Chronic Disease Visit [facility] Start: 07-14-2025 Annual PCP Team Social Science Manager meliton Disease Visit Annual PCP Team Chronic Disease Visit [facility] Start: 07-14-2025 Covid-19 Vaccine ( season) Covid-19 Vaccine ( season) [facility] Comment on above: Postponed from 04/02 (Declined at this time) Start: 07-14-2025 Depression Screening Depression Scre ening [facility] Start: 07-14-2025 Hepatitis B Vaccine (1 of 3 - 19+ 3-dose series) Hepatitis B Vaccine (1 of 3 - 19+ 3-dose series) [facility] Comment on above: Postponed from 07/04 (Declined at this time) Start: 07-14-2025 Spirometry Spirometry [facility] Comment on above: Postponed from 07/04 (Declined at this time) Start: 07-14-2025 Urine microalbumin profile DTaP,Tdap,Td Vaccine (1 - Tdap) [facility] Comment on above: Postponed from 07/04 (Declined at this time) Start: 06-11-2025 End: 06-11-2025 Patient encounter procedure 06/11/2025 8:00 AM EST Office Visit Family Medicine [facility] [address] [place] [address] PodlogNeelima dodson APRN.LAUNDRY ATTENDANT [address] [place] [address] Physical to Establish Family [facility] Comment on above: Physical to [facility] Start: 04-27-2025 End: 04-27-2025 Patient encounter procedure 04/27/2025 8:30 AM EDT Office Visit OB/Gynecology [address] [place] [address] Ana Maria Amaya MD [address] [place] [address] Annual OB/Gynecology Comment on above: Annual Start: 04-02-2025 Influenza vaccination [facility] Start: 04-02-2025 [facility] Start: 01-29-2025 Influenza vaccination Influenza Vacc ine (#1) [facility] Comment on above: Postponed from 04/02 (Declined at this time) Start: 01-12-2025 End: 01-12-2025 Patient encounter procedure 01/12/2025 10:20 AM EDT Office Visit [facility] [address] [place], [place] [address] Pavel Munguia APRN.LAUNDRY ATTENDANT [address] [place] [address] 6 Month Follow-up [facility] Comment on above: 6 Month Follow-up Start: 12-30-2024 Annual PCP Team Social Science Manager meliton Disease Visit Annual PCP Team Chronic Disease Visit [facility] Start: 08-09-2024 Annual PCP Team Social Science Manager meliton Disease Visit Annual PCP Team Chronic Disease Visit [facility] Start: 07-14-2024 End: 10-13-2024 25-hydroxyvitamin D3 [Mass/volume] in Serum or Plasma VITAMIN D 25 HYDROXY Lab Routine Vitamin D deficiency Expected: 07/14/2024, Expires: 10/13/2024 [facility] Comment on above: Expected: 07/14/2024 , Expires: 10/13/2024 Start: 07-14-2024 End: 10-13-2024 CBC W Auto Differential panel - Blood COMPLETE BLOOD COUNT AND DIFFERENTIAL Lab Routine Hyperlipidemia, mixed Expected: 07/14/2024, Expires: 10/13/2024 [facility] Comment on above: Expected: 07/14/2024 , Expires: 10/13/2024 Start: 07-14-2024 End: 10-13-2024 Comprehensive metabolic 2000 panel - Serum or Plasma COMPREHENSIVE METABOLIC PANEL Lab Routine Hyperlipidemia, mixed Expected: 07/14/2024, Expires: 10/13/2024 [facility] Work Phone: Comment on above: Expected: 07/14/2024 , Expires: 10/13/2024 Start: 07-14-2024 End: 10-13-2024 Lipid 1996 panel - Serum or Plasma LIPID PANEL BASIC Lab Routine Hyperlipidemia, mixed Expected: 07/14/2024, Expires: 10/13/2024 [facility] Comment on above: Expected: 07/14/2024 , Expires: 10/13/2024 Start: 07-14-2024 End: 10-13-2024 Thyrotropin [Units/volume] in Serum or Plasma THYROID STIMULATING HORMONE Lab Routine Hyperlipidemia, mixed Expected: 07/14/2024, Expires: 10/13/2024 [facility] Comment on above: Expected: 07/14/2024 , Expires: 10/13/2024 Start: 07-03-2024 End: 07-03-2024 Patient encounter procedure 07/03/2024 10:00 AM EST Office Visit Internal Medicine [address] [place] [address] Viola Costa, COMPOSING MACHINE OPERATOR.LAUNDRY ATTENDANT [address] [place] [address] physical Internal Medicine Comment on above: physical Start: 05-24-2024 Annual PCP Team Social Science Manager meliton Disease Visit Annual PCP Team Chronic Disease Visit [facility] Start: 05-24-2024 Covid-19 Vaccine (#1) Covid-19 Vacci ne (#1) [facility] Comment on above: Postponed from 01/02 (Declined at this time) Start: 05-24-2024 Covid-19 Vaccine ( season) Covid-19 Vaccine ( season) [facility] Comment on above: Postponed from 04/02 (Declined at this time) Start: 05-24-2024 Hepatitis B Vaccine (1 of 3 - 19+ 3-dose series) Hepatitis B Vaccine (1 of 3 - 19+ 3-dose series) [facility] Comment on above: Postponed from 07/04 (Declined at this time) Start: 05-24-2024 Hepatitis B Vaccine (1 of 3 - 3-dose series) Hepatitis B Vaccine (1 of 3 - 3-dose series) [facility] Comment on above: Postponed from 07/04 (Declined at this time) Start: 05-24-2024 Pneumococcal vaccination Pneumococcal Vaccine (1 - PCV) [facility] Comment on above: Postponed from 07/04 (Declined at this time) Start: 05-24-2024 Spirometry Spirometry [facility] Comment on above: Postponed from 07/04 (Declined at this time) Start: 05-24-2024 Urine microalbumin profile DTaP,Tdap,Td Vaccine (1 - Tdap) [facility] Comment on above: Postponed from 07/04 (Declined at this time) Start: 04-02-2024 Influenza vaccination Influenz a Vaccine (Season Ended) [facility] Start: 01-30-2024 Influenza vaccination Influenza Vacc ine (#1) [facility] Comment on above: Postponed from 04/02 (Declined at this time) Start: 08-02-2023 Behavioral Health Screening Behavioral Health Screening [facility] Start: 08-02-2023 Depression Assessment Depression Ass essment [facility] Start: 05-24-2023 End: 08-23-2023 25-hydroxyvitamin D3 [Mass/volume] in Serum or Plasma VITAMIN D 25 HYDROXY Lab Routine Wellness examination Expected: 05/24/2023, Expires: 08/23/2023 [facility] Work Phone: Comment on above: Expected: 05/24/2023 , Expires: 08/23/2023 Start: 05-24-2023 End: 08-23-2023 Acute hepatitis 2000 panel - Serum HEP ACUTE PANEL BL Lab Routine Wellness examination Expected: 05/24/2023, Expires: 08/23/2023 [facility] Work Phone: Comment on above: Expected: 05/24/2023 , Expires: 08/23/2023 Start: 05-24-2023 End: 08-23-2023 Bacteria identified in Urine by Culture [facility] Work Phone: Comment on above: Expected: 05/24/2023 , Expires: 08/23/2023 Start: 05-24-2023 End: 08-23-2023 CBC panel - Blood by Automated count CBC Lab Routine Wellness examination Expected: 05/24/2023, Expires: 08/23/2023 [facility] Work Phone: Comment on above: Expected: 05/24/2023 , Expires: 08/23/2023 Start: 05-24-2023 End: 08-23-2023 Comprehensive metabolic 2000 panel - Serum or Plasma COMP METABOLIC PANEL Lab Routine Wellness examination Expected: 05/24/2023, Expires: 08/23/2023 [facility] Work Phone: Comment on above: Expected: 05/24/2023 , Expires: 08/23/2023 Start: 05-24-2023 End: 08-23-2023 HIV 1+2 Ab [Presence] in Serum or Plasma by Immunoassay HIV 1 2 COMBO(AG/AB),WITH REFLEX TO DIFFERENTIATION Lab Routine Wellness examination Expected: 05/24/2023, Expires: 08/23/2023 [facility] Work Phone: Comment on above: Expected: 05/24/2023 , Expires: 08/23/2023 Start: 05-24-2023 End: 08-23-2023 Lipid 1996 panel - Serum or Plasma LIPID PANEL BASIC Lab Routine Wellness examination Expected: 05/24/2023, Expires: 08/23/2023 [facility] Work Phone: Comment on above: Expected: 05/24/2023 , Expires: 08/23/2023 Start: 05-24-2023 End: 08-23-2023 SYPHILIS TOTAL W/REFLEX SYPHILIS TOTAL W/REFLEX Lab Routine Wellness examination Expected: 05/24/2023, Expires: 08/23/2023 [facility] Work Phone: Comment on above: Expected: 05/24/2023 , Expires: 08/23/2023 Start: 05-24-2023 End: 08-23-2023 Thyrotropin [Units/volume] in Serum or Plasma TSH BLD Lab Routine Wellness examination Expected: 05/24/2023, Expires: 08/23/2023 [facility] Work Phone: Comment on above: Expected: 05/24/2023 , Expires: 08/23/2023 Start: 12-23-2022 ANNUAL PCP TEAM SOCIAL SERVICE COORDINATOR MELITON DISEASE VISIT ANNUAL PCP TEAM CHRONIC DISEASE VISIT [facility] Start: 12-23-2022 Urine microalbumin profile DTAP,TDAP,TD (1 - Tdap) [facility] Comment on above: Postponed from 07/04 (Declined at this time) Start: 11-30-2022 PNEUMOCOCCAL (1 - PCV) PNEUMOCOCCAL (1 - PCV) [facility] Comment on above: Postponed from 07/04 (Declined at this time) Start: 08-02-2022 DEPRESSION ASSESSMENT DEPRESSION ASS ESSMENT [facility] Start: 07-01-2022 ANNUAL PCP TEAM SOCIAL SERVICE COORDINATOR MELITON DISEASE VISIT ANNUAL PCP TEAM CHRONIC DISEASE VISIT [facility] Start: 07-01-2022 COVID-19 VACCINE (#1) COVID-19 VACCI NE (#1) [facility] Comment on above: Postponed from 07/04 (Declined at this time) Postponed from 01/02 (Declined at this time) Start: 07-01-2022 COVID-19 VACCINE (1) COVID-19 VACCIN E (1) [facility] Comment on above: Postponed from 07/04 (Declined at this time) Start: 04-02-2022 Influenza vaccination [facility] Start: 09-29-2021 PAP TESTING PAP TESTING [facility] Start: 09-29-2021 Screening for malign ant neoplasm of cervix [facility] Start: 12-28-2019 HPV TESTING HPV TESTING [facility] Start: 12-28-2019 Screening for malign ant neoplasm of cervix HPV Testing [facility] Start: 09-23-2019 Adult depression screening assessment DEPRESSION SCREENING [facility] Start: 2016 HPV Vaccine (1 - 3-d ose SCDM series) HPV Vaccine (1 - 3-dose SCDM series) [facility] Start: 2010 Screening for malign ant neoplasm of cervix Pap Smear [facility] Start: 2008 Urine microalbumin profile DTAP,TDAP,TD (1 - Tdap) [facility] Start: 2007 Hepatitis C screening Hepatitis C [facility]ody [facility] Start: 2007 SPIROMETRY SPIROMETRY [facility] Start: 2007 Tetanus + diphtheria + acellular pertussis vaccine (product) Tdap Booster [facility] Start: 1994 COVID-19 Vaccine (#1) COVID-19 Vacci ne (#1) [facility] Start: 01-02-1990 COVID-19 VACCINE (#1) COVID-19 VACCI NE (#1) [facility] Start: 1989 HEPATITIS B (1 of 3 - 3-dose series) HEPATITIS B (1 of 3 - 3-dose series) [facility] Bacteria identified in Urine by Culture BACTERIAL CULTURE, URINE Microbiology Routine Flank pain 10/20/2024 11:13 AM EDT [facility] Work Phone: Patient Education ED Foreign Bod y, Soft Tissue (Removed) ED Hypertension, To Be Confirmed [facility] Work Phone: [facility] Immunizations Immunization Date Immunization Notes Care Provider Fa yuli 09-23-2018 influenza virus vacc ine, unspecified formulation Viola Costa APRN.LAUNDRY ATTENDANT Work Phone: [facility] Payers Date Payer Category Payer Self-pay 2022 Medicaid [id number] 2022 Unknown SP/UNINSURED PEN DING FINANCIAL PROGRAM EVALUATION [id number] 2022-Present [phone] [address] [place] [address] Other [id number] 2013 Medicaid [id number] 2008 Medicaid [employer] [id number] 2008-Present [phone] [address] [place] [address] Medicaid [id number] 2008 Medicaid [id number] 1989 Unknown [id number] Unknown [id number] Social History Date Type Detail Facility Start: 03-21-2021 End: 01-08-2023 Tobacco smoking status NHIS Ex-smoker [facility] Start: 03-21-2021 End: 01-08-2023 Tobacco use and exposure Smokeless tobacco non-user [facility] Start: 07-02-2021 End: 01-12-2025 Alcohol intake Current non-drinker of alcohol (finding) [facility] Start: 1990 Sex Assigned At Not on file [facility] Start: 12-13-2021 End: 12-23-2021 Exposure to SARS-CoV-2 (event) Not sure [facility] Tobacco smoking stat us SCIS Tobacco smoking consumption unknown [facility] History of tobacco use Current smoker [facility] Start: 05-24-2023 End: 01-12-2025 History of Social function [facility] Work Phone: Start: 05-24-2023 End: 01-12-2025 Tobacco use panel [facility] Work Phone: Start: 07-03-2012 Adult Depression Screening Assessment 0 [facility] Work Phone: Start: 01-08-2023 Tobacco Comment quit early this year [facility] Start: 04-02-2025 Tobacco smoking stat us NHIS Never smoked tobacco (finding) [facility] Start: 1990 Sex Assigned At Female W [facility] Functional Status Date Assessment Result Facility 02-21-2015 Are you deaf, or do you have serious difficulty hearing No 02/21/2015 3:08 PM Kellee Portillo MA No [facility] 02-21-2015 Are you blind, or do you have serious difficulty seeing, even when wearing glasses No 02/21/2015 3:08 PM Kellee Portillo MA No [facility] 02-21-2015 Do you have serious difficulty walking or climbing stairs No 02/21/2015 3:08 PM Kellee Portillo MA No [facility] 02-21-2015 Do you have difficul ty dressing or bathing No 02/21/2015 3:08 PM Kellee Portillo MA No [facility] 02-21-2015 Because of a physica l, mental, or emotional condition, do you have difficulty doing errands alone such as visiting a physician's office or shopping No 02/21/2015 3:08 PM Kellee Portillo MA No [facility] Mental Status Date Assessment Result Facility 02-21-2015 Because of a physica l, mental, or emotional condition, do you have serious difficulty concentrating, remembering, or making decisions No 02/21/2015 3:08 PM Kellee Portillo MA No [facility] Clinical Notes 01-30-2015 to 06-11-2025 López Kulkarni MD - 04/03/2025 11:08 AM EDTPatient InstructionsPavel Munguia APRN.LAUNDRY ATTENDANT - 01/12/2025 9:59 AM Lucy Farfan APRN.LAUNDRY ATTENDANT - 10/20/2024 10:42 AM EDTPatient InstructionsAttachments Note Date & Type Note Facility 06-11-2025 Note HNO ID: [id number] Author: NEELIMA DUONG APRN.LAUNDRY ATTENDANT Service: ? Author Type: Nurse Practitioner Type: Progress Notes Filed: 06/11/2025 13:50 Note Text: 06/11/2025 Patient presents with: Establish Care Recording using ambient Neo PLM software for draft documentation of the visit was discussed with the patient/authorized sales representative consultant; all questions welcomed and answered. Patient/authorized sales representative consultant agreed to proceed SUBJECTIVE: This is a 34 year old that is here today for Above Complaints. Anxiety: - Managed with Zoloft 150 mg daily. - Reports significant improvement in anxiety symptoms; no longer experiences anxiety attacks. - Denies need for counseling. Asthma: - Managed with Delara 2 puffs BID and albuterol PRN. - Denies current use of Singulair. - Denies coughing, wheezing, or dyspnea. - Denies follow-up with a fiction writer. Hyperlipidemia: - Previous cholesterol level was 290 mg/dL; most recent level was 232 mg/dL. - Attempts to follow a low-cholesterol diet. - Denies recent weight loss or fatigue. Family History: - Mother has HTN and MS. - Father had a history of CAD, kidney disease, and diabetes; . - Maternal grandmother had CAD; . - Paternal grandparents had heart issues; . - Daughter has Rett syndrome. Social History: - Former smoker; denies current smoking or vaping. - Rarely consumes alcohol; denies drug use. 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 - with two sons and a daughter. PAST MEDICAL HISTORY Diagnosis Date Anxiety 2010 [...] 05/23/2012Pt had two previous C sections at [facility] in [place], [place]. She desires a repeat C section [...] Well adult exam 03/23/2019 Last Done: 03/23/2019 ALLERGIES Shrimp, Animal Dander, Dust, and Seasonal Allergies MEDICATIONS Current Outpatient Medications Medication Sig sertraline (ZOLOFT) 50 mg tablet Take 3 tablets by mouth once daily. albuterol HFA (PROVENTIL HFA, VENTOLIN HFA) 90 mcg/actuation inhaler Inhale 2 puffs as instructed every 4 hours as needed for wheezing/shortness of breath. Per Dr. Glover mometasone-formoterol (DULERA) 200-5 mcg/actuation inhaler Inhale 2 puffs as instructed two times a day. cholecalciferol (VITAMIN D3) 50 mcg (2,000 unit) tablet Take 1 tablet by mouth once daily. No current facility-administered medications for this visit. Medications and allergies reviewed by this provider. SOCIAL HISTORY SOCIAL HISTORY[1] REVIEW OF SYSTEMS GENERAL: No weight loss, malaise or fevers HEENT: Negative for frequent or significant headaches, No changes in hearing or vision, no nose bleeds or other nasal problems NECK: Negative for lumps, goiter, pain and significant neck swelling RESPIRATORY: Negative for cough, hemoptysis, wheezing, COPD, dyspnea or shortness of breath CARDIOVASCULAR: Negative for chest pain, leg swelling, hypertension, CHF or palpitations GI: No nausea, vomiting, or diarrhea : No history of dysuria, frequency or incontinence WINDOWS TECHNICAL SPECIALIST: Negative for abnormal vaginal bleeding, abnormal vaginal discharge MUSCULOSKELETAL: Negative for joint pain or swelling, back pain or muscle pain SKIN: Negative for lesions, rash, and itching PSYCH: Negative for sleep disturbance, mood disorder and recent psychosocial stressors HEMATOLOGY/LYMPHOLOGY: Negative for prolonged bleeding, bruising easily or swollen nodes ENDOCRINE: Negative for cold or heat intolerance, polyuria, polydipsia and goiter NEURO: No history of headaches, syncope, paralysis, seizures or tremors All other reviewed and negative other than HPI. OBJECTIVE: BP 122/84 Pulse 82 Resp 12 Ht 157.5 cm (5' 2.01") Wt 73.8 kg (162 lb 9.6 oz) LMP 06/02/2025 (Approximate) BMI 29.73 kg/m? . Vital signs reviewed by this provider. APPEARANCE Well appearing, alert, in no acute distress, well-hydrated, well nourished. EYES conjunctiva and sclera normal. EARS External (more content not included)... [facility] 04-27-2025 Note HNO ID: [id number] Author: ANA MARIA AMAYA MD Service: ? Author Type: Physician Type: Progress Notes Filed: 04/27/2025 09:06 Note Text: Automotive Tire Tester offered: Patient declines. Kristine is a 34 year old who presents for an annual gynecologic exam. Menses: cycles every 28-30 days and 7 days of flow Menstrual flow: Moderate Contraception: Tubal Ligation Contraception frequency: Always HPV vaccine: No HPV:N/A Last pap smear: 2017 - negative History of abnormal pap: Yes - LSIL 2011 AND 2012, normal 2014 AND 2016 Colposcopy: Yes Leep: No. Cone biopsy: No. Last mammogram: never OB History Gravida4 Para3 Term3 Preterm0 AB1 Living3 SAB0 IAB0 Ectopic0 Multiple0 Live Births3 Harness Repairer History LMP: 04/11/2025 (Approximate), Having periods Age at Menarche: Age at First : Age at Menopause: Harness Repairer History Comments: Sexual Activity: Yes; Male Contraception: Tubal Ligation PAST MEDICAL HISTORY Diagnosis Date Anxiety 2010 [...] 05/23/2012Pt had two previous C sections at [facility] in [place], [place]. She desires a repeat C section [...] of a heart anyurism Heart Paternal Grandfather SOCIAL HISTORY Social History Tobacco Use Smoking status: Former Smokeless tobacco: Never Tobacco comments: quit early this year Vaping Use Vaping status: Never Used Substance Use Topics Alcohol use: No Drug use: No REVIEW OF SYSTEMS Abdomen: No abdominal pain, nausea, vomiting, diarrhea, or constipation. No bloating, early satiety, indigestion, or increased flatulence. Bladder: No dysuria, gross hematuria, urinary frequency, urinary urgency, or incontinence. Breast: No breast lumps, nipple d/c, overlying skin changes, redness or skin retraction. Allergies and current medication updated:Yes SENSITIVE EXAM: The sensitive examination was discussed with the Patient or Patient's Authorized High Worker. As applicable, any other physician, advance practice provider, medical student, or other health professional student that will be observing or involved in the sensitive examination for educational or training purposes was discussed with the Patient or Authorized High Worker. The Patient or Authorized High Worker has agreed to proceed with the sensitive examination. (Sensitive examination includes inspection and/or palpation of the breasts, pelvis, prostate and anorectal regions). EXAM: BP 106/60 Ht 5' 2.598" (1.59m) Wt 162 lb (73.5kg) LMP 04/11/2025 BMI 29.07 kg/(m2). GENERAL: pleasant, female in no apparent distress BREAST: soft, non-tender, symmetric, no dominant mass, normal nipple-areolar complex, no lymphadenopathy, and no nipple discharge CHEST: Normal inspiratory effort ABDOMEN: soft, non-tender, and no masses PELVIC: external genitalia normal, normal Bartholin's glands, urethra, [place]'s glands, no vulvar lesions, no cervical lesions, good vaginal support, physiologic discharge present, normal appearing perineal body and perianal region BIMANUAL: uterus normal size, shape and consistency, no adnexal masses, and non-tender RECTOVAGINAL: deferred. NEURO: alert and oriented x3,exam grossly non-focal EXTREMITIES: normal ASSESSMENT/PLAN: 1) Health maintenance: Pap done with HPV. Mammogram starting age 40. Nutrition, exercise and routine health maintenance exams reviewed. HPV vaccine: discussed, not interested 2) Contraception: tubal sterilization. Contraceptive options reviewed and informati (more content not included)... [facility] 04-03-2025 Note HNO ID: [id number] Author: LÓPEZ KULKARNI MD Service: ? Author Type: Physician Type: Progress Notes Filed: 04/03/2025 11:13 Note Text: [facility] Subjective Kristine Freeman is a 34 year old female. Patient presents with: Derm Problem: piece of wood removed from leg on Wednesday at ER, now drainage and painful Pt here with recent visit to the Ed for a wound to her left leg at which time they removed a piece of wood but never put her on antibiotics that was 3 days ago now redness pus and pain at site feels she needs antibiotics for an infected wound declines tetanus booster understands implications Review of Systems Constitutional: Negative for chills, fatigue and fever. Skin: Positive for wound. Neurological: Negative for weakness and numbness. Objective BP 122/78 Pulse 70 Temp 36.7 ?C (98.1 ?F) Resp 16 Wt 72.6 kg (160 lb 0.9 oz) LMP 10/10/2024 (Approximate) SpO2 98% BMI 29.27 kg/m? Physical Exam Vitals and nursing note reviewed. Constitutional: Appearance: Normal appearance. She is not ill-appearing. Skin: General: Skin is warm. Findings: Erythema present. Comments: Small area of an open wound with surrounding erythema crusted drainage Neurological: Mental Status: She is alert. Sensory: No sensory deficit. Motor: No weakness. Coordination: Coordination normal. Deep Tendon Reflexes: Reflexes normal. {ASSESSMENT/PLAN: 1. Wound infection - ICD9: 958.3, ICD10: T14.8XXA, L08.9 - SULFAMETHOXAZOLE 800 MG-TRIMETHOPRIM 160 MG TABLET - MUPIROCIN 2 % TOPICAL OINTMENT López Kulkarni MD History and Record Review External record(s) reviewed: prior outpatient record. Differential Diagnoses - wound infection is more likely for the following reason(s): suggested by HANDP Disposition The patient was discharged. Procedures [facility] 04-03-2025 History of Present illness Narrative [facility] Subjective Kristine Freeman is a 34 year old female. Patient presents with: Derm Problem: piece of wood removed from leg on Wednesday at ER, now drainage and painful Pt here with recent visit to the Ed for a wound to her left leg at which time they removed a piece of wood but never put her on antibiotics that was 3 days ago now redness pus and pain at site feels she needs antibiotics for an infected wound declines tetanus booster understands implications Review of Systems Constitutional: Negative for chills, fatigue and fever. Skin: Positive for wound. Neurological: Negative for weakness and numbness. Objective BP 122/78 Pulse 70 Temp 36.7 C (98.1 F) Resp 16 Wt 72.6 kg (160 lb 0.9 oz) LMP 10/10/2024 (Approximate) SpO2 98% BMI 29.27 kg/m Physical Exam Vitals and nursing note reviewed. Constitutional: Appearance: Normal appearance. She is not ill-appearing. Skin: General: Skin is warm. Findings: Erythema present. Comments: Small area of an open wound with surrounding erythema crusted drainage Neurological: Mental Status: She is alert. Sensory: No sensory deficit. Motor: No weakness. Coordination: Coordination normal. Deep Tendon Reflexes: Reflexes normal. {ASSESSMENT/PLAN: 1. Wound infection - ICD9: 958.3, ICD10: T14.8XXA, L08.9 - SULFAMETHOXAZOLE 800 MG-TRIMETHOPRIM 160 MG TABLET - MUPIROCIN 2 % TOPICAL OINTMENT López Kulkarni MD History and Record Review External record(s) reviewed: prior outpatient record. Differential Diagnoses - wound infection is more likely for the following reason(s): suggested by H&P Disposition The patient was discharged. Procedures documented in this encounter [facility] 04-03-2025 Instructions López Kulkarni MD - 04/03/2025 11:08 AM EDT RETURN HERE NEEDED documented in this encounter [facility] 04-02-2025 Discharge summary [facility] 04-01-2025 Hospital Discharge instructions Additional Instructions You need to contact your provider that is listed on your insurance card issued to you by care source for blood pressure check in 1 to 2 weeks. If there is any concern that the wound is infected please return to the emergency department [facility] Work Phone: 01-12-2025 Note HNO ID: [id number] Author: PAVEL MUNGUIA APRN.LAUNDRY ATTENDANT Service: ? Author Type: Nurse Practitioner Type: Progress Notes Filed: 01/12/2025 10:05 Note Text: [facility] Adult Medicine [address] [place] [address] Date of Evaluation: 01/12/2025 Patient Name: Kristine [...] 05/23/2012Pt had two previous C sections at [facility] in [place], [place]. She desires a repeat C section [...] membranes are mo (more content not included)... [facility] 01-12-2025 History of Present illness Narrative Images from the original note were not included. [facility] Adult Medicine [address] [place] [address] Date of Evaluation: 01/12/2025 Patient Name: Kristine [...] 05/23/2012Pt had two previous C sections at [facility] in [place], [place]. She desires a repeat C section [...] weight loss. BMI 29.26 kg/(m^2) Pavel Munguia APRN.LAUNDRY ATTENDANT Return in about 1 year (around 01/12/2026) for yearly physical. Discussed the above with the patient using shared decision making. The patient is in agreement with the diagnostic and treatment plans. documented in this encounter [facility] 10-20-2024 Note HNO ID: [id number] Author: LUCY MOBLEY APRN.SURY Service: ? Author Type: Nurse Practitioner [...] 05/23/2012Pt had two previous C sections at [facility] in [place], [place]. She desires a repeat C section by Dr. Callie Barraza. History of shingles 09/15/2012 September 15, 2012 shingljose diagnosed and ordered acyclovir-risk of transmission extremely [...] with an appro (more content not included)... [facility] 10-20-2024 History of Present illness Narrative History has been obtained from [...] 05/23/2012Pt had two previous C sections at [facility] in [place], [place]. She desires a repeat C section [...] (POC) - BACTERIAL CULTURE, URINE Lucy Mobley APRN.LAUNDRY ATTENDANT documented in this encounter [facility] 10-10-2024 Telephone encounter Note Results sent in my chart [facility] 10-10-2024 Telephone encounter Note ----- Message from Pavel Munguia APRN.CNP sent at 10/10/2024 8:13 AM EDT ----- - Lipids continue to improve, continue diet and exercise changes! - Vitamin D remains low, recommend daily replacement, script sent to pharmacy on file. - Other labs look good. Pavel Munguia APRN.CNP October 10, 2024 8:13 AM [facility] 10-10-2024 Miscellaneous Notes Results sent in my chart ----- Message from Pavel Munguia APRN.CNP sent at 10/10/2024 8:13 AM EDT ----- - Lipids continue to improve, continue diet and exercise changes! - Vitamin D remains low, recommend daily replacement, script sent to pharmacy on file. - Other labs look good. Pavel Munguia APRN.CNP October 10, 2024 8:13 AM documented in this encounter [facility] 07-14-2024 Telephone encounter Note Summary: CVOR NURSE CVOR NURSE Referral placed through the [facility] Portal on July 14, 2024. #[id number] Preferred Provider Dr. brunilda Gallagher MA [facility] 07-14-2024 Miscellaneous Notes Summary: CVOR NURSE CVOR NURSE Referral placed through the [facility] Portal on July 14, 2024. #[id number] Preferred Provider Dr. brunilda Gallagher MA documented in this encounter [facility] 07-14-2024 Note HNO ID: [id number] Author: PAVEL MUNGUIA APRN.LAUNDRY ATTENDANT Service: ? Author Type: Nurse Practitioner Type: Progress Notes Filed: 07/14/2024 10:24 Note Text: [facility] Adult Medicine [address] [place] [address] Date of Evaluation: 07/14/2024 Patient Name: Kristine Freemna : 1990 Chief Complaint: Patient presents with: [...] 05/23/2012Pt had two previous C sections at [facility] in [place], [place]. She desires a repeat C section [...] 124/83 Pulse 75 Resp 16 Ht 5' 2" (1.58m) Wt 152 lb (68.9kg) SpO2 100% [...] Right lower leg: (more content not included)... [facility] 07-14-2024 History of Present illness Narrative Images from the original note were not included. [facility] Adult Medicine [address] [place] [address] Date of Evaluation: 07/14/2024 Patient Name: Kristine [...] 05/23/2012Pt had two previous C sections at [facility] in [place], [place]. She desires a repeat C section [...] 124/83 Pulse 75 Resp 16 Ht 5' 2" (1.58m) Wt 152 lb (68.9kg) SpO2 100% [...] ICD9: V76.2, ICD10: Z12.4 - CONSULT TO CVOR NURSE Pavel Munguia APRN.LAUNDRY ATTENDANT Return in about 6 months (around 01/12/2025) for follow up. Discussed the above with the patient using shared decision making. The patient is in agreement with the diagnostic and treatment plans. documented in this encounter [facility] 12-31-2023 Instructions Viola Costa APRN.CNP - 12/31/2023 9:40 AM EDT [...] worsening, persistent, increasing or new symptoms. [facility] LAB FACTS LAB HOURS: Lab is open [...] CURRENT WAIT TIMES, visit the following link [email or web address] for details My Chart Schedule My Appointment enables you to view your established primary care provider's open schedule and book an appointment online in real-time. This feature is available in internal medicine, family medicine, or pediatrics at any of our [facility] locations and main campus. Hours are subject to change. Express Care is for patients ages 6 months years and older. For Express Care LOCATIONS, HOURS OF OPERATION and CURRENT WAIT TIMES, visit the following link: [email or web address] [email or web address] /locations?dFR[types][0]=Expr ess%20Care%20Clinics& for details. My Chart Schedule My Appointment enables you to view your established primary care provider's open schedule and book an appointment online in real-time. This feature is available in internal medicine, family medicine, or pediatrics at any of our [facility] locations and main campus. documented in this encounter [facility] 12-31-2023 History of Present illness Narrative The history is provided by the patient. No manager language was used. Kristine Freeman is a 33 [...] (Temporal) Resp 12 Ht 157.5 cm (5' 2") Wt 67.1 kg (148 lb) LMP 12/26/2022 [...] 05/23/2012Pt had two previous C sections at [facility] in [place], [place]. She desires a repeat C section [...] for worsening, persistent, increasing or new symptoms. Viola Costa APRN, TEGAN- Medical Decision Making: Problems: Moderate: 2+ stable chronic illnesses Data: Unique test(s) ordered: 2 Risk: Moderate: Moderate risk from testing/treatment Medical Decision Making Level: 4 - Moderate documented in this encounter [facility] 05-27-2023 Miscellaneous Notes I called your patient to offer an appointment per patient she does not and did not agree to see a Psychiatrist she has been taking Zoloft for 10 years she is fine she gets her scripts from PCP your patient refused an appointment with [facility] just wanted you to know/ Thanks documented in this encounter [facility] 05-24-2023 Instructions Viola Costa APRN.CNP - 05/24/2023 11:29 AM EDT (Z00.00) Wellness [...] for worsening, persistent, increasing or new symptoms. [facility] FACTS LAB HOURS: Lab is [...] CURRENT WAIT TIMES, visit the following link [email or web address] /[email or web address]?dFR[types][0]=Expr ess%20Care%20Clinics& for details My Chart Schedule My Appointment enables you to view your established primary care provider's open schedule and book an appointment online in real-time. This feature is available in internal medicine, family medicine, or pediatrics at any of our [facility] locations and main campus. Hours are subject to change. Express Care is for patients ages 6 months years and older. For Express Care LOCATIONS, HOURS OF OPERATION and CURRENT WAIT TIMES, visit the following link: [email or web address] /[email or web address]?dFR[types][0]=Expr ess%20Care%20Clinics& for details. My Chart Schedule My Appointment enables you to view your established primary care provider's open schedule and book an appointment online in real-time. This feature is available in internal medicine, family medicine, or pediatrics at any of our [facility] locations and main campus. documented in this encounter [facility] 05-24-2023 History of Present illness Narrative The history is provided by the patient. No manager language was used. Kristine Freeman is a 32 [...] (Temporal) Resp 15 Ht 157.5 cm (5' 2") Wt 73.9 kg (163 lb) LMP 12/26/2022 [...] normal. No congestion or rhinorrhea. Mouth/Throat: Lips: Marina. No lesions. Mouth: Mucous membranes are moist. [...] normal. Judgment: Judgment normal. Grazyna Trimble RN, ADMISSIONS COUNSELOR student Allergies: Shrimp Hives, Diarrhea, Other: See [...] 05/23/2012Pt had two previous C sections at [facility] in [place], [place]. She desires a repeat C section [...] persistent, increasing or new symptoms. TEACHING PROVIDER (Physician/PA/COMPOSING MACHINE OPERATOR) NOTE OF PERSONAL INVOLVEMENT IN CARE: I have personally seen and examined the patient and performed the medical decision-making components. I have reviewed the Advanced Practice Registered Nurse (COMPOSING MACHINE OPERATOR) Student's documentation and verified the findings in the note as written. Any additions or changes are noted in bold/italics. Signature: Viola Costa Date: 05/24/2023 Time: 11:44 AM Medical Decision Making: Data: Unique test(s) ordered: 3+ Risk: Moderate: Moderate risk from testing/treatment Medical Decision Making Level: 4 - Moderate documented in this encounter [facility] 05-10-2023 Miscellaneous Notes HAY: 12/23/2021 NOV: [...] patient. Sasha Lagos documented in this encounter [facility] 04-09-2023 Miscellaneous Notes Kristine Freeman is calling Viola Costa APRN.CNP today with concern regarding Refill Request Patient has been identified by name and birthdate. Duration of symptoms: N/A Person calling: self Call patient at: at home [phone] (home) [phone] (work) [phone] (cell) Was an appointment scheduled: No Closing statement: Results or non-symptom based questions: Thank you for calling [facility], your call will be returned within [...] Linda De Anda documented in this encounter [facility] 04-07-2022 Miscellaneous Notes HAY: 12/23/2021 NOV: [...] patient. Chely Pal documented in this encounter [facility] 01-14-2022 Hospital Discharge instructions Merle Suero APRN-CNP - 01/14/2022 11:16 [...] Care Everywhere.Nausea and Vomiting Discharge Instructions, Adult (Sudanese)documented in this encounter [facility] 12-24-2021 Miscellaneous Notes Voice mail and my chart Message left for Kristine to contact me to discuss elevated cholesterol and treatment option documented in this encounter [facility] 12-23-2021 Instructions Viola Costa APRN.CNP - 12/23/2021 9:53 AM EDT (Z00.00) Wellness examination (primary encounter diagnosis) Plan: - VITAMIN D 25 HYDROXY, -Cholecalciferol, Vitamin D3, (VITAMIN D) 25 mcg (1,000 unit) cap, -LIPID PANEL, NONFASTING (J45.30) Mild persistent asthma, unspecified whether complicated Plan: - albuterol HFA (PROVENTIL HFA, VENTOLIN HFA) 90 mcg/actuation inhaler, - fluticasone-salmeterol (ADVAIR) 500-50 mcg/dose dsdv, - CONSULT TO PULMONARY MEDICINE [facility] FACTS LAB HOURS: Lab is [...] CURRENT WAIT TIMES, visit the following link [email or web address] /[email or web address]?dFR[types][0]=Expr ess%20Care%20Clinics& for details My Chart Schedule My Appointment enables you to view your established primary care provider's open schedule and book an appointment online in real-time. This feature is available in internal medicine, family medicine, or pediatrics at any of our [facility] locations and main hartly. Hours are subject to change. Express Care is for patients ages 6 months years and older. For Express Care LOCATIONS, HOURS OF OPERATION and CURRENT WAIT TIMES, visit the following link: [email or web address] /[email or web address]?dFR[types][0]=Expr ess%20Care%20Clinics& for details. My Chart Schedule My Appointment enables you to view your established primary care provider's open schedule and book an appointment online in real-time. This feature is available in internal medicine, family medicine, or pediatrics at any of our [facility] locations and main hartly. documented in this encounter [facility] 12-23-2021 History of Present illness Narrative The history is provided by the patient. No manager language was used. Kristine Freeman is a 31 [...] 81 Resp 16 Ht 157.5 cm (5' 2") Wt 72.3 kg (159 lb 6 oz) [...] 05/23/2012Pt had two previous C sections at [facility] in [place], [place]. She desires a repeat C section [...] for worsening, persistent, increasing or new symptoms. Viola Costa APRN, TEGAN-SARAY documented in this encounter [facility] 11-02-2021 Miscellaneous Notes HAY: 07/01/2021 NOV: [...] Gabriela Monzon Ma documented in this encounter [facility] 05-09-2021 Note HNO ID: [id number] Author: RT Pau(R) Service: Radiology Author Type: [...] RT Pau(R) May 09, 2021 10:54 AM [facility] 01-30-2015 History of Past i llness Narrative [...] of this encounter (statuses as of 11/02/2021) [facility] History of Past illness Narrative* Problem [...] of this encounter (statuses as of 12/23/2021) [facility] History of Past illness Narrative* Problem [...] of this encounter (statuses as of 12/24/2021) [facility] History of Past illness Narrative* Problem [...] of this encounter (statuses as of 04/09/2022) [facility] History of Past illness Narrative* Problem [...] of this encounter (statuses as of 09/09/2022) [facility] History of Past illness Narrative* Problem [...] down in a 24-hour period. History of deprjose pradhan, currently 05/23/2012 12/27/2014 Overview: 05/23/2012Pt has [...] of this encounter (statuses as of 05/25/2023) [facility] History of Past illness Narrative* Problem [...] of this encounter (statuses as of 10/06/2023) [facility] History of Past illness Narrative* Problem [...] of this encounter (statuses as of 11/10/2023) [facility] History of Past illness Narrative* Problem [...] of this encounter (statuses as of 11/11/2023) [facility] Juan F Hou [facility] Note Date/Time April 02, 2025 12:15am [facility] Medical Records Department [address] [place] [address] Emergency Department Summary 04/02/25 MR#: [id number] Acct: [id number] Name: KRISTINE FREEMAN Rep #:[id number] : 1990 34 From: Juan F Hou MD PCP: Care Physician,No Primary Status :REG ER Location: ED HPI History of Present Illness Chief Complaint: Bite Detail of Chief Complaint: Patient believes she was bit by something mid medial left leg Informant: patient Onset/Context/Timing Onset: Today and Hours Context: Sudden Onset Timing: Continuous Quality: Slight redness, swelling and tenderness Location: Mid medial left leg, recently diagnosed with poison evan Current Severity: Mild Maximum Severity: Moderate Worsened by: Pain to palpation Relieved by: Nothing Associated Symptoms Associated Symptoms: No paresthesia, anesthesia or motor aches. She is not immune suppressed. Narrative Narrative: Patient is a 34-year-old female. She presents with she believes to be a spider bite medial mid left leg. She states she was out clearing an area because she is getting a horse. She thought something may have bit her. She was wearing boots. She is not immune suppressed. She is not diabetic. She has no allergies to antibiotics. She does have a history of asthma that is persistent. She denies paresthesia, anesthesia or motor weakness left lower extremity. Prior similar symptoms: No Recent [facility] Medical History (Updated 04/02/25 @ 00:[address] Juan F Hou MD) Bronchitis Shortness of breath Chronic cough Home Medications ?Medication ?Instructions ?Recorded ?Last Taken ?Type sertraline 100 mg tablet (Zoloft) 100 mg PO QDAY 09/20 Unknown History fluticasone furoate 100 1 inh inhalation Q24H #30 ea 09/28/17 Unknown Rx mcg/actuation blister powder for inhalation (Arnuity Ellipta) albuterol sulfate 90 mcg/actuation 1 - 2 puff inhalati on Q4H PRN PRN 09/22/18 Unknown Rx aerosol inhaler Wheezing ##1 fluticasone 500 mcg-salmeterol 50 1 inh inhalation BID #60 ea 10/24/19 Unknown Rx mcg/dose blistr powdr for inhalation (Advair Diskus) Allergy/AdvReac Type Severity Reaction Status Date / Time No Known Allergies Allergy Verified 04/01/25 23:04 Family History Mother Multiple sclerosis Father Diabetes Surgical History H/O section Social History (Updated 04/02/25 @ 00:[address] Juan F Hou MD) household members: spouse and children Smoking Status: Never smoker second hand exposure: No alcohol intake: never substance use type: does not use ROS ROS ED Constitutional Constitutional ED: Denies chills or fever(s) Cardiovascular Cardiovascular: Denies palpitations Respiratory/Chest Respiratory/Chest: Denies dyspnea Integumentary Reports rash Hematologic/Lymphatic Hematologic/Lymphatic: Reports systems reviewed and no addt'l complaints, exceptas documented EXAM Physical Exam Const Vital Signs: 04/01/25 23:04 Temperature 97.1 F L Temperature Source Temporal Pulse Rate 89 Respiratory Rate 18 Blood Pressure 148/85 H Blood Pressure Mean 106 Pulse Ox 100 Oxygen Delivery Method Room Air Positive well nourished and well developed General Appearance ED: well developed and NAD Eyes PERRL and EOMs intact bilaterally Resp normal respiratory effort Cardio regular rate and regular rhythm Extremity Negative for normal to inspection Extremity Narrative: There is a small area of erythema. There is no induration, fluctuance, lymphangitis or popliteal lymphadenopathy. There is appears to be a foreign body in the center of the lesion. Palpation reveals something rough and hard. It appears black. Neuro oriented x3, CN's II-XII intact bilaterally and no sensory deficits noted Sensorium / Orientation: alert Psych mental status grossly normal Skin Skin Narrative: Wound medial mid left leg with what appears to be a retained foreign body. MDM MDM MDM Narrative Medical decision making narrative: Patient has what appears to be a foreign body is causing slight reaction. Will obtain consent for incision and removal of foreign body. The area was anesthetized with 1% lidocaine for local filtration. Incision was made using a 15 blade. Part of the foreign body was removed. Presumed to be wood. It did fragment. The incision was lengthened slightly. The foreign bodywas removed in total. Will have nurse apply appropriate dressing and discharge with appropriate home- going instructions. Discharge Plan Triage Chief Complaint: Bite ED Provider: Juan F Hou Dx/Rx/DC Orders Clinical Impression: Foreign body (FB) in soft tissue, Elevated blood-pressure reading without diagnosis of hypertension Instructions: ED Foreign Body, Soft Tissue (Removed), ED Hypertension, To Be Confirmed Prescriptions: No Action sertraline [Zoloft] 100 mg tablet 100 mg PO QDAY fluticasone furoate [Arnuity Ellipta] 100 mcg/actuation blister with device 1 inh INHALATION Q24H Qty: 30 0RF Rx Instructions: administer at approximately same time(s) each day albuterol sulfate 90 mcg/actuation HFA aerosol inhaler 1 - 2 puff INHALATION Q4H PRN PRN (Reason: Wheezing) Qty: 1 6RF fluticasone propion-salmeterol [Advair Diskus] 500-50 mcg/dose blister with device 1 inh INHALATION BID Qty: 60 6RF Primary Care Provider: Care Physician,No Primary Referrals: Care Physician,No Primary [Primary Care Provider] - Activity Restrictions/Additional Instructions: You need to contact your provider that is listed on your insurance card issued to you by care source for blood pressure check in 1 to 2 weeks. If there is any concern that the wound is infected please return to the emergency department Print Language: Sudanese Disposition Disposition: Home, Self Care What to do if you have Problems For any increased pain, shortness of breath, bleeding, nausea or vomiting, chestpain, or any unexpected problems, contact your Primary Care Provider. Call [facility] ([phone]) or report to the closest Emergency Room. Call 911 if necessary. 04/02/25 0015 <Electronically signed by Juan F Hou MD> Cosigner Signature (if applicable): CC: No Primary Care Physician ~ Signed [facility] Work Phone: Evaluation note* Diagnosis Anxiety Anxiety state, unspecified [facility] Wellness examination- Primary Mild persistent asthma, unspecified whether complicated Need for vaccination Need for prophylactic vaccination and inoculation against unspecified single disease [facility] Diagnosis Nausea and vomiting, intractability of vomiting not specified, unspecified vomiting type- Primary [facility] Diagnosis Anxiety Anxiety state, unspecified [facility] Diagnosis Anxiety Anxiety state, unspecified [facility] Diagnosis Wellness examination- Primary Screening for depression Vaccination declined Need for vaccination Need for prophylactic vaccination and inoculation against unspecified single disease Overweight (BMI 25.0-29.9) Overweight Anxiety Anxiety state, unspecified [facility] Diagnosis Anxiety Anxiety state, unspecified [facility] Diagnosis Anxiety Anxiety state, unspecified [facility] Diagnosis Vitamin D deficiency- Primary Unspecified vitamin D deficiency Mild persistent asthma, unspecified whether complicated Anxiety Anxiety state, unspecified Hyperlipidemia, mixed Mixed hyperlipidemia [facility] Encounter to establish care- Primary Other reasons for seeking consultation Anxiety Anxiety state, unspecified Screening for depression Hyperlipidemia, mixed Mixed hyperlipidemia Vitamin D deficiency Unspecified vitamin D deficiency Cervical cancer screening Screening for malignant neoplasm of the cervix documented [facility]* Diagnosis Vitamin D deficiency- Primary Unspecified vitamin D deficiency documented [facility]* Diagnosis Flank pain- Primary Abdominal pain, unspecified site documented in this [facility]* Diagnosis Follow-up exam- Primary Unspecified follow-up examination Mild persistent asthma, unspecified whether complicated (HCC) Seasonal allergies Allergic rhinitis, cause unspecified Hyperlipidemia, mixed Mixed hyperlipidemia documented [facility] noteNo assessment information availableWMercy Health St[facility] Work Phone: Evaluation note* Diagnosis Wound infection- Primary Posttraumatic wound infection not elsewhere classified documented in this encounter [facility] for referral (narrative)No reason for referral information availableWMercy Health St. [facility] Work Phone: Summary Purpose Family History No Family History Records Found Relationship Condition Age at Onset Recorded Date/T brijesh mother Multiple sclerosis Unknown father Diabetes mellitus Unknown Advance Directives No Advanced Directives Records Found Advance Directive Response Recorded Date/ Time Do you have a Healthcare Power of Elevator Technician? No April 01, 2025 11:36pm Reason for Referral Specialty Diagnoses / Procedures Referred By Contac t Referred To Contact Diagnoses Mild persistent asthma, unspecified whether complicated Viola Costa APRN.LAUNDRY ATTENDANT [id number] [place] [id number] Referral ID Status Reason Start Date Expiration Date Visits Re quested Visits Authorized [id number] Closed 1 1 Specialty Diagnoses / Procedures Referred By Contac t Referred To Contact Diagnoses Anxiety Procedures CONSULT TO PSYCHIATRY OFFICE/OUTPATIENT [facility] 60-74 MINUTES Viola Costa APRN.CNP [address] [place] [address] Referral ID Status Reason Start Date Expiration Date Visits Requested Visits Authorized [id number] Pending Review PCP Requested Referral 3 05/23/2024 1 1 Specialty Diagnoses / Procedures Referred By Contac t Referred To Contact Diagnoses Cervical cancer screening Procedures CONSULT TO CVOR NURSE OFFICE/OUTPATIENT [facility] 60 MINUTES Pavel Munguia APRN.LAUNDRY ATTENDANT [address] [place] [address] Referral ID Status Reason Start Date Expiration Date Visits Requested Visits Authorized [id number] Authorized PCP Requested Referral Auto-Generate d Referral 4 07/14/2025 1 1 Chief Complaint and Reason for Visit Chief Complaint Admit Date bug bite April 01, 2025 11 :03pm Additional Source Comments INFORMATION SOURCE (unrecogn ized section and content) DATE CREATED AUTHOR 05/10/2021 [facility] DATE CREATED AUTHOR AUTHOR'S ORGANIZ ATION 01/25/2022 [facility] DATE CREATED AUTHOR AUTHOR'S ORGANIZ ATION 01/15/2025 [facility] DATE CREATED AUTHOR AUTHOR'S ORGANIZ ATION 04/11/2025 [facility] DATE CREATED AUTHOR AUTHOR'S ORGANIZ ATION 06/12/2025 [facility] Source Comments (unrecognize d section and content) In the event this informatio n is protected by the Federal Confidentiality of Alcohol and Drug Abuse Patient Records regulations: The Federal rules restrict any use of the information to criminally investigate or prosecute any alcohol or drug abuse patient.[facility] the event this information is protected by the Federal Confidentiality of Alcohol and Drug Abuse Patient Records regulations: The Federal rules restrict any use of the information to criminally investigate or prosecute any alcohol or drug abuse patient.[facility] Hospital[facility] the event this information is protected by the Federal Confidentiality of Alcohol and Drug Abuse Patient Records regulations: The Federal rules restrict any use of the information to criminally investigate or prosecute any alcohol or drug abuse patient.[facility] Hospital[facility] the event this information is protected by the Federal Confidentiality of Alcohol and Drug Abuse Patient Records regulations: The Federal rules restrict any use of the information to criminally investigate or prosecute any alcohol or drug abuse patient.[facility] Hospital[facility] the event this information is protected by the Federal Confidentiality of Alcohol and Drug Abuse Patient Records regulations: The Federal rules restrict any use of the information to criminally investigate or prosecute any alcohol or drug abuse patient.[facility] HospitalIn the event this information is protected by the Federal Confidentiality of Alcohol and Drug Abuse Patient Records regulations: The Federal rules restrict any use of the information to criminally investigate or prosecute any alcohol or drug abuse patient.[facility] HospitalIn the event this information is protected by the Federal Confidentiality of Alcohol and Drug Abuse Patient Records regulations: The Federal rules restrict any use of the information to criminally investigate or prosecute any alcohol or drug abuse patient.[facility] Hospital[facility] the event this information is protected by the Federal Confidentiality of Alcohol and Drug Abuse Patient Records regulations: The Federal rules restrict any use of the information to criminally investigate or prosecute any alcohol or drug abuse patient.[facility] Hospital[facility] the event this information is protected by the Federal Confidentiality of Alcohol and Drug Abuse Patient Records regulations: The Federal rules restrict any use of the information to criminally investigate or prosecute any alcohol or drug abuse patient.[facility] HospitalIn the event this information is protected by the Federal Confidentiality of Alcohol and Drug Abuse Patient Records regulations: The Federal rules restrict any use of the information to criminally investigate or prosecute any alcohol or drug abuse patient.[facility] HospitalIn the event this information is protected by the Federal Confidentiality of Alcohol and Drug Abuse Patient Records regulations: The Federal rules restrict any use of the information to criminally investigate or prosecute any alcohol or drug abuse patient.[facility] HospitalIn the event this information is protected by the Federal Confidentiality of Alcohol and Drug Abuse Patient Records regulations: The Federal rules restrict any use of the information to criminally investigate or prosecute any alcohol or drug abuse patient.[facility] the event this information is protected by the Federal Confidentiality of Alcohol and Drug Abuse Patient Records regulations: The Federal rules restrict any use of the information to criminally investigate or prosecute any alcohol or drug abuse patient.[facility] the event this information is protected by the Federal Confidentiality of Alcohol and Drug Abuse Patient Records regulations: The Federal rules restrict any use of the information to criminally investigate or prosecute any alcohol or drug abuse patient.[facility] the event this information is protected by the Federal Confidentiality of Alcohol and Drug Abuse Patient Records regulations: The Federal rules restrict any use of the information to criminally investigate or prosecute any alcohol or drug abuse patient.[facility] HospitalIn the event this information is protected by the Federal Confidentiality of Alcohol and Drug Abuse Patient Records regulations: The Federal rules restrict any use of the information to criminally investigate or prosecute any alcohol or drug abuse patient.[facility] Reason for Visit (unrecogniz ed section [...] Establishing care re fills Reason Comments Consult CVOR NURSE Reason Onset Date Comments Results 10/10/2024 Reason Comments Back Pain Left side flank pain , nauseated, headache x 4 days Reason Comments Follow Up 6 Month. Allergies h ave been bad. [place] Itchy red eyes, nose, sore throat, sneezing. Reason Comments Derm Problem piece of wood remove d from leg on Wednesday at ER, now drainage and painful Care Teams (unrecognized sec tion and content) Qa Auditor Relationship Specialty Start Date End Date Viola Costa, COMPOSING MACHINE OPERATOR.LAUNDRY ATTENDANT [address] [place] [address] PCP - General Family Practice 06/01/21 Qa Auditor Relationship Specialty Start Date End Date Bola Costaula, COMPOSING MACHINE OPERATOR.LAUNDRY ATTENDANT [address] [place] [address] PCP - General Family Practice 06/01/21 Qa Auditor Relationship Specialty Start Date End Date Bola Costaula, COMPOSING MACHINE OPERATOR.LAUNDRY ATTENDANT [address] [place] [address] PCP - General Family Practice 06/01/21 Qa Auditor Relationship Specialty Start Date End Date Bola Costaula, COMPOSING MACHINE OPERATOR.LAUNDRY ATTENDANT [address] [place] [address] PCP - General Family Practice 06/01/21 Qa Auditor Relationship Specialty Start Date End Date Viola Costa, COMPOSING MACHINE OPERATOR.LAUNDRY ATTENDANT [address] [place] [address] PCP - General Family Medicine 06/01/21 Qa Auditor Relationship Specialty Start Date End Date Bola Costaula, COMPOSING MACHINE OPERATOR.LAUNDRY ATTENDANT [address] [place] [address] PCP - General Family Medicine 06/01/21 Qa Auditor Relationship Specialty Start Date End Date Bola Costaula, COMPOSING MACHINE OPERATOR.LAUNDRY ATTENDANT [address] [place] [address] PCP - General Family Medicine 06/01/21 Qa Auditor Relationship Specialty Start Date End Date Viola Costa, COMPOSING MACHINE OPERATOR.LAUNDRY ATTENDANT [address] [place], [place] [id number] PCP - General Family Medicine 06/01/21 Qa Auditor Relationship Specialty Start Date End Date Viola Costa, COMPOSING MACHINE OPERATOR.LAUNDRY ATTENDANT [address] [place] [id number] PCP - General Family Medicine 06/01/21 Qa Auditor Relationship Specialty Start Date End Date Viola Costa, COMPOSING MACHINE OPERATOR.LAUNDRY ATTENDANT [address] [place] [id number] PCP - General Family Medicine 06/01/21 Qa Auditor Relationship Specialty Start Date End Date Pavel Munguia, COMPOSING MACHINE OPERATOR.LAUNDRY ATTENDANT [facility] [place] [address] PCP - General Family Medicine 07/14/24 Qa Auditor Relationship Specialty Start Date End Date Pavel Munguia, COMPOSING MACHINE OPERATOR.LAUNDRY ATTENDANT [facility] [place] [address] PCP - General Family Medicine 07/14/24 Qa Auditor Relationship Specialty Start Date End Date Pavel Munguia, COMPOSING MACHINE OPERATOR.LAUNDRY ATTENDANT [address] [place] [address] PCP - General Family Medicine 07/14/24 Qa Auditor Relationship Specialty Start Date End Date Pavel Munguia, COMPOSING MACHINE OPERATOR.LAUNDRY ATTENDANT [address] [place] [address] PCP - General Family Medicine 07/14/24 Team Status: Active Member Role/Relationship Status Dates No Primary Care Physician Primary Care Provider Active Team Status: Inactive Member Role/Relationship Status Dates Dr. Juan F Hou MD Emergency Provider Active Sta rt: April 01, 2025 End: April 02, 2025 No Primary Care Physician Primary Care Provider Active Start: April 01, 2025 End: April 02, 2025 Qa Auditor Relationship Specialty Start Date End Date AryjazmyneEtienne cobianAPRN. nanciLAUNDRY ATTENDANT [facility] [place] [address] PCP - General Family Medicine 07/14/24 Scheduled [...] 2107 (IV New Bag - Provider: Akiko Singletary RN) 0024 (IV Stop - Provider: Akiko Singletary RN) Goals (unrecognized section and content) Goals may be documented in a n alternate section FOR RECORDS PERTAINING TO PATIENTS WHO ARE [...] BE BASED ON THE PRIMARY CLINICAL RECORDS. [facility]. provides no warranty or guarantee of the accuracy or completeness of information in this document.
[2025-06-14] MEDS: Tetracaine 0.5% Ophthalmic Bottle 1 DRP RIGHT EYE (21:14)
[2025-06-14 21:29] VITALS: BP 141/89; PULSE 69; RESP 18; TEMP 36.6; O2SAT 100
--- NOTE | 2025-06-14 21:30 | EX.ED.VIS.EY ---
HPI History of Present Illness Chief Complaint: Eye Problem Narrative Narrative: Patient is a 34-year-old female presenting to the emergency department for a irritated right eye. Patient states that she was cleaning and feeding her horse and go earlier today and she thinks this is what may have caused her eye to be irritated. She states this has never happened before. She states this evening while she was sitting at home she noticed that he had some mild swelling around her eye. She endorses watery drainage from her eye. She states that it is itchy. She did try using eyedrops at home with some mild relief of the symptoms. She denies any visual changes including blurry vision or double vision. Denies headache. Denies any trauma to the eye. Denies any headache. PFSH PFSH Medical History Bronchitis Shortness of breath Chronic cough Home Medications Medication Instructions Recorded Last Taken Type sertraline 100 mg tablet (Zoloft) 100 mg PO QDAY 09/20/17 Unknown History fluticasone furoate 100 1 inh inhalation Q24H #30 ea 09/28/17 Unknown Rx mcg/actuation blister powder for inhalation (Arnuity Ellipta) albuterol sulfate 90 mcg/actuation 1 - 2 puff inhalation Q4H PRN PRN 09/22/18 Unknown Rx aerosol inhaler Wheezing ##1 fluticasone 500 mcg-salmeterol 50 1 inh inhalation BID #60 ea 10/24/19 Unknown Rx mcg/dose blistr powdr for inhalation (Advair Diskus) Allergy/AdvReac Type Severity Reaction Status Date / Time No Known Allergies Allergy Verified 06/14/25 20:22 Family History Mother Multiple sclerosis Father Diabetes Surgical History H/O section Social History household members: spouse and children housing: house Smoking Status: Never smoker second hand exposure: No alcohol intake: never substance use type: does not use ROS ROS ED ROS Narrative see HPI EXAM Physical Exam Narrative Exam Narrative: Vital signs: Reviewed General: Alert and oriented x 3. No acute distress HEENT: Head is normocephalic and atraumatic, sinuses nontender, pupils equal round and reactive. Mild conjunctival injection. Watery drainage. No purulent drainage. No proptosis. No pain with EOM, EOMI. Some very mild periorbital edema mainly below the right eyelid. No erythema or warmth periorbitally. No changes to the left eye. Nares are patent. Oropharynx and throat exams normal. Neck: Supple without lymphadenopathy nontender Cardiovascular: Regular rate and rhythm, no murmurs. No rubs or gallops. Normal S1 and S2 Respiratory: Clear to auscultation bilaterally. No wheezes, rales, rhonchi Abdominal: Soft and nontender. Normal bowel sounds. No guarding or rebound. Nonsurgical abdomen Extremities: No tenderness. No bruising. Normal range of motion. Normal sensation. Skin: No rash or redness. The rest of the physical exam is unremarkable Const Vital Signs: 06/14/25 20:21 06/14/25 21:29 Temperature 97.9 F 97.9 F Temperature Source Temporal Pulse Rate 69 69 Respiratory Rate 18 18 Blood Pressure 141/89 H 141/89 H Blood Pressure Mean 106 106 Pulse Ox 100 100 Oxygen Delivery Method Room Air MDM MDM MDM Narrative Medical decision making narrative: Patient is a 34-year-old female presenting to the emergency department for irritation of her right eye. Patient was seen and examined. Vitals are stable. Patient resting bed comfortably in no acute distress. Visual acuity with 20/25 left eye, 20/30 right eye, 20/25 bilateral. No headache or eye pain. Reactive pupil, I do not think this is acute angle-closure glaucoma. No purulent drainage from the eye I do not think this is a bacterial conjunctivitis. Extraocular movements are intact and there is no pain with this, no erythema or warmth periorbitally, I do not think this is a pre or postseptal cellulitis. There is consistent watery drainage from the eye and some mild conjunctival injection with mild periorbital edema that I think is most likely consistent with an allergic conjunctivitis. Given the patient was feeding and cleaning her horse, will rule out corneal abrasion. Tetracaine was applied to the right eye, fluorescein stain used and under johnson lamp, no corneal abrasion seen. Lids were everted with no FB seen. Patient was given a dose of Claritin here. She was instructed to take Claritin during the day over the next few days and Benadryl at night to help with her symptoms. Instructed to use eyedrops to help with the itching. Instructed to return if she has changes to her vision, headache, purulent discharge from her eye. Patient discharged from the Emergency Department. I do not feel that the patient's evaluation reveals any acute reason for admission at this time. I instructed them to either follow-up with their primary care physician or promptly return to the Emergency Department for reevaluation should symptoms worsen or new symptoms develop. I explained what symptoms would indicate the need to return to the emergency department. Shared decision making was used. The patient voiced understanding of the treatment plan and is agreeable with it. Clinical impression: Allergic conjunctivitis History & Record Review Discussion w/independent historian: Patient Discharge Plan Triage Chief Complaint: Eye Problem ED Provider: Alison Fernandez Dx/Rx/DC Orders Clinical Impression: Acute allergic conjunctivitis of right eye Instructions: ED Conjunctivitis, Allergic Prescriptions: No Action sertraline [Zoloft] 100 mg tablet 100 mg PO QDAY fluticasone furoate [Arnuity Ellipta] 100 mcg/actuation blister with device 1 inh INHALATION Q24H Qty: 30 0RF Rx Instructions: administer at approximately same time(s) each day albuterol sulfate 90 mcg/actuation HFA aerosol inhaler 1 - 2 puff INHALATION Q4H PRN PRN (Reason: Wheezing) Qty: 1 6RF fluticasone propion-salmeterol [Advair Diskus] 500-50 mcg/dose blister with device 1 inh INHALATION BID Qty: 60 6RF Primary Care Provider: Care Physician,No Primary Referrals: Edu Aguilar MD [Med Staff - Active Staff, Family Practice] - As soon as possible Care Physician,No Primary [Primary Care Provider, Medical] Activity Restrictions/Additional Instructions: You can take Claritin during the day or Benadryl at night for the next few days to try to help with the swelling and the itching. You can also use eyedrops like the one discussed, Pataday drops. You need to return to the emergency department if you have any vision changes, change in the discharge from your eye or headache. Your evaluation in the Emergency Department did not reveal any acute reason for admission. However, I want to emphasize that you may be early in the course of a disease process or illness even if it is not present. For this reason you should follow-up within 24 hours for reevaluation with either your primary care physician or if necessary back here in the Emergency Department. You should return to the Emergency Department immediately if your symptoms worsen or new symptoms develop. Print Language: Dominican Disposition Disposition: Home, Self Care Discharge Date/Time: 06/14/25 21:30
== END 2025-06-14 21:30 | disposition home or self-care (01) ==
PROVIDERS: Emergency Provider Student in an Organized Health Care Education/Training Program; Visit Provider Student in an Organized Health Care Education/Training Program
DX: H10.11 Acute atopic conjunctivitis, right eye (principal)
CPT/HCPCS: 99283